=== PATIENT | female | born 1980 | race Caucasian/White ===

== ENCOUNTER 2017-11-07 04:58 | Emergency (ER) | payer SELFPAY ==
[2017-11-07] MEDS ORDERED: DOXYCYCLINE 100 MG CAP PO ONE (05:31)
[2017-11-07] MEDS ORDERED: CEPHALEXIN 250 MG CAP ONE (05:31)
[2017-11-07] MEDS ORDERED: MUPIROCIN 2% OINT 22GM TUBE TOP ONE (05:31)
--- NOTE | 2017-11-07 05:54 | EDPHYS ---
Physician Documentation [facility] Name: Mahnaz Daniel Age: 36 yrs Sex: Female : 1980 Arrival Date: 11/07/2017 Time: 05:01 Bed 4 Private MD: ED Physician Patrick Michelle HPI: 11/07 05:23 This 36 yrs old Female presents to ER via Ambulatory with complaints of Foot amanda Pain, Insect Bite, Arm Pain. 05:23 The patient presents with pain. The complaints affect the right foot. Context: The amanda problem was sustained at an unknown location. Onset: The symptoms/episode began/occurred 3 day(s) ago. Modifying factors: The symptoms are alleviated by elevation of extremity, the symptoms are aggravated by weight bearing, wearing shoes. Associated signs and symptoms: Pertinent positives: swelling. Severity of symptoms: At their worst the symptoms were mild, moderate, in the emergency department the symptoms are unchanged. The patient has experienced similar episodes in the past, a few times. 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 - Social history:: Smoking status: Patient uses tobacco products, smokes one-half pack cigarettes per day, Patient uses street drugs, cocaine, last used 3-4 days ago, Patient/guardian denies using alcohol. - Ebola Screening: : Patient negative for fever greater than or equal to 101.5 degrees Fahrenheit, and additional compatible Ebola Virus Disease symptoms Patient denies exposure to infectious person Patient denies travel to an Ebola-affected area in the 21 days before illness onset. - Family history:: not pertinent. ROS: 05:23 Constitutional: Negative for fever, chills, and weight loss, Eyes: Negative for injury, amanda pain, redness, and discharge, ENT: Negative for injury, pain, and discharge, Neck: Negative for injury, pain, and swelling, Cardiovascular: Negative for chest pain, palpitations, and edema, Respiratory: Negative for shortness of breath, cough, wheezing, and pleuritic chest pain, Abdomen/GI: Negative for abdominal pain, nausea, vomiting, diarrhea, and constipation, Back: Negative for injury and pain, : Negative for injury, bleeding, discharge, and swelling, MS/Extremity: Negative for injury and deformity, Neuro: Negative for headache, weakness, numbness, tingling, and seizure, Psych: Negative for depression, anxiety, suicide ideation, homicidal ideation, and hallucinations, Allergy/Immunology: Negative for hives, rash, and allergies, Endocrine: Negative for neck swelling, polydipsia, polyuria, polyphagia, and marked weight changes. 05:23 Skin: Positive for swelling. Exam: 05:23 Constitutional: This is a well developed, well nourished patient who is awake, alert, amanda and in no acute distress. Head/Face: Normocephalic, atraumatic. Eyes: Pupils equal round and reactive to light, extra-ocular motions intact. Lids and lashes normal. Conjunctiva and sclera are non-icteric and not injected. Cornea within normal limits. Periorbital areas with no swelling, redness, or edema. ENT: Nares patent. No nasal discharge, no septal abnormalities noted. Tympanic membranes are normal and external auditory canals are clear. Oropharynx with no redness, swelling, or masses, exudates, or evidence of obstruction, uvula midline. Mucous membranes moist. Neck: Trachea midline, no thyromegaly or masses palpated, and no cervical lymphadenopathy. Supple, full range of motion without nuchal rigidity, or vertebral point tenderness. No Meningismus. Chest/axilla: Normal chest wall appearance and motion. Nontender with no deformity. No lesions are appreciated. Cardiovascular: Regular rate and rhythm with a normal S1 and S2. No gallops, murmurs, or rubs. Normal PMI, no JVD. No pulse deficits. Respiratory: Lungs have equal breath sounds bilaterally, clear to auscultation and percussion. No rales, rhonchi or wheezes noted. No increased work of breathing, no retractions or nasal flaring. Abdomen/GI: Soft, non-tender, with normal bowel sounds. No distension or tympany. No guarding or rebound. No evidence of tenderness throughout. Back: No spinal tenderness. No costovertebral tenderness. Full range of motion. MS/ Extremity: Pulses equal, no cyanosis. Neurovascular intact. Full, normal range of motion. Neuro: Awake and alert, GCS 15, oriented to person, place, time, and situation. Cranial nerves II-XII grossly intact. Motor strength 5/5 in all extremities. Sensory grossly intact. Cerebellar exam normal. Normal gait. 05:23 Skin: Appearance: Color: erythematous, Temperature: normal temperature, Moisture: normal moisture, petechiae, not noted, ecchymosis, not noted, diaphoresis is not appreciated, cellulitis, that is mild. Vital Signs: 05:14 BP 140 / 99; Pulse 99; Resp 18; Temp 98.1(O); Pulse Ox 98% on R/A; Weight 83.91 kg (R); fc Height 5 ft. 7 in. (170.18 cm) (R); Pain 8/10; 06:00 BP 130 / 94; Pulse 91; Resp 18; Pulse Ox 99% on R/A; aa1 05:14 Body Mass Index 28.97 (83.91 kg, 170.18 cm) fc MDM: 05:08 Patient medically screened. [facility] 05:23 Data reviewed: vital signs, nurses notes. [facility] 11/07 05:49 Order name: Urine Dipstick--Ancillary (enter results) 11/07 05:49 Order name: Urine --Ancillary (enter results) 11/07 05:23 Order name: Foot Right 2 View XRAY [facility] 11/07 05:50 Order name: Urine Culture [facility] 11/07 05:50 Order name: Urine Dipstick-Ancillary EDKS 11/07 05:28 Order name: Urine Dipstick-Ancillary (obtain specimen); Complete Time: 05:47 [facility] 11/07 05:28 Order name: Urine Test (obtain specimen); Complete Time: 05:47 [facility] 11/07 05:30 Order name: Post-op shoe; Complete Time: 06:00 [facility] Administered Medications: 05:33 Drug: KeFLEX 500 mg Route: PO; aa1 06:03 Follow up: Response: No adverse reaction aa1 05:34 Drug: Bactroban Ointment 2 % 1 application Route: Topical; Site: affected area; aa1 05:35 Drug: Doxycycline 200 mg Route: PO; aa1 06:03 Follow up: Response: No adverse reaction aa1 Disposition: 11/07/17 05:53 Discharged to Home. Impression: Pain in right foot - callus, bunion, Cutaneous abscess of chest wall, Cellulitis of chest wall, Cellulitis of face, Cystitis, Cocaine abuse, Insect bite (nonvenomous) of front wall of thorax. - Condition is Stable. - Discharge Instructions: Insect Bite, [id number], Insect Bite, Cellulitis, Stimulant Use Disorder-Cocaine, Dysuria, Cellulitis, [id number], MRSA FAQs - GARCIA. - Prescriptions for Bactroban 2 % Topical Ointment - Apply to affected area 1 application by TOPICAL route every 12 hours; 30 gram. Keflex 500 mg Oral Capsule - take 1 capsule by ORAL route every 6 hours for 10 days; 28 capsule. Tylenol- Codeine #3 300-30 mg Oral Tablet - take 2 tablets by ORAL route every 6 hours As needed; 20 tablet. Doxycycline Hyclate 100 mg Oral Tablet - take 1 tablet by ORAL route every 12 hours; 20 tablet. - Medication Reconciliation Form, Thank You Letter, Antibiotic Education, Prescription Opioid Use form. - Follow up: Private Physician; When: 2 - 3 days; Reason: Recheck today's complaints, Continuance of care, Re-evaluation by your physician. - Problem is new. - Symptoms have improved. Signatures: Dispatcher [employer] EDMS Zo Crain RN RN aa1 Patrick Michelle MD MD cha Chretien, Felicia, RN RN Corrections: (The following items were deleted from the chart) 06:18 05:53 11/07/2017 05:53 Discharged to Home. Impression: Pain in right foot - callus, aa1 bunion; Cutaneous abscess of chest wall; Cellulitis of chest wall; Cellulitis of face; Cystitis; Cocaine abuse; Insect bite (nonvenomous) of front wall of thorax. Condition is Stable. Discharge Instructions: Cellulitis, Cellulitis, [id number], MRSA FAQs - GARCIA, Insect Bite, [id number]-de-[id number], Insect Bite, Stimulant Use Disorder-Cocaine. Prescriptions for Bactroban 2 % Topical Ointment - Apply to affected area 1 application by TOPICAL route every 12 hours; 30 gram, Keflex 500 mg Oral Capsule - take 1 capsule by ORAL route every 6 hours for 10 days; 40 capsule, Tylenol-Codeine #3 300-30 mg Oral Tablet - take 2 tablets by ORAL route every 6 hours As needed; 20 tablet, Doxycycline Hyclate 100 mg Oral Tablet - take 1 tablet by ORAL route every 12 hours; 20 tablet. and Forms are Medication Reconciliation Form, Thank You Letter, Antibiotic Education, Prescription Opioid Use. Follow up: Private Physician; When: 2 - 3 days; Reason: Recheck today's complaints, Continuance of care, Re-evaluation by your physician. Problem is new. Symptoms have improved. amanda
--- NOTE | 2017-11-07 05:54 | ER ---
Nurse's Notes [facility] Name: Mahnaz Daniel Age: 36 yrs Sex: Female : 1980 Arrival Date: 11/07/2017 Time: 05:01 Bed 4 Private MD: Diagnosis: Pain in right foot-callus, bunion;Cutaneous abscess of chest wall;Cellulitis of chest wall;Cellulitis of face;Cystitis;Cocaine abuse;Insect bite (nonvenomous) of front wall of thorax Presentation: 11/07 05:11 Presenting complaint: Patient states: that she has bug bites to her right "underarm" fc and chin that hurt. Also has callus to right foot that has split and hurts. Transition of care: patient was not received from another setting of care. Onset of symptoms was October 30, 2017. Risk Assessment: Do you want to hurt yourself or someone else? Patient reports no desire to harm self or others. Initial Sepsis Screen: Does the patient meet any 2 criteria? HR > 90 bpm. Yes Does the patient have a suspected source of infection? Yes: Skin breakdown/wound. Care prior to arrival: None. 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 - Social history:: Smoking status: Patient uses tobacco products, smokes one-half pack cigarettes per day, Patient uses street drugs, cocaine, last used 3-4 days ago, Patient/guardian denies using alcohol. - Ebola Screening: : Patient negative for fever greater than or equal to 101.5 degrees Fahrenheit, and additional compatible Ebola Virus Disease symptoms Patient denies exposure to infectious person Patient denies travel to an Ebola-affected area in the 21 days before illness onset. - Family history:: not pertinent. Screenin:15 Abuse screen: Denies threats or abuse. Nutritional screening: No deficits noted. Tuberculosis screening: No symptoms or risk factors identified. Fall Risk None identified. Assessment: 05:20 General: Appears in no apparent distress. comfortable, unkempt, Behavior is calm, aa1 cooperative, appropriate for age. Pain: Complains of pain in right foot and submental area. Neuro: Level of Consciousness is awake, alert, obeys commands, Oriented to person, place, time, situation, Moves all extremities. Full function Gait is steady. Respiratory: Airway is patent Respiratory effort is even, unlabored, Respiratory pattern is regular, symmetrical. GI: No signs and/or symptoms were reported involving the gastrointestinal system. : No signs and/or symptoms were reported regarding the genitourinary system. EENT: No signs and/or symptoms were reported regarding the EENT system. Derm: Skin is intact, is healthy with good turgor, has lesions on face and chin Skin is pink, warm \\T\\ dry. callus noted to bottom of R foot with cracking present. Musculoskeletal: Circulation, motion, and sensation intact. Capillary refill < 3 seconds, Range of motion: intact in all extremities. 06:04 Reassessment: Patient appears in no apparent distress at this time. Patient is alert, aa1 oriented x 3, equal unlabored respirations, skin warm/dry/pink. Discussed d/c \\T\\ f/u instructions with pt; denies questions or concerns at this time. Vital Signs: 05:14 BP 140 / 99; Pulse 99; Resp 18; Temp 98.1(O); Pulse Ox 98% on R/A; Weight 83.91 kg (R); Height 5 ft. 7 in. (170.18 cm) (R); Pain 8/10; 06:00 BP 130 / 94; Pulse 91; Resp 18; Pulse Ox 99% on R/A; aa1 05:14 Body Mass Index 28.97 (83.91 kg, 170.18 cm) ED Course: 05:01 Patient arrived in ED. al2 05:08 Patrick Michelle MD is Attending Physician. [facility] 05:14 Triage completed. 05:14 Arm band placed on Patient placed in an exam room, in a wheelchair. fc 05:15 Patient has correct armband on for positive identification. Bed in low position. Call light in reach. 05:15 No provider procedures requiring assistance completed. 05:33 Zo Crain RN is Primary Nurse. aa1 05:38 X-ray completed. Portable x-ray completed in exam room. Patient tolerated procedure kw well. 05:39 Foot Right 2 View XRAY In Process Unspecified. EDMS 06:00 Patient did not have IV access during this emergency room visit. aa1 Administered Medications: 05:33 Drug: KeFLEX 500 mg Route: PO; aa1 06:03 Follow up: Response: No adverse reaction aa1 05:34 Drug: Bactroban Ointment 2 % 1 application Route: Topical; Site: affected area; aa1 05:35 Drug: Doxycycline 200 mg Route: PO; aa1 06:03 Follow up: Response: No adverse reaction aa1 Outcome: 05:53 Discharge ordered by . amanda 06:00 Discharged to home ambulatory. aa1 06:00 Condition: good 06:00 Discharge instructions given to patient, Instructed on discharge instructions, follow up and referral plans. medication usage, Demonstrated understanding of instructions, follow-up care, medications. 06:18 Patient left the ED. aa1 Addendum: 11/11/2017 11:49 Addendum: Culture Results: Phone call Attempt #1 at [id number], unable to leave voicemail. a a5 14:14 Addendum: Culture Results: Phone call Attempt #2 at [id number]. a a5 Signatures: Dispatcher [employer] EDID Zo Crain RN RN aa1 Patrick Michelle MD MD cha Chretien, Felicia, RN RN fc Calderon, Audri, RN RN aa5 Yue Neves Angelica al2
[2017-11-07 06:12] LABS: Urine Blood NEGATIVE (NEG); Urine Glucose NEGATIVE (NEG); Urine Protein TRACE (NEG); Urine Specific Gravity >1.030 (1.005-1.030); Urine pH 5.5 (5.0-7.0)
--- NOTE | 2017-11-07 08:28 | RAD REPORT ---
EXAM DESCRIPTION: RAD - Foot Right 2 View - 11/07/2017 5:41 am CLINICAL HISTORY: Right foot pain FINDINGS: No fracture or dislocation is seen. Hallux valgus deformity is seen. Soft tissue swelling is present about the first MTP joint. No bony destructive lesion is noted.
== END 2017-11-07 06:18 | disposition home or self-care (01) ==
LOC: ER 04:58
DX: L84 Corns and callosities (principal); M21.611 Bunion of right foot; L02.213 Cutaneous abscess of chest wall; L03.313 Cellulitis of chest wall; L03.211 Cellulitis of face; N30.90 Cystitis, unspecified without hematuria; F14.10 Cocaine abuse, uncomplicated; S20.369A Insect bite (nonvenomous) of unspecified front wall of thorax, initial encounter; K74.60 Unspecified cirrhosis of liver; B19.9 Unspecified viral hepatitis without hepatic coma; F17.210 Nicotine dependence, cigarettes, uncomplicated; Z88.3 Allergy status to other anti-infective agents
CPT/HCPCS: 81003; 81025; 87077; 87086; 87088; 87186; 99283

== ENCOUNTER 2018-01-11 13:18 | Emergency (ER) | payer SELFPAY ==
[2018-01-11 14:32] LABS: Urine Blood NEGATIVE (NEG); Urine Glucose NEGATIVE (NEG); Urine Protein NEGATIVE (NEG); Urine Specific Gravity >1.030 (1.005-1.030); Urine pH 6.5 (5.0-7.0)
--- NOTE | 2018-01-11 14:35 | EDPHYS ---
Physician Documentation [facility] Name: Mahnaz Daniel Age: 37 yrs Sex: Female : 1980 Arrival Date: 01/11/2018 Time: 13:21 Bed 28 Private MD: ED Physician Angie Tavares HPI: 01/11 14:08 This 37 yrs old Female presents to ER via Ambulatory with complaints of cp "Parasites". 14:08 Patient reports sensation of "bugs" crawling and coming out of skin all over today. cp Patient reports use of methamphetamine and cocaine yesterday. Patient concerned about parasitic infection. 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 - Social history:: Smoking status: Patient uses tobacco products, smokes one-half pack cigarettes per day, Patient uses street drugs, cocaine, Methamphetamine (Meth). - Ebola Screening: : No symptoms or risks identified at this time. ROS: 14:11 Constitutional: Negative for fever. cp 14:11 Cardiovascular: Negative for chest pain. 14:11 Respiratory: Negative for cough, shortness of breath, wheezing. 14:11 Abdomen/GI: Negative for abdominal pain, nausea, vomiting, and diarrhea. 14:11 Back: Positive for pain at rest, of the mid back area. 14:11 Skin: Positive for diffusely, sensation of "bugs on skin". 14:11 Psych: Positive for drug dependence, visual hallucinations. 14:11 All other systems are negative. Exam: 14:15 Constitutional: The patient appears in no acute distress, alert, awake, non-toxic, well cp developed, well nourished, anxious. 14:15 Head/face: Noted is multiple old scabbed over wounds. cp 14:15 Eyes: Periorbital structures: appear normal, Pupils: equal, round, and reactive to light and accomodation, Extraocular movements: intact throughout, Conjunctiva: normal, no exudate, no injection, Lids and lashes: appear normal, bilaterally. 14:15 ENT: External ear(s): cellulitis, of the left ear lobe, mild, Ear canal(s): are normal, clear, TM's: dullness, bilaterally, Nose: is normal, Mouth: is normal, Posterior pharynx: is normal, airway is patent, no erythema, no exudate, Voice: is normal. 14:15 Neck: ROM/movement: is normal, is supple, without pain, no range of motions limitations, no nuchal rigidity. 14:15 Chest/axilla: Inspection: normal, Palpation: is normal, no crepitus, no tenderness. 14:15 Cardiovascular: Rate: normal, Rhythm: regular. 14:15 Respiratory: the patient does not display signs of respiratory distress, Respirations: normal, no use of accessory muscles, no retractions, no splinting, no tachypnea, labored breathing, is not present, Breath sounds: are clear throughout, no decreased breath sounds, no stridor, no wheezing. 14:15 Abdomen/GI: Exam negative for discomfort, distension, guarding, Inspection: abdomen appears normal. 14:15 Skin: no rash present. 14:15 Neuro: Orientation: to person, place \\T\\ time. Mentation: lucid, able to follow commands, Motor: moves all fours, strength is normal, Sensation: no obvious gross deficits. 14:15 Psych: Behavior/mood is cooperative, Affect is animated, Patient has no thoughts/intents to harm self or others. Vital Signs: 13:24 BP 146 / 108; Pulse 99; Resp 18; Temp 97; Pulse Ox 98% ; Weight 86.18 kg; Height 5 ft. sv 7 in. (170.18 cm); 14:46 BP 127 / 98; Pulse 84; Resp 18; Pulse Ox 99% on R/A; tl3 13:24 Body Mass Index 29.76 (86.18 kg, 170.18 cm) sv MDM: 13:31 Patient medically screened. cp 14:30 Differential diagnosis: abscess, cellulitis, insect bite. cp 14:32 Data reviewed: vital signs, nurses notes, and as a result, I will discharge patient. 01/11 14:29 Order name: Urine Dipstick--Ancillary (enter results) 01/11 13:49 Order name: Urine Test (obtain specimen); Complete Time: 14:30 01/11 13:49 Order name: Urine Dipstick-Ancillary (obtain specimen); Complete Time: 14:30 01/11 14:29 Order name: Urine --Ancillary (enter results) eb Administered Medications: No medications were administered Disposition: 15:20 Chart complete. 18:48 Co-signature as Attending Physician, Elva Black RN. Co-signature as Attending ma2 Physician, Angie Tavares MD. Disposition: 01/11/18 14:34 Discharged to Home. Impression: Cellulitis of left external ear, Adverse effect of other drugs, medicaments and biological substances. - Condition is Stable. - Discharge Instructions: Cellulitis, Adult. - Prescriptions for Augmentin 875- 125 mg Oral Tablet - take 1 tablet by ORAL route every 12 hours for 10 days; 20 tablet. - Medication Reconciliation Form, Thank You Letter, Antibiotic Education, Prescription Opioid Use form. - Follow up: Private Physician; When: 1 - 2 days; Reason: Recheck today's complaints. - Problem is new. - Symptoms are unchanged. Signatures: Dispatcher [employer] Nisha Charles RN RN Patrick Conteh, BRITTANY SOTO Angie Tavares MD MD ma2 Lowrey, Tammy, RN RN tl3 Corrections: (The following items were deleted from the chart) 15:00 14:34 01/11/2018 14:34 Discharged to Home. Impression: Cellulitis of left external ear; tl3 Adverse effect of other drugs, medicaments and biological substances. Condition is Stable. Forms are Medication Reconciliation Form, Thank You Letter, Antibiotic Education, Prescription Opioid Use. Follow up: Private Physician; When: 1 - 2 days; Reason: Recheck today's complaints. Problem is new. Symptoms are unchanged. cp
--- NOTE | 2018-01-11 14:35 | ER ---
Nurse's Notes [facility] Name: Mahnaz Daniel Age: 37 yrs Sex: Female : 1980 Arrival Date: 01/11/2018 Time: 13:21 Bed 28 Private MD: Diagnosis: Cellulitis of left external ear;Adverse effect of other drugs, medicaments and biological substances Presentation: 01/11 13:22 Presenting complaint: Patient states: "I feel like I have bugs in my mouth, teeth, sv feet, arms, ear." Pt reports using crack and crystal meth. Transition of care: patient was not received from another setting of care. Onset of symptoms is unknown. Care prior to arrival: None. 13:22 Method Of Arrival: Ambulatory sv 13:22 Acuity: SIMEON 4 sv 14:59 Risk Assessment: Do you want to hurt yourself or someone else? Patient reports no tl3 desire to harm self or others. Initial Sepsis Screen: Does the patient meet any 2 criteria? No. Patient's initial sepsis screen is negative. Does the patient have a suspected source of infection? No. Patient's initial sepsis screen is negative. 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 - Social history:: Smoking status: Patient uses tobacco products, smokes one-half pack cigarettes per day, Patient uses street drugs, cocaine, Methamphetamine (Meth). - Ebola Screening: : No symptoms or risks identified at this time. Screenin:44 Abuse screen: Denies threats or abuse. Nutritional screening: No deficits noted. tl3 Tuberculosis screening: No symptoms or risk factors identified. Fall Risk None identified. Assessment: 13:44 General: Appears uncomfortable, unkempt, Behavior is cooperative, anxious, crying. tl3 Pain: Complains of pain in left low back and left mid back Pain currently is 7 out of 10 on a pain scale. Neuro: Level of Consciousness is awake, alert, obeys commands, Oriented to person, place, time, situation, Appropriate for age. Cardiovascular: Heart tones S1 S2 present Patient's skin is warm and dry. Respiratory: Airway is patent Respiratory effort is even, unlabored, Respiratory pattern is regular, symmetrical, Breath sounds are clear bilaterally. GI: No signs and/or symptoms were reported involving the gastrointestinal system. : No signs and/or symptoms were reported regarding the genitourinary system. Urine is clear. EENT: Tympanic membrane clear on right ear and left ear Ear canal clear on right ear and left ear Pinna ear lobe on left with lesion, oozing yellowish fluid. Oral mucosa is moist. Dental caries noted in upper right cuspid (#6), upper right lateral incisor (#7), upper right central Incisor (#8) and upper left central incisor (#9) no lesions or abnormalities noted. Derm: Skin is intact, Reports itching, feeling like parasites are inside her. Musculoskeletal: No signs and/or symptoms reported regarding the musculoskeletal system. 14:46 Reassessment: Patient appears in no apparent distress at this time. No changes from tl3 previously documented assessment. Patient and/or family updated on plan of care and expected duration. Pain level reassessed. Patient is alert, oriented x 3, equal unlabored respirations, skin warm/dry/pink. Vital Signs: 13:24 BP 146 / 108; Pulse 99; Resp 18; Temp 97; Pulse Ox 98% ; Weight 86.18 kg; Height 5 ft. sv 7 in. (170.18 cm); 14:46 BP 127 / 98; Pulse 84; Resp 18; Pulse Ox 99% on R/A; tl3 13:24 Body Mass Index 29.76 (86.18 kg, 170.18 cm) sv ED Course: 13:21 Patient arrived in ED. sb2 13:23 Triage completed. sv 13:24 Arm band placed on left wrist. sv 13:31 Patrick Craven PA is PHCP. cp 13:31 Angie Tavares MD is Attending Physician. cp 13:36 Elva Black, MITZI is Primary Nurse. tl3 13:44 Patient has correct armband on for positive identification. Bed in low position. Call tl3 light in reach. Side rails up X 1. Pulse ox on. NIBP on. Warm blanket given. 13:44 No provider procedures requiring assistance completed. tl3 14:46 Patient did not have IV access during this emergency room visit. tl3 Administered Medications: No medications were administered Outcome: 14:34 Discharge ordered by . maria teresa 14:46 Discharged to home ambulatory. tl3 14:46 Condition: stable 14:46 Discharge instructions given to patient, Instructed on discharge instructions, follow up and referral plans. medication usage, Demonstrated understanding of instructions, follow-up care, medications, Prescriptions given X 1. 15:00 Patient left the ED. tl3 Signatures: Nisha Tirado RN RN sv Patrick Craven PA PA cp Billeau, Sheri sb2 Elva Black RN RN tl3 Corrections: (The following items were deleted from the chart) 13:24 13:24 86.18 kg; Height 5 ft. 7 in.; BMI: 29.7; sv sv 13:25 13:24 Pulse Ox 98%; Temp 97F; 86.18 kg; Height 5 ft. 7 in.; BMI: 29.7; sv sv
== END 2018-01-11 15:00 | disposition home or self-care (01) ==
LOC: ER 13:18
DX: H60.12 Cellulitis of left external ear (principal); F17.210 Nicotine dependence, cigarettes, uncomplicated; Z88.1 Allergy status to other antibiotic agents
CPT/HCPCS: 81003; 81025; 99283

== ENCOUNTER 2018-02-15 22:03 | Emergency (ER) | payer SELFPAY ==
[2018-02-15 22:55] LABS: Urine Blood NEGATIVE (NEG); Urine Glucose NEGATIVE (NEG); Urine Protein NEGATIVE (NEG)
[2018-02-15 23:21] LABS: Urine Bacteria >50 /HPF (<20); Urine Culture Reflex Order NOT NEEDED; Urine RBC <5 /HPF (NONE SEEN)
[2018-02-15 23:41] LABS: Absolute Lymphocytes (CBC) 2.5 K/uL (0.7-4.9); Absolute Monocytes 0.6 K/uL (0.1-1.3); Absolute Neutrophil 4.4 K/uL (1.8-8.0); Basophils % 0.2 % (0-1.3); Eosinophils % 1.4 % (0-4.4); Hematocrit 41.9 % (36.0-45.0); Lymphocytes % 32.7 % (15.3-44.8); MCH 31.1 pg (27.0-35.0); MCV 90.1 fL (80-100); MPV 9.9 fL (7.6-11.3); Monocytes % 8.1 % (3.3-12.3); RBC Red Blood Cell Count 4.65 M/uL (3.86-4.86)
[2018-02-15 23:43] LABS: Protime INR 0.97
[2018-02-15] MEDS ORDERED: Levofloxacin500mg IV 500 MG/100 ML BAG IV ONE (23:43)
[2018-02-15] MEDS ORDERED: NA CHLORIDE 0.9% 1,000 ML ONE (23:43)
[2018-02-16 00:06] LABS: ALT/SGPT 54 U/L (12-78); AST/SGOT 38 U/L (15-37); Albumin 3.5 g/dL (3.4-5.0); Alkaline Phosphatase 100 U/L (45-117); BUN Blood Urea Nitrogen 15 mg/dL (7-18); Bicarbonate 27 mmol/L (21-32); Bilirubin Direct 0.2 mg/dL (0-0.2); Bilirubin Total 0.5 mg/dL (0.2-1.0); Glucose Level 81 mg/dL (74-106); NT PRO-BNP 25 pg/mL (<125); Potassium 3.5 mmol/L (3.5-5.1); Protein, Total 7.4 g/dL (6.4-8.2); Sodium Level 140 mmol/L (136-145); Troponin (Emerg Dept Use Only) < 0.02 ng/mL (0.0-0.045)
--- NOTE | 2018-02-16 00:18 | EDPHYS ---
Physician Documentation [facility] Name: Mahnaz Daniel Age: 37 yrs Sex: Female : 1980 Arrival Date: 02/15/2018 Time: 22:04 Bed 15 Private MD: ED Physician Patrick Michelle HPI: 02/16 00:08 This 37 yrs old Female presents to ER via Ambulatory with complaints of amanda Urinary Problem, Foot Pain. 00:08 The patient presents with pain. amanda Historical: - Allergies: 02/15 22:37 Bactrim DS; fc - Home Meds: 22:37 None [Active]; fc - PMHx: 22:37 Cirrhosis; Hepatitis; fc - PSHx: 22:37 ; fc - Immunization history:: Last tetanus immunization: unknown, Flu vaccine is not up to date. - Social history:: Smoking status: Patient uses tobacco products, smokes one-half pack cigarettes per day, Patient uses street drugs, cocaine. - Ebola Screening: : Patient negative for fever greater than or equal to 101.5 degrees Fahrenheit, and additional compatible Ebola Virus Disease symptoms Patient denies exposure to infectious person Patient denies travel to an Ebola-affected area in the 21 days before illness onset. ROS: 02/16 00:10 Constitutional: Negative for fever, chills, and weight loss, Eyes: Negative for injury, amanda pain, redness, and discharge, ENT: Negative for injury, pain, and discharge, Neck: Negative for injury, pain, and swelling, Cardiovascular: Negative for chest pain, palpitations, and edema, Respiratory: Negative for shortness of breath, cough, wheezing, and pleuritic chest pain, Abdomen/GI: Negative for abdominal pain, nausea, vomiting, diarrhea, and constipation, MS/Extremity: Negative for injury and deformity, Skin: Negative for injury, rash, and discoloration, Neuro: Negative for headache, weakness, numbness, tingling, and seizure, Psych: Negative for depression, anxiety, suicide ideation, homicidal ideation, and hallucinations, Allergy/Immunology: Negative for hives, rash, and allergies, Endocrine: Negative for neck swelling, polydipsia, polyuria, polyphagia, and marked weight changes, Hematologic/Lymphatic: Negative for swollen nodes, abnormal bleeding, and unusual bruising. Back: Positive for pain at rest, flank pain, bilaterally. MS/extremity: Positive for pain, of the right foot. Exam: 00:10 Constitutional: This is a well developed, well nourished patient who is awake, alert, amanda and in no acute distress. Head/Face: Normocephalic, atraumatic. Eyes: Pupils equal round and reactive to light, extra-ocular motions intact. Lids and lashes normal. Conjunctiva and sclera are non-icteric and not injected. Cornea within normal limits. Periorbital areas with no swelling, redness, or edema. ENT: Nares patent. No nasal discharge, no septal abnormalities noted. Tympanic membranes are normal and external auditory canals are clear. Oropharynx with no redness, swelling, or masses, exudates, or evidence of obstruction, uvula midline. Mucous membranes moist. Neck: Trachea midline, no thyromegaly or masses palpated, and no cervical lymphadenopathy. Supple, full range of motion without nuchal rigidity, or vertebral point tenderness. No Meningismus. Chest/axilla: Normal chest wall appearance and motion. Nontender with no deformity. No lesions are appreciated. Cardiovascular: Regular rate and rhythm with a normal S1 and S2. No gallops, murmurs, or rubs. Normal PMI, no JVD. No pulse deficits. Respiratory: Lungs have equal breath sounds bilaterally, clear to auscultation and percussion. No rales, rhonchi or wheezes noted. No increased work of breathing, no retractions or nasal flaring. Abdomen/GI: Soft, non-tender, with normal bowel sounds. No distension or tympany. No guarding or rebound. No evidence of tenderness throughout. Back: No spinal tenderness. No costovertebral tenderness. Full range of motion. Skin: Warm, dry with normal turgor. Normal color with no rashes, no lesions, and no evidence of cellulitis. MS/ Extremity: Pulses equal, no cyanosis. Neurovascular intact. Full, normal range of motion. Neuro: Awake and alert, GCS 15, oriented to person, place, time, and situation. Cranial nerves II-XII grossly intact. Motor strength 5/5 in all extremities. Sensory grossly intact. Cerebellar exam normal. Normal gait. Psych: Awake, alert, with orientation to person, place and time. Behavior, mood, and affect are within normal limits. Vital Signs: 02/15 22:20 BP 136 / 92; Pulse 104; Resp 18; Temp 97.5(O); Pulse Ox 99% on R/A; Weight 79.38 kg fc (R); Height 5 ft. 7 in. (170.18 cm) (R); Pain 8/10; 23:49 BP 122 / 90; Pulse 102; Resp 20; Pulse Ox 98% on R/A; fc 02/16 00:22 BP 113 / 79; Pulse 100; Resp 20; Pulse Ox 99% on R/A; fc 01:00 BP 113 / 79; Pulse 88; Resp 18; Pulse Ox 100% ; ea 02:00 BP 109 / 73; Pulse 98; Resp 18; Pulse Ox 100% on R/A; ea 02/15 22:20 Body Mass Index 27.41 (79.38 kg, 170.18 cm) MDM: 02/15 22:54 Patient medically screened. [facility] 02/16 00:19 Data reviewed: vital signs, nurses notes, lab test result(s), EKG, radiologic studies, [facility] CT scan, plain films. 02/15 22:51 Order name: Urine Dipstick--Ancillary (enter results); Complete Time: 22:57 ms 02/15 22:51 Order name: Urine --Ancillary (enter results); Complete Time: 22:57 ms 02/15 22:51 Order name: Urine Microscopic Only; Complete Time: 00:15 ms 02/15 22:51 Order name: Urine Culture sd 02/15 22:55 Order name: Basic Metabolic Panel; Complete Time: 00:15 [facility] 02/15 22:55 Order name: CBC with Diff; Complete Time: 00:15 [facility] 02/15 22:55 Order name: LFT's; Complete Time: 00:15 [facility] 02/15 22:55 Order name: Magnesium; Complete Time: 00:15 [facility] 02/15 22:55 Order name: NT PRO-BNP; Complete Time: 00:15 [facility] 02/15 22:55 Order name: PT-INR; Complete Time: 00:15 [facility] 02/15 22:55 Order name: Troponin (emerg Dept Use Only); Complete Time: 00:15 [facility] 02/15 22:55 Order name: XRAY Chest (1 view) [facility] 02/15 22:55 Order name: AMMONIA; Complete Time: 00:15 [facility] 02/15 23:52 Order name: UDS; Complete Time: 01:31 [facility] 02/15 22:55 Order name: EKG; Complete Time: 22:56 [facility] 02/15 22:55 Order name: Cardiac monitoring; Complete Time: 23:48 [facility] 02/15 22:55 Order name: EKG - Nurse/Tech; Complete Time: 23:48 [facility] 02/15 22:55 Order name: IV Saline Lock; Complete Time: 23:48 [facility] 02/15 22:55 Order name: Labs collected and sent; Complete Time: 23:48 [facility] 02/15 22:55 Order name: O2 Per Protocol; Complete Time: 23:48 [facility] 02/15 22:55 Order name: O2 Sat Monitoring; Complete Time: 23:48 [facility] 02/15 22:55 Order name: CT Stone Protocol [facility] 02/16 01:32 Order name: Foot Right 3 View XRAY bb Administered Medications: 02/15 23:35 Drug: NS 0.9% 1000 ml Route: IV; Rate: 75 ml/hr; Site: right antecubital; 02/16 02:17 Follow up: Response: No adverse reaction; IV Status: Completed infusion; IV Intake: ea 200ml 02/15 23:35 Drug: levofloxacin 500 mg Volume: 100 ml; Route: IVPB; Infused Over: 60 mins; Site: right antecubital; 02/16 01:12 Follow up: Response: No adverse reaction; No change in condition; IV Status: Completed infusion; IV Intake: 100ml Disposition: 02/16/18 00:18 Discharged to Home. Impression: Urinary tract infection, site not specified, Cocaine abuse, Abuse of non-psychoactive substances, Unspecified cirrhosis of liver, Adverse effect of amphetamines, Pain in right foot. - Condition is Stable. - Discharge Instructions: Dysuria, Substance Use Disorder, Urinary Tract Infection, Adult, Urinary Tract Infection, Adult, [id number], Stimulant Use Disorder-Methamphetamines, Foot Pain. - Prescriptions for Levaquin 500 mg Oral Tablet - take 1 tablet by ORAL route once daily for 7 days; 7 tablet. - Medication Reconciliation Form, Thank You Letter, Antibiotic Education, Prescription Opioid Use form. - Follow up: Private Physician; When: 2 - 3 days; Reason: Recheck today's complaints, Continuance of care, Re-evaluation by your physician. Follow up: Kimberlee Tipton MD; When: 2 - 3 days; Reason: Recheck today's complaints, Continuance of care, Re-evaluation by your physician. Follow up: Darrell Arauz DPM; When: 2 - 3 days; Reason: Recheck today's complaints, Re-evaluation by your physician. - Problem is new. - Symptoms have improved. Signatures: Dispatcher [employer] EDMS Patrick Michelle MD MD cha Chretien, Felicia, RN RN fc Antunez, Elena, RN RN ea Corrections: (The following items were deleted from the chart) 01:34 00:18 02/16/2018 00:18 Discharged to Home. Impression: Urinary tract infection, site amanda not specified; Cocaine abuse; Abuse of non-psychoactive substances; Unspecified cirrhosis of liver. Condition is Stable. Forms are Medication Reconciliation Form, Thank You Letter, Antibiotic Education, Prescription Opioid Use. Follow up: Private Physician; When: 2 - 3 days; Reason: Recheck today's complaints, Continuance of care, Re-evaluation by your physician. Follow up: Kimberlee Tipton; When: 2 - 3 days; Reason: Recheck today's complaints, Continuance of care, Re-evaluation by your physician. Problem is new. Symptoms have improved. amanda 01:35 01:34 02/16/2018 00:18 Discharged to Home. Impression: Urinary tract infection, site amanda not specified; Cocaine abuse; Abuse of non-psychoactive substances; Unspecified cirrhosis of liver; Adverse effect of amphetamines. Condition is Stable. Discharge Instructions: Dysuria, Substance Use Disorder, Urinary Tract Infection, Adult, Urinary Tract Infection, Adult, [id number], Stimulant Use Disorder-Methamphetamines. Prescriptions for Levaquin 500 mg Oral Tablet - take 1 tablet by ORAL route once daily for 7 days; 7 tablet. and Forms are Medication Reconciliation Form, Thank You Letter, Antibiotic Education, Prescription Opioid Use. Follow up: Private Physician; When: 2 - 3 days; Reason: Recheck today's complaints, Continuance of care, Re-evaluation by your physician. Follow up: Kimberlee Tipton; When: 2 - 3 days; Reason: Recheck today's complaints, Continuance of care, Re-evaluation by your physician. Follow up: Dr. Darrell Arauz; When: 2 - 3 days; Reason: Recheck today's complaints, Re-evaluation by your physician. Problem is new. Symptoms have improved. [facility] 02:17 01:35 02/16/2018 00:18 Discharged to Home. Impression: Urinary tract infection, site ea not specified; Cocaine abuse; Abuse of non-psychoactive substances; Unspecified cirrhosis of liver; Adverse effect of amphetamines; Pain in right foot. Condition is Stable. Discharge Instructions: Dysuria, Substance Use Disorder, Urinary Tract Infection, Adult, Urinary Tract Infection, Adult, [id number], Stimulant Use Disorder-Methamphetamines. Prescriptions for Levaquin 500 mg Oral Tablet - take 1 tablet by ORAL route once daily for 7 days; 7 tablet. and Forms are Medication Reconciliation Form, Thank You Letter, Antibiotic Education, Prescription Opioid Use. Follow up: Private Physician; When: 2 - 3 days; Reason: Recheck today's complaints, Continuance of care, Re-evaluation by your physician. Follow up: Kimberlee Tipton; When: 2 - 3 days; Reason: Recheck today's complaints, Continuance of care, Re-evaluation by your physician. Follow up: Dr. Darrell Arauz; When: 2 - 3 days; Reason: Recheck today's complaints, Re-evaluation by your physician. Problem is new. Symptoms have improved. [facility]
--- NOTE | 2018-02-16 00:18 | ER ---
Nurse's Notes [facility] Name: Mahnaz Daniel Age: 37 yrs Sex: Female : 1980 Arrival Date: 02/15/2018 Time: 22:04 Bed 15 Private MD: Diagnosis: Urinary tract infection, site not specified;Cocaine abuse;Abuse of non-psychoactive substances;Unspecified cirrhosis of liver;Adverse effect of amphetamines;Pain in right foot Presentation: 02/15 22:20 Presenting complaint: Patient states: that she was here one plus months ago with UTI, fc was sent a letter to change her antibiotics but never did. Now having increased back pain and it is worse with urination. Also having right great toe (outer side) pain and its red and warm. Transition of care: patient was not received from another setting of care. Onset of symptoms was December 2017. Risk Assessment: Do you want to hurt yourself or someone else? Patient reports no desire to harm self or others. Initial Sepsis Screen: Does the patient meet any 2 criteria? HR > 90 bpm. Yes Does the patient have a suspected source of infection? Yes: Dysuria/Frequency/Urgency/UTI If YES to both, name of provider notified: Patrick Michelle MD. Care prior to arrival: None. 22:20 Method Of Arrival: Ambulatory fc 22:20 Acuity: SIMEON 3 fc Triage Assessment: 22:20 General: Appears uncomfortable, obese, unkempt, Behavior is cooperative, appropriate fc for age, anxious. Pain: Complains of pain in back and right foot Pain currently is 8 out of 10 on a pain scale. Quality of pain is described as aching, dull, throbbing, Pain began 1 month ago Is continuous. EENT: No deficits noted. Neuro: Level of Consciousness is awake, alert, obeys commands, Oriented to person, place, time, situation. Cardiovascular: No deficits noted. Respiratory: No deficits noted. GI: No deficits noted. : Reports burning with urination, pain in bilateral in lower back with urination, urinary frequency. Derm: Skin is pink, warm \T\ dry. Musculoskeletal: Circulation, motion, and sensation intact. Capillary refill < 3 seconds, Range of motion: intact in all extremities, Reports pain in right foot. Historical: - Allergies: 22:37 Bactrim DS; fc - Home Meds: 22:37 None [Active]; fc - PMHx: 22:37 Cirrhosis; Hepatitis; fc - PSHx: 22:37 ; fc - Immunization history:: Last tetanus immunization: unknown, Flu vaccine is not up to date. - Social history:: Smoking status: Patient uses tobacco products, smokes one-half pack cigarettes per day, Patient uses street drugs, cocaine. - Ebola Screening: : Patient negative for fever greater than or equal to 101.5 degrees Fahrenheit, and additional compatible Ebola Virus Disease symptoms Patient denies exposure to infectious person Patient denies travel to an Ebola-affected area in the 21 days before illness onset. Screenin:37 Abuse screen: Denies threats or abuse. Nutritional screening: No deficits noted. fc Tuberculosis screening: No symptoms or risk factors identified. Fall Risk None identified. Assessment: 22:37 Reassessment: No changes from previously documented assessment. Patient and/or family fc updated on plan of care and expected duration. Pain level reassessed. Patient is alert, oriented x 3, equal unlabored respirations, skin warm/dry/pink. see triage assessment. 23:00 Reassessment: Pt stating that she has white worms crawling out of her skin and she fc see's them in the air. States that her daughter and dog see them too. 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 Denies that it is from the drugs that she uses because her daughter see them too and they do not do the same type of drugs. States that no one believes her and she just wants someone to listen to her. Dr Michelle notified of what pt thinks she has. 23:30 Reassessment: No changes from previously documented assessment. Patient and/or family fc updated on plan of care and expected duration. Pain level reassessed. Patient is alert, oriented x 3, equal unlabored respirations, skin warm/dry/pink. 23:51 Reassessment: No changes from previously documented assessment. Patient and/or family fc updated on plan of care and expected duration. Pain level reassessed. Patient is alert, oriented x 3, equal unlabored respirations, skin warm/dry/pink. all testing done and medications started. 02/16 00:10 Reassessment: Pt upset, states that she is going to go smoke. Explained that she cannot fc go outside with her iv in. Pt states that we cannot stop her that she is going and will be back in a minute. 00:24 Reassessment: Pt has returned and is in room. IV fluids reconnected and pt reconnected fc to monitor. 00:45 Reassessment: Pt gone to CT Scan via wheelchair. 01:30 Reassessment: Patient and/or family updated on plan of care and expected duration. Pain ea level reassessed. Patient is alert, oriented x 3, equal unlabored respirations, skin warm/dry/pink. 02:12 Reassessment: Patient and/or family updated on plan of care and expected duration. Pain ea level reassessed. Patient is alert, oriented x 3, equal unlabored respirations, skin warm/dry/pink. Discharge instructions given to patient, verbalized the understanding of instruction. Vital Signs: 02/15 22:20 BP 136 / 92; Pulse 104; Resp 18; Temp 97.5(O); Pulse Ox 99% on R/A; Weight 79.38 kg (R); Height 5 ft. 7 in. (170.18 cm) (R); Pain 8/10; 23:49 BP 122 / 90; Pulse 102; Resp 20; Pulse Ox 98% on R/A; fc 02/16 00:22 BP 113 / 79; Pulse 100; Resp 20; Pulse Ox 99% on R/A; fc 01:00 BP 113 / 79; Pulse 88; Resp 18; Pulse Ox 100% ; ea 02:00 BP 109 / 73; Pulse 98; Resp 18; Pulse Ox 100% on R/A; ea 02/15 22:20 Body Mass Index 27.41 (79.38 kg, 170.18 cm) ED Course: 02/15 22:04 Patient arrived in ED. am2 22:20 Arm band placed on Patient placed in an exam room, on a stretcher. 22:34 Triage completed. 22:37 Patient has correct armband on for positive identification. Bed in low position. Call light in reach. 22:37 No provider procedures requiring assistance completed. 22:54 Patrick Michelle MD is Attending Physician. [facility] 23:30 Initial lab(s) drawn, by ak, sent to lab. Inserted saline lock: 20 gauge in right antecubital area, using aseptic technique. Blood collected. 23:34 XRAY Chest (1 view) In Process Unspecified. EDMS 02/16 00:17 Kimberlee Tipton MD is Referral Physician. [facility] 00:52 CT Stone Protocol In Process Unspecified. EDMS 01:34 Darrell Arauz DPM is Referral Physician. amanda 01:45 CT completed. Patient tolerated procedure well. Patient moved to CT via wheelchair. mw3 Patient moved back from CT. 02:08 X-ray completed. Portable x-ray completed in exam room. Patient tolerated procedure kw well. 02:09 Foot Right 3 View XRAY In Process Unspecified. EDMS 02:14 IV discontinued, intact, bleeding controlled, No redness/swelling at site. Pressure ea dressing applied. Administered Medications: 02/15 23:35 Drug: NS 0.9% 1000 ml Route: IV; Rate: 75 ml/hr; Site: right antecubital; 02/16 02:17 Follow up: Response: No adverse reaction; IV Status: Completed infusion; IV Intake: ea 200ml 02/15 23:35 Drug: levofloxacin 500 mg Volume: 100 ml; Route: IVPB; Infused Over: 60 mins; Site: right antecubital; 02/16 01:12 Follow up: Response: No adverse reaction; No change in condition; IV Status: Completed fc infusion; IV Intake: 100ml Intake: 01:12 IV: 100ml; Total: 100ml. 02:17 IV: 200ml; Total: 300ml. ea Outcome: 00:18 Discharge ordered by . [facility] 02:13 Discharged to home ambulatory, with significant other. ea 02:13 Condition: improved 02:13 Discharge instructions given to patient, Instructed on discharge instructions, follow up and referral plans. medication usage, Demonstrated understanding of instructions, follow-up care, medications, Prescriptions given X 1. 02:17 Patient left the ED. ea Addendum: 02/19/2018 07:23 Addendum: Culture Results: Positive urine culture. No further action required. Bacteria s s sensitive to prescribed antibiotic. Signatures: Dispatcher [employer] EDMS Patrick Michelle MD MD cha Chretien, Felicia, RN RN fc Smirch, Shelby, RN RN Yue Neves Amanda am2 Sandra Forrest RN RN ea Willis, Michelle mw3
[2018-02-16 00:25] LABS: Barbiturates NEGATIVE (NEGATIVE); Benzodiazepines NEGATIVE (NEGATIVE); Cocaine POSITIVE (NEGATIVE); METHAMPHETAM POSITIVE (NEGATIVE); Methadone NEGATIVE (NEGATIVE); Opiates NEGATIVE (NEGATIVE); Phencyclidine NEGATIVE (NEGATIVE); THC Cannibis NEGATIVE (NEGATIVE)
--- NOTE | 2018-02-16 08:09 | RAD REPORT ---
EXAM DESCRIPTION: RAD - Chest Single View - 02/15/2018 11:34 pm CLINICAL HISTORY: Cough and congestion COMPARISON: June 2016 TECHNIQUE: AP portable chest image was obtained 2320 hours . FINDINGS: Lungs are clear. Heart and vasculature are normal. No measurable pleural effusion and no p neumothorax. No acute bony abnormality seen. No acute aortic findings suspected. IMPRESSION: No acute cardiopulmonary process. No significant interval change.
--- NOTE | 2018-02-16 08:27 | RAD REPORT ---
EXAM DESCRIPTION: RAD - Foot Right 3 View - 02/16/2018 2:09 am CLINICAL HISTORY: Right first toe nontraumatic pain COMPARISON: November 07 FINDINGS: Patient localizes pain to the proximal phalanx first toe region. Similar pain pattern note d in October. Patient has a prominent bunion deformity with valgus angulation. No fracture or acute bone process at this site. Mild joint space narrowing at the first MTP joint. No air or foreign body in t he soft tissues of the first toe. No abnormal calcifications. Second- fifth toes and metatarsals also without acute finding. IMPRESSION: Negative right foot examination for acute findings. The hallux valgus configuration at the first MTP joint is stable.
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
--- NOTE | 2018-02-17 06:54 | EKG ---
Test Date: 2018-02-15 Test Time: 23:13:36 Patch Worker: MARTÍN MEASUREMENT RESULTS: Intervals: Rate: 94 WA: 124 QRSD: 90 QT: 354 QTc: 442 [place]: P: 66 WA: 124 QRS: 74 T: 51 INTERPRETIVE STATEMENTS: Normal sinus rhythm Low voltage QRS Borderline ECG No previous ECG available for comparison Electronically Signed On 02-17-18 06:49:34 CDT by Nigel Albright
== END 2018-02-16 02:17 | disposition home or self-care (01) ==
LOC: ER 22:03
DX: N39.0 Urinary tract infection, site not specified (principal); K74.60 Unspecified cirrhosis of liver; F14.10 Cocaine abuse, uncomplicated; F55.8 Abuse of other non-psychoactive substances; M79.671 Pain in right foot; T43.625A Adverse effect of amphetamines, initial encounter; F17.210 Nicotine dependence, cigarettes, uncomplicated; Z88.1 Allergy status to other antibiotic agents
CPT/HCPCS: 36415; 71045; 74176; 76377; 80048; 80076; 80307; 81003; 81015; 81025; 82140; 83735; 83880; 84484; 85025; 85610; 87077; 87086; 87088; 87186; 93005; 96361; 96365; 96366; 99284; J7030

== ENCOUNTER 2018-05-25 20:33 | Emergency (ER) | payer SELFPAY ==
--- NOTE | 2018-05-25 21:41 | RAD REPORT ---
EXAM DESCRIPTION: RAD - Chest Pa And Lat (2 Views) - 05/25/2018 9:31 pm CLINICAL HISTORY: COUGH Chest pain. COMPARISON: Chest Single View dated 02/15/2018; Chest Pa And Lat (2 Views) dated 06/12/2016; CHEST PA AND LAT 2 VIEW dated 02/09/2010 FINDINGS: The lungs are clear. The heart is normal in size. No displaced fractures. IMPRESSION: No acute or concerning finding suspected.
[2018-05-25 21:50] LABS: Urine Blood NEGATIVE (NEG); Urine Glucose NEGATIVE (NEG); Urine Protein NEGATIVE (NEG); Urine Specific Gravity 1.015 (1.005-1.030)
--- NOTE | 2018-05-25 22:00 | ER ---
Nurse's Notes [facility] Name: Mahnaz Daniel Age: 37 yrs Sex: Female : 1980 Arrival Date: 05/25/2018 Time: 20:34 Bed 13 Private MD: Diagnosis: Acute bronchitis, unspecified Presentation: 05/25 20:41 Presenting complaint: Patient states: Cough for 3 weeks. Transition of care: patient aj was not received from another setting of care. Onset of symptoms was May 02, 2018. Risk Assessment: Do you want to hurt yourself or someone else? Patient reports no desire to harm self or others. Initial Sepsis Screen: Does the patient meet any 2 criteria? No. Patient's initial sepsis screen is negative. Does the patient have a suspected source of infection? No. Patient's initial sepsis screen is negative. Care prior to arrival: None. 20:41 Method Of Arrival: Ambulatory aj 20:41 Acuity: SIMEON 3 aj Triage Assessment: 20:42 General: Appears in no apparent distress. comfortable, Behavior is calm, cooperative, aj appropriate for age. Pain: Denies pain. Neuro: Level of Consciousness is awake, alert, obeys commands, Oriented to person, place, time, situation, Appropriate for age. Respiratory: Reports cough that is productive, persistent Airway is patent Respiratory effort is even, unlabored, Respiratory pattern is regular, symmetrical. Derm: Skin is intact, is healthy with good turgor, Skin is pink, warm \T\ dry. normal. 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 - Social history:: Smoking status: Patient uses tobacco products, smokes one-half pack cigarettes per day, Patient uses street drugs, Methamphetamine (Meth). - Ebola Screening: : Patient negative for fever greater than or equal to 101.5 degrees Fahrenheit, and additional compatible Ebola Virus Disease symptoms Patient denies exposure to infectious person Patient denies travel to an Ebola-affected area in the 21 days before illness onset No symptoms or risks identified at this time. Screenin:43 Abuse screen: Denies threats or abuse. Denies injuries from another. Nutritional cc3 screening: No deficits noted. Tuberculosis screening: No symptoms or risk factors identified. Fall Risk Ambulatory Aid- None/Bed Rest/Nurse Assist (0 pts). Gait- Normal/Bed Rest/Wheelchair (0 pts) Mental Status- Oriented to own ability (0 pts). Assessment: 20:43 General: see triage assessment . cc3 21:40 Reassessment: Patient appears in no apparent distress at this time. Patient and/or cc3 family updated on plan of care and expected duration. Pain level reassessed. Patient is alert, oriented x 3, equal unlabored respirations, skin warm/dry/pink. 22:20 Reassessment: Patient appears in no apparent distress at this time. Patient and/or cc3 family updated on plan of care and expected duration. Pain level reassessed. Patient is alert, oriented x 3, equal unlabored respirations, skin warm/dry/pink. PA Page discharged the patient home with prescriptions given. No IV cannula in situ. Patient left ER vitally stable and ambulatory with her . Vital Signs: 20:42 BP 128 / 73; Pulse 112; Resp 20; Temp 98.3; Pulse Ox 100% on R/A; Weight 80.74 kg; aj Height 5 ft. 7 in. (170.18 cm); 21:37 BP 117 / 83; Pulse 99; Resp 20 S; Pulse Ox 98% on R/A; cc3 22:15 BP 117 / 74; Pulse 88; Resp 20 S; Pulse Ox 97% on R/A; cc3 20:42 Body Mass Index 27.88 (80.74 kg, 170.18 cm) ED Course: 20:34 Patient arrived in ED. am2 20:42 Triage completed. aj 20:42 Arm band placed on left wrist. Patient placed in an exam room. aj 20:43 Cami Joya is Primary Nurse. cc3 20:43 Patient has correct armband on for positive identification. Placed in gown. Bed in low cc3 position. Call light in reach. Side rails up X 1. Pulse ox on. NIBP on. 20:46 Patrick Craven PA is PHCP. cp 20:46 Patrick Michelle MD is Attending Physician. cp 21:34 XRAY Chest Pa And Lat (2 Views) In Process Unspecified. EDMS 22:20 No provider procedures requiring assistance completed. Patient did not have IV access cc3 during this emergency room visit. Administered Medications: No medications were administered Outcome: 21:59 Discharge ordered by MD. cp 22:20 Discharged to home ambulatory, with family. cc3 22:20 Condition: stable 22:20 Discharge instructions given to patient, family, Instructed on discharge instructions, follow up and referral plans. medication usage, Demonstrated understanding of instructions, follow-up care, medications, Prescriptions given X 4. 22:24 Patient left the ED. cc3 Signatures: Dispatcher [employer] EDMS Radha Lancaster, RN RN Patrick Rosa PA PA Radha Guillermo amCami Vicente cc3 Corrections: (The following items were deleted from the chart) 21:40 21:37 Pulse 99bpm; Resp 20bpm; Spontaneous; Pulse Ox 98% RA; cc3 cc3
--- NOTE | 2018-05-25 22:01 | EDPHYS ---
Physician Documentation [facility] Name: Mahnaz Daniel Age: 37 yrs Sex: Female : 1980 Arrival Date: 05/25/2018 Time: 20:34 Bed 13 Private MD: ED Physician Patrick Michelle HPI: 05/25 21:05 This 37 yrs old Female presents to ER via Ambulatory with complaints of cp Cough, Chest Congestion, Leg Swelling. 21:05 The patient or guardian reports cough, with productive sputum, that is green. Onset: cp The symptoms/episode began/occurred 3 week(s) ago. 21:05 Associated signs and symptoms: Pertinent positives: swelling left lower leg and right cp lower leg, Pertinent negatives: chest pain, diarrhea, fever, sore throat, vomiting. 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 - Social history:: Smoking status: Patient uses tobacco products, smokes one-half pack cigarettes per day, Patient uses street drugs, Methamphetamine (Meth). - Ebola Screening: : Patient negative for fever greater than or equal to 101.5 degrees Fahrenheit, and additional compatible Ebola Virus Disease symptoms Patient denies exposure to infectious person Patient denies travel to an Ebola-affected area in the 21 days before illness onset No symptoms or risks identified at this time. ROS: 21:10 Constitutional: Negative for body aches, chills, fever, poor PO intake. cp 21:10 Eyes: Negative for injury, pain, redness, and discharge. cp 21:10 ENT: Negative for drainage from ear(s), ear pain, sore throat, difficulty swallowing, cp difficulty handling secretions. 21:10 Neck: Negative for pain with movement, pain at rest, stiffness. 21:10 Cardiovascular: Negative for chest pain, palpitations. 21:10 Respiratory: Positive for cough, with green sputum, Negative for shortness of breath, wheezing. 21:10 Abdomen/GI: Negative for abdominal pain, nausea, vomiting, and diarrhea. 21:10 MS/extremity: Positive for swelling, of the left lower leg and right lower leg. 21:10 Skin: Negative for cellulitis, rash. 21:10 Neuro: Negative for altered mental status, headache, weakness. 21:10 All other systems are negative. cp Exam: 21:15 Constitutional: The patient appears in no acute distress, alert, awake, cp non-diaphoretic, non-toxic, well developed, well nourished. 21:15 Head/Face: Normocephalic, atraumatic. Eyes: Pupils equal round and reactive to light, cp extra-ocular motions intact. Lids and lashes normal. Conjunctiva and sclera are non-icteric and not injected. Cornea within normal limits. Periorbital areas with no swelling, redness, or edema. ENT: Nares patent. No nasal discharge, no septal abnormalities noted. Tympanic membranes are normal and external auditory canals are clear. Oropharynx with no redness, swelling, or masses, exudates, or evidence of obstruction, uvula midline. Mucous membranes moist. Chest/axilla: Normal chest wall appearance and motion. Nontender with no deformity. No lesions are appreciated. 21:15 Cardiovascular: Rate: tachycardic, Rhythm: regular, Heart sounds: murmur, not appreciated, rub, not appreciated, gallop, not appreciated, Edema: is not appreciated, JVD: is not appreciated. 21:15 Respiratory: the patient does not display signs of respiratory distress, Respirations: normal, no use of accessory muscles, no retractions, no splinting, no tachypnea, labored breathing, is not present, Breath sounds: bronchial sounds, that are mild, are heard diffusely, decreased breath sounds, are not appreciated, stridor, is not appreciated, wheezing: is not appreciated. 21:15 Abdomen/GI: Inspection: abdomen appears normal, Palpation: abdomen is soft and non-tender, in all quadrants. 21:15 Back: pain, is absent, ROM is normal. 21:15 Skin: cellulitis, is not appreciated, no rash present. 21:15 Musculoskeletal/extremity: DVT Exam: No signs of deep vein thrombosis. cp Vital Signs: 20:42 BP 128 / 73; Pulse 112; Resp 20; Temp 98.3; Pulse Ox 100% on R/A; Weight 80.74 kg; aj Height 5 ft. 7 in. (170.18 cm); 21:37 BP 117 / 83; Pulse 99; Resp 20 S; Pulse Ox 98% on R/A; cc3 22:15 BP 117 / 74; Pulse 88; Resp 20 S; Pulse Ox 97% on R/A; cc3 20:42 Body Mass Index 27.88 (80.74 kg, 170.18 cm) aj MDM: 20:47 Patient medically screened. cp 21:15 Differential Diagnosis: Bronchitis Asthma Exacerbation Viral Syndrome Pneumonia. cp 21:59 Data reviewed: vital signs, nurses notes, lab test result(s), radiologic studies, plain cp films. 21:59 Test interpretation: by ED physician or midlevel provider: plain radiologic studies. cp Counseling: I had a detailed discussion with the patient and/or guardian regarding: the historical points, exam findings, and any diagnostic results supporting the discharge/admit diagnosis, radiology results, to return to the emergency department if symptoms worsen or persist or if there are any questions or concerns that arise at home. 05/25 21:35 Order name: Urine Dipstick--Ancillary (enter results); Complete Time: 21:58 bb 05/25 21:58 Interpretation: Normal except: UESTR TRACE. cp 05/25 21:35 Order name: Urine --Ancillary (enter results); Complete Time: 21:58 bb 05/25 21:04 Order name: XRAY Chest Pa And Lat (2 Views); Complete Time: 21:58 cp 05/25 21:58 Interpretation: Report reviewed. 05/25 21:04 Order name: Urine Dipstick-Ancillary (obtain specimen); Complete Time: 21:41 cp 05/25 21:04 Order name: Urine Test (obtain specimen); Complete Time: 21:41 cp Administered Medications: No medications were administered Disposition: 05/25/18 21:59 Discharged to Home. Impression: Acute bronchitis, unspecified. - Condition is Stable. - Discharge Instructions: Acute Bronchitis, Adult. - Prescriptions for Tessalon Perles 100 mg Oral Capsule - take 1 capsule by ORAL route every 8 hours As needed; 15 capsule. Zithromax Z- Marv 250 mg Oral Tablet - take 1 tablet by ORAL route as directed for 5 days Day 1 - take two (2) tablets one time. Day 2, 3, 4 , 5 take one (1) tablet once daily.; 6 tablet. Albuterol Sulfate 90 mcg/actuation - inhale 1-2 puff by INHALATION route every 4-6 hours; 1 Inhaler. Medrol (Marv) 4 mg Oral Tablets, Dose Pack - take 1 tablet by ORAL route as directed - follow package instructions; 1 packet. - Medication Reconciliation Form, Thank You Letter, Antibiotic Education, Prescription Opioid Use form. - Follow up: Private Physician; When: 2 - 3 days; Reason: Recheck today's complaints. - Problem is new. - Symptoms have improved. Addendum: 05/29/2018 07:03 Co-signature as Attending Physician, Patrick Michelle MD I agree with the assessment and c rocha plan of care. Signatures: Dispatcher [employer] EDRadha Guzman RN RN aj Anderson, Corey, MD MD cha Page, Corey, PA PA Cami Walters cc3 Corrections: (The following items were deleted from the chart) 05/25 22:24 21:59 05/25/2018 21:59 Discharged to Home. Impression: Acute bronchitis, unspecified. cc3 Condition is Stable. Forms are Medication Reconciliation Form, Thank You Letter, Antibiotic Education, Prescription Opioid Use. Follow up: Private Physician; When: 2 - 3 days; Reason: Recheck today's complaints. Problem is new. Symptoms have improved. cp
== END 2018-05-25 22:24 | disposition home or self-care (01) ==
LOC: ER 20:33
DX: J20.9 Acute bronchitis, unspecified (principal); Z88.1 Allergy status to other antibiotic agents; K74.60 Unspecified cirrhosis of liver; B19.9 Unspecified viral hepatitis without hepatic coma; F17.210 Nicotine dependence, cigarettes, uncomplicated
CPT/HCPCS: 71046; 81003; 81025; 99283

== ENCOUNTER 2018-12-12 03:05 | Emergency (ER) | payer SELFPAY ==
[2018-12-12] MEDS ORDERED: DIPHENHYDRAMINE 25 MG TAB/CAP ONE (03:37)
[2018-12-12] MEDS ORDERED: FAMOTIDINE 20 MG TAB ONE (03:37)
[2018-12-12] MEDS ORDERED: METHYLPREDNISOLONE 125 MG INJ ONE (03:37)
--- NOTE | 2018-12-12 03:54 | ER ---
Nurse's Notes [facility] Name: Mahnaz Daniel Age: 38 yrs Sex: Female : 1980 Arrival Date: 12/12/2018 Time: 03:07 Bed 5 Private MD: Diagnosis: Allergic reaction Presentation: 12/12 03:15 Presenting complaint: Patient states: Patient reports she started forming a rash around ea noon yesterday, pt reports the rash started spreading and became really itchy, she also states she started having burning with urination. Transition of care: patient was not received from another setting of care. Onset: The symptoms/episode began/occurred yesterday. Anaphylaxis evaluation, no signs or symptoms of anaphylaxis were noted. Onset of symptoms was December 12, 2018. Risk Assessment: Do you want to hurt yourself or someone else? Patient reports no desire to harm self or others. Initial Sepsis Screen: Does the patient meet any 2 criteria? No. Patient's initial sepsis screen is negative. Does the patient have a suspected source of infection? No. Patient's initial sepsis screen is negative. Care prior to arrival: None. 03:15 Method Of Arrival: Ambulatory ea 03:15 Acuity: SIMEON 3 ea Triage Assessment: 03:21 General: Appears in no apparent distress. Behavior is calm, cooperative, appropriate ea for age. Pain: Denies pain. 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 - Social history:: Smoking status: Patient uses tobacco products, smokes one pack cigarettes per day. - Ebola Screening: : No symptoms or risks identified at this time. Screenin:19 Abuse screen: Denies threats or abuse. Nutritional screening: No deficits noted. ea Tuberculosis screening: No symptoms or risk factors identified. Fall Risk None identified. Assessment: 03:21 General: Appears in no apparent distress. Behavior is calm, cooperative, appropriate ea for age. Pain: Denies pain. Neuro: Level of Consciousness is awake, alert, obeys commands, Oriented to person, place, time, situation. Cardiovascular: Patient's skin is warm and dry. Respiratory: Airway is patent Respiratory effort is even, unlabored, Respiratory pattern is regular, symmetrical, Breath sounds are clear bilaterally. Derm: Rash noted that is itchy, red, on abdomen, right leg, left leg and neck. 04:16 Reassessment: Patient and/or family updated on plan of care and expected duration. Pain ea level reassessed. Patient is alert, oriented x 3, equal unlabored respirations, skin warm/dry/pink. Discharge instruction given to patient, verbalized the understanding of instruction. Pt left ED ambulatory accompanied by family, pt tolerating well Patient states feeling better. Vital Signs: 03:18 BP 126 / 103; Pulse 118; Resp 18; Temp 98.4; Pulse Ox 100% ; Weight 72.57 kg; Height 5 ea ft. 7 in. (170.18 cm); 04:13 BP 120 / 60; Pulse 90; Resp 18; Pulse Ox 100% on R/A; ea 03:18 Body Mass Index 25.06 (72.57 kg, 170.18 cm) ea ED Course: 03:07 Patient arrived in ED. am2 03:09 Gopi Butler MD is Attending Physician. tw4 03:15 Sandra Forrest RN is Primary Nurse. ea 03:18 Triage completed. ea 03:20 Patient has correct armband on for positive identification. Bed in low position. Call ea light in reach. 03:20 Arm band placed on right wrist. Patient placed in an exam room, on a stretcher, on ea pulse oximetry. 04:27 No provider procedures requiring assistance completed. Patient did not have IV access ea during this emergency room visit. Administered Medications: 03:38 Drug: Pepcid 20 mg Route: PO; rr5 04:12 Follow up: Response: No adverse reaction ea 03:39 Drug: SOLU-Medrol 125 mg Route: IM; Site: right gluteus; rr5 04:12 Follow up: Response: No adverse reaction ea 03:39 Drug: Benadryl 25 mg Route: PO; rr5 04:12 Follow up: Response: No adverse reaction ea Outcome: 03:53 Discharge ordered by . tw4 04:27 Discharged to home ambulatory, with family. ea 04:27 Condition: stable 04:27 Discharge instructions given to patient, Instructed on discharge instructions, follow up and referral plans. Demonstrated understanding of instructions, follow-up care. 04:32 Patient left the ED. ea Signatures: Radha Leon am2 Sandra Forrest, RN RN ea Gopi Butler MD MD tw4 Fco Haq RN RN rr5
--- NOTE | 2018-12-12 03:54 | EDPHYS ---
Physician Documentation [facility] Name: Mahnaz Daniel Age: 38 yrs Sex: Female : 1980 Arrival Date: 12/12/2018 Time: 03:07 Bed 5 Private MD: ED Physician Gopi Butler HPI: 12/12 03:49 This 38 yrs old Female presents to ER via Ambulatory with complaints of tw4 Allergic Reaction. 03:49 The patient presents with itching. Onset: The symptoms/episode began/occurred this tw4 morning. Associated signs and symptoms: The patient has no apparent associated signs or symptoms. Possible causes: The patient has no known obvious cause for the symptoms. Severity of symptoms: At their worst the symptoms were moderate in the emergency department the symptoms are unchanged. The patient has not experienced similar symptoms in the past. 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 - Social history:: Smoking status: Patient uses tobacco products, smokes one pack cigarettes per day. - Ebola Screening: : No symptoms or risks identified at this time. ROS: 03:49 Constitutional: Negative for fever, chills, and weight loss, Eyes: Negative for injury, tw4 pain, redness, and discharge, ENT: Negative for injury, pain, and discharge, Cardiovascular: Negative for chest pain, palpitations, and edema, MS/Extremity: Negative for injury and deformity. 03:49 Neuro: Negative for headache, weakness, numbness, tingling, and seizure. 03:49 Skin: Positive for Exam: 03:49 Constitutional: This is a well developed, well nourished patient who is awake, alert, tw4 and in no acute distress. Head/Face: Normocephalic, atraumatic. Chest/axilla: Normal chest wall appearance and motion. Nontender with no deformity. No lesions are appreciated. Cardiovascular: Regular rate and rhythm with a normal S1 and S2. No gallops, murmurs, or rubs. Normal PMI, no JVD. No pulse deficits. Respiratory: Lungs have equal breath sounds bilaterally, clear to auscultation and percussion. No rales, rhonchi or wheezes noted. No increased work of breathing, no retractions or nasal flaring. Abdomen/GI: Soft, non-tender, with normal bowel sounds. No distension or tympany. No guarding or rebound. No evidence of tenderness throughout. 03:49 Skin: urticaria. Vital Signs: 03:18 BP 126 / 103; Pulse 118; Resp 18; Temp 98.4; Pulse Ox 100% ; Weight 72.57 kg; Height 5 ea ft. 7 in. (170.18 cm); 04:13 BP 120 / 60; Pulse 90; Resp 18; Pulse Ox 100% on R/A; ea 03:18 Body Mass Index 25.06 (72.57 kg, 170.18 cm) ea MDM: 03:09 Patient medically screened. tw4 03:49 Differential diagnosis: urticaria. Data reviewed: vital signs, nurses notes. tw4 Counseling: I had a detailed discussion with the patient and/or guardian regarding: the historical points, exam findings, and any diagnostic results supporting the discharge/admit diagnosis. Special discussion: I discussed with the patient/guardian in detail that at this point there is no indication for admission to the hospital. It is understood, however, that if the symptoms persist or worsen the patient needs to return immediately for re-evaluation. Administered Medications: 03:38 Drug: Pepcid 20 mg Route: PO; rr5 04:12 Follow up: Response: No adverse reaction ea 03:39 Drug: SOLU-Medrol 125 mg Route: IM; Site: right gluteus; rr5 04:12 Follow up: Response: No adverse reaction ea 03:39 Drug: Benadryl 25 mg Route: PO; rr5 04:12 Follow up: Response: No adverse reaction ea Disposition: 12/12/18 03:53 Discharged to Home. Impression: Allergic reaction. - Condition is Stable. - Discharge Instructions: Allergies, Adult. - Prescriptions for Medrol (Marv) 4 mg Oral Tablets, Dose Pack - take 1 tablet by ORAL route as directed - follow package instructions; 1 packet. - Medication Reconciliation Form, Thank You Letter, Antibiotic Education, Prescription Opioid Use form. - Follow up: Private Physician; When: Upon discharge from the Emergency Department; Reason: If symptoms return, Recheck today's complaints, Continuance of care. - Problem is new. - Symptoms have improved. Signatures: Sandra Forrest RN RN Gopi Metz MD MD tw4 Fco Haq RN RN rr5 Corrections: (The following items were deleted from the chart) 04:32 03:53 12/12/2018 03:53 Discharged to Home. Impression: Allergic reaction. Condition is ea Stable. Forms are Medication Reconciliation Form, Thank You Letter, Antibiotic Education, Prescription Opioid Use. Follow up: Private Physician; When: Upon discharge from the Emergency Department; Reason: If symptoms return, Recheck today's complaints, Continuance of care. Problem is new. Symptoms have improved. tw4
== END 2018-12-12 04:32 | disposition home or self-care (01) ==
LOC: ER 03:05
DX: L29.9 Pruritus, unspecified (principal); T78.40XA Allergy, unspecified, initial encounter; F17.210 Nicotine dependence, cigarettes, uncomplicated
CPT/HCPCS: 96372; 99283; J2930

== ENCOUNTER 2019-05-16 13:11 | Emergency (ER) | payer SELFPAY ==
--- NOTE | 2019-05-16 14:40 | ER ---
Nurse's Notes [facility] Name: Mahnaz Daniel Age: 38 yrs Sex: Female : 1980 Arrival Date: 05/16/2019 Time: 13:14 Bed Waiting Private MD: Diagnosis: Presentation: 05/16 13:14 Presenting complaint: Patient states: BLE swelling and low back pain started 1 day ago. sv Transition of care: patient was not received from another setting of care. Onset of symptoms was May 15, 2019. Care prior to arrival: None. 13:14 Method Of Arrival: Ambulatory sv 13:14 Acuity: SIMEON 3 sv Triage Assessment: 13:16 General: Appears in no apparent distress. uncomfortable, Behavior is calm, cooperative, sv appropriate for age. Pain: Complains of pain in right leg and left leg. Neuro: Level of Consciousness is awake, alert, obeys commands, Gait is steady. Respiratory: Respiratory effort is even, unlabored. Historical: - Allergies: 13:14 Bactrim DS; sv - PMHx: 13:14 Cirrhosis; Hepatitis; sv - PSHx: 13:14 ; sv - Immunization history:: Adult Immunizations up to date. - Social history:: Smoking status: Patient uses tobacco products, smokes one-half pack cigarettes per day. - Ebola Screening: : No symptoms or risks identified at this time. Vital Signs: 13:15 BP 116 / 86; Pulse 111; Resp 20; Temp 97.8; Pulse Ox 98% ; Weight 98.43 kg; Height 5 sv ft. 7 in. (170.18 cm); 13:15 Body Mass Index 33.99 (98.43 kg, 170.18 cm) sv ED Course: 13:14 Patient arrived in ED. as 13:14 Arm band placed on. sv 13:15 Triage completed. sv 13:51 Ed[facility]C [facility] snw 13:51 Patrick Michelle MD is Attending Physician. snw 13:51 Patient's name was called from ER lobby. No response. sv 13:58 Radiology exam delayed due to test not completed at this time. sj Administered Medications: No medications were administered Outcome: 14:40 Patient left the ED. ss Signatures: Nisha Tirado RN RN sv Edyta Roth FNP-C RIFFLER TENDER-Csnw Etelvina Nayak Amelia as Smirch, Shelby, MTIZI CARTAGENA ss Corrections: (The following items were deleted from the chart) 13:17 13:15 Pulse 111bpm; Resp 20bpm; Pulse Ox 98%; Temp 97.8F; 98.43 kg; Height 5 ft. 7 in.; sv BMI: 33.9; sv
[2019-05-16 15:13] VITALS: BP 116/86; TEMP 97.8; O2SAT 98
== END 2019-05-16 14:40 | disposition left against medical advice (07) ==
LOC: ER 13:11
DX: Z02.9 Encounter for administrative examinations, unspecified (principal)
CPT/HCPCS: 99281

== ENCOUNTER 2020-06-06 21:23 | Emergency (ER) | payer SELFPAY ==
[2020-06-06 23:28] LABS: Absolute Lymphocytes (CBC) 2.6 K/uL (0.7-4.9); Basophils % 0.5 % (0-1.3); Hematocrit 41.5 % (36.0-45.0); Lymphocytes % 32.5 % (15.3-44.8); MPV 10.1 fL (7.6-11.3); RBC Red Blood Cell Count 4.52 M/uL (3.86-4.86)
[2020-06-06] MEDS ORDERED: ONDANSETRON 4 MG/2 ML VIAL ONE (23:35)
[2020-06-06] MEDS ORDERED: FAMOTIDINE 20 MG/2 ML VIAL IV ONE (23:36)
[2020-06-06] MEDS ORDERED: NA CHLORIDE 0.9% 1,000 ML ONE (23:37)
[2020-06-06 23:44] LABS: ALT/SGPT 59 U/L (12-78); AST/SGOT 47 U/L (15-37); Albumin 3.3 g/dL (3.4-5.0); Alkaline Phosphatase 111 U/L (45-117); BUN Blood Urea Nitrogen 10 mg/dL (7-18); Bicarbonate 27 mmol/L (21-32); Bilirubin Direct < 0.1 mg/dL (0-0.2); Bilirubin Total 0.3 mg/dL (0.2-1.0); Glucose Level 74 mg/dL (74-106); Lipase 95 U/L (73-393); Potassium 3.9 mmol/L (3.5-5.1); Protein, Total 7.1 g/dL (6.4-8.2); Sodium Level 142 mmol/L (136-145)
[2020-06-07] MEDS ORDERED: MORPHINE 4 MG/ML SYR ONE (00:01)
[2020-06-07 00:39] LABS: Urine Blood TRACE (NEG); Urine Glucose NEGATIVE (NEG); Urine Protein NEGATIVE (NEG); Urine Specific Gravity 1.025 (1.005-1.030)
[2020-06-07 01:08] LABS: Calcium Oxalate Crystals- Ur MODERATE (NONE SEEN); Urine Bacteria >50 /HPF (<20); Urine Mucus 2+ /HPF (NONE SEEN); Urine Trichomonas PRESENT (NONE SEEN); Urine Yeast FEW (NONE SEEN)
--- NOTE | 2020-06-07 02:07 | EDPHYS ---
Physician Documentation [facility] Name: Mahnaz Daniel Age: 39 yrs Sex: Female : 1980 Arrival Date: 06/06/2020 Time: 21:24 Bed 16 Private MD: ED Physician Geronimo Carballo HPI: 06/06 22:10 This 39 yrs old Female presents to ER via Wheelchair with complaints of cp Abdominal Pain, Wrist Pain. 22:10 The patient presents with abdominal pain mid abdomen. Onset: The symptoms/episode cp began/occurred suddenly, 2 hour(s) ago. The symptoms do not radiate. 22:10 Associated signs and symptoms: Pertinent negatives: nausea, vomiting, and diarrhea, cp chest pain, constipation, dysuria, fever. The symptoms are described as constant. 22:10 Severity of pain: in the emergency department the pain is unchanged despite home cp interventions. Patient reports abdominal pain started suddenly while moving boxes at home. 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 - Social history:: Smoking status: Patient reports the use of cigarette tobacco products, smokes one-half pack cigarettes per day. ROS: 22:20 Constitutional: Negative for body aches, chills, fever, poor PO intake. cp 22:20 Eyes: Negative for injury, pain, redness, and discharge. cp Exam: 22:25 Constitutional: The patient appears in no acute distress, alert, awake, cp non-diaphoretic, non-toxic, well developed, well nourished, obese, uncomfortable. 22:25 Head/Face: Normocephalic, atraumatic. cp 22:25 Eyes: Periorbital structures: appear normal, Conjunctiva: normal, no exudate, no injection, Sclera: no appreciated abnormality, Lids and lashes: appear normal, bilaterally. 22:25 ENT: External ear(s): are unremarkable, Nose: is normal, Mouth: Lips: moist, Oral mucosa: pink and intact, moist, Posterior pharynx: Airway: no evidence of obstruction, patent. 22:25 Chest/axilla: Inspection: normal, Palpation: is normal, no crepitus, no tenderness. 22:25 Cardiovascular: Rate: normal, Rhythm: regular. 22:25 Respiratory: the patient does not display signs of respiratory distress, Respirations: normal, no use of accessory muscles, no retractions, labored breathing, is not present, Breath sounds: are clear throughout, no decreased breath sounds, no stridor, no wheezing. 22:25 Abdomen/GI: Inspection: abdomen appears normal, Bowel sounds: active, all quadrants, Palpation: soft, in all quadrants, severe abdominal tenderness, in the mid abdomen above umbilicus, rebound tenderness, is not appreciated, voluntary guarding, is elicited in the mid abdomen above umbilicus. 22:25 Back: pain, is absent, ROM is normal. 22:25 Musculoskeletal/extremity: Extremities: grossly normal except: noted in the proximal right thumb and ulna side of right wrist: pain, tenderness, There is no evidence of decreased ROM, deformity, swelling, ROM: limited active range of motion due to pain, in the right wrist, Perfusion: the extremity is normally perfused throughout, Sensation intact. 22:25 Skin: no rash present. Vital Signs: 21:41 BP 123 / 93; Pulse 106; Resp 16 S; Temp 97.2(TE); Pulse Ox 100% on R/A; Weight 90.72 kg ca1 (R); Height 5 ft. 7 in. (170.18 cm) (R); Pain 8/10; 22:45 BP 122 / 83; Pulse 84; Resp 16; Pulse Ox 98% on R/A; jb4 23:30 BP 121 / 84; Pulse 83; Resp 18; Pulse Ox 99% on R/A; jb4 06/07 02:00 BP 118 / 70; Pulse 100; Resp 18; Pulse Ox 96% on R/A; jb4 06/06 21:41 Body Mass Index 31.32 (90.72 kg, 170.18 cm) ca1 MDM: 06/06 22:05 Patient medically screened. cp 06/07 02:05 Data reviewed: vital signs, nurses notes, lab test result(s), radiologic studies, CT cp scan, plain films. 02:05 Test interpretation: by ED physician or midlevel provider: xrays of left wrist negative cp for fracture. Counseling: I had a detailed discussion with the patient and/or guardian regarding: the historical points, exam findings, and any diagnostic results supporting the discharge/admit diagnosis, lab results, radiology results, the need for outpatient follow up, for definitive care, a general surgeon, to return to the emergency department if symptoms worsen or persist or if there are any questions or concerns that arise at home. Response to treatment: the patient's symptoms have markedly improved after treatment. ED course: VSS. Ventral hernia reduced manually by me with marked improvement of abdominal pain. Will discharge to home for continued monitoring. 06/06 22:07 Order name: Basic Metabolic Panel; Complete Time: 23:45 cp 02/ 23:45 Interpretation: Normal except: GFR 67. cp 06/06 22:07 Order name: CBC with Diff; Complete Time: 23:45 cp / 23:46 Interpretation: Reviewed. cp 06/06 22:07 Order name: Hepatic Function; Complete Time: 23:45 cp 02 23:45 Interpretation: Normal except: AST 47; ALB 3.3; GLOB 3.8; A/G 0.9. cp 06/06 22:07 Order name: Lipase; Complete Time: 23:45 cp 02/05 23:45 Interpretation: Within normal limits: LIP 95. cp 06/07 00:29 Order name: Urine Microscopic Only; Complete Time: 01:36 dh4 06/07 01:36 Interpretation: Normal except: UWBC 10-20; URBC 5-10; UBACT >50; SQEPI 5-10; CAOX cp MODERATE; TRICH PRESENT. 06/07 00:31 Order name: Urine Dipstick--Ancillary (enter results); Complete Time: 01:36 dh4 06/06 22:07 Order name: XRAY Wrist LEFT 3 view cp 06/06 22:07 Order name: CT Abd/Pelvis - IV Contrast Only cp 06/07 00:31 Order name: Urine --Ancillary (enter results); Complete Time: 01:36 dh4 06/07 01:10 Order name: Urine Culture EDPA 06/06 22:07 Order name: IV Saline Lock; Complete Time: 23:11 cp 06/06 22:07 Order name: Labs collected and sent; Complete Time: 23:11 cp 06/06 22:07 Order name: Urine Dipstick-Ancillary (obtain specimen); Complete Time: 00:25 cp 06/06 22:07 Order name: Urine Test (obtain specimen); Complete Time: 00:25 cp 06/07 01:49 Order name: Splint - Wrist: left thumb spica; Complete Time: 02:13 cp Administered Medications: 06/06 23:30 Drug: NS 0.9% 1000 ml Route: IV; Rate: 1 bolus; Site: right wrist; 4 06/07 01:30 Follow up: Response: No adverse reaction; IV Status: Completed infusion; IV Intake: jb4 1000ml 06/06 23:30 Drug: Pepcid 20 mg Route: IVP; Site: right wrist; jb4 06/07 00:00 Follow up: Response: No adverse reaction 4 06/06 23:31 Drug: Zofran (Ondansetron) 4 mg Route: IVP; Site: right wrist; jb4 06/07 00:00 Follow up: Response: No adverse reaction; Nausea is decreased jb4 06/06 23:47 Drug: morphine 4 mg Route: IVP; Site: right wrist; jb4 06/07 00:15 Follow up: Response: No adverse reaction; Pain is decreased; RASS: Alert and Calm (0) [facility] 02:13 Drug: Zithromax 1 grams Route: PO; 4 02:30 Follow up: Response: No adverse reaction 4 02:14 Drug: Rocephin - (cefTRIAXone) 1 grams {Note: Given IVP per pharmacy protocol.} Route: jb4 IVPB; Infused Over: 30 mins; Site: right wrist; 02:17 Follow up: Response: No adverse reaction; IV Status: Completed infusion; IV Intake: [id number] 02:14 Drug: metroNIDAZOLE 2 grams Route: PO; 4 02:30 Follow up: Response: No adverse reaction [facility] Disposition: 07:09 Co-signature as Attending Physician, Geronimo Carballo MD. [email or web address] Disposition: 06/07/20 02:06 Discharged to Home. Impression: Ventral hernia without obstruction or gangrene - reduced, Trichomoniasis, unspecified, Pain in left wrist. - Condition is Stable. - Discharge Instructions: Sexually Transmitted Disease, Trichomoniasis, Wrist Pain, Ventral Hernia. - Prescriptions for Naprosyn 500 mg Oral Tablet - take 1 tablet by ORAL route 2 times per day take with food; 30 tablet. - Medication Reconciliation Form, Thank You Letter, Antibiotic Education, Prescription Opioid Use form. - Follow up: Douglas Cedillo MD; When: 2 - 3 days; Reason: ventral hernia. - Problem is new. - Symptoms have improved. - Notes: No excessive bending and/or stooping, no lifting more than 10 lbs occassionally. Follow-up with general surgery Signatures: Dispatcher [employer] EDMS Patrick Craven PA PA cp Edouard Rico RN RN jb4 Mai Hernandez RN RN ca1 Geronimo Carballo MD MD [email or web address] Corrections: (The following items were deleted from the chart) 02:09 02:06 06/07/2020 02:06 Discharged to Home. Impression: Ventral hernia without cp obstruction or gangrene - reduced; Trichomoniasis, unspecified. Condition is Stable. Forms are Medication Reconciliation Form, Thank You Letter, Antibiotic Education, Prescription Opioid Use. Follow up: Douglas Cedillo; When: 2 - 3 days; Reason: ventral hernia. Problem is new. Symptoms have improved. cp 02:35 02:09 06/07/2020 02:06 Discharged to Home. Impression: Ventral hernia without jb4 obstruction or gangrene - reduced; Trichomoniasis, unspecified; Pain in left wrist. Condition is Stable. Discharge Instructions: Sexually Transmitted Disease, Trichomoniasis, Ventral Hernia, Wrist Pain. Prescriptions for Naprosyn 500 mg Oral Tablet - take 1 tablet by ORAL route 2 times per day take with food; 30 tablet. and Forms are Medication Reconciliation Form, Thank You Letter, Antibiotic Education, Prescription Opioid Use. Follow up: Douglas Cedillo; When: 2 - 3 days; Reason: ventral hernia. Problem is new. Symptoms have improved. cp
--- NOTE | 2020-06-07 02:07 | ER ---
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 Denies N/V/D. ca1 L wrist/thumb pain sustained from a fall last week. Coronavirus screen: Client denies travel out of the [place] in the last 14 days. At this time, the client does not indicate any symptoms associated with coronavirus-19. Ebola Screen: Patient negative for fever greater than or equal to 101.5 degrees Fahrenheit, and additional compatible Ebola Virus Disease symptoms Patient denies exposure to infectious person. Patient denies travel to an Ebola-affected area in the 21 days before illness onset. No symptoms or risks identified at this time. Initial Sepsis Screen: Does the patient meet any 2 criteria? No. Patient's initial sepsis screen is negative. Does the patient have a suspected source of infection? No. Patient's initial sepsis screen is negative. Risk Assessment: Do you want to hurt yourself or someone else? Patient reports no desire to harm self or others. Onset of symptoms was June 06, 2020. 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 - Social history:: Smoking status: Patient reports the use of cigarette tobacco products, smokes one-half pack cigarettes per day. Screenin:00 Abuse screen: Denies threats or abuse. Nutritional screening: No deficits noted. jb4 Tuberculosis screening: No symptoms or risk factors identified. Fall Risk None identified. Assessment: 22:00 General: Appears in no apparent distress. uncomfortable, Behavior is calm, cooperative, jb4 appropriate for age. Pain: Complains of pain in abdomen and left hand Pain does not radiate. Pain currently is 8 out of 10 on a pain scale. Neuro: Level of Consciousness is awake, alert, obeys commands, Oriented to person, place, time, situation. Cardiovascular: Patient's skin is warm and dry. Respiratory: Airway is patent Respiratory effort is even, unlabored, Respiratory pattern is regular, symmetrical. GI: Abdomen is round non-distended, obese, Reports lower abdominal pain, upper abdominal pain. : No signs and/or symptoms were reported regarding the genitourinary system. EENT: No signs and/or symptoms were reported regarding the EENT system. Derm: Skin is intact, Skin is pink, warm \\T\\ dry. Musculoskeletal: Circulation, motion, and sensation intact. Range of motion: intact in all extremities. 23:00 Reassessment: Patient appears in no apparent distress at this time. Patient and/or jb4 family updated on plan of care and expected duration. Pain level reassessed. Patient is alert, oriented x 3, equal unlabored respirations, skin warm/dry/pink. 06/07 00:00 Reassessment: Patient appears in no apparent distress at this time. Patient and/or jb4 family updated on plan of care and expected duration. Pain level reassessed. Patient is alert, oriented x 3, equal unlabored respirations, skin warm/dry/pink. 01:00 Reassessment: Patient appears in no apparent distress at this time. Patient and/or jb4 family updated on plan of care and expected duration. Pain level reassessed. Patient is alert, oriented x 3, equal unlabored respirations, skin warm/dry/pink. 02:00 Reassessment: Patient appears in no apparent distress at this time. Patient and/or jb4 family updated on plan of care and expected duration. Pain level reassessed. Patient is alert, oriented x 3, equal unlabored respirations, skin warm/dry/pink. 06/08 00:51 Reassessment: pt on phone, requesting to speak with nursing staff. pt reports " I sg should have gotten a prescription of abx to treat my trich infection that I have." pt educated on dosages of medication administered in the ED during her visit and educated on frequency of medications for treating this STI. pt stated understanding. Vital Signs: 06/06 21:41 BP 123 / 93; Pulse 106; Resp 16 S; Temp 97.2(TE); Pulse Ox 100% on R/A; Weight 90.72 kg ca1 (R); Height 5 ft. 7 in. (170.18 cm) (R); Pain 8/10; 22:45 BP 122 / 83; Pulse 84; Resp 16; Pulse Ox 98% on R/A; jb4 23:30 BP 121 / 84; Pulse 83; Resp 18; Pulse Ox 99% on R/A; jb4 06/07 02:00 BP 118 / 70; Pulse 100; Resp 18; Pulse Ox 96% on R/A; jb4 02 21:41 Body Mass Index 31.32 (90.72 kg, 170.18 cm) ca1 ED Course: 06/06 21:24 Patient arrived in ED. am2 21:39 Triage completed. ca1 21:40 Arm band placed on right wrist. ca1 21:48 Patrick Craven PA is PHCP. cp 21:48 Geronimo Carballo MD is Attending Physician. cp 22:00 Patient has correct armband on for positive identification. Bed in low position. Call jb4 light in reach. Side rails up X 1. Pulse ox on. NIBP on. 22:18 XRAY Wrist LEFT 3 view In Process Unspecified. EDMS 22:54 Eoduard Rico, RN is Primary Nurse. jb4 23:10 Inserted saline lock: 22 gauge in right wrist, using aseptic technique. Blood collected.ds4 06/07 01:29 CT Abd/Pelvis - IV Contrast Only In Process Unspecified. EDMS 02:05 Douglas Cedillo MD is Referral Physician. cp 02:35 No provider procedures requiring assistance completed. IV discontinued, intact, jb4 bleeding controlled, No redness/swelling at site. Pressure dressing applied. Administered Medications: 06/06 23:30 Drug: NS 0.9% 1000 ml Route: IV; Rate: 1 bolus; Site: right wrist; jb4 06/07 01:30 Follow up: Response: No adverse reaction; IV Status: Completed infusion; IV Intake: jb4 1000ml 06/06 23:30 Drug: Pepcid 20 mg Route: IVP; Site: right wrist; jb4 06/07 00:00 Follow up: Response: No adverse reaction jb4 06/06 23:31 Drug: Zofran (Ondansetron) 4 mg Route: IVP; Site: right wrist; jb4 06/07 00:00 Follow up: Response: No adverse reaction; Nausea is decreased jb4 06/06 23:47 Drug: morphine 4 mg Route: IVP; Site: right wrist; jb4 06/07 00:15 Follow up: Response: No adverse reaction; Pain is decreased; RASS: Alert and Calm (0) jb4 02:13 Drug: Zithromax 1 grams Route: PO; jb4 02:30 Follow up: Response: No adverse reaction jb4 02:14 Drug: Rocephin - (cefTRIAXone) 1 grams {Note: Given IVP per pharmacy protocol.} Route: jb4 IVPB; Infused Over: 30 mins; Site: right wrist; 02:17 Follow up: Response: No adverse reaction; IV Status: Completed infusion; IV Intake: [id number] 02:14 Drug: metroNIDAZOLE 2 grams Route: PO; jb4 02:30 Follow up: Response: No adverse reaction jb4 Intake: 01:30 IV: 1000ml; Total: 1000ml. jb4 02:17 IV: 10ml; Total: 1010ml. jb4 Outcome: 02:06 Discharge ordered by . cp 02:35 Discharged to home ambulatory. jb4 02:35 Condition: stable 02:35 Discharge instructions given to patient, Instructed on discharge instructions, follow up and referral plans. medication usage, Demonstrated understanding of instructions, follow-up care, medications, Prescriptions given X 1. 02:35 Patient left the ED. jb4 Signatures: Dispatcher [employer] EDMS Brian Yoder RN RN sg Swanson, Donovan ds4 Patrick Craven PA PA cp Bryson, James, RN RN jb4 Radha Leon am2 Mai Hernandez RN RN ca1 Corrections: (The following items were deleted from the chart) 06/06 21:40 21:40 LMP 05/30/2020 ca1 ca1
[2020-06-07] MEDS ORDERED: metroNIDAZOLE 500 MG TABLET ONE (02:15)
[2020-06-07] MEDS ORDERED: AZITHROMYCIN 250 MG TAB ONE (02:15)
[2020-06-07] MEDS ORDERED: CEFTRIAXONE/SWI 1gm 1 GM/10 ML SYR ONE (02:15)
[2020-06-07 03:01] VITALS: TEMP 97.2
[2020-06-07 03:08] VITALS: BP 118/70; O2SAT 96
--- NOTE | 2020-06-07 08:33 | RAD REPORT ---
EXAM DESCRIPTION: RAD - Wrist Left 3 View - 06/06/2020 10:21 pm CLINICAL HISTORY: fall;Pain COMPARISON: Wrist Left 3 View dated 10/01/2014 FINDINGS: No fracture is identified. There is no dislocation or periosteal reaction noted. No foreig n body or other soft tissue abnormality. IMPRESSION: Negative left wrist examination.
--- NOTE | 2020-06-07 17:09 | RAD REPORT ---
EXAM DESCRIPTION: CT - Abdomen Pelvis W Contrast - 06/07/2020 6:41 am CLINICAL HISTORY: Lower abdominal pain. COMPARISON: None Available. TECHNIQUE: CT of the abdomen and pelvis performed following IV administration of iodinated contras t. FINDINGS: Lung Bases: Minimal bibasilar dependent atelectasis. Bones: No destructive bone lesions identified. Abdomen: Liver: Nodular contour of the liver. Gallbladder: No calcified gallstones. Spleen, Pancreas, and Adrenal Glands: The spleen, pancreas, and adrenal glands are unremarkable. Kidneys: No hydronephrosis or obstructing calculus. Vasculature: Aortoiliac atherosclerosis. IVC is unremarkable. The portal vein is patent. The proxim al visceral and renal arteries are patent. Stomach: The stomach and duodenum have normal course. Other: No free intraperitoneal air. No free fluid or lymphadenopathy. Small ventral hernia contai jen fat and free fluid superior to the umbilicus. Small fat-containing umbilical hernia. Pelvis: Bladder: Mild wall thickening of the urinary bladder. Bowel: No dilated loops of large or small bowel. Appendix: Normal appendix. Pelvis: Uterus is not enlarged. IMPRESSION: 1. Nodular contour of the liver suggesting cirrhosis. 2. Mild wall thickening of the urinary bladder. This could be seen with cystitis. This exam was performed according to our departmental dose-optimization program, which includes autom ated exposure control, adjustment of the mA and/or kV according to patient size and/or use of iterati ve reconstruction technique. Electronically signed by: Burt Sharp 06/07/2020 1:55 AM INCUBATOR MACHINE OPERATOR Due to temporary technical issues with the PACS/Fluency reporting system, reports are being signed by the in house radiologists without review as a courtesy to insure prompt reporting. The interpreting radiologist is fully responsible for the content of the report.
== END 2020-06-07 02:35 | disposition home or self-care (01) ==
LOC: ER 21:23
DX: K43.9 Ventral hernia without obstruction or gangrene (principal); A59.9 Trichomoniasis, unspecified; M25.532 Pain in left wrist; F17.210 Nicotine dependence, cigarettes, uncomplicated; Z88.1 Allergy status to other antibiotic agents
CPT/HCPCS: 36415; 74177; 80048; 80076; 81003; 81015; 81025; 83690; 85025; 87077; 87086; 87088; 87186; 96361; 96374; 96375; 99284; J0696; J2405; J7030; Q9967

== ENCOUNTER 2020-09-19 23:23 | Emergency (ER) | payer SELFPAY ==
--- NOTE | 2020-09-20 00:21 | ER ---
Nurse's Notes [facility] Name: Mahnaz Daniel Age: 39 yrs Sex: Female : 1980 Arrival Date: 09/19/2020 Time: 23:29 Bed Waiting Private MD: Diagnosis: Presentation: 09/19 23:46 Chief complaint: Patient states: she is having low back pain radiating to her abdomen bb for 3 to 4 days now she also states "I feel like I have a parasite or something, I feel something moving in my mouth and my eyes" she has felt this way for several months. Coronavirus screen: At this time, the client does not indicate any symptoms associated with coronavirus-19. Ebola Screen: No symptoms or risks identified at this time. Initial Sepsis Screen: Does the patient meet any 2 criteria? No. Patient's initial sepsis screen is negative. Does the patient have a suspected source of infection? No. Patient's initial sepsis screen is negative. Risk Assessment: Do you want to hurt yourself or someone else? Patient reports no desire to harm self or others. Onset of symptoms was September 16, 2020. 23:46 Method Of Arrival: Ambulatory 23:46 Acuity: SIMEON 3 bb 09/20 00:19 Note registration reports that pt left the ED. bb Triage Assessment: 09/19 23:49 General: Appears in no apparent distress. uncomfortable, Behavior is cooperative, bb anxious. Pain: Complains of pain in back Pain currently is 8 out of 10 on a pain scale. Neuro: Level of Consciousness is awake, alert, obeys commands, Oriented to person, place, time, situation. Cardiovascular: Capillary refill < 3 seconds Patient's skin is warm and dry. Respiratory: Respiratory effort is even, unlabored, Respiratory pattern is regular. GI: Abdomen is round Reports upper abdominal pain. Derm: Skin is pink, warm \\T\\ dry. Musculoskeletal: Circulation, motion, and sensation intact. Capillary refill < 3 seconds, Reports pain in back. 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 - Social history:: Smoking status: Patient reports the use of cigarette tobacco products, smokes one-half pack cigarettes per day, Patient uses street drugs, Methamphetamine (Meth) Patient/guardian denies using alcohol. Vital Signs: 23:46 BP 126 / 93; Pulse 93; Resp 18 S; Temp 97.4(TE); Pulse Ox 99% on R/A; Weight 98.43 kg bb (R); Height 5 ft. 7 in. (170.18 cm) (R); Pain 8/10; 23:46 Body Mass Index 33.99 (98.43 kg, 170.18 cm) bb ED Course: 23:29 Patient arrived in ED. mr 23:48 Triage completed. bb 23:49 Arm band placed on Patient placed in waiting room, Patient notified of wait time. bb Administered Medications: No medications were administered Outcome: 09/20 00:20 Patient left the ED. bb Signatures: Aadlgisa Falcon Brenda, RN RN bb
[2020-09-20 00:26] VITALS: BP 126/93; TEMP 97.4; O2SAT 99
== END 2020-09-20 00:20 | disposition left against medical advice (07) ==
LOC: ER 23:23
DX: M54.5 Low back pain (principal); F17.210 Nicotine dependence, cigarettes, uncomplicated; Z53.21 Procedure and treatment not carried out due to patient leaving prior to being seen by health care provider
CPT/HCPCS: 99281

== ENCOUNTER 2020-09-27 20:55 | Emergency (ER) | payer SELFPAY ==
--- NOTE | 2020-09-27 22:14 | ER ---
Nurse's Notes [facility] Name: Mahnaz Daniel Age: 39 yrs Sex: Female : 1980 Arrival Date: 09/27/2020 Time: 20:56 Bed 25 Private MD: Diagnosis: Person with feared health complaint in whom no diagnosis is made Presentation: 09/27 21:00 Chief complaint: Patient states: there's parasites all over me, my clothes, I see it ca1 even if you don't see it. My head is hurting, there's yellow , green, black discharge coming out of my breast. I have something in my mouth. I have been suffering in this 4 - 5 years now. I have sever anxiety right now. My thoughts and my mind, there's something wrong. Coronavirus screen: Client denies travel out of the [place] in the last 14 days. At this time, the client does not indicate any symptoms associated with coronavirus-19. Ebola Screen: Patient negative for fever greater than or equal to 101.5 degrees Fahrenheit, and additional compatible Ebola Virus Disease symptoms Patient denies exposure to infectious person. Patient denies travel to an Ebola-affected area in the 21 days before illness onset. No symptoms or risks identified at this time. Initial Sepsis Screen: Does the patient meet any 2 criteria? No. Patient's initial sepsis screen is negative. Does the patient have a suspected source of infection? No. Patient's initial sepsis screen is negative. Risk Assessment: Do you want to hurt yourself or someone else? Patient reports no desire to harm self or others. Onset of symptoms was September 27, 2020. 21:00 Method Of Arrival: Ambulatory ca1 21:00 Acuity: SIMEON 3 ca1 Triage Assessment: 22:13 Pain: Denies pain. 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 Flu vaccine is not up to date. - Social history:: Smoking status: Patient reports the use of cigarette tobacco products, smokes one-half pack cigarettes per day. Screenin:13 Abuse screen: Denies threats or abuse. Denies injuries from another. Nutritional iw screening: No deficits noted. Tuberculosis screening: No symptoms or risk factors identified. Fall Risk None identified. Assessment: 22:13 General: Appears in no apparent distress. unkempt, Behavior is anxious, restless. iw Neuro: Level of Consciousness is awake, alert, obeys commands, Oriented to person, place, time, Moves all extremities. 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 After assessment Jraad advised pt that she would need to follow up with Video Arcade Manager for further evaluation of hormone levels, pt stated that we did not believe her and we always think she is imagining things, pt got up and left out of room before she was given her discharge paper. left with her boyfriend. Vital Signs: 21:00 Pulse 95; Resp 16 S; Temp 98.5(TE); Pulse Ox 100% on R/A; Weight 98.43 kg (R); Height 5 ca1 ft. 7 in. (170.18 cm) (R); Pain 8/10; 21:06 BP 124 / 70; Pulse 114; ca1 21:00 Body Mass Index 33.99 (98.43 kg, 170.18 cm) ca1 ED Course: 20:56 Patient arrived in ED. am4 21:04 Triage completed. ca1 21:05 Arm band placed on right wrist. ca1 21:14 No provider procedures requiring assistance completed. Patient did not have IV access iw during this emergency room visit. 21:46 Jarad Licona NP is PHCP. pm1 21:46 Geronimo Carballo MD is Attending Physician. pm1 22:03 Gaby Kaur, RN is Primary Nurse. iw 22:13 Patient has correct armband on for positive identification. iw Administered Medications: No medications were administered Outcome: 22:14 Discharge ordered by . pm1 22:14 Discharged to home ambulatory, with family. iw 22:14 Condition: good 22:14 Discharge instructions given to patient, family, Instructed on follow up and referral plans. 22:24 Patient left the ED. iw Signatures: Gaby Kaur RN RN iw Jarad Licona NP EMPLOYEE ADVISER pm1 Mai Hernandez RN RN ca1 Elizabeth Cedillo am4 Corrections: (The following items were deleted from the chart) 21:04 21:00 BP 141 / ???; Pulse 95bpm; Resp 16bpm; Spontaneous; Pulse Ox 100% RA; Temp 98.5F ca1 Temporal; 98.43 kg Reported; Height 5 ft. 7 in. Reported; BMI: 33.9; Pain 8/10; ca1
--- NOTE | 2020-09-27 22:14 | EDPHYS ---
Physician Documentation [facility] Name: Mahnaz Daniel Age: 39 yrs Sex: Female : 1980 Arrival Date: 09/27/2020 Time: 20:56 Bed 25 Private MD: ED Physician Geronimo Carballo HPI: 09/27 22:12 This 39 yrs old Female presents to ER via Ambulatory with complaints of pm1 Doesn't Feel Right. 22:12 Onset: The symptoms/episode began/occurred 5 year(s) ago. Associated signs and pm1 symptoms: Pertinent positives: Feels and see bug crawling all over her body even though nobody else sees them. Reports that she has been seen here multiple times for the same complaints but we tell her that the bug do not exist and it is in her mind. hx of drug abuse. Modifying factors: The patient symptoms are alleviated by nothing, the patient symptoms are aggravated by nothing. The patient has experienced similar episodes in the past, chronically. The patient has not recently seen a physician. 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 Flu vaccine is not up to date. - Social history:: Smoking status: Patient reports the use of cigarette tobacco products, smokes one-half pack cigarettes per day. ROS: 22:12 Constitutional: Negative for fever, chills, and weight loss, Eyes: Negative for injury, pm1 pain, redness, and discharge, ENT: Negative for injury, pain, and discharge, Neck: Negative for injury, pain, and swelling. 22:12 Respiratory: Negative for shortness of breath, cough, wheezing, and pleuritic chest pain, Abdomen/GI: Negative for abdominal pain, nausea, vomiting, diarrhea, and constipation, Back: Negative for injury and pain, : Negative for injury, bleeding, discharge, and swelling, MS/Extremity: Negative for injury and deformity, Skin: Negative for injury, rash, and discoloration, Neuro: Negative for headache, weakness, numbness, tingling, and seizure. 22:12 Cardiovascular: Positive for Breast discharge, Negative for chest pain. Exam: 22:12 Constitutional: This is a well developed, well nourished patient who is awake, alert, pm1 and in no acute distress. Head/Face: Normocephalic, atraumatic. 22:12 Neck: Trachea midline, no thyromegaly or masses palpated, and no cervical lymphadenopathy. Supple, full range of motion without nuchal rigidity, or vertebral point tenderness. No Meningismus. 22:12 Skin: Warm, dry with normal turgor. Normal color with no rashes, no lesions, and no evidence of cellulitis. No bugs or insects present on her skin MS/ Extremity: Pulses equal, no cyanosis. Neurovascular intact. Full, normal range of motion. 22:12 Eyes: Exam is negative for acute changes, Extraocular movements: no acute changes, Conjunctiva: normal. 22:12 ENT: Mouth: is normal, Lips: normal, Oral mucosa: normal, pink and intact, moist, Voice: is normal. 22:12 Chest/axilla: Inspection: normal, Breasts: nipple discharge, that is mild in both breasts, cloth finishing range operator: Gaby CARTAGENA. 22:12 Cardiovascular: Rate: normal, Rhythm: regular, Pulses: no pulse deficits are appreciated. 22:12 Respiratory: Exam negative for acute changes, respiratory distress, shortness of breath. 22:12 Neuro: Exam negative for acute changes, Orientation: is normal, Mentation: is normal, Motor: is normal, moves all fours, Gait: is steady, at a normal pace, without difficulty. 22:12 Psych: Behavior/mood is anxious, Affect is animated, Oriented to person, place, time. Vital Signs: 21:00 Pulse 95; Resp 16 S; Temp 98.5(TE); Pulse Ox 100% on R/A; Weight 98.43 kg (R); Height 5 ca1 ft. 7 in. (170.18 cm) (R); Pain 8/10; 21:06 BP 124 / 70; Pulse 114; ca1 21:00 Body Mass Index 33.99 (98.43 kg, 170.18 cm) ca1 MDM: 21:50 Patient medically screened. pm1 22:12 Counseling: I had a detailed discussion with the patient and/or guardian regarding: the pm1 need for outpatient follow up, a family practitioner, an OB/Gyne specialist. 22:12 Data interpreted: Pulse oximetry: on room air is 100 %. Interpretation: normal. pm1 23:41 Data reviewed: vital signs. pm1 Administered Medications: No medications were administered Disposition: 09/28 06:18 Co-signature as Attending Physician, Geronimo Carballo MD. [email or web address] Disposition: 09/27/20 22:14 Discharged to Home. Impression: Person with feared health complaint in whom no diagnosis is made. - Condition is Stable. - Medication Reconciliation Form, Thank You Letter, Antibiotic Education, Prescription Opioid Use form. - Follow up: Emergency Department; When: As needed; Reason: Worsening of condition. Follow up: Private Physician; When: 2 - 3 days; Reason: Recheck today's complaints, Continuance of care, Re-evaluation by your physician. - Problem is new. - Symptoms have improved. Signatures: Gaby Kaur RN RN iw Jarad Licona NP LOW PRESSURE FIRER pm1 Mai Hernandez RN RN ca1 Geronimo Carballo MD MD [facility] Corrections: (The following items were deleted from the chart) 09/27 22:24 22:14 09/27/2020 22:14 Discharged to Home. Impression: Person with feared health iw complaint in whom no diagnosis is made. Condition is Stable. Forms are Medication Reconciliation Form, Thank You Letter, Antibiotic Education, Prescription Opioid Use. Follow up: Emergency Department; When: As needed; Reason: Worsening of condition. Follow up: Private Physician; When: 2 - 3 days; Reason: Recheck today's complaints, Continuance of care, Re-evaluation by your physician. Problem is new. Symptoms have improved. pm1 23:41 22:12 Counseling: I had a detailed discussion with the patient and/or guardian pm1 regarding: the need for outpatient follow up, a family practitioner, an OB/Gyne specialist, pm1
[2020-09-27 22:31] VITALS: TEMP 98.5; O2SAT 100
[2020-09-27 22:32] VITALS: BP 124/70
== END 2020-09-27 22:24 | disposition home or self-care (01) ==
LOC: ER 20:55
DX: Z71.1 Person with feared health complaint in whom no diagnosis is made (principal); F17.210 Nicotine dependence, cigarettes, uncomplicated; K74.60 Unspecified cirrhosis of liver; B19.20 Unspecified viral hepatitis C without hepatic coma
CPT/HCPCS: 99281

== ENCOUNTER 2020-12-24 21:51 | Emergency (ER) | payer SELFPAY | END 2020-12-24 23:06 | disposition left against medical advice (07) | LOC: ER 21:51 | DX: Z02.9 Encounter for administrative examinations, unspecified (principal) ==

== ENCOUNTER 2021-01-11 09:51 | Emergency (ER) | payer SELFPAY ==
[2021-01-11 11:11] LABS: Absolute Lymphocytes (CBC) 1.6 K/uL (0.7-4.9); Basophils % 0.6 % (0-1.3); Hematocrit 40.5 % (36.0-45.0); Lymphocytes % 25.5 % (15.3-44.8); MPV 9.5 fL (7.6-11.3); RBC Red Blood Cell Count 4.43 M/uL (3.86-4.86)
[2021-01-11] MEDS ORDERED: LEVALBUTEROL 1.25 MG/3 ML NEB ONE (11:24)
[2021-01-11] MEDS ORDERED: NA CHLORIDE 0.9% 500 ML ONE (11:24)
[2021-01-11] MEDS ORDERED: METHYLPREDNISOLONE 125 MG INJ ONE (11:24)
[2021-01-11 11:30] LABS: ALT/SGPT 109 U/L (12-78); AST/SGOT 82 U/L (15-37); Albumin 3.6 g/dL (3.4-5.0); Alkaline Phosphatase 146 U/L (45-117); BUN Blood Urea Nitrogen 13 mg/dL (7-18); Bicarbonate 27 mmol/L (21-32); Bilirubin Direct 0.2 mg/dL (0-0.2); Bilirubin Total 0.5 mg/dL (0.2-1.0); Glucose Level 85 mg/dL (74-106); Lipase 111 U/L (73-393); Potassium 3.6 mmol/L (3.5-5.1); Protein, Total 7.7 g/dL (6.4-8.2); Sodium Level 140 mmol/L (136-145); Troponin (Emerg Dept Use Only) < 0.02 ng/mL (0.0-0.045)
[2021-01-11 11:44] LABS: Protime INR 0.93
--- NOTE | 2021-01-11 11:54 | RAD REPORT ---
EXAM DESCRIPTION: RAD - Chest Single View - 01/11/2021 11:34 am CLINICAL HISTORY: Cough;Dyspnea Chest pain. COMPARISON: Chest Pa And Lat (2 Views) dated 05/25/2018; Chest Single View dated 02/15/2018; Chest Pa And Lat (2 Views) dated 06/12/2016; CHEST PA AND LAT 2 VIEW dated 02/09/2010 FINDINGS: Portable technique limits examination quality. Mild interstitial prominence is seen which could indicate a mild viral infection. The heart is normal in size. No displaced fractures.
--- NOTE | 2021-01-11 14:10 | ER ---
Nurse's Notes [facility] Name: Mahnaz Daniel Age: 40 yrs Sex: Female : 1980 Arrival Date: 01/11/2021 Time: 09:52 Bed 6 Private MD: Diagnosis: Pneumonia, unspecified organism Presentation: 01/11 10:20 Chief complaint: SOB, pain with breathing, and productive cough x 2-3 days. Also c/o hb severe chronic low back pain 01/09. Coronavirus screen: Client presents with at least one sign or symptom that may indicate coronavirus-19. Standard/surgical mask placed on the client. Provider contacted for isolation considerations. Ebola Screen: No symptoms or risks identified at this time. Initial Sepsis Screen: Does the patient meet any 2 criteria? No. Patient's initial sepsis screen is negative. Does the patient have a suspected source of infection? No. Patient's initial sepsis screen is negative. Risk Assessment: Do you want to hurt yourself or someone else? Patient reports no desire to harm self or others. Onset of symptoms was January 09, 2021. 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 Flu vaccine is not up to date. - Social history:: Smoking status: Patient reports the use of cigarette tobacco products, smokes one-half pack cigarettes per day. - Family history:: not pertinent. - Hospitalizations: : No recent hospitalization is reported. Screenin:08 Abuse screen: Denies threats or abuse. Denies injuries from another. Nutritional jl7 screening: No deficits noted. Tuberculosis screening: No symptoms or risk factors identified. Fall Risk IV access (20 points). Total De [place] Cruz Fall Scale indicates No Risk (0-24 pts). Assessment: 11:08 General: Appears in no apparent distress. uncomfortable, Behavior is cooperative, jl7 anxious. Pain: Complains of pain in back Pain currently is 9 out of 10 on a pain scale. Neuro: Level of Consciousness is awake, alert, obeys commands, Oriented to person, place, time, situation. Cardiovascular: Patient's skin is warm and dry. Rhythm is sinus tachycardia. Respiratory: Airway is patent Respiratory effort is even, unlabored, Respiratory pattern is regular, symmetrical. Derm: Skin is pink, warm \T\ dry. 13:23 Reassessment: Patient appears in no apparent distress at this time. No changes from tw2 previously documented assessment. Patient and/or family updated on plan of care and expected duration. Pain level reassessed. Patient is alert, oriented x 3, equal unlabored respirations, skin warm/dry/pink. pt resting at this time. 14:35 Reassessment: Patient appears in no apparent distress at this time. No changes from tw2 previously documented assessment. Patient and/or family updated on plan of care and expected duration. Pain level reassessed. Patient is alert, oriented x 3, equal unlabored respirations, skin warm/dry/pink. Vital Signs: 10:20 BP 149 / 91; Pulse 105; Resp 20; Temp 97.7; Pulse Ox 100% on R/A; Weight 90.72 kg; hb Height 5 ft. 7 in. (170.18 cm); Pain 9/10; 11:30 BP 123 / 83; Pulse 105; Resp 15; Pulse Ox 100% ; jl7 12:20 BP 100 / 72; Pulse 100; Resp 18; Pulse Ox 98% on R/A; tw2 13:16 BP 122 / 50; Pulse 77; Resp 17; Pulse Ox 97% on R/A; tw2 10:20 Body Mass Index 31.32 (90.72 kg, 170.18 cm) hb ED Course: 09:52 Patient arrived in ED. ds1 10:22 Triage completed. hb 10:22 Arm band placed on. hb 10:26 Parish Miranda, RN is Primary Nurse. jl7 10:28 Live Paris MD is Attending Physician. rn 10:50 Initial lab(s) drawn, by ED staff, sent to lab. First set of blood cultures drawn by ED jl7 staff, Second set of blood cultures drawn by ED staff, EKG done, by ED staff, reviewed by Live Paris MD COVID swab sent to lab. Strep swab sent to lab. 11:05 EKG done, by ED staff, reviewed by iLve Paris MD. dh3 11:08 Patient has correct armband on for positive identification. Bed in low position. Call jl7 light in reach. Side rails up X2. classroom monitor on. Pulse ox on. NIBP on. Warm blanket given. 11:08 Inserted saline lock: 20 gauge in right antecubital area, using aseptic technique. jl7 Blood collected. 11:34 CXR XRAY In Process Unspecified. EDMS 12:05 Primary Nurse role handed off by Parish Miranda RN tw2 12:05 Myrna Patterson RN is Primary Nurse. tw2 12:20 BMP Sent. ch5 12:20 Blood Culture Adult (2) Sent. ch5 12:20 C-Reactive Protein Sent. ch5 12:20 CBC with Diff Sent. ch5 12:20 D-Dimer Sent. ch5 12:20 Ferritin Sent. ch5 12:20 Flu Sent. ch5 12:20 LFT's Sent. ch5 12:20 Lactate Sent. ch5 12:21 Lipase Sent. ch5 12:21 PT-INR Sent. ch5 14:35 Assist provider with bone marrow aspiration. IV discontinued, intact, bleeding tw2 controlled, No redness/swelling at site. Pressure dressing applied. Administered Medications: 11:08 Drug: NS 0.9% 500 ml Route: IV; Rate: bolus; Site: right antecubital; jl7 12:23 Follow up: Response: No adverse reaction; IV Status: Completed infusion; IV Intake: tw2 500ml 11:08 Drug: SOLU-Medrol (methylPrednisoLONE) 125 mg Route: IVP; Site: right antecubital; jl7 12:21 Follow up: Response: No adverse reaction tw2 11:08 Drug: Xopenex (levalbuterol) (3) 1.25 mg Route: Inhalation; jl7 Intake: 12:23 IV: 500ml; Total: 500ml. tw2 Outcome: 14:09 Discharge ordered by . rn 14:35 Discharged to home ambulatory. tw2 14:35 Condition: stable 14:35 Discharge instructions given to patient, Instructed on discharge instructions, follow up and referral plans. medication usage, Demonstrated understanding of instructions, follow-up care, medications, Prescriptions given X 1. 14:35 Patient left the ED. tw2 Signatures: Dispatcher [employer] [facility] Radha Bean ds1 Live Paris MD MD rn Baxter, Heather, RN RN hb Wise, Myrna, RN RN tw2 Parish Miranda, RN RN jl7 Latrice Galvan 3 Burt Keller, RN RN ch5
--- NOTE | 2021-01-11 14:10 | EDPHYS ---
Physician Documentation [facility] Name: Mahnaz Daniel Age: 40 yrs Sex: Female : 1980 Arrival Date: 01/11/2021 Time: 09:52 Bed 6 Private MD: ED Physician Live Paris HPI: 01/11 10:38 This 40 yrs old Female presents to ER via Ambulatory with complaints of rn Cough, Shortness Of Breath, Back Pain. 10:38 The patient or guardian reports cough, described as moderate, with no sputum, rn difficulty breathing. Onset: The symptoms/episode began/occurred 2 day(s) ago. Severity of symptoms: At their worst the symptoms were moderate, in the emergency department the symptoms are unchanged. Modifying factors: The symptoms are alleviated by nothing, the symptoms are aggravated by nothing. Associated signs and symptoms: Pertinent positives: diarrhea, fever, rhinorrhea, sore throat, Pertinent negatives: vomiting. The patient has not experienced similar symptoms in the past. The patient has not recently seen a physician. Patient reports chills/fatigue/runny nose/cough/diarrhea for 2 days. Not Covid vaccinated. Reports shortness of breath. 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 Flu vaccine is not up to date. - Social history:: Smoking status: Patient reports the use of cigarette tobacco products, smokes one-half pack cigarettes per day. - Family history:: not pertinent. - Hospitalizations: : No recent hospitalization is reported. 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 Exam: 10:38 Constitutional: This is a well developed, well nourished patient who is awake, alert, rn mild to moderate tachypnea Head/Face: Normocephalic, atraumatic. Eyes: Periorbital areas with no swelling, redness, or edema. ENT: No stridor Cardiovascular: Tachycardic, regular Respiratory: Mild to moderate tachypnea. No retractions Abdomen/GI: Soft, nontender Skin: Warm, dry MS/ Extremity: Pulses equal, no cyanosis. Neuro: Awake and alert, GCS 15 Vital Signs: 10:20 BP 149 / 91; Pulse 105; Resp 20; Temp 97.7; Pulse Ox 100% on R/A; Weight 90.72 kg; hb Height 5 ft. 7 in. (170.18 cm); Pain 9/10; 11:30 BP 123 / 83; Pulse 105; Resp 15; Pulse Ox 100% ; jl7 12:20 BP 100 / 72; Pulse 100; Resp 18; Pulse Ox 98% on R/A; tw2 13:16 BP 122 / 50; Pulse 77; Resp 17; Pulse Ox 97% on R/A; tw2 10:20 Body Mass Index 31.32 (90.72 kg, 170.18 cm) hb MDM: 10:28 Patient medically screened. rn 14:07 Differential Diagnosis: Bronchitis Influenza Upper Respiratory Infection Sinusitis rn Pharyngitis Viral Syndrome Pneumonia Other Reactive airway disease, pulmonary edema, Covid. Data reviewed: vital signs, nurses notes, lab test result(s), EKG, radiologic studies, and as a result, I will discharge patient. 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 Interpretation: normal. Test interpretation: by ED physician or midlevel provider: ECG, plain radiologic studies, Chest x-ray with mild bilateral interstitial infiltrate. Counseling: I had a detailed discussion with the patient and/or guardian regarding: the historical points, exam findings, and any diagnostic results supporting the discharge/admit diagnosis, lab results, radiology results, the need for outpatient follow up, to return to the emergency department if symptoms worsen or persist or if there are any questions or concerns that arise at home. Response to treatment: the patient's symptoms have markedly improved after treatment, and as a result, I will discharge patient. Special discussion: I discussed with the patient/guardian in detail that at this point there is no indication for admission to the hospital. It is understood, however, that if the symptoms persist or worsen the patient needs to return immediately for re-evaluation. ED course: Covid negative. X-ray shows either bronchitis versus early pneumonia. No oxygen requirement. Will DC home with antibiotics and instructions to quit smoking. Return precautions given and understood.. 01/12 07:26 ED course: Blood Cultures showed Gram positive cocci and daniel. Added Augmentin this jr8 morning. Patient called and coming to get prescription . 01/11 10:34 Order name: BMP rn 01/11 10:34 Order name: Blood Culture Adult (2) 01/11 10:34 Order name: C-Reactive Protein 01/11 10:34 Order name: CBC with Diff 01/11 10:34 Order name: D-Dimer 01/11 10:34 Order name: Ferritin 01/11 10:34 Order name: Flu rn 01/11 10:34 Order name: LFT's rn 01/11 10:34 Order name: Lactate 01/11 10:34 Order name: Lipase rn 01/11 10:34 Order name: PT-INR rn 01/11 10:34 Order name: Procalcitonin; Complete Time: 12:31 01/11 10:34 Order name: Ptt, Activated; Complete Time: 11:51 01/11 10:34 Order name: Strep; Complete Time: 11:51 01/11 10:34 Order name: Troponin (emerg Dept Use Only); Complete Time: 11:51 01/11 10:35 Order name: Basic Metabolic Panel; Complete Time: 11:51 [facility] 01/11 10:35 Order name: Blood Culture [facility] 01/11 10:35 Order name: C-Reactive Protein; Complete Time: 11:51 [facility] 01/11 10:35 Order name: CBC with Automated Diff; Complete Time: 11:51 [facility] 01/11 10:35 Order name: D-Dimer; Complete Time: 11:51 [facility] 01/11 10:35 Order name: Ferritin; Complete Time: 11:51 [facility] 01/11 10:35 Order name: Influenza Screen (A ; Complete Time: 11: [facility] 01/11 10:35 Order name: Liver (Hepatic) Function; Complete Time: : [facility] 01/11 10:35 Order name: Lactate; Complete Time: : [facility] 01/11 10:35 Order name: Lipase; Complete Time: 11:51 [facility] 01/11 10:35 Order name: Protime (+INR); Complete Time: : [facility] 01/11 11:49 Order name: Throat Culture [facility] 01/11 12:47 Order name: SARS-COV-2 RT PCR; Complete Time: 14:05 [facility] 01/11 10:34 Order name: CXR XRAY; Complete Time: 11:55 rn 01/11 10:34 Order name: EKG; Complete Time: 10:35 rn 01/11 10:34 Order name: Cardiac monitoring; Complete Time: 11: rn 01/11 10:34 Order name: Droplet/Contact Precautions; Complete Time: : rn 01/11 10:34 Order name: EKG - Nurse/Tech; Complete Time: : rn 01/11 10:34 Order name: IV Start; Complete Time: 11: rn 01/11 10:34 Order name: Labs collected and sent; Complete Time: : rn 01/11 10:34 Order name: O2 Per Protocol; Complete Time: : rn 01/11 10:34 Order name: O2 Sat Monitoring; Complete Time: 11: rn 01/11 10:34 Order name: Urine Dipstick-Ancillary (obtain specimen); Complete Time: 14:35 01/11 14:22 Order name: Urine Dipstick-Ancillary [facility] Administered Medications: 01/11 11:08 Drug: NS 0.9% 500 ml Route: IV; Rate: bolus; Site: right antecubital; jl7 12:23 Follow up: Response: No adverse reaction; IV Status: Completed infusion; IV Intake: tw2 500ml 11:08 Drug: SOLU-Medrol (methylPrednisoLONE) 125 mg Route: IVP; Site: right antecubital; jl7 12:21 Follow up: Response: No adverse reaction tw2 11:08 Drug: Xopenex (levalbuterol) (3) 1.25 mg Route: Inhalation; jl7 Disposition: 01/12 08:26 Co-signature as Attending Physician, Live Paris MD. 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 Day 2, 3, 4 , 5 take one (1) tablet once daily.; 6 tablet; Refills: 0, Product Selection Permitted Signatures: Dispatcher [employer] EDMS Live Paris MD MD rn Roszak, Josh, PA PA jr8 Germaine Cohen, RN RN Parish Schwarz RN RN jl7 Myrna Patterson RN tw2 Corrections: (The following items were deleted from the chart) 01/11 11:53 10:35 CORONAVIRUS+MR.LAB.BRZ ordered. [facility] EDMS
[2021-01-11 14:23] LABS: Urine Blood Negative (Negative); Urine Glucose Negative (Negative); Urine Protein Negative (Negative); Urine Specific Gravity 1.015 (1.005-1.030)
[2021-01-11 15:16] VITALS: TEMP 97.7
[2021-01-11 15:29] VITALS: BP 122/50; O2SAT 97
== END 2021-01-11 14:35 | disposition home or self-care (01) ==
LOC: ER 09:51
DX: J18.9 Pneumonia, unspecified organism (principal); F17.210 Nicotine dependence, cigarettes, uncomplicated; Z20.822 Contact with and (suspected) exposure to COVID-19; Z88.1 Allergy status to other antibiotic agents
CPT/HCPCS: 36415; 71045; 80048; 80076; 81003; 82728; 83605; 83690; 84145; 84484; 85025; 85379; 85610; 85730; 86140; 87040; 87070; 87077; 87081; 87186; 87205; 87804; 93005; 96361; 96374; 99285; J2930; J7040; U0003

== ENCOUNTER 2021-01-21 05:17 | Observation (INO) | payer SELFPAY ==
[2021-01-21] MEDS ORDERED: ONDANSETRON 4 MG/2 ML VIAL ONE (07:14)
[2021-01-21] MEDS ORDERED: PIPERACIL/TAZO 3.375 GM VIAL IV ONE (07:14)
[2021-01-21] MEDS ORDERED: NA CHLORIDE 0.9% 100 ML ONE (07:15)
[2021-01-21] MEDS ORDERED: FENTANYL CITR 100 MCG/2 ML ONE ×2 (07:17→08:11)
--- NOTE | 2021-01-21 07:21 | EDPHYS ---
Physician Documentation [facility] Name: Mahnaz Daniel Age: 40 yrs Sex: Female : 1980 Arrival Date: 01/21/2021 Time: 05:20 Bed 27 Private MD: KATHRYN Physician Patrick Michelle HPI: 01/21 06:01 This 40 yrs old Female presents to ER via Ambulatory with complaints of Back amanda Pain, Breathing Difficulty. 06:01 The patient presents with pain that is acute, with no known mechanism of injury. The amanda symptoms are located in the thoracic area. Onset: The symptoms/episode began/occurred 2 day(s) ago. The pain does not radiate. Associated signs and symptoms: The patient has no apparent associated signs or symptoms. Modifying factors: The patient symptoms are alleviated by nothing, the patient symptoms are aggravated by coughing. Severity of symptoms: At their worst the symptoms were moderate. The patient has not experienced similar symptoms in the past. 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 - Social history:: Smoking status: Patient reports the use of cigarette tobacco products, smokes one pack cigarettes per day. - Family history:: not pertinent. ROS: 06:01 Constitutional: Negative for fever, chills, and weight loss, Eyes: Negative for injury, amanda pain, redness, and discharge, ENT: Negative for injury, pain, and discharge, Neck: Negative for injury, pain, and swelling, Abdomen/GI: Negative for abdominal pain, nausea, vomiting, diarrhea, and constipation, Back: Negative for injury and pain, : Negative for injury, bleeding, discharge, and swelling, MS/Extremity: Negative for injury and deformity, Skin: Negative for injury, rash, and discoloration, Neuro: Negative for headache, weakness, numbness, tingling, and seizure, Psych: Negative for depression, anxiety, suicide ideation, homicidal ideation, and hallucinations, Allergy/Immunology: Negative for hives, rash, and allergies, Endocrine: Negative for neck swelling, polydipsia, polyuria, polyphagia, and marked weight changes, Hematologic/Lymphatic: Negative for swollen nodes, abnormal bleeding, and unusual bruising. 06:01 Cardiovascular: Positive for chest pain. 06:01 Respiratory: Positive for cough, shortness of breath, at rest. Exam: 06:01 Constitutional: This is a well developed, well nourished patient who is awake, alert, amanda and in no acute distress. Head/Face: Normocephalic, atraumatic. Eyes: Pupils equal round and reactive to light, extra-ocular motions intact. Lids and lashes normal. Conjunctiva and sclera are non-icteric and not injected. Cornea within normal limits. Periorbital areas with no swelling, redness, or edema. ENT: Nares patent. No nasal discharge, no septal abnormalities noted. Tympanic membranes are normal and external auditory canals are clear. Oropharynx with no redness, swelling, or masses, exudates, or evidence of obstruction, uvula midline. Mucous membranes moist. Neck: Trachea midline, no thyromegaly or masses palpated, and no cervical lymphadenopathy. Supple, full range of motion without nuchal rigidity, or vertebral point tenderness. No Meningismus. Chest/axilla: Normal chest wall appearance and motion. Nontender with no deformity. No lesions are appreciated. Respiratory: Lungs have equal breath sounds bilaterally, clear to auscultation and percussion. No rales, rhonchi or wheezes noted. No increased work of breathing, no retractions or nasal flaring. Abdomen/GI: Soft, non-tender, with normal bowel sounds. No distension or tympany. No guarding or rebound. No evidence of tenderness throughout. Back: No spinal tenderness. No costovertebral tenderness. Full range of motion. Skin: Warm, dry with normal turgor. Normal color with no rashes, no lesions, and no evidence of cellulitis. MS/ Extremity: Pulses equal, no cyanosis. Neurovascular intact. Full, normal range of motion. Neuro: Awake and alert, GCS 15, oriented to person, place, time, and situation. Cranial nerves II-XII grossly intact. Motor strength 5/5 in all extremities. Sensory grossly intact. Cerebellar exam normal. Normal gait. 06:01 Cardiovascular: Rate: tachycardic, Rhythm: regular, Pulses: Pulses are 4+ in bilateral radial, brachial, femoral, popliteal, posterior tibial and and dorsalis pedis arteries.. Heart sounds: normal, Edema: is not appreciated, JVD: is not appreciated. 06:01 ECG was reviewed by the Attending Physician. Vital Signs: 05:35 BP 107 / 73; Pulse 120; Resp 20; Temp 98.3; Pulse Ox 100% on R/A; Weight 81.65 kg; wg Height 5 ft. 7 in. (170.18 cm); Pain 8/10; 05:45 BP 96 / 69; Pulse 114; Resp 20; Temp 98.3(O); Pulse Ox 98% on R/A; cc4 07:03 BP 128 / 93; Pulse 109; Resp 22; Pulse Ox 96% ; cc4 08:12 BP 100 / 70; Pulse 101; Resp 20; Temp 98.0(TE); Pulse Ox 96% on R/A; kh1 05:35 Body Mass Index 28.19 (81.65 kg, 170.18 cm) wg MDM: 05:40 Patient medically screened. [facility] 06:07 Differential diagnosis: Basilar Pneumonia Obesity Pyelonephritis ruptured disc, sprain. amanda Data reviewed: vital signs, nurses notes, lab test result(s), CBC, electrolytes, hepatic panel. 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 Test interpretation: by ED physician or midlevel provider: ECG, plain radiologic studies. Counseling: I had a detailed discussion with the patient and/or guardian regarding: the historical points, exam findings, and any diagnostic results supporting the discharge/admit diagnosis, lab results, radiology results. 01/21 05:35 Order name: Basic Metabolic Panel; Complete Time: 09: 01/21 05:35 Order name: CBC with Diff; Complete Time: 09: 01/21 05:35 Order name: LFT's; Complete Time: 09: 01/21 05:35 Order name: Magnesium; Complete Time: 09: 01/21 05:35 Order name: NT PRO-BNP; Complete Time: : 01/21 05:35 Order name: PT-INR; Complete Time: 09: 01/21 05:35 Order name: Troponin (emerg Dept Use Only); Complete Time: 09:07 01/21 06:00 Order name: Lactate; Complete Time: 07:07 [facility] 01/21 06:00 Order name: Blood Culture Adult (2) [facility] 01/21 06:10 Order name: AMMONIA amanda 01/21 06:10 Order name: Lipase amanda 01/21 06:11 Order name: Ammonia [facility] 01/21 06:11 Order name: Lipase [facility] 01/21 05:35 Order name: XRAY Chest (1 view); Complete Time: 09:07 01/21 05:35 Order name: EKG; Complete Time: 05:36 01/21 05:35 Order name: Cardiac monitoring; Complete Time: 05:52 01/21 05:35 Order name: EKG - Nurse/Tech; Complete Time: 05:52 01/21 06:00 Order name: CT Aorta for Dissection; Complete Time: 09:32 [facility] 01/21 07:46 Order name: CBC Smear Scan; Complete Time: 09:07 [facility] 01/21 08:50 Order name: Urine Dipstick-Ancillary; Complete Time: 09:07 [facility] 01/21 08:51 Order name: Urine --Ancillary (enter results) 01/21 09:33 Order name: SARS-COV-2 RT PCR [facility] 01/21 05:35 Order name: IV Saline Lock; Complete Time: 08:05 01/21 05:35 Order name: Labs collected and sent; Complete Time: 08:05 01/21 05:35 Order name: O2 Per Protocol; Complete Time: 08:05 01/21 05:35 Order name: O2 Sat Monitoring; Complete Time: 05:53 01/21 05:35 Order name: Urine Dipstick-Ancillary (obtain specimen) EC:01 Rate is 109 beats/min. Rhythm is regular. QRS [place] is Normal. [place] interval is normal. [facility] QRS interval is normal. QT interval is normal. No Q waves. T waves are Normal. No ST changes noted. Clinical impression: NSR w/ Non-specific ST/T Changes and No evidence of ischemia. Interpreted by me. Reviewed by me. Administered Medications: 06:55 Drug: fentaNYL (PF) 50 mcg Route: IVP; Site: right wrist; cc4 06:55 Drug: Zofran (Ondansetron) 4 mg Route: IVP; Site: right wrist; cc4 07:00 Drug: Zosyn (piperacillin-tazobactam) 3.375 grams Route: IVPB; Infused Over: 60 mins; cc4 Site: right wrist; 07:53 Drug: fentaNYL (PF) 50 mcg Route: IVP; Site: right wrist; [facility] 08:01 Drug: Aspirin Chewable Tablet 162 mg Route: PO; 1 08:01 Drug: Pepcid (famotidine) 20 mg Route: IVP; Site: right wrist; [facility] 08:11 Drug: NS 0.9% 1000 ml Route: IV; Rate: 1 bolus; Site: right wrist; [facility] Disposition Summary: 01/21/21 07:20 Hospitalization Ordered Hospitalization Status: Observation amanda Provider: Angie Multani cha Location: Telemetry/MedSurg (observation) amanda Condition: Fair amanda Problem: new amanda Symptoms: have improved amanda Bed/Room Type: Standard amanda Room Assignment: amanda Diagnosis - Chest pain, unspecified amanda - Dyspnea amanda - Unspecified cirrhosis of liver amanda Forms: - Medication Reconciliation Form amanda - SBAR form amanda Signatures: Dispatcher [employer] EDPatrick Darnell MD MD cha Williams, Irene, RN RN iw Roszak, Josh, PA PA 8 Glneys Mariano [facility] Frank Ronquillo RN wg Cooper, Christie [facility] Corrections: (The following items were deleted from the chart) : 06:01 CORONAVIRUS+MR.LAB.BRZ ordered. [facility] EDMS
--- NOTE | 2021-01-21 07:21 | ER ---
Nurse's Notes [facility] Name: Mahnaz Daniel Age: 40 yrs Sex: Female : 1980 Arrival Date: 01/21/2021 Time: 05:20 Bed 27 Private MD: Diagnosis: Chest pain, unspecified;Dyspnea;Unspecified cirrhosis of liver Presentation: 01/21 05:35 Chief complaint: Patient states: Pt states she was seen here last week and diagnoses wg with pneumonia. Pt states she has had increased pain in her back between her shoulder blades, SOB, and diarrhea. Pt denies abd pain and vomiting. Coronavirus screen: Vaccine status: Patient reports being unvaccinated. Ebola Screen: Patient negative for fever greater than or equal to 101.5 degrees Fahrenheit, and additional compatible Ebola Virus Disease symptoms Patient denies exposure to infectious person. Patient denies travel to an Ebola-affected area in the 21 days before illness onset. No symptoms or risks identified at this time. Initial Sepsis Screen: Does the patient meet any 2 criteria? No. Patient's initial sepsis screen is negative. Does the patient have a suspected source of infection? No. Patient's initial sepsis screen is negative. Risk Assessment: Do you want to hurt yourself or someone else? Patient reports no desire to harm self or others. Onset of symptoms was January 18, 2021. 05:35 Method Of Arrival: Ambulatory 05:35 Acuity: SIMEON 3 wg Triage Assessment: 05:45 General: Appears uncomfortable, Behavior is anxious, restless. Pain: Complains of pain cc4 in back Pain does not radiate. Pain currently is 10 out of 10 on a pain scale. at worst was 10 out of 10 on a pain scale. Quality of pain is described as sharp, Sharp pain between shoulder blades upon inspiration. 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 - Social history:: Smoking status: Patient reports the use of cigarette tobacco products, smokes one pack cigarettes per day. - Family history:: not pertinent. Screenin:45 Abuse screen: Denies threats or abuse. cc4 05:45 Nutritional screening: No deficits noted. Fall Risk None identified. cc4 08:07 Tuberculosis screening: No symptoms or risk factors identified. critical access hospital Assessment: 06:00 Neuro: Level of Consciousness is awake, alert, obeys commands, Oriented to person, cc4 place, time, situation. 08:06 Reassessment: Patient appears in no apparent distress at this time. No changes from critical access hospital previously documented assessment. Patient and/or family updated on plan of care and expected duration. Pain level reassessed. Patient is alert, oriented x 3, equal unlabored respirations, skin warm/dry/pink. Patient states feeling better. 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 Vital Signs: 05:35 BP 107 / 73; Pulse 120; Resp 20; Temp 98.3; Pulse Ox 100% on R/A; Weight 81.65 kg; wg Height 5 ft. 7 in. (170.18 cm); Pain 8/10; 05:45 BP 96 / 69; Pulse 114; Resp 20; Temp 98.3(O); Pulse Ox 98% on R/A; cc4 07:03 BP 128 / 93; Pulse 109; Resp 22; Pulse Ox 96% ; cc4 08:12 BP 100 / 70; Pulse 101; Resp 20; Temp 98.0(TE); Pulse Ox 96% on R/A; kh1 05:35 Body Mass Index 28.19 (81.65 kg, 170.18 cm) ED Course: 05:20 Patient arrived in ED. bp1 05:38 Triage completed. wg 05:39 Arm band placed on left wrist. wg 05:40 Patrick Michelle MD is Attending Physician. amanda 05:44 XRAY Chest (1 view) In Process Unspecified. EDMS 05:45 No provider procedures requiring assistance completed. cc4 05:52 Lizz Gongora is Primary Nurse. cc4 06:15 Basic Metabolic Panel Sent. cc4 06:16 CBC with Diff Sent. cc4 06:16 LFT's Sent. cc4 06:16 Magnesium Sent. cc4 06:16 NT PRO-BNP Sent. cc4 06:17 PT-INR Sent. cc4 06:17 Troponin (emerg Dept Use Only) Sent. cc4 06:43 Lipase Sent. cc4 06:43 AMMONIA Sent. cc4 06:44 Blood Culture Adult (2) Sent. cc4 06:44 Lactate Sent. cc4 07:17 Angie Multani MD is Hospitalizing Provider. [facility] 08:05 Lipase Sent. kh1 08:05 Ammonia Sent. kh1 08:05 Blood Culture Adult (2) Sent. kh1 08:07 Patient has correct armband on for positive identification. Call light in reach. Side kh1 rails up X2. 08:07 CBC Smear Scan Sent. kh1 08:59 CT Aorta for Dissection In Process Unspecified. EDMS 09:05 Urine --Ancillary (enter results) Sent. kh1 09:17 Urine --Ancillary (enter results) Sent. kh1 Administered Medications: 06:55 Drug: fentaNYL (PF) 50 mcg Route: IVP; Site: right wrist; cc4 06:55 Drug: Zofran (Ondansetron) 4 mg Route: IVP; Site: right wrist; cc4 07:00 Drug: Zosyn (piperacillin-tazobactam) 3.375 grams Route: IVPB; Infused Over: 60 mins; cc4 Site: right wrist; 07:53 Drug: fentaNYL (PF) 50 mcg Route: IVP; Site: right wrist; kh1 08:01 Drug: Aspirin Chewable Tablet 162 mg Route: PO; kh1 08:01 Drug: Pepcid (famotidine) 20 mg Route: IVP; Site: right wrist; kh1 08:11 Drug: NS 0.9% 1000 ml Route: IV; Rate: 1 bolus; Site: right wrist; kh1 Outcome: 05:45 Condition: stable cc4 07:20 Decision to Hospitalize by Provider. amanda 10:49 AMA AMA form signed kh1 11:01 Patient left the ED. iw Signatures: Dispatcher [employer] EDPatrick Darnell MD MD cha Williams, Irene, Martha Avery RN, [facility] Frank Ronquillo RN wg Cooper, Christie 4 Corrections: (The following items were deleted from the chart) 08:21 08:05 CORONAVIRUS+ drawn and sent. critical access hospital MAYNOR
[2021-01-21 07:29] LABS: Protime INR 0.95
[2021-01-21 07:32] LABS: Absolute Lymphocytes (CBC) 2.4 K/uL (0.7-4.9); Basophils % 0.5 % (0-1.3); Hematocrit 46.9 % (36.0-45.0); MPV 9.9 fL (7.6-11.3); RBC Red Blood Cell Count 5.15 M/uL (3.86-4.86)
[2021-01-21 07:35] LABS: Lymphocytes % 36.7 % (15.3-44.8)
[2021-01-21 08:03] LABS: ALT/SGPT 65 U/L (12-78); AST/SGOT 44 U/L (15-37); Albumin 3.5 g/dL (3.4-5.0); Alkaline Phosphatase 94 U/L (45-117); BUN Blood Urea Nitrogen 15 mg/dL (7-18); Bicarbonate 22 mmol/L (21-32); Bilirubin Direct 0.2 mg/dL (0-0.2); Bilirubin Total 0.5 mg/dL (0.2-1.0); Glucose Level 92 mg/dL (74-106); Magnesium 1.9 mg/dL (1.8-2.4); NT PRO-BNP 24 pg/mL (<125); Potassium 3.6 mmol/L (3.5-5.1); Protein, Total 7.3 g/dL (6.4-8.2); Sodium Level 138 mmol/L (136-145); Troponin (Emerg Dept Use Only) < 0.02 ng/mL (0.0-0.045)
[2021-01-21] MEDS ORDERED: ASPIRIN 81 MG CHEWABLE TABLET ONE (08:19)
[2021-01-21] MEDS ORDERED: FAMOTIDINE 20 MG/2 ML VIAL IV ONE (08:19)
[2021-01-21] MEDS ORDERED: NA CHLORIDE 0.9% 1,000 ML ONE (08:33)
--- NOTE | 2021-01-21 08:36 | RAD REPORT ---
EXAM DESCRIPTION: RAD - Chest Single View - 01/21/2021 5:45 am CLINICAL HISTORY: PAIN Chest pain. COMPARISON: Chest Single View dated 01/11/2021; Chest Pa And Lat (2 Views) dated 05/25/2018; Chest Sin gle View dated 02/15/2018; Chest Pa And Lat (2 Views) dated 06/12/2016 FINDINGS: Portable technique limits examination quality. Mild prominence of the interstitial lung markings are seen which probably represents underlying viral infection. Chronic bronchitis is another possibility. The heart is normal in size. No displaced frac tures.
[2021-01-21 08:37] LABS: White Blood Cell Scan OK (OK)
[2021-01-21 08:38] LABS: Blood Morphology Comment NOT SEEN (NOT SEEN); Platelet Estimate ADEQ
[2021-01-21 08:50] LABS: Urine Blood Negative (Negative); Urine Glucose Negative (Negative); Urine Protein Negative (Negative); Urine Specific Gravity 1.025 (1.005-1.030)
--- NOTE | 2021-01-21 09:21 | RAD REPORT ---
EXAM DESCRIPTION: CT - Angio Aorta For Dissection - 01/21/2021 8:59 am CLINICAL HISTORY: Chest pain radiating to the back. CHEST PAIN COMPARISON: No comparisons TECHNIQUE: CT angiography of the aorta was performed with MIPs. All CT scans are performed using dose optimization technique as appropriate and may include automated exposure control or mA/KV adjustment according to patient size. FINDINGS: A left aortic arch is present with normal branching pattern of the great vessels.No acute aortic finding is seen such as aneurysm, penetrating ulcer or dissection. The celiac axis, SMA, AKOSUA and renal arteries are patent. No evidence of pulmonary embolism. Small ground-glass opacity is present in the medial lingula, nonspecific. Otherwise, the lungs are cl ear. Moderate liver cirrhosis pattern is seen.The spleen, pancreas, adrenal glands and kidneys are within normal limits for arterial phase imaging. No bowel obstruction, free fluid or abscess.Moderate fat containing supraumbilical ventral hernia is seen.No pathologic enlarged lymphadenopathy identified.Normal appendix. No fracture or worrisome bone lesion seen. IMPRESSION: No acute aortic finding is demonstrated. Moderate liver cirrhosis. Moderate fat containing supraumbilical ventral hernia.
[2021-01-21 09:45] LABS: Urine Specific Gravity/Preg 1.025 (1.005-1.030)
[2021-01-21 10:29] VITALS: BMI 28.1
[2021-01-21 11:10] VITALS: O2SAT 96
[2021-01-21 11:12] VITALS: BP 100/70; TEMP 98
--- NOTE | 2021-01-21 14:08 | P.SSS ---
Patient History Date of Service: 01/21/21 Reason for admission: Chest pain History of Present Illness: Patient is a 40-year-old female with a past medical history significant for hep C, cirrhosis, pneumonia who presents with complaint of chest pain located in entire chest wall area. Patient rated pain as 10/10 and described pain as aching quality. Patient reports associated signs and symptoms of cough and shortness of breath. Patient denies any other signs or symptoms. Symptoms are aggravated or relieved by nothing. Patient decided to present to the hospital due to worsening symptoms. Allergies sulfamethoxazole [From Bactrim] Allergy (Unverified 05/24/15 20:28) Unknown trimethoprim [From Bactrim] Allergy (Unverified 05/24/15 20:28) Unknown Bactrim DS Allergy (Uncoded 10/01/14 05:53) Unknown Home medications list reviewed: No - Past Medical/Surgical History Has patient received pneumonia vaccine in the past: Yes -: Hep C -: Liver cirrhosis. Past Surgical History: Reviewed- Non-Contributory - Social History Smoking Status: Current every day smoker Smoking therapy provided: Yes Patient receptive to therapy: Yes Alcohol use: Yes CD- Drugs: No Caffeine use: No Place of Residence: Home Review of Systems General: Unremarkable Eyes: Unremarkable Respiratory: Cough, Shortness of Breath, SOB with Excertion Cardiovascular: Chest Pain Gastrointestinal: Unremarkable Genitourinary: Unremarkable Integumentary: Unremarkable Neurological: Unremarkable Lymphatics: Unremarkable Physical Examination - Vital Signs Temperature: 98.0 F Blood Pressure: 100/70 Pulse: 101 Respirations: 20 - Physical Exam General: Alert, In no apparent distress, Oriented x3 HEENT: Atraumatic, PERRLA, Mucous membr. moist/pink, EOMI, Sclerae nonicteric Neck: Supple, 2+ carotid pulse no bruit, No LAD, Without JVD or thyroid abnormality Respiratory: Clear to auscultation bilaterally, Normal air movement Cardiovascular: Regular rate/rhythm, Normal S1 S2 Capillary refill: <2 Seconds Gastrointestinal: Normal bowel sounds, No tenderness Musculoskeletal: No tenderness Integumentary: No rashes Neurological: Normal gait, Normal speech, Normal strength at 5/5 x4 extr, Normal tone, Normal affect Lymphatics: No axilla or inguinal lymphadenopathy External genitalia: Deferred Rectal: Deferred - Studies Laboratory Data (last 24 hrs) 01/21/21 07:03: PT 10.9, INR 0.95 01/21/21 07:03: WBC 6.50, Hgb 16.0 H, Hct 46.9 H D, Plt Count 101 L D 01/21/21 07:03: Sodium 138, Potassium 3.6, BUN 15, Creatinine 0.93, Glucose 92, Magnesium 1.9, Total Bilirubin 0.5, AST 44 H, ALT 65, Alkaline Phosphatase 94 01/21/21 06:10: Lipase Cancelled Treatment Summary: Patient initially was admitted for chest pain And patient was later found to have COVID-19 infection. Patient denies validity of test. Patient was outside her room and patient refused to go back into the room when directed by her nurses. Patient choose to leave AMA. Patient educated on the risks of leaving AMA. Patient still decided to leave AMA. - Disposition Discharge Date: 01/21/21 Disposition: AMA-LEFT AGAINST MEDICAL ADVIC Condition: FAIR Diet: Regular Activity: Ad jacky Physician Review: Patient Assessed, Agree with Above Assessment and Plan Critical Care: No
== END 2021-01-21 11:00 | disposition left against medical advice (07) ==
LOC: ER 05:17 → ERHOLD 08:59
PROVIDERS: ADMIT Hospitalist; ATTEND Hospitalist
DX: U07.1 COVID-19 (principal); R07.9 Chest pain, unspecified; Z53.29 Procedure and treatment not carried out because of patient's decision for other reasons; B19.20 Unspecified viral hepatitis C without hepatic coma; K74.60 Unspecified cirrhosis of liver; F17.210 Nicotine dependence, cigarettes, uncomplicated; Z71.6 Tobacco abuse counseling; Z87.01 Personal history of pneumonia (recurrent); Z88.2 Allergy status to sulfonamides; Z88.3 Allergy status to other anti-infective agents
CPT/HCPCS: 36415; 71045; 71275; 74175; 80048; 80076; 81003; 81025; 83605; 83735; 83880; 84484; 85025; 85610; 87040; 93005; 96374; 96375; 99283; G0378; J2405; J2543; J3010; J7030; Q9967; U0003

== ENCOUNTER 2021-01-21 20:30 | Emergency (ER) | payer SELFPAY ==
--- NOTE | 2021-01-21 22:03 | ER ---
Nurse's Notes [facility] Name: Mahnaz Daniel Age: 40 yrs Sex: Female : 1980 Arrival Date: 01/21/2021 Time: 20:30 Bed 10 Private MD: Diagnosis: Presentation: 01/21 20:35 Chief complaint: Patient states: SOB, back pain. Coronavirus screen: Client reports df1 previous positive COVID test result. Date of collection: January 21, 2021. Ebola Screen: Patient negative for fever greater than or equal to 101.5 degrees Fahrenheit, and additional compatible Ebola Virus Disease symptoms. Initial Sepsis Screen: Does the patient meet any 2 criteria? RR > 20 per min. HR > 90 bpm. Yes. Risk Assessment: Do you want to hurt yourself or someone else? Patient reports no desire to harm self or others. Onset of symptoms was January 14, 2021. 20:35 Method Of Arrival: Ambulatory df1 20:35 Acuity: SIMEON 3 df1 20:40 Note Pt left AMA today. Tested positive for Covid today. Dx Pneumonia 1 week prior df1 taking antibiotics. Pt c/o back pain and SOB. Historical: - Allergies: 20:39 Bactrim DS; df1 - Home Meds: 20:39 None [Active]; df1 - PMHx: 20:39 Cirrhosis; Pneumonia; Hepatitis C; df1 - PSHx: 20:39 section; df1 - Immunization history:: Client reports having NOT received the Covid vaccine. - Social history:: Smoking status: Patient reports the use of cigarette tobacco products, smokes one-half pack cigarettes per day, Patient uses Patient/guardian denies using. Vital Signs: 20:35 BP 135 / 88; Pulse 120; Resp 22; Temp 98.9; Pulse Ox 100% on R/A; Weight 79.38 kg; df1 Height 5 ft. 7 in. (170.18 cm); Pain 7/10; 20:35 Body Mass Index 27.41 (79.38 kg, 170.18 cm) df1 ED Course: 20:30 Patient arrived in ED. bp1 20:38 Triage completed. df1 Administered Medications: No medications were administered Outcome: 22:02 Patient left the ED. em Signatures: Lisandro Michelle RN RN Martha Echevarria, Alicia df1
[2021-01-21 22:42] VITALS: BP 135/88; TEMP 98.9; O2SAT 100
== END 2021-01-21 22:02 | disposition left against medical advice (07) ==
LOC: ER 20:30
DX: U07.1 COVID-19 (principal); R06.02 Shortness of breath; Z53.21 Procedure and treatment not carried out due to patient leaving prior to being seen by health care provider
CPT/HCPCS: 93005; 99281

== ENCOUNTER 2021-11-09 18:18 | Emergency (ER) | payer SELFPAY ==
[2021-11-09 20:13] LABS: Urine Blood Negative (Negative); Urine Glucose Negative (Negative); Urine Protein Negative (Negative); Urine Specific Gravity >=1.030 (1.005-1.030); Urine pH 5.5 (5.0-7.0)
[2021-11-09] MEDS ORDERED: CEFTRIAXONE 1000 MG/VIAL ONE (22:02)
[2021-11-09] MEDS ORDERED: LIDOCAINE 1% MPF 2 ML AMPULE ONE (22:04)
--- NOTE | 2021-11-09 23:37 | ER ---
Nurse's Notes [facility] Name: Mahnaz Daniel Age: 40 yrs Sex: Female : 1980 Arrival Date: 11/09/2021 Time: 18:22 Bed 1 Private MD: Diagnosis: Low back pain;UTI/ Urinary tract infection, site not specified Presentation: 11/09 19:48 Chief complaint: Patient states: I think this is a UTI, My back hurts a lot where my kd3 kidneys are. It does not burn when i urinate but it hurts right when im done. Coronavirus screen: Vaccine status: Patient reports being unvaccinated. Ebola Screen: No symptoms or risks identified at this time. Initial Sepsis Screen: Does the patient meet any 2 criteria? No. Patient's initial sepsis screen is negative. Does the patient have a suspected source of infection? No. Patient's initial sepsis screen is negative. Risk Assessment: Do you want to hurt yourself or someone else? Patient reports no desire to harm self or others. Onset of symptoms was November 09, 2021. 19:48 Method Of Arrival: Ambulatory kd3 19:48 Acuity: SIMEON 3 kd3 Triage Assessment: 19:50 General: Appears in no apparent distress. Behavior is calm, cooperative. Pain: kd3 Complains of pain in left low back and right low back. Musculoskeletal: Circulation, motion, and sensation intact. 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 - Social history:: Smoking status: Patient reports the use of cigarette tobacco products, smokes one-half pack cigarettes per day. Screenin:51 Abuse screen: Denies threats or abuse. Denies injuries from another. Nutritional kd3 screening: No deficits noted. Tuberculosis screening: No symptoms or risk factors identified. Fall Risk None identified. Vital Signs: 19:48 Pulse 108; Resp 18; Temp 98.0(TE); Pulse Ox 100% ; Weight 86.18 kg; Height 5 ft. 7 in. kd3 (170.18 cm); Pain 8/10; 19:50 BP 111 / 76; kd3 19:48 Body Mass Index 29.76 (86.18 kg, 170.18 cm) kd3 ED Course: 18:22 Patient arrived in ED. mr 19:50 Triage completed. kd3 19:51 Patient has correct armband on for positive identification. kd3 19:52 Patrick Craven PA is PHCP. cp 19:52 Patrick Michelle MD is Attending Physician. cp 19:52 Arm band placed on right wrist. kd3 20:26 Candido Reese, RN is Primary Nurse. as6 22:49 CT Stone Protocol In Process Unspecified. EDMS 11/10 00:10 No provider procedures requiring assistance completed. Patient did not have IV access aa9 during this emergency room visit. Administered Medications: 11/09 22:05 Drug: Rocephin (cefTRIAXone) 1 grams Route: IM; Site: Ventrogluteal RIGHT; aa9 Medication: 19:52 VIS not applicable for this client. kd3 Outcome: 23:36 Discharge ordered by . cp 11/10 00:10 Discharged to home ambulatory. aa9 Condition: stable Discharge instructions given to patient, Instructed on discharge instructions, follow up and referral plans. medication usage, Demonstrated understanding of instructions, follow-up care, medications, Prescriptions given X 3. 00:12 Patient left the ED. aa9 Signatures: Dispatcher [employer] [facility] Adalgisa Falcon mr Patrick Craven PA PA cp Slawson, Ashby, RN RN as6 Betty Abraham RN RN kd3 Mariah Mancilla RN RN aa9
--- NOTE | 2021-11-09 23:37 | EDPHYS ---
Physician Documentation [facility] Name: Mahnaz Daniel Age: 40 yrs Sex: Female : 1980 Arrival Date: 11/09/2021 Time: 18:22 Bed 1 Private MD: ED Physician Patrick Michelle HPI: 11/09 20:00 This 40 yrs old Female presents to ER via Ambulatory with complaints of Back Pain. 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 - Social history:: Smoking status: Patient reports the use of cigarette tobacco products, smokes one-half pack cigarettes per day. Vital Signs: 19:48 Pulse 108; Resp 18; Temp 98.0(TE); Pulse Ox 100% ; Weight 86.18 kg; Height 5 ft. 7 in. kd3 (170.18 cm); Pain 8/10; 19:50 BP 111 / 76; kd3 19:48 Body Mass Index 29.76 (86.18 kg, 170.18 cm) kd3 MDM: 20:26 Patient medically screened. [facility] 11/09 20:13 Order name: Urine Dipstick-Ancillary; Complete Time: 21:09 EDDE 11/09 21:10 Interpretation: U NIT Positive; UESTR Trace; Reviewed. 11/09 19:52 Order name: Urine Dipstick-Ancillary (obtain specimen); Complete Time: 20:26 11/09 21:12 Order name: CT Stone Protocol 11/09 19:52 Order name: Urine Test (obtain specimen); Complete Time: 20:26 cp Administered Medications: 22:05 Drug: Rocephin (cefTRIAXone) 1 grams Route: IM; Site: Ventrogluteal RIGHT; aa9 Disposition Summary: 11/09/21 23:36 Discharge Ordered Location: Home cp Problem: new cp Symptoms: have improved cp Condition: Stable cp Diagnosis - Low back pain cp - UTI/ Urinary tract infection, site not specified cp Followup: cp - With: Private Physician - When: 2 - 3 days - Reason: Recheck today's complaints Discharge Instructions: - Discharge Summary Sheet cp - Acute Back Pain, Adult cp - Urinary Tract Infection, Adult cp - Back Exercises cp Forms: - Medication Reconciliation Form cp - Thank You Letter cp - Antibiotic Education cp - Prescription Opioid Use cp Prescriptions: - Augmentin 875-125 mg Oral Tablet - take 1 tablet by ORAL route every 12 hours for 10 days; 20 tablet; Refills: 0, cp Product Selection Permitted - Ibuprofen 800 mg Oral Tablet - take 1 tablet by ORAL route every 8 hours As needed take with food; 30 tablet; cp Refills: 0, Product Selection Permitted - Zofran 4 mg Oral Tablet - take 1 tablet by ORAL route every 12 hours As needed; 20 tablet; Refills: 0, cp Product Selection Permitted Addendum: 11/15/2021 15:11 Co-signature as Attending Physician, Patrick Michelle MD I agree with the assessment and c rocha plan of care. Signatures: Dispatcher [employer] Patrick Caro MD MD cha Page, Corey, PA PA Betty Cowan RN RN kd3 Mariah Mancilla RN RN aa9
[2021-11-10 00:58] VITALS: TEMP 98; O2SAT 100
[2021-11-10 01:01] VITALS: BP 111/76
--- NOTE | 2021-11-10 14:33 | RAD REPORT ---
EXAM DESCRIPTION: CT - Stone Protocol - 11/10/2021 6:42 am CLINICAL HISTORY: Low back pain. COMPARISON: Report only for a CT of the abdomen and pelvis from June 06, 2020. TECHNIQUE: Serial axial CT images were obtained from above the diaphragm through the pubic symphysis without administration of intravenous or oral contrast. All CT scans are performed using dose optimization techniques as appropriate, including automated exp osure control and/or standardized protocols, where dose is adjusted for indication for exam and body habitus. FINDINGS: Thoracic: No significant abnormality. Hepatobiliary: Grossly nodular hepatic contour. Mild diffuse hepatic steatosis. Hepatomegaly, measuri ng 19.3 cm in length. No obvious concerning hepatic lesion identified in the absence of intravenous c ontrast. The gallbladder is contracted. No biliary ductal dilatation. Pancreas: Unremarkable. Spleen: Unremarkable. Gastrointestinal: Supraumbilical hernia containing a short segment of transverse colon. No associated inflammatory changes. The hernia sac measures 5.3 x 8 x 7.3 cm (AP x TV x CC), with a 2.5 cm neck. N o evidence of bowel obstruction or perienteric inflammation. The appendix is normal. Adrenals: No abnormality identified in either adrenal gland. Renal: No obvious parenchymal abnormality in either kidney in the absence of intravenous contrast. No hydronephrosis or urolithiasis. Bladder/Reproductive: Unremarkable appearance of the urinary bladder by CT technique. Unremarkable CT appearance of the uterus and ovaries. Vascular/Lymphatics: No lymphadenopathy identified by CT size criteria. Abdominal aorta is normal in caliber. Musculoskeletal: No concerning osseous lesion identified. Mild facet arthrosis in the lower lumbar sp ine. Fluid / peritoneum: No significant free fluid. No free intraperitoneal air identified. IMPRESSION: 1. No acute abnormality identified in the abdomen or pelvis by CT. 2. No hydronephrosis or urolithiasis. 3. Small supraumbilical hernia containing transverse colon with no inflammatory changes or bowel ob struction. 4. Grossly nodular hepatic contour. Correlate for potential cirrhosis. Electronically signed by: Althea Patel MD 11/09/2021 11:11 PM CDT Due to temporary technical issues with the PACS/Fluency reporting system, reports are being signed by the in house radiologists without review as a courtesy to insure prompt reporting. The interpreting radiologist is fully responsible for the content of the report.
== END 2021-11-10 00:12 | disposition home or self-care (01) ==
LOC: ER 18:18
DX: N39.0 Urinary tract infection, site not specified (principal); F17.210 Nicotine dependence, cigarettes, uncomplicated; Z88.1 Allergy status to other antibiotic agents
CPT/HCPCS: 74176; 76377; 81003; 96372; 99283

== ENCOUNTER 2021-12-19 06:19 | Emergency (ER) | payer SELFPAY ==
[2021-12-19] MEDS ORDERED: NA CHLORIDE 0.9% 500 ML ONE (07:33)
--- NOTE | 2021-12-19 07:52 | RAD REPORT ---
EXAM DESCRIPTION: CT - Head Brain Wo Cont - 12/19/2021 7:14 am CLINICAL HISTORY: Altered Speech COMPARISON: No comparisons TECHNIQUE: Axial 5 mm thick images of the head were obtained without IV contrast. All CT scans are performed using dose optimization technique as appropriate and may include automated exposure control or mA/KV adjustment according to patient size. FINDINGS: No intracranial hemorrhage, mass, edema or shift of mid-line structures. No cortical edema or sulcal effacement. No abnormal extra-axial fluid collections. Ventricles are normal. Mastoid air cells and visualized portions of the paranasal sinuses are clear. No acute bony findings. IMPRESSION: Negative non-contrast CT head examination.
[2021-12-19 07:54] LABS: Absolute Lymphocytes (CBC) 1.8 K/uL (0.7-4.9); Lymphocytes % 26.8 % (15.3-44.8); MCV 92.7 fL (80-100); MPV 9.3 fL (7.6-11.3); RBC Red Blood Cell Count 4.31 M/uL (3.86-4.86)
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
[2021-12-19 08:17] LABS: BUN Blood Urea Nitrogen 15 mg/dL (7-18); Bicarbonate 27 mmol/L (21-32); Creatine Phosphokinase 85 U/L (26-192); Glomerular Filtration Rate 67 ml/min (=/>90); Glucose Level 112 mg/dL (74-106); Potassium 3.6 mmol/L (3.5-5.1); Sodium Level 139 mmol/L (136-145)
[2021-12-19 08:18] LABS: Troponin High Sensitivity < 3.0 pg/mL (<58.9)
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
--- NOTE | 2021-12-19 09:09 | EDPHYS ---
Physician Documentation [facility] Name: Mahnaz Daniel Age: 41 yrs Sex: Female : 1980 Arrival Date: 12/19/2021 Time: 06:22 Bed 5 Private MD: ED Physician Nisha Cosme HPI: 12/19 19:36 This 41 yrs old Female presents to ER via Ambulatory with complaints of Electrocution, kdr Numbness Of Hand, Tingling of hand. 19:36 Patient states that 2 days ago she was electrocuted at a washer to area. She states kdr that she was trying to maneuver around the cotton washer and that somehow she came in contact with the machine which is in the state of being charged or attached in some fashion to an electrical current. She subsequently that evening developed a stuttering speech pattern. She has not had that previously. She also complains of general malaise and fatigue of her upper extremities. Lower extremities seem to be unaffected at this time but she has very pronounced stuttering speech and a lot of frustration in trying to speak.. Onset: The symptoms/episode began/occurred suddenly, 2 day(s) ago. Severity of symptoms: At their worst the symptoms were mild moderate in the emergency department the symptoms are unchanged. The patient has not experienced similar symptoms in the past. The patient has not recently seen a physician. 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 - Social history:: Smoking status: Patient reports the use of cigarette tobacco products, smokes one-half pack cigarettes per day. ROS: 19:36 Constitutional: Negative for fever, chills, and weight loss, Eyes: Negative for injury, kdr pain, redness, and discharge, ENT: Negative for injury, pain, and discharge, Neck: Negative for injury, pain, and swelling, Cardiovascular: Negative for chest pain, palpitations, and edema, Respiratory: Negative for shortness of breath, cough, wheezing, and pleuritic chest pain, Abdomen/GI: Negative for abdominal pain, nausea, vomiting, diarrhea, and constipation, Back: Negative for injury and pain, : Negative for injury, bleeding, discharge, and swelling, MS/Extremity: Negative for injury and deformity, Skin: Negative for injury, rash, and discoloration, Psych: Negative for depression, anxiety, suicide ideation, homicidal ideation, and hallucinations, Allergy/Immunology: Negative for hives, rash, and allergies, Endocrine: Negative for neck swelling, polydipsia, polyuria, polyphagia, and marked weight changes, Hematologic/Lymphatic: Negative for swollen nodes, abnormal bleeding, and unusual bruising. 19:36 Neuro: Positive for speech changes, Negative for weakness. Exam: 19:36 Constitutional: This is a well developed, well nourished patient who is awake, alert, kdr and in no acute distress. Head/Face: Normocephalic, atraumatic. Eyes: Pupils equal round and reactive to light, extra-ocular motions intact. Lids and lashes normal. Conjunctiva and sclera are non-icteric and not injected. Cornea within normal limits. Periorbital areas with no swelling, redness, or edema. Neck: Trachea midline, no thyromegaly or masses palpated, and no cervical lymphadenopathy. Supple, full range of motion without nuchal rigidity, or vertebral point tenderness. No Meningismus. Chest/axilla: Normal chest wall appearance and motion. Nontender with no deformity. No lesions are appreciated. Cardiovascular: Regular rate and rhythm with a normal S1 and S2. No gallops, murmurs, or rubs. Normal PMI, no JVD. No pulse deficits. Respiratory: Lungs have equal breath sounds bilaterally, clear to auscultation and percussion. No rales, rhonchi or wheezes noted. No increased work of breathing, no retractions or nasal flaring. Abdomen/GI: Soft, non-tender, with normal bowel sounds. No distension or tympany. No guarding or rebound. No evidence of tenderness throughout. Back: No spinal tenderness. No costovertebral tenderness. Full range of motion. Skin: Warm, dry with normal turgor. Normal color with no rashes, no lesions, and no evidence of cellulitis. MS/ Extremity: Pulses equal, no cyanosis. Neurovascular intact. Full, normal range of motion. Neuro: Awake and alert, GCS 15, oriented to person, place, time, and situation. Cranial nerves II-XII grossly intact. Motor strength 5/5 in all extremities. Sensory grossly intact. Cerebellar exam normal. Normal gait. Psych: Awake, alert, with orientation to person, place and time. Behavior, mood, and affect are within normal limits. Vital Signs: 06:49 BP 118 / 82; Pulse 128; Resp 20; Temp 97.7(TE); Pulse Ox 100% on R/A; Weight 90.72 kg lp1 (R); Height 5 ft. 7 in. (170.18 cm); Pain 0/10; 07:48 BP 130 / 107; Pulse 109; Resp 19; Pulse Ox 100% ; Pain 9/10; jl7 08:45 BP 114 / 92; Pulse 102; Resp 15; Pulse Ox 100% ; jl7 06:49 Body Mass Index 31.32 (90.72 kg, 170.18 cm) lp1 MDM: 07:15 Patient medically screened. sd2 08:49 Data reviewed: vital signs, nurses notes, lab test result(s), EKG, radiologic studies. sd2 Counseling: I had a detailed discussion with the patient and/or guardian regarding: the historical points, exam findings, and any diagnostic results supporting the discharge/admit diagnosis, lab results, radiology results. Physician consultation: Gatito Nam MD was called at 08:50, was contacted at 08:50, regarding consult, Recommends MRI and possibly EEG but does not have to be done emergently as we are out of the window for any intervention. States electrocution can cause these symptoms but most of the time changes will not be visible on MRI. States will need transfer if patient decides to proceed with these studies as we do not have MRI capabilities on the weekend. . ED course: Discussed neurology recommendations with patient and plan for transfer. Pt stating she likely does not want to be transferred and will follow up outpatient but would like to speak with her sister prior to making a decision.. 09:07 ED course: Discussed once again risks and benefits of transfer with patient and she has sd2 made an informed refusal at this time. She will plan to follow up with her PCP on Tuesday to have further outpatient testing scheduled. She understands that she may change her mind and return at any time for further evaluation. Verbalizes understanding of discharge plan and strict return precautions.. 12/19 06:45 Order name: Basic Metabolic Panel; Complete Time: 08:19 kdr 12/19 06:45 Order name: CBC with Diff; Complete Time: 08:03 kdr 12/19 06:45 Order name: Troponin HS; Complete Time: 08:19 kdr 12/19 06:45 Order name: XRAY Chest (1 view); Complete Time: 08:03 kdr 12/19 06:45 Order name: CT Head Brain wo Cont; Complete Time: 08:03 kdr 12/19 06:45 Order name: CPK; Complete Time: 08:19 kdr 12/19 06:45 Order name: EKG; Complete Time: 06:46 kdr 12/19 06:45 Order name: Cardiac monitoring; Complete Time: 07:32 kdr 12/19 06:45 Order name: EKG - Nurse/Tech; Complete Time: 07:16 kdr 12/19 06:45 Order name: IV Saline Lock; Complete Time: 07:50 kdr 12/19 06:45 Order name: Labs collected and sent; Complete Time: 07:50 kdr 12/19 06:45 Order name: O2 Per Protocol; Complete Time: 07:50 kdr 12/19 06:45 Order name: O2 Sat Monitoring; Complete Time: 07:16 kdr Administered Medications: 07:35 Drug: NS 0.9% 500 ml Route: IV; Rate: bolus; Site: left antecubital; jl7 08:15 Follow up: Response: No adverse reaction; IV Status: Completed infusion; IV Intake: jl7 500ml Disposition Summary: 12/19/21 09:09 Discharge Ordered Location: Home sd2 Problem: new sd2 Symptoms: are unchanged sd2 Condition: Stable sd2 Diagnosis - Expressive Aphasia sd2 - Electrocution sd2 Followup: sd2 - With: Private Physician - When: 1 - 2 days - Reason: Recheck today's complaints, Continuance of care, Re-evaluation by your physician Followup: sd2 - With: Emergency Department - When: As needed - Reason: Discharge Instructions: - Discharge Summary Sheet sd2 - Electric Shock Injury sd2 - Aphasia sd2 Forms: - Medication Reconciliation Form sd2 - Thank You Letter sd2 - Antibiotic Education sd2 - Prescription Opioid Use sd2 Signatures: Dispatcher [employer] EDDeangelo Jarvis MD MD kdr Lisa Catherine RN RN lp1 Parish Miranda, RN RN jl7 Nisha Cosme MD MD sd2
[2021-12-19 09:41] VITALS: TEMP 97.7; O2SAT 100
[2021-12-19 09:46] VITALS: BP 114/92
--- NOTE | 2021-12-21 08:14 | EKG ---
Test Date: 2021-12-19 Test Time: 07:09:59 Flexo Operator: JULY MEASUREMENT RESULTS: Intervals: Rate: 104 VA: 132 QRSD: 88 QT: 342 QTc: 449 [place]: P: 86 VA: 132 QRS: 83 T: 50 INTERPRETIVE STATEMENTS: Sinus tachycardia Otherwise normal ECG Compared to ECG 01/21/2021 05:51:44 No significant changes Electronically Signed On 12-21-21 08:07:01 CDT by Nigel Albright
== END 2021-12-19 09:35 | disposition home or self-care (01) ==
LOC: ER 06:19
DX: R47.01 Aphasia (principal); T75.4XXA Electrocution, initial encounter; F17.210 Nicotine dependence, cigarettes, uncomplicated; Z88.1 Allergy status to other antibiotic agents
CPT/HCPCS: 36415; 70450; 71045; 80048; 82550; 84484; 85025; 93005; 96360; 99284; J7040

== ENCOUNTER 2022-02-16 20:13 | Emergency (ER) | payer SELFPAY ==
--- NOTE | 2022-02-16 21:52 | ER ---
Nurse's Notes [facility] Name: Mahnaz Daniel Age: 41 yrs Sex: Female : 1980 Arrival Date: 02/16/2022 Time: 20:14 Bed DIS2 Private MD: Diagnosis: Abdominal pain, unspecified Presentation: 02/16 20:44 Chief complaint: Patient states: abdominal pain reports may be hernia. Coronavirus kl screen: Vaccine status: Patient reports being unvaccinated. Ebola Screen: Patient negative for fever greater than or equal to 101.5 degrees Fahrenheit, and additional compatible Ebola Virus Disease symptoms. Initial Sepsis Screen: Does the patient meet any 2 criteria? No. Patient's initial sepsis screen is negative. Does the patient have a suspected source of infection? No. Patient's initial sepsis screen is negative. Risk Assessment: Do you want to hurt yourself or someone else? Patient reports no desire to harm self or others. Onset of symptoms was February 16, 2022. 20:44 Method Of Arrival: Ambulatory 20:44 Acuity: SIMOEN 3 kl 21:54 Note pt refusing IV attempts blood or urine pt verbally abusive and cursing pt left kl ambulatory gait steady accomp by sig other. Triage Assessment: 20:46 General: Appears distressed, uncomfortable, obese, unkempt, Behavior is anxious. Pain: Complains of pain in abdomen Pain currently is 10 out of 10 on a pain scale. GI: Reports lower abdominal pain, upper abdominal pain. : No deficits noted. No signs and/or symptoms were reported regarding the genitourinary system. Historical: - Allergies: 20:46 Bactrim DS; kl - PMHx: 20:46 Cirrhosis; Hepatitis C; Pneumonia; kl - PSHx: 20:46 section; kl - Immunization history:: Adult Immunizations not immunized. - Social history:: Smoking status: Patient reports the use of cigarette tobacco products, smokes one pack cigarettes per day. - Family history:: not pertinent. - Hospitalizations: : No recent hospitalization is reported. Vital Signs: 20:44 BP 136 / 81; Pulse 115; Resp 20; Temp 97.7; Pulse Ox 98% on R/A; Weight 110.68 kg (R); kl Height 5 ft. 7 in. (170.18 cm); Pain 10/10; 20:44 Body Mass Index 38.22 (110.68 kg, 170.18 cm) ED Course: 20:14 Patient arrived in ED. marcelle 20:18 Live Paris MD is Attending Physician. rn 20:46 Triage completed. Administered Medications: No medications were administered Outcome: 21:51 Discharge ordered by . rn 21:56 Patient left the ED. Signatures: Heidi Pacheco RN RN kl Nieto, Roman, MD MD rn Alexander, Jessica ja2
--- NOTE | 2022-02-16 21:52 | EDPHYS ---
Physician Documentation [facility] Name: Mahnaz Daniel Age: 41 yrs Sex: Female : 1980 Arrival Date: 02/16/2022 Time: 20:14 Bed DIS2 Private MD: ED Physician Live Paris HPI: 02/16 21:19 This 41 yrs old Female presents to ER via Ambulatory with complaints of Abdominal Pain, rn hernia pain. 21:19 The patient presents with abdominal pain in the upper abdomen, that is diffuse. Onset: rn The symptoms/episode began/occurred today. The symptoms do not radiate. Associated signs and symptoms: Pertinent positives: nausea, Pertinent negatives: anorexia, blood in stools, chest pain, fever, vomiting, vomiting blood. The symptoms are described as achy, intermittent. Modifying factors: The symptoms are alleviated by nothing, the symptoms are aggravated by touching the area. Severity of pain: At its worst the pain was moderate in the emergency department the pain is unchanged. The patient has experienced similar episodes in the past. The patient has not recently seen a physician. Pt reports abd pain, mid and upper, happens often but worse today, reports hx of hernia, and feels like "hernia ruptured". No fever. No vomiting. No diarrhea. No blood in stool. . Historical: - Allergies: 20:46 Bactrim DS; kl - PMHx: 20:46 Cirrhosis; Hepatitis C; Pneumonia; kl - PSHx: 20:46 section; kl - Immunization history:: Adult Immunizations not immunized. - Social history:: Smoking status: Patient reports the use of cigarette tobacco products, smokes one pack cigarettes per day. - Family history:: not pertinent. - Hospitalizations: : No recent hospitalization is reported. ROS: 21:19 Constitutional: Negative for fever, chills, and weight loss, Eyes: Negative for injury, rn pain, redness, and discharge, Neck: Negative for injury, pain, and swelling, Cardiovascular: Negative for chest pain, palpitations, and edema, Respiratory: Negative for shortness of breath, cough, wheezing, and pleuritic chest pain, Abdomen/GI: Negative for vomiting, diarrhea, and constipation, Back: Negative for injury and pain, : Negative for injury, bleeding, discharge, and swelling, MS/Extremity: Negative for injury and deformity, Skin: Negative for injury, rash, and discoloration, Neuro: Negative for headache, weakness, numbness, tingling, and seizure. Exam: 21:19 Constitutional: This is a well developed, well nourished patient who is awake, alert, rn appears in pain, family member stopped me in lobby and I rolled her back to chair. Head/Face: Normocephalic, atraumatic. Cardiovascular: Tachycardic, regular. No pulse deficits. Respiratory: No increased work of breathing, no retractions or nasal flaring. Abdomen/GI: soft, + mid abd tenderness, no rebound Skin: Warm, dry MS/ Extremity: Pulses equal, no cyanosis. Neuro: Awake and alert, GCS 15 Vital Signs: 20:44 BP 136 / 81; Pulse 115; Resp 20; Temp 97.7; Pulse Ox 98% on R/A; Weight 110.68 kg (R); kl Height 5 ft. 7 in. (170.18 cm); Pain 10/10; 20:44 Body Mass Index 38.22 (110.68 kg, 170.18 cm) kl MDM: 20:18 Patient medically screened. rn 21:50 Differential diagnosis: bowel obstruction, cholecystitis, Cholelithiasis, rn diverticulitis, gastritis, gastroesophageal reflux disease, non-specific abd pain, pancreatitis, Peptic Ulcer Disease, Perf. Duodenal Ulcer, Perf. Gastric Ulcer, Ureterolithiasis, urinary tract infection, incarcerated hernia. Data reviewed: vital signs, nurses notes. Refusal of service: The patient/guardian displays adequate decision making capability and despite a detailed discussion of alternatives, benefits, risks, and consequences refuses: CT Scan, all lab tests, Medications. ED course: Pt refused IV placement, does not want tests or anything performed, she wishes to go home, was given return precautions and understands risks of leaving without further evaluation. . 02/17 20:18 Order name: IV Saline Lock rn 02/17 20: Order name: Labs collected and sent rn 02/16 Order name: Urine Dipstick-Ancillary (obtain specimen) rn 02/17 20: Order name: Urine Test (obtain specimen) rn Administered Medications: No medications were administered Disposition Summary: 02/16/22 21:51 Discharge Ordered Location: Home rn Problem: new rn Symptoms: have improved rn Condition: Stable rn Diagnosis - Abdominal pain, unspecified rn Followup: rn - With: Private Physician - When: As needed - Reason: Recheck today's complaints, Re-evaluation by your physician Discharge Instructions: - Discharge Summary Sheet rn - Abdominal Pain, Adult rn - Pain Without a Known Cause rn Forms: - Medication Reconciliation Form rn - Thank You Letter rn - Antibiotic internal sales - Prescription Opioid Use rn Signatures: Dispatcher [employer] Heidi Ocampo RN RN Live Shay MD MD rn
[2022-02-16 23:01] VITALS: BP 136/81; TEMP 97.7; O2SAT 98
== END 2022-02-16 21:56 | disposition home or self-care (01) ==
LOC: ER 20:13
DX: R10.10 Upper abdominal pain, unspecified (principal)
CPT/HCPCS: 99281

== ENCOUNTER 2022-06-25 18:41 | Emergency (ER) | payer SELFPAY ==
--- OUTSIDE RECORDS SUMMARY | 2022-06-25 18:44 | XMS REPORT | Continuity of Care Document ---
:1980 Author Organization [facility] t Address [address] [place] [address] Care Team Providers Name Role Phone Ortiz Candelario Jr. Primary Care Physician Sergei Pacheco Attending Clinician Unavailable Doctor Unassigned, [place] Attending Clinician Unavailable VAHID FARFAN Attending Clinician Unavailable Sergei Pacheco Admitting Clinician Unavailable VAHID FARFAN Admitting Clinician Unavailable Payers Payer Name Policy Type Policy Number Effective Date Expiration Date S ource Problems Condition Condition Condition Status Onset Resolution Last Treating Co mments Source Name Details Category Date Date Treatment Clinician Date Obesity Obesity Disease Active 2021-05 Univers (BMI (BMI 2-13 ity of 30-39.9) 30-39.9) 00:00: [address] Hernia of Hernia of Disease Active 2021-05 Uni vers abdominal abdominal 2-12 ity of wall wall 00:00: [address] Screen for Screen for Disease Active U nivers STD STD 2-22 ity of (sexually ([place] transmit[place] 00 [place] dical d disease) d disease) Br anch Tobacco Tobacco Disease Active Univers use use 2-22 ity of disorder disorder 00:00: [place] [id number] [facility] [place] History of History of Disease Active U nivers anxiety anxiety 2-22 ity of 00:00: [address] History of History of Disease Active U nivers depression depression 2-22 it y of 00:00: [place] 00 Medical Branch Liver Liver Disease Active Univers cirrhosis cirrhosis 2-22 ity of 00:00: [place] 00 Medical Branch Allergies, Adverse Reactions, Alerts Allergy Allergy Status Severity Reaction(s) Onset Inactive Treating Comm ents Source Name Type Date Date Clinician SULFA Drug Active Rash 2014-05 Univers (SULFONA Class 2-17 ity of MIDE 00:00: [place] ANTIBIOT 00 Medical ICS) Branch Sulfa Propensi Active Rash 2014-05 Univers (Sulfona ty to 2-17 ity of mide adverse 00:00: [place] Antibiot reaction 00 Medica l ics) s Branch Social History Social Habit Start Date Stop Date Quantity Comments Source History of tobacco Cigarette Smoker University of use [place] [facility] History SDOH Social Unive rsity of Connections Phone [facility] edical Branch History SDOH Social Unive rsity of Connections [facility] Med ical Together Branch History SDOH Social Unive rsity of Connections [facility] Medical Branch History SDOH Social Unive rsity of Connections [place] [facility] Membership Branch History SDOH Social Unive rsity of Connections [place] [facility] Meetings Branch Cigarettes smoked 2022-04-13 2022-04-13 Univers ity of current (pack per 00:00:00 00:00:00 [facility] ) - Reported Branch Tobacco use and 2022-04-13 2022-04-13 Smokeless Universit y of exposure 00:00:00 00:00:00 tobacco non-user [facility] dical Branch Alcohol intake 2022-04-13 2022-04-13 0 /d University of 00:00:00 00:00:00 [place] [facility] History SDOH 2022-04-13 2022-04-13 1 University o f Alcohol Frequency 00:00:00 00:00:00 [facility] edical Branch History SDOH 2022-04-13 2022-04-13 0 University o f Alcohol Std Drinks 00:00:00 00:00:00 [place] [facility] History SDOH 2022-04-13 2022-04-13 1 University o f Alcohol Binge 00:00:00 00:00:00 [place] [facility] al Branch History SDOH Social 2022-04-13 2022-04-13 3 Unive rsity of Connections Living 00:00:00 00:00:00 [facility] Branch Education 2022-04-13 2022-04-13 9 [facility] 00:00:00 00:00:00 [facility] Exposure to 2022-04-02 2022-04-12 Not sure [facility] SARS-CoV-2 (event) 00:00:00 20:35:00 [facility] Sex Ass[birth year] At [birth year] Universit y of 00:00:00 00:00:00 [facility] Smoking Status Start Date Stop Date Source Heavy tobacco smoker 2022-04-13 00:00:00 Univers ity of [facility] Medications Ordered Filled Start Stop Current Ordering Indication Dosage Frequency Signature Comments Components Source Medication Medication Date Date Medication? Clinician (SIG) Name Name D5W 0.45% 2021-05 Yes IV Univers NaCl 06-14 Infusion, ity of (1/2NS) 1 L 15:00: at 50 [place] + KCL 20 00 mL/hr, Medical mEq CONTINUOUS Branch , Starting on Tue04/13/22 at 0900, Until Discontinu ed, Routine enoxaparin 2021-05 Yes 40mg 40 mg, Unive rs (LOVENOX) 06-14 Subcutaneo ity of injection 15:00[place] 40 [place] 00 First dose Medical on Tue Branch 04/13/22 at 0900, Until Discontinu ed, Routine pantoprazol 2021-05- Yes 40mg 40 mg, Uni vers e 06-14 Slow IV ity of (PROTONIX) 04:00: 03:44 Push, [place] injection 00 :00 Q24H, 3 Medical 40 mg doses, Branch First dose on Tue04/12/22 at 2200, Last dose on Tue04/14/22 at 2200 D5W 0.45% 2021-05- No IV Univers NaCl -04-13 Infusion, ity of (1/2NS) 1 L 04:00: 14:56 at 100 True as + KCL 20 00 :36 mL/hr, Medical mEq CONTINUOUS Branch , Starting on Tue04/12/22 at 2200, Until Tue04/13/22 at 0856, Routine morpHINE (4 2021-05- No 2mg 2 mg, Slow Univers mg/mL) 06-14- IV Push, ity of injection 2 03:44: 14:31 Q4HPRN, [place] mg 13 :47 Starting Medical on Mon Branch 04/12/22 at 2144, Until 04/13/22 at 0831, Routine, Pain (scale 7-10) ondansetron 2021-05 Yes 4mg 4 mg, Slow Univers (ZOFRAN 2-13 IV Push, ity of (PF)) 03:44: Q6HPRN, [place] injection 4 10 Starting Medi [place] mg on Mon Branch 04/12/22 at 2144, Until Discontinu ed, Routine, Nausea and Vomiting (N/V) No known 2021-05 No No known Unive rs medications 2-12 medication it y of 21:23: s [place] 59 Medical Branch nystatin 2021- No [id number] Take 10 mL Univers 100,000 07-20- U by mouth ity of unit/mL 00:00: 00:00 every 8 [place] suspension 00 :00 (eight) Medica l hours. Branch predniSONE 2021- No 10mg Take 1 Univ ers 10 mg 07-20- tablet by ity of tablet 00:00: 00:00 mouth [place] 00 :00 daily. Medical Branch traMADOL 2015-05- No 50mg Take 1 Univer s (ULTRAM) 50 0 12-13 tablet by it y of mg tablet 00:00: 00:00 mouth [place] 00 :00 every 6 Medical (six) Branch hours as needed for Pain (scale 4-6). Kenroy Peñaloza PA-C / Lito Mccoy MD JASPREET# [id number] DPS# [id number] Lic.# [id number] NPI# [id number] Vital Signs Vital Name Observation Time Observation Value Comments Source Systolic blood 2022-04-13 17:16:00 132 mm[Hg] Univer sity of pressure [facility] Diastolic blood 2022-04-13 17:16:00 82 mm[Hg] Unive rsity of pressure [facility] Heart rate 2022-04-13 17:16:00 107 /min Universi [facility] Body temperature 2022-04-13 17:16:00 36.56 [place] Univ ersity [facility] Oxygen saturation in 2022-04-13 17:16:00 95 /min [facility] Arterial blood by [place] Medi [place] Pulse oximetry Branch Respiratory rate 2022-04-13 10:55:00 16 /min [facility] Body height 2022-04-13 06:58:00 170.2 cm [facility] Body weight 2022-04-13 02:38:00 114.306 kg [facility] BMI 2022-04-13 02:38:00 39.47 kg/m2 [facility] Procedures Procedure Date / Time Performing Clinician Source Performed EXTERNAL PROVIDER 2022-04-28 06:01:00 Doctor Buddy, No [facility] RECORDS Name [facility] HEPATIC FUNCTION PANEL 2022-04-13 06:46:00 [id number] (ALB,T.PRO,BILI [facility] T,BU/BC,ALT,AST,ALK PHOS) BASIC METABOLIC PANEL 2022-04-13 06:46:00 Leoncio Rodriguez [facility] (NA, K, CL, CO2, Medical [place] GLUCOSE, BUN, CREATININE, CA) PROTHROMBIN TIME / INR 2022-04-13 06:46:00 Leoncio Rodriguez [facility] CBC WITH DIFF 2022-04-13 06:45:00 Jennifer brenden Hankinson o f [facility] CT ABDOMEN PELVIS W 2022-04-13 03:15:01 Magdaleno Denise [facility] Encounters Start End Encounter Admission Attending Care Care Encounter Source Date/Time Date/Time Type Type Clinicians Facility Department ID 2022-06-25 2022-06-25 Inpatient ER Junior [facility] [id number] [place] 09:09:00 15:05:00 Sergei -[id number] [facility] 2022-04-28 2022-04-28 Orders Doctor VEGA [id number] Univers 00:00:00 00:00:00 Only NANCI Goodwin [id number] ity of [place] [facility] [id number] True as [id number] [facility] 009 Branch 2022-04-12 2022-04-13 Outpatient X CLARITA VTHARLEY ROSY [id number] Univers 20:40:00 14:59:00 VAHID do [facility] 2022-04-12 2022-04-[address] Farfan [id number] Univers 20:40:00 14:59:00 Vahid CHRISTINE [id number] [facility] [id number] True as [id number] [facility] 097 Branch Results This patient has no known results.
[2022-06-25] MEDS ORDERED: MORPHINE 4 MG/ML SYR ONE (19:33)
[2022-06-25 19:53] LABS: Absolute Lymphocytes (CBC) 1.7 K/uL (0.7-4.9); Lymphocytes % 29.1 % (15.3-44.8); MCV 87.8 fL (80-100); MPV 9.2 fL (7.6-11.3); RBC Red Blood Cell Count 3.98 M/uL (3.86-4.86)
[2022-06-25 19:58] LABS: Protime INR 0.98
[2022-06-25 20:13] LABS: Albumin 3.1 g/dL (3.4-5.0); Bilirubin Direct 0.1 mg/dL (0-0.2); Bilirubin Total 0.3 mg/dL (0.2-1.0); Potassium 3.6 mmol/L (3.5-5.1); Troponin High Sensitivity 3.9 pg/mL (<58.9)
--- NOTE | 2022-06-25 20:20 | RAD REPORT ---
EXAM DESCRIPTION: Juice Single View06/25/2022 7:48 pm CLINICAL HISTORY: Chest pain COMPARISON: 2021 FINDINGS: The lungs appear clear of acute infiltrate. The heart is normal size IMPRESSION: No acute abnormalities displayed
--- NOTE | 2022-06-25 20:57 | RAD REPORT ---
EXAM DESCRIPTION: USExtrem Venous W Compress Bil06/25/2022 8:36 pm CLINICAL HISTORY: Leg pain COMPARISON: None. FINDINGS: Right common femoral, superficial femoral, greater saphenous, popliteal and right posterio r tibial veins are compressible and demonstrate augmentation. Doppler demonstrates good flow. Left common vein is patent. Echogenic material consistent with thrombus is present throughout the left superficial femoral vein. The vein is mostly non compressible. Left greater saphenous, popliteal and posterior tibial veins are patent Grayscale, color and spectral analysis performed on all vessels IMPRESSION: Acute thrombus left superficial femoral vein
--- NOTE | 2022-06-25 21:05 | RAD REPORT ---
EXAM DESCRIPTION: US - Lower Extremity Arterial Bilat - 06/25/2022 8:36 pm CLINICAL HISTORY: Leg pain COMPARISON: None FINDINGS: Right common femoral, right superficial femoral, right popliteal, right posterior tibial and right do rsalis pedis arterial waveforms are generally monophasic Left common femoral, left superficial femoral, left popliteal, left posterior tibial and left dorsali s pedis arterial waveforms are generally monophasic as well. Grayscale, color and spectral analysis performed on all vessels IMPRESSION: Bilateral abnormal waveforms involving the arteries of the lower extremity. This could i ndicate aorto bi-iliac arterial disease. No high-grade stenosis/occlusion seen
[2022-06-25 21:12] LABS: Urine Blood Negative (Negative); Urine Glucose Negative (Negative); Urine Protein Negative (Negative); Urine Specific Gravity 1.025 (1.005-1.030)
[2022-06-25 21:27] LABS: Urine Specific Gravity/Preg 1.025 (1.005-1.030)
[2022-06-25 21:27] LABS: Urine Specific Gravity/Preg 1.025 (1.005-1.030)
[2022-06-25 21:32] LABS: Urine Bacteria <20 /HPF (<20); Urine Mucus Slight /HPF (None Seen); Urine WBC Clump Rare /HPF (None Seen)
[2022-06-25] MEDS ORDERED: NA CHLORIDE 0.9% 250 ML ONE (21:33)
[2022-06-25] MEDS ORDERED: ENOXAPARIN 100 MG/ML SYR SQ ONE (21:33)
[2022-06-25] MEDS ORDERED: VANCOMYCIN 1 GM/VIAL ONE (21:33)
--- NOTE | 2022-06-25 23:20 | ER ---
Nurse's Notes [facility] Name: Mahnaz Daniel Age: 41 yrs Sex: Female : 1980 Arrival Date: 06/25/2022 Time: 18:44 Bed 15 Private MD: Ortiz Candelario Diagnosis: Acute embolism and thrombosis of unspecified deep veins of left lower extremity Presentation: 06/25 18:51 Chief complaint: Patient states: "I was admitted to [place] for a blood clot in my hb leg but I had a family emergency and had to leave." Reports left leg pain 12/09. Coronavirus screen: At this time, the client does not indicate any symptoms associated with coronavirus-19. Ebola Screen: No symptoms or risks identified at this time. Initial Sepsis Screen: Does the patient meet any 2 criteria? No. Patient's initial sepsis screen is negative. Does the patient have a suspected source of infection? No. Patient's initial sepsis screen is negative. Risk Assessment: Do you want to hurt yourself or someone else? Patient reports no desire to harm self or others. Onset of symptoms was June 25, 2022. 18:51 Method Of Arrival: Ambulatory hb 18:51 Acuity: SIMEON 3 hb Triage Assessment: 19:49 General: Appears in no apparent distress. Behavior is appropriate for age. ke1 Historical: - Allergies: 18:54 Bactrim DS; hb - PMHx: 18:54 Cirrhosis; Hepatitis C; Pneumonia; hb - PSHx: 18:54 section; hb - Immunization history:: Adult Immunizations up to date. - Social history:: Smoking status: Patient reports the use of cigarette tobacco products, smokes one-half pack cigarettes per day. Screenin:49 [facility] ED Fall Risk Assessment (Adult) History of falling in the last 3 months, ke1 including since admission No falls in past 3 months (0 pts) Confusion or Disorientation No (0 pts) Intoxicated or Sedated No (0 pts) Impaired Gait No (0 pts) Mobility Assist Device Used No (0 pt) Altered Elimination No (0 pt) Score/Fall Risk Level 0 - 2 = Low Risk. Abuse screen: Denies threats or abuse. Nutritional screening: No deficits noted. Tuberculosis screening: No symptoms or risk factors identified. Assessment: 19:15 Pain: Complains of pain in right leg Pain currently is 5 out of 10 on a pain scale. at ke1 worst was 5 out of 10 on a pain scale. level that patient reports is acceptable is 1 out of 10 on a pain scale. 19:30 General: Appears in no apparent distress. Behavior is fussy, uncooperative. ke1 19:50 Reassessment: IV inserted , unable to advance IV sheath fully because patient c/o pain, ke1 good blood return labs keyon, nurse wants to d/c line to start another iv, but patient refuses and states " it's not hurting me anymore". 20:15 Reassessment: Patient denies pain at this time. Patient states feeling better. Patient ke1 states symptoms have improved. 21:00 Reassessment: Patient does not want to keep pressure cuff + ecg+ oxygen sensor ke1 connected Patient denies pain at this time. 21:50 Reassessment: 20 g on LAC d/c. ke1 21:51 Reassessment: Patient c/o pain when product safety technician flushes line and ask nurse to remove IV and ke1 yelling " i told you to remove the iv before", explains to patient that she was the one refusing previous request to DC Iv. 23:01 Reassessment: lying in bed sleeping. ke1 23:31 Reassessment: Pt unable to tolerate CT with contrast. Instructed patient we could give vc1 something for anxiety or pain so she would be able to tolerate the procedure. Pt states well maybe the problem is just the CT person. She is rude and I do not want to be around her. 23:41 Reassessment: Pt asked again if she would be willing to go to CT if I walked with her. vc1 Pt states not if the CT woman is there. PT instructed she is the only one that can perform the CT at this time. Pt states then I can wait until morning when someone else is here. I instructed patient that we are not waiting until morning we need to do the CT now. Pt refuses to have CT at this time. Pt stated "the only reason you are doing this to me is because I don't have insurance." I asked pt is there a way we can accommodate you to get you to CT. I can give you something for anxiety, something for pain, restart your IV, and walk you and stay with you at CT. Pt stated, "I'm not refusing it, I am just not getting it done.". 23:45 Reassessment: Patient is refusing CT scan at this time despite PA and charge nurse ke1 intervention to propose comfortable measure for the CT. PA proposes relaxation meds and assistance by the nurse to CT scan to reassure patient but patient refuses. Patient states " all that matter for you is insurance, and you want to get rid of me because i do not have insurance", charge nurse explains that nobody is talking about insurance but the decision to admit patient will be based on CT result. Patient starts cursing at charge nurse " Norm andersen, you are a lyer". 23:53 Reassessment: Patient pulled out her IV and does not want nurse to help her " do not ke1 touch me", code blue in Er so no one available to help other at this time. Nurse able to stop bleeding. 23:56 Reassessment: Patient left refusing to sign d/c papers and wait for prescriptions. ke1 Vital Signs: 18:51 BP 140 / 107; Pulse 110; Resp 18; Temp 97.8; Pulse Ox 100% on R/A; Weight 104.33 kg; hb Height 5 ft. 5 in. (165.10 cm); Pain 8/10; 19:54 Pain 1/10; ke1 20:16 BP 112 / 74; Pulse 101; Resp 17; Pulse Ox 100% ; Pain 0/10; ke1 18:51 Body Mass Index 38.27 (104.33 kg, 165.10 cm) hb ED Course: 18:44 Patient arrived in ED. mr 18:44 Ortiz Candelario MD is Private Physician. mr 18:45 Patrick Craven PA is PHCP. cp 18:45 Patrick Michelle MD is Attending Physician. cp 18:51 Arm band placed on. hb 18:53 Triage completed. hb 19:02 Janneth Sanabria, RN is Primary Nurse. ke1 19:46 Inserted saline lock: 20 gauge in left antecubital area, using aseptic technique. ke1 19:47 CBC with Diff Sent. ke1 19:47 LFT's Sent. ke1 19:47 Magnesium Sent. ke1 19:47 NT PRO-BNP Sent. ke1 19:47 PT-INR Sent. ke1 19:47 Troponin HS Sent. ke1 19:49 Bed in low position. Call light in reach. ke1 19:50 XRAY Chest (1 view) In Process Unspecified. EDMS 20:45 US Extremity Venous W Compression Jayme In Process Unspecified. EDMS 20:45 Lower Extremity Arterial Bilat US In Process Unspecified. EDMS 21:08 Urine Microscopic Only Sent. mb9 22:10 Inserted saline lock: 22 gauge in left antecubital area, using aseptic technique. by ke1 charge nurse christopher. 23:19 Luisana Dominguez PA-C is Hospitalizing Provider. cp 23:44 Ortiz Candelario MD is Referral Physician. cp 23:57 No provider procedures requiring assistance completed. IV discontinued, by patient. ke1 Administered Medications: 19:47 Drug: morphine 4 mg Route: IVP; Infused Over: 4 mins; Site: left antecubital; ke1 19:54 Follow up: Pain / Adult; Response: Pain is decreased ke1 21:41 Drug: Lovenox (enoxaparin) 1 mg/kg Route: Sub-Q; Site: right lower abdomen; ke1 22:07 Drug: vancoMYCIN 1 grams Route: IVPB; Infused Over: 2 hrs; Site: left antecubital; ke1 Medication: 23:59 VIS not applicable for this client. ke1 Outcome: 23:19 Decision to Hospitalize by Provider. cp 23:45 Discharge ordered by MD. cp 23:58 Discharged to home ambulatory. ke1 23:58 Condition: stable 23:58 Discharge instructions given to patient, patient did no wait for instructions 23:59 Patient left the ED. ke1 Signatures: Dispatcher [employer] [facility] Ezekiel Adalgisa Patrick Limon PA PA cp Baxter, Heather, RN RN Christopher Hong RN RN 1 Janneth Sanabria RN RN ke1 Adalgisa Ramos, RN RN mb9 Corrections: (The following items were deleted from the chart) 21:51 21:49 Reassessment: IV inserted , unable to advance IV sheath fully because patient c/o ke1 pain, good blood return labs keyon, nurse wants to d/c line to start another iv, but patient refuses and states " it's not hurting me anymore" ke1 23:15 22:55 Inserted saline lock: 22 gauge in left antecubital area, using aseptic technique. ke1 by charge nurse christopher ke1 23:45 23:30 Reassessment: Patient is refusing CT scan at this time despite PA and charge ke1 nurse intervention to propose comfortable measure for the CT. PA proposes relaxation meds and assistance by the nurse to CT scan to reassure patient but patient refuses. Patient states " all that matter for you is insurance, and you want to get rid of me because i do not have insurance", charge nurse explains that nobody is talking about insurance but the decision to admit patient will be based on CT result. Patient starts cursing at charge nurse " Norm borisdelio, you are a lyer" ke1 23:58 23:53 Reassessment: Patient pulled out her IV and does not want nurse to help her " do ke1 not touch me", code blue in Er so no one available to help other at this time ke1
--- NOTE | 2022-06-25 23:20 | EDPHYS ---
Physician Documentation Former[facility] Name: Mahnaz Daniel Age: 41 yrs Sex: Female : 1980 Arrival Date: 06/25/2022 Time: 18:44 Bed 15 Private MD: Ortiz Candelario ED Physician Patrick Michelle HPI: 06/25 19:15 This 41 yrs old Female presents to ER via Ambulatory with complaints of Possible blood cp clots. Historical: - Allergies: 18:54 Bactrim DS; hb - PMHx: 18:54 Cirrhosis; Hepatitis C; Pneumonia; hb - PSHx: 18:54 section; hb - Immunization history:: Adult Immunizations up to date. - Social history:: Smoking status: Patient reports the use of cigarette tobacco products, smokes one-half pack cigarettes per day. ROS: 19:20 Constitutional: Negative for body aches, chills, fever, poor PO intake. cp 19:20 Eyes: Negative for injury, pain, redness, and discharge. cp 19:20 Cardiovascular: Positive for edema, Negative for chest pain, palpitations. 19:20 Respiratory: Positive for shortness of breath, at rest. Negative for cough, wheezing. Exam: 19:25 Constitutional: The patient appears in no acute distress, alert, awake, cp non-diaphoretic, non-toxic, well developed, well nourished, obese. 19:25 Head/Face: Normocephalic, atraumatic. cp 19:27 ECG was reviewed by the Attending Physician. cp Vital Signs: 18:51 BP 140 / 107; Pulse 110; Resp 18; Temp 97.8; Pulse Ox 100% on R/A; Weight 104.33 kg; hb Height 5 ft. 5 in. (165.10 cm); Pain 8/10; 19:54 Pain 1/10; ke1 20:16 BP 112 / 74; Pulse 101; Resp 17; Pulse Ox 100% ; Pain 0/10; ke1 18:51 Body Mass Index 38.27 (104.33 kg, 165.10 cm) hb MDM: 18:58 Patient medically screened. cp 23:48 Data reviewed: vital signs, nurses notes, lab test result(s), EKG, radiologic studies, cp plain films. 23:48 Consideration of Admission/Observation Escalation of care including cp admission/observation considered. Patient refusing to have CT chest for pulmonary embolism at this time due to conflict with software technician. Discussed concern for pulmonary embolism due to left leg embolism and c/o shortness of breath. Discussed admission for pain control and treatment for embolism and cellulitis of left lower leg. Patient continues to refuse to have CT chest at this time and hospitalist Rohini Dominguez will not admit w/o CT chest. 06/25 19:11 Order name: Basic Metabolic Panel; Complete Time: 20:18 cp 06/25 20:18 Interpretation: Normal except: CRE 1.05; GFR 68; CA 8.4. cp 06/25 19:11 Order name: CBC with Diff; Complete Time: 20:18 cp 06/25 20:18 Interpretation: Normal except: HGB 11.7; HCT 35.0; RDW 15.4. cp 06/25 19:11 Order name: LFT's; Complete Time: 20:18 cp 06/25 20:18 Interpretation: Normal except: AST 64; ALT 65; ALB 3.1; GLOB 3.9; A/G 0.8. cp 06/25 19:11 Order name: Magnesium; Complete Time: 20:18 cp 06/25 19:11 Order name: NT PRO-BNP; Complete Time: 20:18 cp 06/25 23:14 Interpretation: Reviewed. cp 06/25 19:11 Order name: PT-INR; Complete Time: 20:18 cp 06/25 19:11 Order name: Troponin HS; Complete Time: 20:18 cp 06/25 20:45 Order name: Lactate w/ 2H reflex if indic.; Complete Time: 23:13 cp 06/25 20:45 Order name: Blood Culture Adult (2) cp 06/25 20:46 Order name: Urine Microscopic Only; Complete Time: 23:13 cp 06/25 23:45 Interpretation: Normal except: UWBC 20-50; URBC 5-10. cp 06/25 21:12 Order name: Urine Dipstick-Ancillary; Complete Time: 21:45 EDMS 06/25 21:15 Order name: Urine --Ancillary (enter results); Complete Time: 21:45 oe 06/25 21:21 Order name: Urine --Ancillary (enter results); Complete Time: 21:45 wm 06/25 21:51 Order name: Urine Culture EDMS 06/25 19:11 Order name: XRAY Chest (1 view); Complete Time: 20:44 cp 06/25 19:11 Order name: EKG; Complete Time: 19:12 cp 06/25 19:11 Order name: Cardiac monitoring; Complete Time: 19:47 cp 06/25 19:11 Order name: EKG - Nurse/Tech; Complete Time: 19:28 cp 06/25 19:11 Order name: IV Saline Lock; Complete Time: 19:47 cp 06/25 19:11 Order name: Labs collected and sent; Complete Time: 19:47 cp 06/25 19:11 Order name: O2 Per Protocol; Complete Time: 19:47 cp 06/25 19:11 Order name: O2 Sat Monitoring; Complete Time: 19:47 cp 06/25 19:11 Order name: US Extremity Venous W Compression Jayme; Complete Time: 21:45 cp 06/25 19:11 Order name: Lower Extremity Arterial Bilat US; Complete Time: 21:45 cp 06/25 20:46 Order name: Urine Dipstick-Ancillary (obtain specimen); Complete Time: 21:08 cp 06/25 20:46 Order name: Urine Test (obtain specimen); Complete Time: 21:08 cp EC:27 Rate is 102 beats/min. Rhythm is regular. HI interval is normal. QRS interval is cp normal. QT interval is normal. T waves are Inverted in lead aVR. Interpreted by me. Reviewed by me. Administered Medications: 19:47 Drug: morphine 4 mg Route: IVP; Infused Over: 4 mins; Site: left antecubital; ke1 19:54 Follow up: Pain / Adult; Response: Pain is decreased ke1 21:41 Drug: Lovenox (enoxaparin) 1 mg/kg Route: Sub-Q; Site: right lower abdomen; ke1 22:07 Drug: vancoMYCIN 1 grams Route: IVPB; Infused Over: 2 hrs; Site: left antecubital; ke1 Disposition Summary: 06/25/22 23:45 Discharge Ordered Location: Home(06/25/22 23:45) cp Problem: new(06/25/22 23:45) cp Symptoms: have improved(06/25/22 23:45) cp Condition: Stable(06/25/22 23:45) cp Diagnosis - Acute embolism and thrombosis of unspecified deep veins of left lower cp extremity(06/25/22 23:45) Followup: cp - With: Ortiz Candelario MD - When: 2 - 3 days - Reason: Recheck today's complaints Discharge Instructions: - Discharge Summary Sheet cp - Cellulitis, Adult cp - Deep Vein Thrombosis cp Forms: - Medication Reconciliation Form cp - Thank You Letter cp - Antibiotic Education cp - Prescription Opioid Use cp Prescriptions: - Tramadol 50 mg Oral Tablet - take 1 tablet by ORAL route every 8 hours as needed; 12 tablet; Refills: 0, cp Product Selection Permitted - Doxycycline Monohydrate 100 mg Oral Tablet - take 1 tablet by ORAL route every 12 hours for 10 days; 20 tablet; Refills: 0, cp Product Selection Permitted - Xarelto 15 mg Oral Tablet - take 1 tablet by ORAL route 2 times per day start morning of 06-26-2022; 42 cp tablet; Refills: 0, Product Selection Permitted Signatures: Dispatcher [employer] EDMS Patrick Craven PA PA cp Germaine Cohen, RN RN Janneth Sanabria RN RN ke1 Corrections: (The following items were deleted from the chart) 23:44 23:19 Inpatient Admission cp cp 23:44 23:19 Luisana Dominguez cp cp 23:44 23:19 Telemetry/MedSurg (Inpatient) cp cp 23:44 23:19 Stable cp cp 23:44 23:19 new cp cp 23:44 23:19 have improved cp cp 23:44 23:19 Standard cp cp 23:44 23:19 cp cp 23:44 23:19 Cellulitis of left lower limb cp cp 23:44 23:19 Acute embolism and thrombosis of unspecified deep veins of left lower extremity cpcp
[2022-06-26 00:52] VITALS: TEMP 97.8; O2SAT 100
[2022-06-26 00:53] VITALS: BP 112/74
--- NOTE | 2022-06-28 18:47 | EKG ---
Test Date: 2022-06-25 Test Time: 19:21:58 Sign Poster: MICHAEL MEASUREMENT RESULTS: Intervals: Rate: 102 [place]: 130 QRSD: 98 QT: 350 QTc: 456 [place]: P: 80 [place]: 130 QRS: 87 T: 53 INTERPRETIVE STATEMENTS: Sinus tachycardia Low voltage QRS Borderline ECG Compared to ECG 12/19/2021 07:09:59 Low QRS voltage now present Electronically Signed On 06-28-22 18:42:38 EXTRACTION OPERATOR by Jesús Moses
== END 2022-06-25 23:59 | disposition home or self-care (01) ==
LOC: ER 18:41
DX: I82.402 Acute embolism and thrombosis of unspecified deep veins of left lower extremity (principal); F17.210 Nicotine dependence, cigarettes, uncomplicated; Z88.1 Allergy status to other antibiotic agents
CPT/HCPCS: 36415; 71045; 80048; 80076; 81003; 81015; 81025; 83605; 83735; 83880; 84484; 85025; 85610; 87040; 87086; 87088; 93005; 93925; 93970; 96372; 96374; 96375; 99284; J1650; J3370; J7050

== ENCOUNTER 2024-12-07 07:55 | Emergency (ER) | payer OTHER ==
--- OUTSIDE RECORDS SUMMARY | 2024-12-07 08:00 | XMS REPORT | Continuity of Care Document ---
Author Name Unknown Address [address] [facility] [place] [address] [facility] Address [address] [facility] [place] [address] Care Team Providers Care Chef Kitchen Manager Name Role Phone Unknown Primary Care Physician Unavailab TOY Grace Attending Clinician Unavaila DILEEP Del Toro Attending Clinician Unavailable MD MELISSA Attending Clinician Unavailab AUGUST Stoner Attending Clinician Unavailable YARELY ABRAHAM Attending Clinician Unavailable ANN-MARIE AMBROSE Attending Clinician Unavailable BERTO QURESHI Attending Clinician UnavailKevin Fischer Attending Clinician Unavailable Maribel Case CNM Attending Clinician [phone] CA QURESHI Attending Clinician Unavailab CA Santana Attending Clinician Unavailab Ca Santana DO Attending Clinician [phone] JOSE MARTIN BOLTON Attending Clinician UnavailJOSHUA Hogue Attending Clinician Unavailable ENIO GOLDMAN Attending Clinician Unavailable LAB39 Attending Clinician Unavailable MIKE RODRIGUEZ Attending Clinician Unavailable ALEXUS ARZATE Attending Clinician Unavailable BEATRIZ GRAFF Attending Clinician Unavailable EDDIE CHRISTIANSEN Attending Clinician Unavailab SEVERIANO Lobato Attending Clinician Unavailable LUIS JETER Attending Clinician Unav ailable BOAZ CASTRO Attending Clinician Unavailab MCKENZIE Pulido Attending Clinician Unavailable PABLITO WHEELER Attending Clinician Unavailable LORENZACELINE Laura Attending Clinician Unavailable LAB47 Attending Clinician Unavailable IVORY ALMAZAN Attending Clinician Unavailab krystina PLAB Attending Clinician Unavailable INFUSION, MC Attending Clinician Unavailable LESTERIHSAN KRISHNA Attending Clinician Unavailable SANTIAGO OCONNELL Attending Clinician Unavailable LAB90 Attending Clinician Unavailable PL, TECH 1 Attending Clinician Unavailable TRED47 Attending Clinician Unavailable STEVEN JUÁREZ Attending Clinician Unavailable ANSELMO BYRD Attending Clinician Sergei Melgar Attending Clinician Unavailable Doctor Unassigned, Canalou Attending Clinician U navailAGGIE Guy Attending Clinician Unavailable Physician, No Primary or Family Admitting Clinic eliu Unavailable CA QURESHI Admitting Clinician Unavailab Sergei Trevino Admitting Clinician Unavailable AGGIE OTTO Admitting Clinician Unavailable Payers Payer Name Policy Type Policy Number Effective Date Expirati on Date Source [facility] ADVANCED 9 [id number] 2024 00:00:00 COMMERCIAL NON-CONTRACT GENERIC [id number] 2021 00:00:00 [facility] VEENA BURROWS COPAY FOCUS 9 [id number] 2023 00:00:00 Problems Condition Name Condition Details Condition Category Status Onset Date Resolution Date Last Treatment Date Treating Clinician Comments Source Chronic bilateral low back pain without sciatica Chronic bilateral low back pain without sciatica Disease Active 2022-05 00:00: 00 Michelle waddell DDD (degenerat darlene disc disease), lumbar DDD (degenerat darlene disc disease), lumbar Disease Active 2022-05 00:00: 00 Michelle waddell Chronic anticoagul ation Chronic anticoagul ation Disease Active 2022-05 00:00: 00 Michelle Seybold - Externa l Hypercoagu lable state (HHS-HCC) Hypercoagu lable state (HHS-HCC) Disease Active 2022-05 00:00: 00 Michelle Mereditha bairon Chronic hepatitis C without hepatic coma (multi HCC) Chronic hepatitis C without hepatic coma (multi HCC) Disease Active 2022-05 00:00: 00 Overview: Formattin g of this note might be different from the original. history of but no treatment Michelle Mereditha bairon Well adult exam Well adult exam Disease Active 8-04 00:00: 00 Michelle Mereditha bairon Iron deficiency anemia due to chronic blood loss Iron deficiency anemia due to chronic blood loss Disease Active 11-24 00:00: 00 Michelle Mereditha bairon Malabsorpt ion of iron (HHS-HCC) Malabsorpt ion of iron (HHS-HCC) Disease Active 11-24 00:00: 00 Michelle Mereditha bairon Hepatitis C Hepatitis C Disease Active 11-01 00:00: 00 Overview: Formattin g of this note might be different from the original. history of but no treatment Michelle Mereditha bairon Pulmonary embolism (multi HCC) Pulmonary embolism (multi HCC) Disease Active 11-01 00:00: 00 Michelle Richardson Externa l History of pulmonary embolus (PE) History of pulmonary embolus (PE) Disease Active 11-01 00:00: 00 Michelle Mereditha bairon History of deep venous thrombosis (DVT) of distal vein of left lower extremity History of deep venous thrombosis (DVT) of distal vein of left lower extremity Disease Active 11-01 00:00: 00 Michelle Richardson Externa bairon Obesity Obesity Disease Active 11-01 00:00: 00 Michelle Richardson Externa bairon Obesity (BMI 30-39.9) Obesity (BMI 30-39.9) Disease Active 2021-05 2-13 00:00: 00 [facility] Hernia of abdominal wall Hernia of abdominal wall Disease Active 2021-05 2-12 00:00: 00 [facility] Screen for STD (sexually transmitte d disease) Screen for STD (sexually transmitte d disease) Disease Active 06-23 00:00: 00 [facility] Tobacco use disorder Tobacco use disorder Disease Active 06-23 00:00: 00 [facility] History of anxiety History of anxiety Disease Active 06-23 00:00: 00 [facility] History of depression History of depression Disease Active 06-23 00:00: 00 [facility] Liver cirrhosis Liver cirrhosis Disease Active 06-23 00:00: 00 [facility] Allergies, Adverse Reactions, Alerts Allergy Name Allergy Type Status Severity Reaction(s) Onset Date Inactive Date Treating Clinician Comments Source sulfamet hoxazole DA Active MO "BLEACH WHITEHEAD" 07-07 00:00: 00 [facility] trimetho prim DA Active MO "BLEACH WHITEHEAD" 07-07 00:00: 00 [facility] Sulfamet hoxazole W-Trimet hoprim Propensi ty to adverse reaction s Active Other 10-25 00:00: 00 [facility] Michelle Richardson Externa l SULFA (SULFONA MIDE ANTIBIOT ICS) Drug Class Active Rash 2014-05 00:00: 00 [facility] Sulfa Drugs Propensi ty to adverse reaction s Active Rash 2014-05 00:00: 00 Michelle Mereditha l Social History Social Habit Start Date Stop Date Quantity Comments Source History SDOH Social Connections Phone [facility] History SDOH Social Connections Get Together [facility] History SDOH Social Connections [facility] History SDOH Social Connections Membership [facility] History SDOH Social Connections Meetings [facility] Sexual orientation U [facility] Gender identity Carleen Goldberg - External ASSERTION Not Michelle Goldberg - External History of Occupation Michelle Goldberg - External History of tobacco use Cigarette Smoker Michelle falcon - External Cigarettes smoked current (pack per day) - Reported 2024-07-26 00:00:00 2024-07-26 00:00:00 Michelle Goldberg - External Cigarette pack-years 2024-07-26 00:00:00 2024-07-26 00:00:00 Michelle Goldberg - External Tobacco use and exposure 2024-07-26 00:00:00 2024-07-26 00:00:00 Smokeless tobacco non-user Michelle Goldberg - External Alcoholic beverage intake 2024-05-13 00:00:00 2024-05-13 00:00:00 0 /d [facility] History of Social function 2024-05-13 00:00:00 2024-05-13 00:00:00 [facility] Alcohol intake 2023-03-04 00:00:00 2023-03-04 00:00:00 Ex-drinker (finding) Michelle Goldberg - External Education 2022-11-01 00:00:00 2022-11-01 00:00:00 8 Michelle Goldberg - External Sex 2022-07-28 21:32:02 2022-07-28 21:32:02 Female (finding) Michelle Goldberg - External History SDOH Alcohol Frequency 2022-04-13 00:00:00 2022-04-13 00:00:00 1 [facility] History SDOH Alcohol Std Drinks 2022-04-13 00:00:00 2022-04-13 00:00:00 0 [facility] History SDOH Alcohol Binge 2022-04-13 00:00:00 2022-04-13 00:00:00 1 [facility] History SDOH Social Connections Living 2022-04-13 00:00:00 2022-04-13 00:00:00 3 [facility] Exposure to SARS-CoV-2 (event) 2022-04-02 00:00:00 2022-04-12 20:35:00 Not sure [facility] Sex assigned at 1980 00:00:00 1980 00:00:00 F Michelle Goldberg - External Smoking Status Start Date Stop Date Source Tobacco smoking consumption unknown [facility] Smokes tobacco daily 2024-07-26 00:00:00 Michelle Richardson External Heavy tobacco smoker 2022-04-13 00:00:00 [facility] Medications Ordered Medication Name Filled Medication Name Start Date Stop Date Current Medication? Ordering Clinician Indication Dosage Frequency Signature (SIG) Comments Components Source Fluticasone -Salmeterol (Advair Diskus) 250-50 MCG/ACT inhalation AEROSOL POWDER, BREATH ACTIVATED 08-29 00:00: 00 Yes [id number] 1{puff} Q.5D Inhale 1 puff into the lungs 2 times daily. Michelle waddell Benzonatate 100 MG oral Capsule 08-29 00:00: 00 Yes [id number] 100mg Q.[id number] [id number] 3D Take 1 capsule (100 mg total) by mouth 3 times daily as needed for cough. Michelle waddell Metronidazo le (Flagyl) 500 MG oral Tablet 08-12 00:00: 00 08-29 00:00 :00 No [id number] 500mg Q.5D Take 1 tablet (500 mg total) by mouth 2 times daily. Michelle waddell Gabapentin 300 MG oral Capsule 07-30 00:00: 00 Yes [id number] 300mg Q.33225890 [id number] 3D Take 1 capsule (300 mg total) by mouth 3 times daily. Michelle waddell Cyclobenzap rine HCl 10 MG oral Tablet 07-30 00:00: 00 Yes [id number] 10mg Q.73404315 [id number] 3D Take 1 tablet (10 mg total) by mouth every 8 hours as needed for muscle spasms. Michelle waddell Naproxen 500 MG oral Tablet 07-30 00:00: 00 Yes [id number] 500mg Q.5D Take 1 tablet (500 mg total) by mouth 2 times daily as needed. Michelle waddell ondansetron (ZOFRAN (PF)) injection 4 mg 05-14 06:00: 00 05-14 06:04 :00 No 4mg 4 mg, Slow IV Push, ONCE, 1 dose, On Tue05/14/24 at 0000, Administer over 2-5 Minutes, [address] [facility] morpHINE (4 mg/mL) injection 4 mg 05-14 06:00: 00 05-14 06:01 :00 No 4mg 4 mg, Slow IV Push, ONCE, 1 dose, On Tue05/14/24 at 0000, STAT [facility] dicyclomine (BENTYL) tablet 20 mg 05-14 04:45: 00 05-14 04:47 :00 No 20mg 20 mg, Oral, ONCE, 1 dose, On Tue05/13/24 at 2245, [facility] iopamidol (ISOVUE 370-500 mL) injection 100 mL 05-14 04:00: 00 05-14 04:00 :00 No [id number] 100mL 100 mL, Intravenou s, ONCE, 1 dose, On Tue05/13/24 at 2200, Routine [facility] magnesium sulfate in water 2 gram/50 mL (4 %) infusion 2 g 05-14 03:30: 00 05-14 03:44 :00 No 2g 2 g, IV Piggyback, Administer over 60 Minutes, ONCE, 1 dose, On Tue05/13/24 at 2130, Routine [facility] alum-mag hydroxide-s imeth (MAG-AL PLUS) 200-200-20 mg/5 mL suspension 30 mL 05-14 01:15: 00 05-14 02:14 :00 No 30mL 30 mL, Oral, ONCE, 1 dose, On Tue05/13/24 at 1915, [facility] famotidine (PEPCID (PF)) injection 20 mg 05-14 01:15: 00 05-14 02:14 :00 No 20mg 20 mg, Slow IV Push, ONCE, 1 dose, On Tue05/13/24 at 1915, [facility] Clindamycin HCl 300 MG oral Capsule 11-10 00:00: 00 11-16 04:59 :00 No [id number] 300mg Q.49348108 [id number] 3D Take 1 capsule (300 mg total) by mouth 3 times daily for 5 days. Michelle waddell Rivaroxaban 20 MG oral Tablet 06-16 00:00: 00 08-29 00:00 :00 No [id number] 20mg QD Take 1 tablet (20 mg total) by mouth daily " See pcp for further followup". Michelle waddell Doxycycline Hyclate 100 MG oral Tablet 06-16 00:00: 00 07-26 00:00 :00 No [id number] 100mg Q.5D Take 1 tablet (100 mg total) by mouth 2 times daily. Michelle waddell Benzonatate 200 MG oral Capsule 06-16 00:00: 00 07-26 00:00 :00 No [id number] 200mg Q.23451165 [id number] 3D Take 1 capsule (200 mg total) by mouth 3 times daily as needed for cough. Michelle waddell Amoxicillin 875 MG oral Tablet 06-03 00:00: 00 06-11 05:59 :00 No [id number] 875mg Take 1 tablet (875 mg total) by mouth 2 times daily for 7 days. Michelle waddell Gabapentin 300 MG oral Capsule 2022-05 00:00: 00 06-16 00:00 :00 No [id number] 07 300mg Q.5D Take 1 capsule (300 mg total) by mouth 2 times daily as needed. Michelle waddell Econazole Nitrate 1 % apply externally Cream 2022-05 00:00: 00 04-13 05:59 :00 No [id number] Apply 1 applicatio n. topically daily. Michelle waddell Duloxetine HCl [address] Particles 2022-05 00:00: 00 08-29 00:00 :00 No [id number] 20mg QD Take 1 capsule (20 mg total) by mouth daily. Michelle waddell Oxybutynin Chloride 5 MG oral TABLET SR 24 HR 2022-05 00:00: 00 06-16 00:00 :00 No [id number] 5mg Take 1 tablet (5 mg total) by mouth nightly. Michelle waddell Harvoni 90-400 MG oral Tablet 2022-05 1- 00:00: 00 08-29 00:00 :00 No [id number] 1{tbl} QD Take 1 tablet by mouth daily. Michelle waddell Rivaroxaban 20 MG oral Tablet 2022-05 0-06 00:00: 00 06-16 00:00 :00 No [id number] 20mg Take 1 tablet (20 mg total) by mouth daily. Michelle waddell Rivaroxaban 20 MG oral Tablet 2022-05 0- 15:03: 24 Yes 20mg Take 1 tablet (20 mg total) by mouth daily. Michelle waddell Fluticasone -Salmeterol (Advair Diskus) 250-50 MCG/ACT inhalation AEROSOL POWDER, BREATH ACTIVATED 9 00:00: 00 08-29 00:00 :00 No 1{puff} Q.5D Inhale 1 puff into the lungs 2 times daily. Michelle waddell Iron Dextran (INFED) 975 mg in sodium chloride 0.9 % 500 mL infusion 12-24 20:30: 00 12-24 22:02 :00 No [id number] 975mg 975 mg, at 500 mL/hr, Administer over 60 Minutes, intravenou s, ONCE, On Tue12/24/22 at 1530, For 1 dose, Solumedrol is recommende d only if patient has: Asthma, or Allergy to more than one drug, or History of inflammato ry arthritis. Solu-Medro l is recommende d only if the patient has: Allergy to more than one drug. Please indicate the Primary and Secondary diagnoses for Iron Treatment: Primary diagnosis: D50.0 Iron deficiency anemia secondary to blood loss Secondary diagnosis: K90.4 Malabsorpt ion due to intoleranc e, not elsewhere classified Monitor and record vital signs at the completion of the Infed infusion. Michelle waddell Iron Dextran (INFED) 25 mg in sodium chloride 0.9 % 50 mL infusion 12-24 19:45: 12-24 19:48 :00 No [id number] 25mg 25 mg, at 300 mL/hr, Administer over 10 Minutes, intravenou s, ONCE, On Tue12/24/22 at 1445, For 1 dose, Observe the patient for at least 1 hour after test dose administra tion. Monitor and record vital signs at 15 minutes, 30 minutes, and 60 minutes for 1 hour observatio n. Michelle waddell MethylPREDN ISolone Sodium Succinate (SOLU-MEDRO L) 125 MG injection 125 mg 12-24 19:15: 00 12-24 19:02 :00 No [id number] 125mg 125 mg, intravenou s push, ONCE, On Tue12/24/22 at 1415, For 1 dose, Solumedrol is recommende d only if patient has: Asthma, or Allergy to more than one drug, or History of inflammato ry arthritis. Administer via IV Push over 5 minutes. Michelle waddell Rivaroxaban 20 MG oral Tablet 12-03 15:13: 02 Yes 20mg Take 1 tablet (20 mg total) by mouth daily Michelle waddell Gabapentin 300 MG oral Capsule 12-03 00:00: 00 Yes [id number] 07 300mg Q.5D Take 1 capsule (300 mg total) by mouth 2 times daily as needed Michelle waddell Sennosides- Docusate Sodium (Senokot S) 8.6-50 MG oral Tablet 12-03 00:00: 00 07-26 00:00 :00 No [id number] 1{tbl} QD Take 1 tablet by mouth daily Michelle waddell Ferrous Sulfate (Iron) 325 (65 Fe) MG oral Tablet 12-03 00:00: 00 06-16 00:00 :00 No [id number] 325mg Take 1 tablet (325 mg total) by mouth daily (with breakfast) Michelle waddell Rivaroxaban 20 MG oral Tablet 11-25 15:28: 07 Yes 20mg Take 1 tablet (20 mg total) by mouth daily Michelle waddell Albuterol HFA 108 (90 Base) MCG/ACT IN AERS 11-25 00:00: 00 Yes [id number] 2{puff} Q.25D Inhale 2 puffs into the lungs every 6 hours as needed for wheezing or shortness of breath Michelle waddell Rivaroxaban 20 MG oral Tablet 11-01 11:22: 16 Yes 20mg Take 1 tablet (20 mg total) by mouth daily Michelle waddell Gabapentin 100 MG oral Capsule 11-01 00:00: 00 12-03 00:00 :00 No [id number] 07 100mg Q.5D Take 1 capsule (100 mg total) by mouth 2 times daily as needed Michelle waddell D5W 0.45% NaCl (1/2NS) 1 L + KCL 20 mEq 2021-05 15:00: 00 Yes IV Infusion, at 50 mL/hr, CONTINUOUS , Starting on Tue04/13/22 at 0900, Until Discontinu ed, Routine [facility] enoxaparin (LOVENOX) injection 40 mg 2021-05 15:00: 00 Yes 40mg 40 mg, Subcutaneo us, DAILY, First dose on Tue04/13/22 at 0900, Until Discontinu ed, Routine [facility] pantoprazol e (PROTONIX) injection 40 mg 2021-05 04:00: 00 04-16 03:44 :00 No 40mg 40 mg, Slow IV Push, Q24H, 3 doses, First dose on Tue04/12/22 at 2200, Last dose on Tue04/14/22 at 2200 [facility] D5W 0.45% NaCl (1/2NS) 1 L + KCL 20 mEq 2021-05 04:00: 00 04-13 14:56 :36 No IV Infusion, at 100 mL/hr, CONTINUOUS , Starting on Tue04/12/22 at 2200, Until Tue04/13/22 at 0856, Routine [facility] morpHINE (4 mg/mL) injection 2 mg 2021-05 03:44: 13 04-13 14:31 :47 No 2mg 2 mg, Slow IV Push, Q4HPRN, Starting on Tue04/12/22 at 2144, Until Tu04/13/22 at 0831, Routine, Pain (scale 7-10) [facility] ondansetron (ZOFRAN (PF)) injection 4 mg 2021-05 03:44: 10 Yes 4mg 4 mg, Slow IV Push, Q6HPRN, Starting on Tue04/12/22 at 2144, Until Discontinu ed, Routine, Nausea and Vomiting (N/V) [facility] No known medications 2021-05 21:23: 59 No No known medication s [facility] nystatin 100,000 unit/mL suspension 07-20 00:00: 00 04-13 00:00 :00 No [id number] U Take 10 mL by mouth every 8 (eight) hours. [facility] predniSONE 10 mg tablet 07-20 00:00: 00 04-13 00:00 :00 No 10mg Take 1 tablet by mouth daily. [facility] traMADOL (ULTRAM) 50 mg tablet 2015-05 00:00: 00 04-13 00:00 :00 No 50mg Take 1 tablet by mouth every 6 (six) hours as needed for Pain (scale 4-6). Kenroy Peñaloza PA-C / Lito Mccoy MD JASPREET# [id number] DPS# [id number] x Lic.# [id number] NPI# [id number] [facility] Immunizations Ordered Immunization Name Filled Immunization Name Date Status Comments Source Pneumococcal Conjugate 15 (Vaxneuvance) 2022-12-03 00:00:00 Completed Michelle Goldberg - External Tdap- (Boostrix, Adacel) 2022-12-03 00:00:00 Completed Michelle Goldberg - External Pneumococcal Conjugate 15 (Vaxneuvance) 2022-12-03 00:00:00 Completed Michelle Goldberg - External Tdap- (Boostrix, Adacel) 2022-12-03 00:00:00 Completed Michelle Seybold - External Pneumococcal Conjugate 15 (Vaxneuvance) Unknown Completed Michelle Seybold - External Tdap- (Boostrix, Adacel) Unknown Completed Michelle Seybold - External Pneumococcal Conjugate 15 (Vaxneuvance) Unknown Completed Michelle Seybold - External Tdap- (Boostrix, Adacel) Unknown Completed Michelle Seybold - External Pneumococcal Conjugate 15 (Vaxneuvance) Unknown Completed Michelle Seybold - External Tdap- (Boostrix, Adacel) Unknown Completed Michelle Seybold - External Pneumococcal Conjugate 15 (Vaxneuvance) Unknown Completed Michelle Seybold - External Tdap- (Boostrix, Adacel) Unknown Completed Michelle Seybold - External Pneumococcal Conjugate 15 (Vaxneuvance) Unknown Completed Michelle Seybold - External Tdap- (Boostrix, Adacel) Unknown Completed Michelle Seybold - External Pneumococcal Conjugate 15 (Vaxneuvance) Unknown Completed Michelle Seybold - External Tdap- (Boostrix, Adacel) Unknown Completed Michelle Seybold - External Pneumococcal Conjugate 15 (Vaxneuvance) Unknown Completed Michelle Seybold - External Tdap- (Boostrix, Adacel) Unknown Completed Michelle Seybold - External Pneumococcal Conjugate 15 (Vaxneuvance) Unknown Completed Michelle Seybold - External Tdap- (Boostrix, Adacel) Unknown Completed Michelle Seybold - External Pneumococcal Conjugate 15 (Vaxneuvance) Unknown Completed Michelle Seybold - External Tdap- (Boostrix, Adacel) Unknown Completed Michelle Seybold - External Pneumococcal Conjugate 15 (Vaxneuvance) Unknown Completed Michelle Seybold - External Tdap- (Boostrix, Adacel) Unknown Completed Michelle Seybold - External Vital Signs Vital Name Observation Time Observation Value Comments S ource Systolic blood pressure 2024-08-29 18:42:00 116 mm[Hg] Michelle Seybo ld - External Diastolic blood pressure 2024-08-29 18:42:00 78 mm[Hg] Michelle Haileybo ld - External Heart rate 2024-08-29 18:42:00 74 /min Aurea caruso Seybold - External Body temperature 2024-08-29 18:42:00 36.78 Cary Michelle Seybold - External Respiratory rate 2024-08-29 18:42:00 20 /min Michelle Seybold - External Body height 2024-08-29 18:42:00 170.2 cm Carleen meier Seybold - External Body weight 2024-08-29 18:42:00 112.946 kg Carleen ey Seybold - External BMI 2024-08-29 18:42:00 39.00 kg/m2 Carleen meier Seybold - External Oxygen saturation in Arterial blood by Pulse oximetry 2024-08-29 18:42:00 100 /min Michelle Haileybo ld - External Systolic blood pressure 2024-07-26 15:26:00 116 mm[Hg] Michelle Haileybo ld - External Diastolic blood pressure 2024-07-26 15:26:00 78 mm[Hg] Michelle Haileybo ld - External Heart rate 2024-07-26 15:26:00 76 /min Aurea y Seybold - External Body temperature 2024-07-26 15:26:00 36.72 [place] Michelle Seybold - External Respiratory rate 2024-07-26 15:26:00 18 /min Michelle Haileybold - External Body height 2024-07-26 15:26:00 170.2 cm Carleen meier Seybold - External Body weight 2024-07-26 15:26:00 112.492 kg Carleen meier Seybold - External BMI 2024-07-26 15:26:00 38.84 kg/m2 Carleen meier Seybold - External Body temperature 2024-05-14 06:32:00 36.44 [place] [facility] Respiratory rate 2024-05-14 06:32:00 14 /min [facility] Systolic blood pressure 2024-05-14 05:00:00 130 mm[Hg] [facility] Diastolic blood pressure 2024-05-14 05:00:00 80 mm[Hg] [facility] Heart rate 2024-05-14 05:00:00 109 /min [facility] Oxygen saturation in Arterial blood by Pulse oximetry 2024-05-14 04:00:00 91 /min [facility] Body height 2024-05-14 00:57:00 170.2 cm [facility] Body weight 2024-05-14 00:57:00 113.399 kg [facility] BMI 2024-05-14 00:57:00 39.16 kg/m2 [facility] Heart rate 2023-03-04 21:41:00 88 /min Kelse y Seybold - External Systolic blood pressure 2023-03-04 21:10:00 124 mm[Hg] Michelle Seybo ld - External Diastolic blood pressure 2023-03-04 21:10:00 80 mm[Hg] Michelle Seybo ld - External Body temperature 2023-03-04 21:10:00 36.56 [place] Michelle Seybold - External Respiratory rate 2023-03-04 21:10:00 15 /min Michelle Seybold - External Body height 2023-03-04 21:10:00 165.1 cm Carleen ey Seybold - External Body weight 2023-03-04 21:10:00 113.399 kg Carleen ey Seybold - External BMI 2023-03-04 21:10:00 41.60 kg/m2 Carleen ey Seybold - External Systolic blood pressure 2023-02-02 20:01:00 124 mm[Hg] Michelle Seybo ld - External Diastolic blood pressure 2023-02-02 20:01:00 87 mm[Hg] Michelle Seybo ld - External Heart rate 2023-02-02 20:01:00 99 /min Kelse y Seybold - External Respiratory rate 2023-02-02 20:01:00 16 /min Michelle Seybold - External Body height 2023-02-02 20:01:00 165.1 cm Carleen ey Seybold - External Body weight 2023-02-02 20:01:00 116.574 kg Carleen ey Seybold - External BMI 2023-02-02 20:01:00 42.77 kg/m2 Carleen ey Seybold - External Systolic blood pressure 2022-12-24 22:05:00 132 mm[Hg] Michelle Seybo ld - External Diastolic blood pressure 2022-12-24 22:05:00 76 mm[Hg] Michelle Seybo ld - External Heart rate 2022-12-24 22:05:00 110 /min Kelse y Seybold - External Respiratory rate 2022-12-24 22:05:00 18 /min Michelle Seybold - External Body temperature 2022-12-24 18:43:00 36.22 [place] Michelle Seybold - External Body height 2022-12-24 18:43:00 170.2 cm Carleen ey Seybold - External Body weight 2022-12-24 18:43:00 116.574 kg Carleen ey Seybold - External BMI 2022-12-24 18:43:00 40.25 kg/m2 Carleen ey Seybold - External Oxygen saturation in Arterial blood by Pulse oximetry 2022-12-24 18:43:00 99 /min Michelle Seybo ld - External Systolic blood pressure 2022-12-03 20:12:00 133 mm[Hg] Michelle Seybo ld - External Diastolic blood pressure 2022-12-03 20:12:00 86 mm[Hg] Michelle Seybo ld - External Heart rate 2022-12-03 20:12:00 108 /min Kelse y Seybold - External Body temperature 2022-12-03 20:12:00 36.61 Cary Michelle Seybold - External Respiratory rate 2022-12-03 20:12:00 15 /min Michelle Seybold - External Body height 2022-12-03 20:12:00 170.2 cm Carleen ey Seybold - External Body weight 2022-12-03 20:12:00 119.75 kg Carleen ey Seybold - External BMI 2022-12-03 20:12:00 41.35 kg/m2 Carleen ey Seybold - External Oxygen saturation in Arterial blood by Pulse oximetry 2022-12-03 20:12:00 99 /min Michelle Seybo ld - External Systolic blood pressure 2022-11-25 20:33:00 132 mm[Hg] Michelle Seybo ld - External Diastolic blood pressure 2022-11-25 20:33:00 84 mm[Hg] Michelle Seybo ld - External Heart rate 2022-11-25 20:33:00 122 /min Kelse y Seybold - External Body temperature 2022-11-25 20:33:00 36.44 Cary Michelle Seybold - External Respiratory rate 2022-11-25 20:33:00 18 /min Michelle Seybold - External Body height 2022-11-25 20:33:00 170.2 cm Carleen ey Seybold - External Body weight 2022-11-25 20:33:00 117.482 kg Carleen ey Seybold - External BMI 2022-11-25 20:33:00 40.57 kg/m2 Carleen ey Seybold - External Oxygen saturation in Arterial blood by Pulse oximetry 2022-11-25 20:33:00 99 /min Michelle Seybo ld - External Body temperature 2022-11-24 20:23:00 36.72 Cary Michelle Seybold - External Respiratory rate 2022-11-24 20:23:00 18 /min Michelle Seybold - External Body height 2022-11-24 20:23:00 170.2 cm Carleen ey Seybold - External Body weight 2022-11-24 20:23:00 116.121 kg Carleen ey Seybold - External BMI 2022-11-24 20:23:00 40.10 kg/m2 Carleen ey Seybold - External Oxygen saturation in Arterial blood by Pulse oximetry 2022-11-24 20:23:00 98 /min Michelel Seybo ld - External Systolic blood pressure 2022-11-24 20:23:00 120 mm[Hg] Michelle Seybo ld - External Diastolic blood pressure 2022-11-24 20:23:00 85 mm[Hg] Michelle Seybo ld - External Heart rate 2022-11-24 20:23:00 118 /min Kelse y Seybold - External Systolic blood pressure 2022-11-01 16:18:00 110 mm[Hg] Michelle Seybo ld - External Diastolic blood pressure 2022-11-01 16:18:00 70 mm[Hg] Michelle Seybo ld - External Heart rate 2022-11-01 16:18:00 115 /min Kelse y Seybold - External Body temperature 2022-11-01 16:18:00 36.72 Cary Michelle Seybold - External Oxygen saturation in Arterial blood by Pulse oximetry 2022-11-01 16:18:00 99 /min Michelle Seybo ld - External Respiratory rate 2022-11-01 16:17:00 20 /min Michelle Goldberg - External Body height 2022-11-01 16:17:00 170.2 cm Carleen Goldberg - External Body weight 2022-11-01 16:17:00 117.935 kg Carleen Goldberg - External BMI 2022-11-01 16:17:00 40.72 kg/m2 Carleen Goldberg - External Systolic blood pressure 2022-04-13 17:16:00 132 mm[Hg] [facility] Diastolic blood pressure 2022-04-13 17:16:00 82 mm[Hg] [facility] Heart rate 2022-04-13 17:16:00 107 /min [facility] Body temperature 2022-04-13 17:16:00 36.56 Cary [facility] Oxygen saturation in Arterial blood by Pulse oximetry 2022-04-13 17:16:00 95 /min [facility] Respiratory rate 2022-04-13 10:55:00 16 /min [facility] Body height 2022-04-13 06:58:00 170.2 cm [facility] Body weight 2022-04-13 02:38:00 114.306 kg [facility] BMI 2022-04-13 02:38:00 39.47 kg/m2 [facility] Procedures Procedure Date / Time Performed Performing Clinician Source CT ABDOMEN PELVIS W CONTRAST 2024-05-14 03:00:52 Ca Qureshi [facility] POCT TEST 2024-05-14 02:28:00 Brittny Qureshi ra [facility] LIPASE 2024-05-14 01:50:00 [facility] 2024-05-14 01:50:00 Ca Qureshi [facility] COMP. METABOLIC PANEL (52266) 2024-05-14 01:50:00 Ca Qureshi [facility] CBC WITH DIFF 2024-05-14 01:50:00 [facility] 2022-11-25 21:49:24 Steven Juárez ybezekiel - External EXTERNAL PROVIDER RECORDS 2022-04-28 06:01:00 Doctor Unassigned, Canalou [facility] PROTHROMBIN TIME / INR 2022-04-13 06:46:00 Adrian Rodriguez [facility] HEPATIC FUNCTION PANEL (88701) (ALB,T.PRO,BILI T,BU/BC,ALT,AST,ALK PHOS) 2022-04-13 06:46:00 Leoncio Rodriguez [facility] BASIC METABOLIC PANEL (NA, K, CL, CO2, GLUCOSE, BUN, CREATININE, CA) 2022-04-13 06:46:00 Leoncio Rodriguez [facility] CBC WITH DIFF 2022-04-13 06:45:00 Leoncio Rodriguez [facility] CT ABDOMEN PELVIS W CONTRAST 2022-04-13 03:15:01 Magdaleno Denise [facility] US BREAST 2011-05-12 16:11:00 [facility] BI DIAGNOSTIC MAMMOGRAM BILATERAL 2011-05-10 21:48:00 Maribel Lind [facility] Encounters Start Date/Time End Date/Time Encounter Type Admission Type Attending Clinicians Care Facility Care Department Encounter ID Source 2024-11-01 15:45:00 2024-11-01 15:45:00 Outpatient TOY ANGELES [id number] [facility] 2024-10-22 14:45:00 2024-10-22 14:45:00 Outpatient DILEEP DALEY [id number] [facility] 2024-10-03 00:00:00 2024-10-03 00:00:00 Outpatient MD MICHELLE CONWAY [id number] [facility] 2024-10-01 00:00:00 2024-10-01 00:00:00 Outpatient TOY ANGELES [id number] [facility] 2024-09-27 00:00:00 2024-09-27 00:00:00 Outpatient AUGUST CRUZ [id number] [facility] 2024-09-14 14:15:00 2024-09-14 14:15:00 Outpatient BRIDGETTE AMIRHOSSEIN MICHELLE CABRAL [id number] [facility] 2024-09-12 08:30:00 2024-09-12 08:30:00 Outpatient YARELY ABRAHAM MICHELLE CABRAL [id number] [facility] 2024-09-05 14:45:00 2024-09-05 14:45:00 Outpatient BRIDGETTE AMIRHOSSEIN MICHELLE CABRAL [id number] [facility] 2024-09-03 14:30:00 2024-09-03 14:30:00 Outpatient PRESHAINA, ANN-MARIE MICHELLE CABRAL [id number] [facility] 2024-08-29 13:30:00 2024-08-29 13:30:00 Outpatient AUGUST CRUZ MICHELLE CABRAL [id number] [facility] 2024-08-29 00:00:00 2024-08-29 00:00:00 Outpatient MICHELLE CABRAL [id number] [facility] 2024-08-27 00:00:00 2024-08-27 00:00:00 Outpatient PREWILLIAMSANN-MARIE MICHELLE CABRAL [id number] [facility] 2024-08-20 15:30:00 2024-08-20 15:30:00 Outpatient BRIDGETTE AMIRHOSSEIN MICHELLE CABRAL [id number] [facility] 2024-08-11 00:00:00 2024-08-11 00:00:00 Outpatient BRIDGETTE AMIRHOSSEIN [facility]HEL[facility] CAB[facility] [id number] [facility] 2024-08-02 14:00:00 2024-08-02 14:00:00 Outpatient MICHELLE CABRAL [id number] [facility] 2024-08-02 09:20:00 2024-08-02 09:20:00 Outpatient MICHELLE CABRAL [id number] [facility] 2024-08-01 15:15:00 2024-08-01 15:15:00 Outpatient HEIDYGary AMIRHOSSEIN MICHELLE CABRAL [id number] [facility] 2024-07-31 00:00:00 2024-07-31 00:00:00 Outpatient TOY ANGELES [id number] [facility] 2024-07-30 00:00:00 2024-07-30 00:00:00 Outpatient MD MICHELLE CONWAY [id number] [facility] 2024-07-30 00:00:00 2024-07-30 00:00:00 Outpatient BERTO QURESHI [id number] [facility] 2024-07-30 00:00:00 2024-07-30 00:00:00 Outpatient TOY ANGELES [id number] [facility] 2024-07-26 10:30:00 2024-07-26 10:30:00 Outpatient TOY ANGELES [id number] [facility] 2024-07-16 15:30:00 2024-07-16 15:30:00 Outpatient TOY ANGELES [id number] [facility] 2024-07-07 06:53:00 2024-07-07 10:40:00 Emergency EM Kevin Troncoso HCACL KRYSTINA [id number] [facility] 2024-06-27 15:30:00 2024-06-27 15:30:00 Outpatient TOY ANGELES [id number] [facility] 2024-06-20 16:30:00 2024-06-20 16:30:00 Outpatient ANN-MARIE AMBROSE [id number] [facility] 2024-06-20 11:15:00 2024-06-20 11:15:00 Outpatient ANN-MARIE AMBROSE [id number] [facility] 2011-05-10 00:00:00 2024-06-16 05:43:08 Orders Maribel Parks [facility] [id number] [id number] [id number] [facility] 2011-05-12 00:00:00 2024-06-16 05:42:38 Orders Only Maribel Lind [facility] [id number] [id number] [id number] [id number] [facility] 2024-05-13 18:51:00 2024-05-14 00:35:00 Emergency X CA QURESHI SANDRA [facility] ERT [id number] [facility] 2024-05-13 18:51:00 2024-05-14 00:35:00 Emergency Ca Qureshi [facility] [id number] [id number] [id number] [facility] 2023-11-11 15:00:00 2023-11-11 15:00:00 Outpatient JOSE MARTIN BOLTON [id number] [facility] 2023-08-17 15:45:00 2023-08-17 15:45:00 Outpatient [facility]IE [facility]BR[facility] [id number] [facility]23-[facility]09 08:30:00 2023-08-09 08:30:00 Outpatient JOSHUA LUCIA [id number] [facility] 2023-07-27 13:45:00 2023-07-27 13:45:00 Outpatient ENIO GOLDMAN [id number] [facility] 2023-07-07 15:30:00 2023-07-07 15:30:00 Outpatient ENIO GOLDMAN [id number] Michelle Goldberg 2023-07-07 00:00:00 2023-07-07 00:00:00 Outpatient MD MICHELLE CONWAY [id number] Michelle Goldberg 2023-06-29 15:30:00 2023-06-29 15:30:00 Outpatient ENIO GOLDMAN [id number] Michelle Seybold 2023-06-25 11:40:00 2023-06-25 11:40:00 Outpatient KEVIN MICHELLE CABRAL [id number] Michelle Seybold 2023-06-16 14:30:00 2023-06-16 14:30:00 Outpatient MIKE RODRIGUEZ MICHELLE CABRAL [id number] Michelle Seybold 2023-06-16 14:00:00 2023-06-16 14:00:00 Outpatient IMCHELLE CABRAL [id number] Michelle Seybold 2023-06-03 22:55:00 2023-06-03 22:55:00 Outpatient ALEXUS ARZATE MICHELLE CABRAL [id number] Michelle Seybold 2023-06-03 22:05:00 2023-06-03 22:05:00 Outpatient PRERNA BEATRIZ MICHELLE CABRAL [id number] Michelle Seybold 2023-05-25 15:00:00 2023-05-25 15:00:00 Outpatient ENIO GOLDMAN [id number] Michelle Seybold 2023-05-18 15:00:00 2023-05-18 15:00:00 Outpatient ENIO GOLDMAN [id number] Michelle Seybold 2023-05-18 14:00:00 2023-05-18 14:00:00 Outpatient CASEY GOLDMANER MICHELLE CABRAL [id number] Michelle Seybold 2023-05-18 10:45:00 2023-05-18 10:45:00 Outpatient ENIO GOLDMAN [id number] Michelle Seybold 2023-05-15 00:00:00 2023-05-15 00:00:00 Outpatient AN-NMARIE AMBROSE [id number] Michelle Seybold 2023-05-12 15:15:00 2023-05-12 15:15:00 Outpatient EDDIE CHRISTIANSEN [id number] Michelle Seybold 2023-05-03 00:00:00 2023-05-03 00:00:00 Outpatient SEVERIANO LAYNE [id number] Michelle Seybold 2023-04-18 15:00:00 2023-04-18 15:00:00 Outpatient ENIO GOLDMAN MICHELLE CABRAL [id number] [facility] 2023-04-08 14:30:00 2023-04-08 14:30:00 Outpatient LUIS JETER MICHELLE CABRAL [id number] [facility] 2023-04-01 15:00:00 2023-04-01 15:00:00 Outpatient VIJISHAINAANN-MARIE MICHELLE CABRAL [id number] [facility] 2023-03-23 14:00:00 2023-03-23 14:00:00 Outpatient ELIAEMABOAZ MICHELLE CABRAL [id number] [facility] 2023-03-22 00:00:00 2023-03-22 00:00:00 Outpatient VIJIWILLIAMANN-MARIE Shepard MICHELLE CABRAL [id number] [facility] 2023-03-18 00:00:00 2023-03-18 00:00:00 Outpatient ANN-MARIE AMBROSE [id number] [facility] 2023-03-15 13:30:00 2023-03-15 13:30:00 Outpatient MICHELLE CABRAL [id number] [facility] 2023-03-14 08:00:00 2023-03-14 08:00:00 Outpatient MICHELLE CABRAL [id number] Michelle Seybold 2023-03-14 07:30:00 2023-03-14 07:30:00 Outpatient MICHELLE CABRAL [id number] Michelle Seybold 2023-03-13 15:45:00 2023-03-13 15:45:00 Outpatient MCKENZIE LITTLE [id number] Michelle Seybold 2023-03-08 14:00:00 2023-03-08 14:00:00 Outpatient PABLITO WHEELER [id number] Michelle Seybold 2023-03-04 16:00:00 2023-03-04 16:00:00 Outpatient ANN-MARIE AMBROSE [id number] Michelle Seybold 2023-02-28 00:00:00 2023-02-28 00:00:00 Outpatient MD MICHELLE CONWAY [id number] [facility] 2023-02-25 10:30:00 2023-02-25 10:30:00 Outpatient MICHELLE CABRAL [id number] Michelle Haileezekiel 2023-02-25 00:00:00 2023-02-25 00:00:00 Outpatient ANN-MARIE AMBROSE MICHELLE CABRAL [id number] [facility] 2023-02-17 14:30:00 2023-02-17 14:30:00 Outpatient MICHELLE CABRAL [id number] [facility] 2023-02-17 00:00:00 2023-02-17 00:00:00 Outpatient SEVERIANO LAYNE [id number] [facility] 2023-02-10 14:00:00 2023-02-10 14:00:00 Outpatient MICHELLE CABRAL [id number] [facility] 2023-02-09 00:00:00 2023-02-09 00:00:00 Outpatient SEVERIANO LAYNE [id number] [facility] 2023-02-09 00:00:00 2023-02-09 00:00:00 Outpatient MD MICHELLE CONWAY [id number] [facility] 2023-02-07 14:00:00 2023-02-07 14:00:00 Outpatient PABLITO WHEELER [id number] [facility] 2023-02-04 13:00:00 2023-02-04 13:00:00 Outpatient LORENZA CELINE MICHELLE CABRAL [id number] [facility] 2023-02-04 00:00:00 2023-02-04 00:00:00 Outpatient PREANN-MARIE MERRITT MICHELLE CABRAL [id number] [facility] 2023-02-02 15:25:00 2023-02-02 15:25:00 Outpatient ARON CABRAL [id number] [facility] 2023-02-02 14:45:00 2023-02-02 14:45:00 Outpatient SEVERIANO LAYNE [id number] [facility] 2023-01-27 09:30:00 2023-01-27 09:30:00 Outpatient TOY ANGELES MICHELLE CABRAL [id number] Michelle ybezekiel 2023-01-21 00:00:00 2023-01-21 00:00:00 Outpatient MD MICHELLE CONWAY [id number] Michelle ybezekiel 2023-01-20 14:30:00 2023-01-20 14:30:00 Outpatient MICHELLE CABRAL [id number] [facility] 2023-01-13 15:15:00 2023-01-13 15:15:00 Outpatient MICHELLE CABRAL [id number] [facility] 2023-01-13 13:00:00 2023-01-13 13:00:00 Outpatient MICHEL[facility] CABRAL [id number] [facility]23-01-10 00:00:00 2023-01-10 00:00:00 Outpatient MD MICHELLE CONWAY [id number] [facility] 2023-01-07 00:00:00 2023-01-07 00:00:00 Outpatient PREZAANN-MARIE Shepard [id number] [facility] 2023-01-07 00:00:00 2023-01-07 00:00:00 Outpatient IVORY ALMAZAN [id number] [facility] 2023-01-06 13:30:00 2023-01-06 13:30:00 Outpatient PLAB MICHELLE CABRAL [id number] [facility] 2023-01-04 09:30:00 2023-01-04 09:30:00 Outpatient PLAB MICHELLE CABRAL [id number] [facility] 2022-12-29 15:15:00 2022-12-29 15:15:00 Outpatient MICHELLE CABRAL [id number] [facility] 2022-12-29 13:30:00 2022-12-29 13:30:00 Outpatient MICHELLE CABRAL [id number] Michelle Seybezekiel 2022-12-24 13:30:00 2022-12-24 13:30:00 Outpatient INFUSION, [facility] MICHELLE CABRAL [id number] Michelle Ashlyn 2022-12-22 00:00:00 2022-12-22 00:00:00 Outpatient MICHELLE MICHELLE [id number] Michelle Haileybezekiel 2022-12-20 15:30:00 2022-12-20 15:30:00 Outpatient PLAB MICHELLE CABRAL [id number] Michelle [facility]iel 2022-12-17 00:00:00 2022-12-17 00:00:00 Outpatient IHSAN LESTER MICHELLE CABRAL [id number] [facility] 2022-12-16 00:00:00 2022-12-16 00:00:00 Outpatient SANTIAGO OCONNELL MIHCELLE CABRAL [id number] [facility] 2022-12-09 00:00:00 2022-12-09 00:00:00 Outpatient MD MIHCELLE CONWAY [id number] Michelle Ashlyn 2022-12-07 14:00:00 2022-12-07 14:00:00 Outpatient PLAB MICHELLE CABRAL [id number] [facility] 2022-12-07 00:00:00 2022-12-07 00:00:00 Outpatient PLAB MICHELLE CABRAL [id number] [facility] 2022-12-03 15:55:00 2022-12-03 15:55:00 Outpatient LAB90 MICHELLE CABRAL [id number] [facility] 2022-12-03 15:45:00 2022-12-03 15:45:00 Outpatient LAB90 MICHELLE CABRAL [id number] [facility] 2022-12-03 15:00:00 2022-12-03 15:00:00 Outpatient PREANN-MARIE MERRITT [id number] Michelle ybezekiel 2022-12-01 15:30:00 2022-12-01 15:30:00 Outpatient PLNEFTALI [id number] Michelle ybezekiel 2022-12-01 00:00:00 2022-12-01 00:00:00 Outpatient MD MICHELLE CONWAY [id number] Michelle Goldberg 2022-11-25 17:00:00 2022-11-25 17:00:00 Outpatient LAB47 MICHELLE RUSHSEY [id number] [facility] 2022-11-25 16:40:00 2022-11-25 16:40:00 Outpatient MICHELLE MICHELLE [id number] [facility] 2022-11-25 16:15:00 2022-11-25 16:15:00 Outpatient TRED47 MICHELLE CABRAL [id number] [facility] 2022-11-25 15:00:00 2022-11-25 15:00:00 Outpatient STEVEN JUÁREZ [id number] [facility] 2022-11-25 00:00:00 2022-11-25 00:00:00 Outpatient MD MICHELLE CONWAY [id number] [facility] 2022-11-25 00:00:00 2022-11-25 00:00:00 Outpatient MICHELLE CABRAL [id number] [facility] 2022-11-24 15:30:00 2022-11-24 15:30:00 Outpatient BOAZ CASTRO [id number] [facility] 2022-11-24 00:00:00 2022-11-24 00:00:00 Outpatient ARNOLANN-MARIE MICHELLE CABRAL [id number] [facility] 2022-11-23 11:45:00 2022-11-23 11:45:00 Outpatient LAB90 MICHELLE CABRAL [id number] [facility] 2022-11-23 00:00:00 2022-11-23 00:00:00 Outpatient PREWILLIAMANN-MARIE Shepard MICHELLE CABRAL [id number] [facility] 2022-11-15 00:00:00 2022-11-15 00:00:00 Outpatient PREANN-MARIE MERRITT [id number] [facility] 2022-11-14 00:00:00 2022-11-14 00:00:00 Outpatient PRESHAINA ANN-MARIE CABRAL [id number] [facility] 2022-11-08 00:00:00 2022-11-08 00:00:00 Outpatient ANN-MARIE AMBROSE [id number] Michelle Goldberg 2022-11-04 12:40:00 2022-11-04 12:40:00 Outpatient MICHELLE CABRAL [id number] Michelle Goldberg 2022-11-04 12:35:00 2022-11-04 12:35:00 Outpatient MICHELLE CABRAL [id number] Michelle Goldberg 2022-11-04 12:30:00 2022-11-04 12:30:00 Outpatient MICHELLE CABRAL [id number] Michelle Haileezekiel 2022-11-03 00:00:00 2022-11-03 00:00:00 Outpatient ANN-MARIE AMBROSE MICHELLE [id number] Michelle Haile[facility]iel 2022-11-03 00:00:00 2022-11-03 00:00:00 Outpatient ANN-MARIE AMBROSE [id number] Michelle Goldberg 2022-11-01 12:00:00 2022-11-01 12:00:00 Outpatient LAB90 MICHELLE MICHELLE [id number] [facility] 2022-11-01 11:30:00 2022-11-01 11:30:00 Outpatient ANN-MARIE AMBROSE MICHELLE [id number] [facility] 2022-10-26 09:15:00 2022-10-26 09:15:00 Outpatient ANN-MARIE AMBROSESEY [id number] [facility] 2022-06-26 05:12:00 2022-06-26 05:12:00 Outpatient ANSELMO GARVIN [facility] MED [id number] [facility] 2022-06-25 09:09:00 2022-06-25 15:05:00 Inpatient ER Sergei Pacheco [facility] MED [id number] [facility] 2022-04-28 00:00:00 2022-04-28 00:00:00 Orders Only Doctor Unassigned, [place] [id number] 350.1.13.10 [id number] [facility] 2022-04-12 20:40:00 2022-04-13 14:59:00 Outpatient X AGGIE OTTO [facility] ROSY [id number] [facility] 2022-04-12 20:40:00 2022-04-13 14:59:00 Emergency Aggie Otto [facility] [id number] 350.1.13.10 [id number] [id number] [facility] Results Test Description Test Time Test Comments Results Result Comments Source CT ABDOMEN PELVIS W CONTRAST 05:21:25 ORDERING PHYSICIAN:CA THOMPSON CLINICAL INFORMATION: ? Abdominal pain, acute, nonlocalized COMPARISON: 04/12/2022 Technique: ? CT of the abdomen and pelvis was performed after theadministration of IV contrast. No p.o. contrast was used. Multiplanarreformats were also obtained. This study was performed according to ALARAprinciple for radiation dose reduction. Findings: There is no evidence of obstructive uropathy. No suspicious renalparenchymal abnormalities are seen. The liver is cirrhotic. No suspiciousfocal splenic lesions are seen. Adrenal glands and pancreas show noevidence of gross abnormalities. There is no bowel obstruction. Appendix isnormal. Previously seen supraumbilical ventral hernia has increased in size. Herniadefect measures 6.5 x 6.9 cm in diameter. This contains an increased amountof transverse colon as well as associated omentum. There is increasedstranding of the associated herniated omental fat. Trace amount of fluid isalso seen. No free air is seen. No focal loculated drainable fluidcollections are seen. Lung bases are clear. No suspicious focal osseous lesions. [id number] 21:40:00DIGITAL MAMMOGRAM, BILATERAL*.*.*.*.*.*.*.*.*.*.*.*.*.*FINAL*.*.*.*.*.*.*.*.*.*.*.*.*.*.*Palpable areas both breasts.Computer-aided detection(CAD)utilized. No comparison images were available at the time of this reading. Bilateral Breast Findings:The breasts are heterogeneously dense (51% - 75% fibroglandular). This may lower the sensitivity of mammography. No significant masses, calcifications or other abnormalities are seen. IMPRESSION:BILATERAL BREASTS: Ultrasound is recommended at this time. ?This was performed on 05/13/2011. OVERALL ASSESSMENT - CATEGORY 0 - INCOMPLETE: NEED ADDITIONAL IMAGING EVALUATIONEND OF [facility] HospitalUS [id number] 17:34:00US BREAST*.*.*.*.*.*.*.*.*.*.*.*.*.*FINAL*.*.*.*.*.*.*.*.*.*.*.*.*.*.*History: ?Bilateral breast masses. ?The patient states that the masses come and go.Comparison is made to images from 05/10/2011 (bilateral). Bilateral Breast Findings:Ultrasound demonstrates no significant masses or other abnormalities in either breast. IMPRESSION:BILATERAL BREASTS: Negative, no evidence of malignancy. Age appropriate exams. As per ACR and ACS guidelines, mammmograms recommended starting at age 40. OVERALL ASSESSMENT - CATEGORY 1 - NEGATIVEEND OF [facility] Notes Date/Time Note Provider Source 2024-08-29 13:47:46 Chief Complaint Patient presents with Follow-up Needs referral [facility]. Coughing up thick dark green mucous Congestion Cough [facility]24-07-26 10:23:37 Chief Complaint Patient presents with Vaginal Problem Yessy Enriquez MA [facility] 2024-07-07 09:00:00 [facility] ([facility]) EMERGENCY PROVIDER REPORT REPORT#:[id number] REPORT STATUS: Signed DATE:07/07/24 TIME: 899 PATIENT: MAHNAZ DANIEL UNIT #: [id number] ROOM/BED: : 78 AGE: 43 SEX:F PCP PHYS: No Primary or Family Physician SERVICE AUTHOR: Kevin Troncoso MD REP SRV REP SRV TM: 0900 * ALL edits or amendments must be made on the electronic/computer document * HPI-Back Pain 40 and Over Free Text HPI Notes Free Text HPI Notes 43-year-old female with past medical history of substance use, chronic back pain , herniated discs, large ventral hernia transferred from outside facility due to concern for strangulated hernia. She presented for back pain and a CT abdomen pelvis was obtained which showed no acute injuries to explain back pain but possible fat strangulation with large ventral hernia. Patient denies any abdominal pain, states that she has not passed a bowel movement for 2 to 3 days which is normal for her, denies any nausea or vomiting. States that she has been transferred in the past for this and was evaluated by a surgeon and then told that it was not an emergent condition. Does not currently have access to care and has been unable to get hernia repair done. Denies any recent trauma, IV drug use or infectious symptoms. Physical examination: Vitals unremarkable. Alert and oriented x 3, appears in no acute distress. Cardiopulmonary exam unremarkable. Abdomen soft, nontender. Large ventral hernia, no skin changes. DDx: Chronic back pain, lumbar strain Results: Reviewed results from outside hospital including CT report as well as lab results which were all unremarkable besides finding of large ventral hernia with no evidence of strangulation Treatment: [place] Dispo: Discharge with PCP follow-up, discussed with patient that she will need a surgeon in her area General Initial Greet Date/Time 07/07/24 0655 Presentation Chief Complaint Pain, lumbar Sudden in Onset? No Past Medical History - Adult Stated Complaint UMBILICAL HERNIA;POSS STRANGULATION Allergies Coded Allergies: sulfamethoxazole (From BACTRIM) (Intermediate, "BLEACH WHITEHEAD" 07/07/24) trimethoprim (From BACTRIM) (Intermediate, "BLEACH WHITEHEAD" 07/07/24) Calculated Suicide Risk (nurs) No risk Smoking status for patients 13 years old or older: Current every day smoker Physical Exam Vital Signs Vital Signs First Documented: Result Date Time Pulse Ox 100 07/07 658 B/P 129/85 07/07 658 O2 Delivery Room air 03/08 0659 Temp 97.7 07/07 0659 Pulse 98 / 0659 Resp 20 07/07 0659 Last Documented: Result Date Time Pulse Ox 100 07/07 0659 B/P 129/85 07/07 0659 O2 Delivery Room air 07/07 0659 Temp 97.7 /08 0659 Pulse 98 /08 0659 Resp 20 07/07 0659 Review of Vital Signs Reviewed Re-Evaluation MDM ED Course Medication(s) Ordered Medication(s) Ordered: Central Nervous System Agents Sig/Malika Start time Last Medication Dose Route Stop Time Status Admin Hydrocodone Bitart/ 1 TAB X1ED STA 07/07 717 DC 07/07 Acetaminophen PO 07/07 718 0755 Morphine Sulfate 4 MG Q4H PRN PRN 07/07 699 DCD IV 07/12 0659 Patient Discharge Departure Vital Signs/Condition Vital Signs First Documented: Result Date Time Pulse Ox 100 07/07 0559 B/P 129/85 07/07 0659 O2 Delivery Room air 07/07 0659 Temp 97.7 07/07 0659 Pulse 98 07/07 0659 Resp 20 07/07 0659 Last Documented: Result Date Time Pulse Ox 100 07/07 0659 B/P 129/85 07/07 0659 O2 Delivery Room air 07/07 0659 Temp 97.7 07/07 0659 Pulse 98 / 0659 Resp 20 07/07 0659 All vital signs available at the time of this entry have been reviewed. Condition Stable Clinical Impression Clinical Impression Primary Impression: Chronic back pain Secondary Impressions: Ventral hernia Disposition Decision Discharge )( Discharged to Home Yes )( Time 0945 )( Date 07/07/24 Discharge/Care Plan Counseled Regarding Diagnosis, Lab results, Imaging studies, Need for follow-up, When to return to ED (Auto) Prescriptions Current Visit Scripts Hydrocodone/Acetaminophen (HYDROcodone/APAP 10/325) 1 TAB PO Q6H PRN PRN Severe pain Hydrocodone/Acetaminophen (HYDROcodone/APAP 10/325) 1 TAB PO Q6H PRN PRN Severe pain #12 TABS GABAPENTIN (NEURONTIN) 300 MG PO TID GABAPENTIN (NEURONTIN) 300 MG PO TID #90 CAPS CYCLOBENZAPRINE (FLEXERIL) 10 MG PO Q8H PRN PRN MUSCLE SPASMS/PAIN CYCLOBENZAPRINE (FLEXERIL) 10 MG PO Q8H PRN PRN MUSCLE SPASMS/PAIN #30 TABS Patient Instructions ED Back Pain (Acute or Chronic), ED Hernia (Adult) Referrals Referral: Your primary care physician at 1125 RPT #:[id number] END OF REPORT [facility] 2024-05-14 00:34:16 Pt. Provided d/c instructions & f/u care instructions; pt. Verbalized understanding; IV access d/c with bleeding controlled, pressure applied, dressing C/D/I; no apparent S&S of distress noticed at d/c; [place] [employer] at bedside for d/c; ambulates with steady gait to w/c [facility] 2024-05-14 00:00:00 Dr. Leon at bedside; hernia easily reduced; pt. Tolerated well; no apparent S&S of distress noticed at this time; plan of care ongoing [facility] 2024-05-13 23:59:52 [facility] ED Transfer of Care Note. Off-going Physician:Dr Qureshi Time of Transfer of Care: 11:59 PM Summary: Mahnaz Daniel is a 43 year old female presenting with chief complaint of abdominal Pain. Pending prior to disposition: Imaging Current interventions: Medications famotidine (PEPCID (PF)) injection 20 mg (20 mg Slow IV Push Given 05/13/242013) alum-mag hydroxide-simeth (MAG-AL PLUS) 200-200-20 mg/5 mL suspension 30 mL (30 mL Oral Given 05/13/242013) magnesium sulfate in water 2 gram/50 mL (4 %) infusion 2 g (0 g IV Piggyback Stopped 05/13/244) iopamidol (ISOVUE 370-500 mL) injection 100 mL (100 mL Intravenous Given 05/13/240) dicyclomine (BENTYL) tablet 20 mg (20 mg Oral Given 05/13/24 2247) morpHINE (4 mg/mL) injection 4 mg (4 mg Slow IV Push Given 05/14/24 0001) ondansetron (ZOFRAN (PF)) injection 4 mg (4 mg Slow IV Push Given 05/14/24 0001) Results: Labs Reviewed CBC WITH DIFF - Abnormal; Notable for the following components: Result Value GRAN MAT x10 3 (ANC) 8.82 (*) LYMPH x10 3 1.26 (*) All other components within normal limits COMP. METABOLIC PANEL (73305) - Abnormal; Notable for the following components: CREATININE 1.06 (*) All other components within normal limits MAGNESIUM - Abnormal; Notable for the following components: MAGNESIUM 1.5 (*) All other components within normal limits LIPASE - Normal POCT TEST - Normal CT ABDOMEN PELVIS W CONTRAST Final Result 1. Large supraumbilical ventral hernia containing a loop of transverse colon as well as associated omental fat. This has significantly increased in size compared to previous exam. 2. Increased fat stranding as well as a small amount of fluid seen associated with herniated omental fat. Findings are suggestive of congestion/strangulation. Please correlate clinically and with focused physical exam. 3. No evidence of high-grade bowel obstruction, appendicitis, free air, or focal loculated intraperitoneal fluid collections. END OF REPORT [id number] Procedures: Procedures Additional Notes: Diagnosis/Impression as of 05/14/24 0012 Epigastric pain Hypomagnesemia Ventral hernia with obstruction, without gangrene - Has Omental Obstruction- No Bowel Obstruction Medical Decision Making Mahnaz Daniel is a 43 year old female who presents to the ED with abdominal pain Problems Addressed: Epigastric pain: acute illness or injury Hypomagnesemia: acute illness or injury Ventral hernia with obstruction, without gangrene: chronic illness or injury Details: Pt with long standing hx of ventral hernia that has been evaluated several times in past. CT Scan reveals omental obstruction. Reviewed imaging with Radiology as well as with Dr Smith General Surgeon taxation agent who also independently reviewed imaging as well. Hernia easily reduced by me without any difficulty. Per General Surgery, hernia needs to be repaired on a non- EMERGENT basis. Pt will be referred for close follow-up Discussed return precautions and need to keep close follow-up for DEFINITIVE management of the hernia Amount and/or Complexity of Data Reviewed Labs: ordered. Decision-making details documented in ED Course. Radiology: ordered. Decision-making details documented in ED Course. Risk OTC drugs. Prescription drug management. Parenteral controlled substances. Disposition: Discharged Home Social Determinants of Health: None ED Disposition ED Disposition Discharge Condition Stable Comment -- Contact information for follow-up Rui Manuel MD Specialty: SURGICAL ONCOLOGY [facility] [address] [facility] [address] [facility] [id number] Mayelin Alegria MD Specialty: SURGERY [facility] [address] [facility] [address] [facility] [address] [facility] 2024-05-13 18:55:13 Toned out to [place] [facility] with [place] [employer] for pt. With abdominal pain since 1640; pt. Reports hx of abdominal hernia that has progressively enlarged; pt. Reports a burning sensation and pain to umbilical region; pt. Reports nausea & vomiting x2 [facility] 2024-05-13 18:46:00 [facility] Emergency Department Note Patient Name: Mahnaz Daniel Date of : 1980 43 year old female Treatment Room: CT6/[facility] Primary Care Physician: Ortiz Candelario Jr Patient Escorted by: Law enforcement [8] Mode of Arrival: EMS - [facility] [place], [place] ([place]) [43] EMS Treatment Prior to ED Arrival: [employer] treatment: Analgesic;Other (comment) [employer] treatment comments: zofran 4 mg, 50 mcg fentanyl Travel and Exposure Screening: Symptoms Does patient have any of these symptoms?: (not recorded) Exposure Screening Has patient had contact with someone with a communicable disease in the last month?: (not recorded) Diseases exposed to:: (not recorded) Is Patient ?: (not recorded) Exposure Date: (not recorded) Chief Complaint: Chief Complaint Patient presents with Abdominal Pain History of Present Illness: The patient presents with EMS while in custody of [place] [employer] for abdominal pain. She reports abdominal pain has been present for a while but that it did get worse when she was arrested around 4:45 PM this evening. She has a history of a known ventral wall hernia and has seen surgery in the past but has never had a repair. She has had prior sections but no other abdominal surgeries. No nausea or vomiting. No fevers or chills. No dysuria or hematuria. No medication for her symptoms today. She did not eat or drink anything today. Here for evaluation. Past Medical History/Immunizations: Past Medical History: Diagnosis Date Anxiety Cirrhosis 05/24/2015 Done at [facility] Depression Hep C w/o coma, chronic 12/23/2012 Testing while incarcirated Liver cirrhosis 06/23/2015 Tetanus received in last 5 years: Unknown Childhood immunizations: Up-to-date Allergies: Allergies Allergen Reactions Sulfa (Sulfonamide Antibiotics) Rash Past Social History: Tobacco Use Heavy Smoker; 0.5 packs/day; Types: Cigarettes Smokeless Tobacco: Never used smokeless tobacco. Alcohol Use No. Drug Use Yes; Cocaine. Sexual Activity Sexually active; Control/Protection: None. Past Surgical History: Past Surgical History: Procedure Laterality Date SECTION repair Review of Systems: Review of Systems Constitutional: Negative for chills and fever. Respiratory: Negative for cough and shortness of breath. Cardiovascular: Negative for chest pain. Gastrointestinal: Positive for abdominal pain. Negative for nausea and vomiting. Genitourinary: Negative for dysuria. Musculoskeletal: Negative for arthralgias, neck pain and neck stiffness. Skin: Negative for wound. Neurological: Negative for dizziness. Psychiatric/Behavioral: Negative for agitation. Endocrine: Negative for goiter. Physical Exam: ED Triage Vitals [05/13/24 1857] Weight 113.4 kg (250 lb) Actual or estimated Height 1.702 m (5' 7") BP (!) 150/94 Pulse 115 Resp 20 Temp 36.6 ?C (97.8 ?F) Temp src SpO2 98 % Measured on Room air Physical Exam Vitals and nursing note reviewed. Constitutional: Appearance: Normal appearance. She is obese. HENT: Head: Normocephalic and atraumatic. Cardiovascular: Rate and Rhythm: Normal rate and regular rhythm. Pulses: Normal pulses. Pulmonary: Effort: Pulmonary effort is normal. No respiratory distress. Abdominal: General: There is no distension. Palpations: Abdomen is soft. There is no mass. Tenderness: There is no abdominal tenderness. There is no guarding. Hernia: A hernia is present. Comments: Large easily reducible ventral wall hernia. Musculoskeletal: General: Normal range of motion. Cervical back: Normal range of motion and neck supple. Skin: General: Skin is warm. Neurological: General: No focal deficit present. Mental Status: She is alert and oriented to person, place, and time. Radiology: No orders to display Lab Results: Lab Results CBC WITH DIFF - Abnormal Result Value Ref Range WBC 10.94 4.30 - 11.10 10*3/?L RBC 4.53 3.93 - 5.25 10*6/?L HGB 12.6 11.6 - 15.0 g/dL HCT 38.8 35.7 - 45.2 % MCV 85.7 80.6 - 95.5 fL MCH 27.8 25.9 - 32.8 pg MCHC 32.5 31.6 - 35.1 g/dL RDW-SD 48.2 39.0 - 49.9 fL RDW-CV 15.5 12.0 - 15.5 % PLT 208 166 - 358 10*3/?L MPV 11.5 9.5 - 12.9 fL NRBC/100 WBC 0.0 0.0 - 10.0 /100 WBCs NRBC x10 3 <0.01 10*3/?L GRAN MAT (NEUT) % 80.6 % IMM GRAN % 0.40 % LYMPH % 11.5 % MONO % 6.2 % EOS % 1.0 % BASO % 0.3 % GRAN MAT x10 3 (ANC) 8.82 (*) 1.88 - 7.09 10*3/uL IMM GRAN x10 3 0.04 0.00 - 0.06 10*3/uL LYMPH x10 3 1.26 (*) 1.32 - 3.29 10*3/uL MONO x10 3 0.68 0.33 - 0.92 10*3/uL EOS x10 3 0.11 0.03 - 0.39 10*3/uL BASO x10 3 0.03 0.01 - 0.07 10*3/uL COMP. METABOLIC PANEL (60971) - Abnormal NA 139 135 - 145 mmol/L K 3.8 3.5 - 5.0 mmol/L CL 105 98 - 108 mmol/L CO2 TOTAL 27 23 - 31 mmol/L AGAP 7 2 - 16 BUN 13 7 - 23 mg/dL GLUCOSE 100 70 - 110 mg/dL CREATININE 1.06 (*) 0.50 - 1.04 mg/dL TOTAL BILI 0.5 0.1 - 1.1 mg/dL CALCIUM 9.1 8.6 - 10.6 mg/dL T PROTEIN 7.5 6.3 - 8.2 g/dL ALBUMIN 4.3 3.5 - 5.0 g/dL ALK PHOS 97 34 - 122 U/L ALTv 21 5 - 35 U/L AST(SGOT) 24 13 - 40 U/L eGFR 66.2 mL/min/1.73m2 MAGNESIUM - Abnormal MAGNESIUM 1.5 (*) 1.7 - 2.4 mg/dL LIPASE - Normal LIPASE 68 0 - 220 U/L POCT TEST - Normal POCT PREG Negative On board controls acceptable with C Line Yes POCT PREG LOT # [id number] POCT PREG TEST DATE 04/16/2025 EKG: If EKG completed, see Procedure Note. Orders and Treatments: Orders Placed This Encounter Procedures CT ABDOMEN PELVIS W CONTRAST CBC WITH DIFF COMP. METABOLIC PANEL (35673) LIPASE Magnesium POCT TEST Orders Placed This Encounter Medications famotidine (PEPCID (PF)) injection 20 mg alum-mag hydroxide-simeth (MAG-AL PLUS) 200-200-20 mg/5 mL suspension 30 mL magnesium sulfate in water 2 gram/50 mL (4 %) infusion 2 g iopamidol (ISOVUE 370-500 mL) injection 100 mL dicyclomine (BENTYL) tablet 20 mg First Provider Eval: ED Events Date/Time Event User Comments 05/13/241853 Medical Screening Begins CA QURESHI DO -- 05/13/241853 First Provider Evaluation CA QURESHI DO -- ED COURSE Diagnosis/Impression as of 05/14/24 0003 Epigastric pain Hypomagnesemia Ventral hernia with obstruction, without gangrene - Has Omental Obstruction- No Bowel Obstruction Procedures: Procedures MDM: Medical Decision Making The patient presents with EMS while in custody of [facility] for abdominal pain. She reports abdominal pain has been present for a while but that it did get worse when she was arrested around 4:45 PM this evening. She has a history of a known ventral wall hernia and has seen surgery in the past but has never had a repair. She has had prior sections but no other abdominal surgeries. No nausea or vomiting. No fevers or chills. No dysuria or hematuria. No medication for her symptoms today. She did not eat or drink anything today. The patient is slightly tachycardic in the ER. She is obese. Her abdomen is soft with an easily reducible large ventral wall hernia to her abdominal wall. No concerns for strangulated or incarcerated hernia. Will give the patient pain medication here in the ER and check laboratory studies. Will also obtain a CT of her abdomen pelvis. Anticipate discharge home later. 2300 - the patient is doing well here in the ER. Her laboratory studies show a low magnesium level which was replaced here in the ER. Pending results of the CT of her abdomen and pelvis. Plan for discharge home later. 2323 - the patient is signed out pending results of CT a/p. Problems Addressed: Epigastric pain: acute illness or injury Hypomagnesemia: acute illness or injury Amount and/or Complexity of Data Reviewed Labs: ordered. Decision-making details documented in ED Course. Radiology: ordered and independent interpretation performed. Decision-making details documented in ED Course. Risk OTC drugs. Prescription drug management. Flowsheet Documentation: Scoring Tools: No data recorded Disposition/Condition: ED Disposition ED Disposition Discharge Condition Stable Comment -- Discharge Medications: Patient's Medications No medications on file Follow-up: Electronically signed by: Ca Qureshi DO 05/13/24 2322 [facility] 2023-06-16 14:34:08 Chief Complaint Patient presents with OTHER Left foot and ankle is swollen, hot, and red. I also have a horrible toothache. Thick mucus in chest. K Michelle [facility] 2023-05-18 10:45:00 Appointment this morning with Dr. Goldman K Rodgers [facility] 2022-11-25 15:27:55 Formatting of this n ote is different from the original. Chief Complaint Patient presents with Consultation OTHER Pulmonary embolus Luna Ratliff CMA II [facility] 2022-11-24 15:15:28 Formatting of this n ote is different from the original. Chief Complaint Patient presents with Hematology Consult Anemia, unspecified type History of pulmonary embolus (PE) History of deep venous thrombosis (DVT) of distal vein of left lower extremity Lisa Cedillo [facility]
[2024-12-07] MEDS ORDERED: NA CHLORIDE 0.9% 1,000 ML ONE (08:22)
[2024-12-07] MEDS ORDERED: ONDANSETRON 4 MG/2 ML VIAL ONE (08:22)
[2024-12-07 08:33] LABS: Absolute Lymphocytes (CBC) 1.5 K/uL (0.7-4.9); Hematocrit 40.2 % (36.0-45.0); Hemoglobin 13.5 g/dL (12.0-15.0); MCH 28.8 pg (27.0-35.0); MCHC 33.7 g/dL (32.0-36.0); MCV 85.5 fL (80-100); MPV 9.5 fL (7.6-11.3); Nucleated RBC Absolute Count 0.0 (0-0); Nucleated Red Blood Cells % 0.0 % (0-0); RBC Red Blood Cell Count 4.71 M/uL (3.86-4.86); White Blood Count 6.60 thou/uL (4.3-10.9)
[2024-12-07 08:43] LABS: ALT/SGPT 23.0 U/L (13-56); AST/SGOT 18.0 U/L (15-37); Albumin 3.8 g/dL (3.4-5.0); Albumin/Globulin Ratio 1.0 (1.1-1.8); Alkaline Phosphatase 99.0 U/L (45-117); Anion Gap 8.6 mEq/L (5.0-15.0); BUN Blood Urea Nitrogen 11.0 mg/dL (7-18); Globulin 3.9 g/dL (2.3-3.5); Glucose Level 92.0 mg/dL (74-106); Lipase 23.0 U/L (13-75); Potassium 3.6 mEq/L (3.5-5.1)
--- NOTE | 2024-12-07 08:44 | RAD REPORT ---
EXAM: Chest Pa And Lat (2 Views) HISTORY: 44 years Female COUGH COMPARISON: No prior exams FINDINGS: LUNGS/PLEURA: The lungs are clear. No pleural effusions or pneumothorax. No pulmonary edema. CARDIAC/MEDIASTINUM: The cardiac silhouette is within normal limits. UPPER ABDOMEN: No significant abnormality. BONES: No acute abnormality. LINES/TUBES/OTHER: N/A IMPRESSION: No evidence of acute cardiopulmonary disease.
[2024-12-07 08:47] LABS: Influenza A Ag Negative; Influenza B Ag Negative; SARS-CoV-2 Antigen Rapid Res Negative (Negative)
[2024-12-07 08:49] LABS: Urine Culture Reflex Order NOT NEEDED; Urine Microscopic Reflex YN ORDER UMIC
[2024-12-07] MEDS ORDERED: CEFTRIAXONE 500 MG/VIAL ONE (09:31)
[2024-12-07] MEDS ORDERED: DOXYCYCLINE 100 MG CAP PO ONE (09:31)
--- NOTE | 2024-12-07 09:35 | EDPHYS ---
Physician Documentation [facility] Name: Mahnaz Daniel Age: 44 yrs Sex: Female : 1980 Arrival Date: 12/07/2024 Time: 07:55 Bed 4 Private MD: ED Physician Phil Nelson HPI: 12/07 09:28 This 44 yrs old Female presents to ER via Ambulatory with complaints of dr5 Headache, FOUL SMELL. 09:28 Onset: The symptoms/episode began/occurred 1 week(s) ago. Patient is a 38-year-old dr5 female with history of cirrhosis, hepatitis C, pneumonia coming in with generalized headache that comes and goes as well as a generalized foul smell that she feels like is getting worse. Patient reports that she was diagnosed with trichomonas and her boyfriend and her continued having intercourse while sharing the medication. Patient also reports that her boyfriend has possibly had intercourse with his ex-girlfriend and just recently got out of [facility]. Patient denies any vaginal discharge or vaginal pain. Patient also denies any dysuria.. Historical: - Allergies: 08:06 Bactrim DS; ll1 - PMHx: 08:06 Cirrhosis; Hepatitis C; Pneumonia; ll1 - PSHx: 08:06 section; steroid back injections ( section); ll1 - Immunization history:: Adult Immunizations up to date. - Social history:: Smoking status: Patient reports the use of cigarette tobacco products, smokes one-half pack cigarettes per day, Reported history of juuling and/or vaping. ROS: 09:28 Constitutional: as per hpi dr5 Exam: 09:28 Constitutional: This is a well developed, well nourished patient who is awake, alert, dr5 and in no acute distress. Head/Face: Normocephalic, atraumatic. Eyes: Pupils equal round and reactive to light, extra-ocular motions intact. Lids and lashes normal. Conjunctiva and sclera are non-icteric and not injected. Cornea within normal limits. Periorbital areas with no swelling, redness, or edema. Chest/axilla: Normal chest wall appearance and motion. Nontender with no deformity. No lesions are appreciated. Cardiovascular: Regular rate and rhythm with a normal S1 and S2. Normal PMI, no JVD. No pulse deficits. Respiratory: Lungs have equal breath sounds bilaterally, clear to auscultation. No rales, rhonchi or wheezes noted. No increased work of breathing, no retractions or nasal flaring. Abdomen/GI: Soft, non-tender. Patient has hernia without tenderness of incarceration. Fully reducible Back: No spinal tenderness. No costovertebral tenderness. Full range of motion. Skin: Warm, dry with normal turgor. Normal color with no rashes, no lesions, and no evidence of cellulitis. MS/ Extremity: Pulses equal, no cyanosis. Neurovascular intact. Full, normal range of motion. Neuro: Awake and alert, GCS 15, oriented to person, place, time, and situation. Cranial nerves II-XII grossly intact. Motor strength 5/5 in all extremities. Sensory grossly intact. Cerebellar exam normal. Normal gait. Vital Signs: 08:07 BP 155 / 126; Pulse 110; Resp 17; Temp 98.3; Pulse Ox 100% ; Weight 105.23 kg; Height 5 ll1 ft. 7 in. ; Pain 8/10; 09:05 BP 140 / 97; Pulse 94; Resp 17; Pulse Ox 98% on R/A; ll1 10:38 BP 145 / 94; Pulse 94; Resp 18; Pulse Ox 100% on R/A; iw 08:07 Body Mass Index 36.34 (105.23 kg, 170.18 cm) ll1 08:07 Pain Scale: Adult ll1 [place] Coma Score: 09:28 Eye Response: spontaneous(4). Motor Response: obeys commands(6). Verbal Response: dr5 oriented(5). Total: 15. MDM: 07:59 Medical Screening Exam initiated dr5 09:28 Differential diagnosis: migraine, uremia, Bacterial vaginosis, trichomonas, gonorrhea, dr5 chlamydia, urinary tract infection. Data reviewed: vital signs, nurses notes, lab test result(s), amylase and lipase, CBC, white blood cell count, hemoglobin, hematocrit, platelets, electrolytes, sodium, potassium, chloride, serum bicarbonate, BUN, creatinine, serum glucose, urinalysis, radiologic studies, plain films. Consideration of Admission/Observation Escalation of care including admission/observation considered. Escalation considered patient found to have abnormality on blood work including pancreatitis. I considered the following discharge prescriptions or medication management in the emergency department Medications were administered in the Emergency Department. See MAR. Care significantly affected by the following chronic conditions: Liver Disease. Care significantly affected by the following Social Determinants of Health: Poor access to healthcare and/or lack of insurance, Poor access to transportation, Problems related to employment. Counseling: I had a detailed discussion with the patient and/or guardian regarding the historical points, exam findings, and any diagnostic results supporting the discharge/admit diagnosis, the presence of at least one elevated blood pressure reading (>120/80) during this emergency department visit, lab results, radiology results, the need for outpatient follow up, for definitive care, a family practitioner, to return to the emergency department if symptoms worsen or persist or if there are any questions or concerns that arise at home. Medication response: Normal saline. Response to treatment: the patient's symptoms have markedly improved after treatment. Special discussion: I have referred the patient to see his PCP for further evaluation of high blood pressure. I discussed with the patient/guardian in detail that at this point there is no indication for admission to the hospital. It is understood, however, that if the symptoms persist or worsen the patient needs to return immediately for re-evaluation. Further emergent ED testing is not indicated at this point in time. I discussed with the patient/guardian in detail the need to arrange with the PCP or specialist further outpatient testing, [facility]. ED course: Concern for patient possibly having sexually-transmitted infection such as bacterial vaginosis, gonorrhea, chlamydia. Recommended no intercourse with anyone until completing antibiotics and then partner has been tested as well. I gave her information for [facility] for for retesting on Tuesday. All questions answered. Strict ER precautions given. Recommended not drinking alcohol while on Flagyl.. 12/07 08:11 Order name: CBC with Diff; Complete Time: 08:51 dr5 12/07 08:11 Order name: CMP; Complete Time: 08:47 dr5 12/07 08:11 Order name: Lipase; Complete Time: 08:47 dr5 12/07 08:11 Order name: UA Rfx David Cult if indicated; Complete Time: 08:51 dr5 12/07 08:11 Order name: COVID-19 Ag + Flu A+B Ag; Complete Time: 08:48 dr5 12/07 08:11 Order name: Chest Pa And Lat (2 Views) XRAY; Complete Time: 08:47 dr5 12/07 08:11 Order name: IV Saline Lock; Complete Time: 08:12 dr5 12/07 08:11 Order name: Labs collected and sent; Complete Time: 08:12 dr5 Administered Medications: 08:28 Drug: Ondansetron IVP 4 mg IVP once; over 2 minutes Route: IVP; Site: left antecubital; ll1 09:29 Follow up: Response: No adverse reaction ll1 08:28 Drug: NS 0.9% IV 1000 ml IV at 1 bolus Per protocol; to be given as a bolus over 60 ll1 minutes Route: IV; Rate: 1 bolus; Site: left antecubital; 10:40 Follow up: IV Status: Completed infusion iw 09:35 Drug: Rocephin (cefTRIAXone) IM 500 mg IM once {Note: L AC.} Route: IM; Site: Other; ll1 10:37 Follow up: Response: No adverse reaction iw 09:36 Drug: Doxycycline PO 100 mg PO once Route: PO; ll1 10:37 Follow up: Response: No adverse reaction iw 09:36 Drug: metroNIDAZOLE PO 500 mg PO once Route: PO; ll1 10:37 Follow up: Response: No adverse reaction iw Disposition: 11:29 Co-signature as Attending Physician, Clinton MERCADO I agree with the assessment jr11 and plan of care. Disposition Summary: 12/07/24 09:35 Discharge Ordered Notes: Location: Home dr5 Condition: Stable dr5 Diagnosis - Subacute and chronic vaginitis dr5 Followup: dr5 - With: Emergency Department - When: As needed - Reason: Worsening of condition Followup: dr5 - With: Private Physician - When: 1 - 2 days - Reason: Recheck today's complaints, Continuance of care, Re-evaluation by your physician Discharge Instructions: - Discharge Summary Sheet dr5 - Bacterial Vaginosis dr5 Forms: - Medication Reconciliation Form dr5 - Antibiotic Education dr5 - Patient Portal Instructions dr5 - Leadership Thank You Letter dr5 Prescriptions: - Zofran 4 mg Oral Tablet - take 1 tablet ORAL route every 12 hours As needed; 20 tablet; Refills: 0, dr5 Product Selection Permitted - Doxycycline Hyclate 100 mg Oral tablet - take 1 tablet ORAL route every 12 hours for 7 days; 14 tablet; Refills: 0, dr5 Product Selection Permitted - Metronidazole 500 mg Oral tablet - take 1 tablet ORAL route every 12 hours for 7 days; 14 tablet; Refills: 0, dr5 Product Selection Permitted Signatures: Dispatcher [employer] EDMS Kev Pacheco RN RN ll1 Phil Nelson MD MD jr11 Clinton Oquendo, ROAD MECHANIC-C ROAD MECHANIC-Cdr5 Gaby Kaur RN iw Corrections: (The following items were deleted from the chart) 08:12 08:12 Chest Pa And Lat (2 Views)+[email or web address] ordered. EDMS EDMS
--- NOTE | 2024-12-07 09:35 | ER ---
Nurse's Notes [facility] Name: Mahnaz Daniel Age: 44 yrs Sex: Female : 1980 Arrival Date: 12/07/2024 Time: 07:55 Bed 4 Private MD: Diagnosis: Subacute and chronic vaginitis Presentation: 12/07 08:07 Chief complaint: Patient states: Foul smell for 1 week. NIX for 2 days. Some chills, but ll1 no known fever. Eating/drinking normal. Coronavirus screen: Client denies travel out of the [place] in the last 14 days. chills, fatigue, headache, Client presents with at least one sign or symptom that may indicate coronavirus-19. Standard/surgical mask placed on the client. Ebola Screen: Patient denies travel to an Ebola-affected area in the 21 days before illness onset. Initial Sepsis Screen: Does the patient meet any 2 criteria? No. Patient's initial sepsis screen is negative. Does the patient have a suspected source of infection? No. Patient's initial sepsis screen is negative. Risk Assessment: Do you want to hurt yourself or someone else? Patient reports no desire to harm self or others. Onset of symptoms was November 30, 2024. 08:07 Method Of Arrival: Ambulatory ll1 08:07 Acuity: SIMEON 3 ll1 Triage Assessment: 08:08 General: Appears uncomfortable, Behavior is calm, cooperative, appropriate for age, ll1 Reports chills for fatigue for. Pain: Complains of pain in head Pain currently is 8 out of 10 on a pain scale. Quality of pain is described as aching, Pain began 2-3 days ago. EENT: Reports foul smell for 1 week. Neuro: Reports headache. 10:39 Pain: Also complains of no other associated symptoms. iw Historical: - Allergies: 08:06 Bactrim DS; ll1 - PMHx: 08:06 Cirrhosis; Hepatitis C; Pneumonia; ll1 - PSHx: 08:06 section; steroid back injections ( section); ll1 - Immunization history:: Adult Immunizations up to date. - Social history:: Smoking status: Patient reports the use of cigarette tobacco products, smokes one-half pack cigarettes per day, Reported history of juuling and/or vaping. Screenin:36 [facility] Fall Risk Assessment (Adult) History of falling in the last 3 months, iw including since admission No falls in past 3 months (0 pts) Confusion or Disorientation No (0 pts) Intoxicated or Sedated No (0 pts) Impaired Gait No (0 pts) Mobility Assist Device Used No (0 pt) Altered Elimination No (0 pt) Score/Fall Risk Level 0 - 2 = Low Risk Oriented to surroundings. Abuse screen: Denies threats or abuse. Denies injuries from another. Nutritional screening: No deficits noted. Tuberculosis screening: No symptoms or risk factors identified. Assessment: 08:19 Reassessment: No changes from previously documented assessment. Patient and/or family ll1 updated on plan of care and expected duration. Pain level reassessed. 10:01 Reassessment: No changes from previously documented assessment. Patient and/or family ll1 updated on plan of care and expected duration. Pain level reassessed. Patient is alert, oriented x 3, equal unlabored respirations, skin warm/dry/pink. 10:36 Reassessment: Patient appears in no apparent distress at this time. Patient and/or iw family updated on plan of care and expected duration. Pain level reassessed. Patient is alert, oriented x 3, equal unlabored respirations, skin warm/dry/pink. Vital Signs: 08:07 BP 155 / 126; Pulse 110; Resp 17; Temp 98.3; Pulse Ox 100% ; Weight 105.23 kg; Height 5 ll1 ft. 7 in. ; Pain 8/10; 09:05 BP 140 / 97; Pulse 94; Resp 17; Pulse Ox 98% on R/A; ll1 10:38 BP 145 / 94; Pulse 94; Resp 18; Pulse Ox 100% on R/A; iw 08:07 Body Mass Index 36.34 (105.23 kg, 170.18 cm) ll1 08:07 Pain Scale: Adult ll1 [place] Coma Score: 09:28 Eye Response: spontaneous(4). Motor Response: obeys commands(6). Verbal Response: dr5 oriented(5). Total: 15. ED Course: 07:59 Patient arrived in ED. gl 07:59 Clinton Oquendo [facility]C [facility] 07:59 Phil Nelson MD is Attending Physician. dr5 08:00 Junior, Lynsay, RN is Primary Nurse. ll1 08:03 Arm band placed on Patient placed in an exam room, on a stretcher. ll1 08:08 Triage completed. ll1 08:15 Initial lab(s) drawn, by me, sent to lab. COVID swab sent to lab. ll1 08:19 Inserted saline lock: 22 gauge in left antecubital area, using aseptic technique. Blood ll1 collected. Flushed with 10 mL NS. 08:27 Chest Pa And Lat (2 Views) XRAY In Process Unspecified. EDMS 08:37 UA Rfx David Cult if indicated Sent. hb 10:38 Patient has correct armband on for positive identification. Placed in gown. Provided iw Education on: . 10:38 No provider procedures requiring assistance completed. IV discontinued, intact, iw bleeding controlled, No redness/swelling at site. Pressure dressing applied. Administered Medications: 08:28 Drug: Ondansetron IVP 4 mg IVP once; over 2 minutes Route: IVP; Site: left antecubital; ll1 09:29 Follow up: Response: No adverse reaction ll1 08:28 Drug: NS 0.9% IV 1000 ml IV at 1 bolus Per protocol; to be given as a bolus over 60 ll1 minutes Route: IV; Rate: 1 bolus; Site: left antecubital; 10:40 Follow up: IV Status: Completed infusion iw 09:35 Drug: Rocephin (cefTRIAXone) IM 500 mg IM once {Note: L AC.} Route: IM; Site: Other; ll1 10:37 Follow up: Response: No adverse reaction iw 09:36 Drug: Doxycycline PO 100 mg PO once Route: PO; ll1 10:37 Follow up: Response: No adverse reaction iw 09:36 Drug: metroNIDAZOLE PO 500 mg PO once Route: PO; ll1 10:37 Follow up: Response: No adverse reaction iw Medication: 10:41 VIS not applicable for this client. iw Outcome: 09:35 Discharge ordered by . dr5 10:38 Discharged to home ambulatory, iw 10:38 Condition: good 10:38 Discharge instructions given to patient, Instructed on discharge instructions, follow up and referral plans. medication usage, Demonstrated understanding of instructions, follow-up care, medications, Prescriptions given X 3, 10:39 Patient left the ED. iw Signatures: Dispatcher [facility] Gaby Kaur RN RN Germaine Jaquez, RN RN Kev Bueno, RN RN ll1 Clinton Oquendo, LACE WEAVER-C LACE WEAVER-Cdr5 Mary Valdez, Reg Reg gl
[2024-12-07 10:53] VITALS: TEMP 98.3
[2024-12-07 11:04] VITALS: BP 145/94; O2SAT 100
== END 2024-12-07 10:39 | disposition home or self-care (01) ==
LOC: ER 07:55
DX: N76.1 Subacute and chronic vaginitis (principal); F17.210 Nicotine dependence, cigarettes, uncomplicated; Z11.52 Encounter for screening for COVID-19
CPT/HCPCS: 96361; 85025; 81001; 36415; 83690; 80053; 71046; 96372; 96374; 99284; 87428; J2405; J0696; J7030

== ENCOUNTER 2024-12-17 03:52 | Inpatient (IN) | payer OTHER ==
--- OUTSIDE RECORDS SUMMARY | 2024-12-17 03:56 | XMS REPORT | Continuity of Care Document ---
Author Name Unknown Address [address] [facility] [place] [address] [facility] Address [address] [facility] [address] [place] [address] Care Team Providers Care Soils Technician Name Role Phone Unknown Primary Care Physician Unavailab TOY Grace Attending Clinician Unavaila DILEEP Del Toro Attending Clinician Unavailable MD MELISSA Attending Clinician Unavailab AUGUST Stoner Attending Clinician Unavailable YARELY ABRAHAM Attending Clinician Unavailable ANN-MARIE AMBROSE Attending Clinician Unavailable BERTO QURESHI Attending Clinician UnavailKevin Fischer Attending Clinician Unavailable Maribel Case CNM Attending Clinician [phone] CA QURESHI Attending Clinician Unavailab CA Santana Attending Clinician Unavailab Ca Santana DO Attending Clinician [phone] JOSE MARTIN BOLTON Attending Clinician UnavailJOSHUA Hogue [...] Sergei Melgar Attending Clinician Unavailable Doctor Unassigned, [place] Attending Clinician U navailAGGIE Guy Attending Clinician Unavailable Physician, No Primary or Family Admitting Clinic eliu Unavailable CA QURESHI Admitting Clinician Unavailab Sergei Trevino Admitting Clinician Unavailable AGGIE OTTO Admitting Clinician Unavailable Payers Payer Name Policy Type Policy Number Effective Date Expirati on Date Source [facility] ADVANCED 9 [id number] 2024 00:00:00 COMMERCIAL NON-CONTRACT GENERIC [id number] 2021 00:00:00 [facility] VEENA BURROWS COPAY FOCUS 9 [id number] 2023 00:00:00 Problems Condition Name Condition Details [...] 30-39.9) Disease Active 2021-05 2-13 00:00: 00 [facility] Hernia of abdominal wall Hernia of abdominal wall Disease Active 2021-05 2-12 00:00: 00 [facility] Screen for STD (sexually transmitte d disease) Screen for STD (sexually transmitte d disease) Disease Active 06-23 00:00: 00 [facility] Tobacco use disorder Tobacco use disorder Disease Active 06-23 00:00: 00 [facility] History of anxiety History of anxiety Disease Active 06-23 00:00: 00 [facility] History of depression History of depression Disease Active 06-23 00:00: 00 [facility] Liver cirrhosis Liver cirrhosis Disease Active 06-23 00:00: 00 [facility] Allergies, Adverse Reactions, Alerts Allergy Name Allergy Type Status Severity Reaction(s) Onset Date Inactive Date Treating Clinician Comments Source sulfamet hoxazole DA Active MO "[facility]" 07-07 00:00: 00 [facility] trimetho prim DA Active MO "[place]" 07-07 00:00: 00 [facility] Sulfamet hoxazole W-Trimet hoprim Propensi ty to adverse reaction s Active Other 10-25 00:00: 00 [facility] Michelle Richardson Externa l SULFA (SULFONA MIDE ANTIBIOT ICS) Drug Class Active Rash 2014-05 00:00: 00 [facility] Sulfa Drugs Propensi ty to adverse reaction s Active Rash 2014-05 00:00: 00 Michelle Mereditha l Social History Social Habit Start Date Stop Date Quantity Comments Source History SDOH Social Connections Phone [facility] History SDOH Social Connections Get Together [facility] History SDOH Social Connections [facility] History SDOH Social Connections Membership [facility] History SDOH Social Connections Meetings [facility] Sexual orientation [facility] Gender identity Carleen Goldberg - External ASSERTION [...] intake 2024-05-13 00:00:00 2024-05-13 00:00:00 0 /d [facility] History of Social function 2024-05-13 00:00:00 2024-05-13 00:00:00 [facility] Alcohol intake 2023-03-04 00:00:00 2023-03-04 00:00:00 Ex-drinker (finding) Michelle Goldberg - External Education 2022-11-01 00:00:00 2022-11-01 00:00:00 8 Michelle Goldberg - External Sex 2022-07-28 21:32:02 2022-07-28 21:32:02 Female (finding) Michelle Goldberg - External History SDOH Alcohol Frequency 2022-04-13 00:00:00 2022-04-13 00:00:00 1 [facility] History SDOH Alcohol Std Drinks 2022-04-13 00:00:00 2022-04-13 00:00:00 0 [facility] History SDOH Alcohol Binge 2022-04-13 00:00:00 2022-04-13 00:00:00 1 [facility] History SDOH Social Connections Living 2022-04-13 00:00:00 2022-04-13 00:00:00 3 [facility] Exposure to SARS-CoV-2 (event) 2022-04-02 00:00:00 2022-04-12 20:35:00 Not sure [facility] Sex assigned at 1980 00:00:00 1980 00:00:00 F Michelle Goldberg - External Smoking Status Start Date Stop Date Source Tobacco smoking consumption unknown [facility] Smokes tobacco daily 2024-07-26 00:00:00 Michelle Richardson External Heavy tobacco smoker 2022-04-13 00:00:00 [facility] Medications Ordered Medication Name Filled Medication Name Start Date Stop Date Current Medication? Ordering Clinician Indication Dosage Frequency Signature (SIG) Comments Components Source Fluticasone -Salmeterol (Advair Diskus) 250-50 MCG/ACT inhalation AEROSOL POWDER, BREATH ACTIVATED 08-29 00:00: 00 Yes [id number] 1{puff} Q.5D Inhale 1 puff into the lungs 2 times daily. Michelle waddell Benzonatate 100 MG oral Capsule 08-29 00:00: 00 Yes [id number] 100mg Q.[id number] 3D Take 1 capsule (100 mg total) by mouth 3 times daily as needed for cough. Michelle waddell Metronidazo le (Flagyl) 500 MG oral Tablet 08-12 00:00: 00 08-29 00:00 :00 No [id number] 500mg Q.5D Take 1 tablet (500 mg total) by mouth 2 times daily. Michelle waddell Gabapentin 300 MG oral Capsule 07-30 00:00: 00 Yes [id number] 300mg Q.58021009 [id number] 3D Take 1 capsule (300 mg total) by mouth 3 times daily. Michelle waddell Cyclobenzap rine HCl 10 MG oral Tablet 07-30 00:00: 00 Yes [id number] 10mg Q.[id number] [id number] 3D Take 1 tablet (10 mg total) by mouth every 8 hours as needed for muscle spasms. Michelle waddell Naproxen 500 MG oral Tablet 07-30 00:00: 00 Yes [id number] 500mg Q.5D Take 1 tablet (500 mg total) by mouth 2 times daily as needed. Michelle waddell ondansetron (ZOFRAN (PF)) injection 4 mg 05-14 06:00: 00 05-14 06:04 :00 No 4mg 4 mg, Slow IV Push, ONCE, 1 dose, On Tue05/14/24 at 0000, Administer over 2-5 Minutes, 2 mL [facility] morpHINE (4 mg/mL) injection 4 mg 05-14 06:00: 00 05-14 06:01 :00 No 4mg 4 mg, Slow IV Push, ONCE, 1 dose, On Tue05/14/24 at 0000, STAT [facility] dicyclomine (BENTYL) tablet 20 mg 05-14 04:45: 00 05-14 04:47 :00 No 20mg 20 mg, Oral, ONCE, 1 dose, On Tue05/13/24 at 2245[facility] i[facility] (ISOVUE 370-500 mL) injection 100 mL 05-14 04:00: 00 05-14 04:00 :00 No [id number] 100mL 100 mL, Intravenou s, ONCE, 1 dose, On Tue05/13/24 at 2200, Routine [facility] magnesium sulfate in water 2 gram/50 mL (4 %) infusion 2 g 05-14 03:30: 00 05-14 03:44 :00 No 2g 2 g, IV Piggyback, Administer over 60 Minutes, ONCE, 1 dose, On Tue05/13/24 at 2130, Routine [facility] alum-mag hydroxide-s imeth (MAG-AL PLUS) 200-200-20 mg/5 mL suspension 30 mL 05-14 01:15: 00 05-14 02:14 :00 No 30mL 30 mL, Oral, ONCE, 1 dose, On Tue05/13/24 at 1915, [facility] famotidine (PEPCID (PF)) injection 20 mg 05-14 01:15: 00 05-14 02:14 :00 No 20mg 20 mg, Slow IV Push, ONCE, 1 dose, On Tue05/13/24 at 1915, [facility] Clindamycin HCl 300 MG oral Capsule 11-10 00:00: 00 11-16 04:59 :00 No [id number] 300mg Q.[id number] 3D Take 1 capsule (300 mg total) by mouth 3 times daily for 5 days. Michelle waddell Rivaroxaban 20 MG oral Tablet 06-16 00:00: 00 08-29 00:00 :00 No [id number] 20mg QD Take 1 tablet (20 mg total) by mouth daily " See pcp for further followup". Michelle waddell Doxycycline Hyclate 100 MG oral Tablet 06-16 00:00: 00 07-26 00:00 :00 No [id number] 100mg Q.5D Take 1 tablet (100 mg total) by mouth 2 times daily. Michelle waddell Benzonatate 200 MG oral Capsule 06-16 00:00: 00 07-26 00:00 :00 No [id number] 200mg Q.84325913 [id number] 3D Take 1 capsule (200 mg total) by mouth 3 times daily as needed for cough. Michelle waddell Amoxicillin 875 MG oral Tablet 06-03 00:00: 00 06-11 05:59 :00 No [id number] 875mg Take 1 tablet (875 mg total) by mouth 2 times daily for 7 days. Michelle waddell Gabapentin 300 MG oral Capsule 2022-05 00:00: 00 06-16 00:00 :00 No [id number] 07 300mg Q.5D Take 1 capsule (300 mg total) by mouth 2 times daily as needed. Michelle waddell Econazole Nitrate 1 % apply externally Cream 2022-05 00:00: 00 04-13 05:59 :00 No [id number] Apply 1 applicatio n. topically daily. Michelle waddell Duloxetine HCl [address] Particles 2022-05 00:00: 00 08-29 00:00 :00 No [id number] 20mg QD Take 1 capsule (20 mg total) by mouth daily. Michelle waddell Oxybutynin Chloride 5 MG oral TABLET SR 24 HR 2022-05 00:00: 00 06-16 00:00 :00 No [id number] 5mg Take 1 tablet (5 mg total) by mouth nightly. Michelle waddell Harvoni 90-400 MG oral Tablet 2022-05 1- 00:00: 00 08-29 00:00 :00 No [id number] 1{tbl} QD Take 1 tablet by mouth daily. Michelle waddell Rivaroxaban 20 MG oral Tablet 2022-05 0-06 00:00: 00 06-16 00:00 :00 No [id number] 20mg Take 1 tablet (20 mg total) [...] 12-24 20:30: 00 12-24 22:02 :00 No [id number] 975mg 975 mg, at 500 mL/hr, Administer [...] infusion 12-24 19:45: 12-24 19:48 :00 No [id number] 25mg 25 mg, at 300 mL/hr, Administer [...] 12-24 19:15: 00 12-24 19:02 :00 No [id number] 125mg 125 mg, intravenou s push, ONCE, [...] MG oral Capsule 12-03 00:00: 00 Yes [id number] 07 300mg Q.5D Take 1 capsule (300 mg total) by mouth 2 times daily as needed Michelle waddell Sennosides- Docusate Sodium (Senokot S) 8.6-50 MG oral Tablet 12-03 00:00: 00 07-26 00:00 :00 No [id number] 1{tbl} QD Take 1 tablet by mouth daily Michelle waddell Ferrous Sulfate (Iron) 325 (65 Fe) MG oral Tablet 12-03 00:00: 00 06-16 00:00 :00 No [id number] 325mg Take 1 tablet (325 mg total) by mouth daily (with breakfast) Michelle waddell Rivaroxaban 20 MG oral Tablet 11-25 15:28: 07 Yes 20mg Take 1 tablet (20 mg total) by mouth daily Michelle waddell Albuterol HFA 108 (90 Base) MCG/ACT IN AERS 11-25 00:00: 00 Yes [id number] 2{puff} Q.25D Inhale 2 puffs into the lungs every 6 hours as needed for wheezing or shortness of breath Michelle waddell Rivaroxaban 20 MG oral Tablet 11-01 11:22: 16 Yes 20mg Take 1 tablet (20 mg total) by mouth daily Michelle waddell Gabapentin 100 MG oral Capsule 11-01 00:00: 00 12-03 00:00 :00 No [id number] 07 100mg Q.5D Take 1 capsule (100 mg total) by mouth 2 times daily as needed Michelle waddell D5W 0.45% NaCl (1/2NS) 1 L + KCL 20 mEq 2021-05 15:00: 00 Yes IV Infusion, at 50 mL/hr, CONTINUOUS , Starting on Tue04/13/22 at 0900, Until Discontinu ed, Routine [facility] enoxaparin (LOVENOX) injection 40 mg 2021-05 15:00: 00 Yes 40mg 40 mg, Subcutaneo us, DAILY, First dose on Tue04/13/22 at 0900, Until Discontinu ed, Routine [facility] pantoprazol e (PROTONIX) injection 40 mg 2021-05 04:00: 00 04-16 03:44 :00 No 40mg 40 mg, Slow IV Push, Q24H, 3 doses, First dose on Tue04/12/22 at 2200, Last dose on Tue04/14/22 at 2200 [facility] D5W 0.45% NaCl (1/2NS) 1 L + KCL 20 mEq 2021-05 04:00: 00 04-13 14:56 :36 No IV Infusion, at 100 mL/hr, CONTINUOUS , Starting on Tue04/12/22 at 2200, Until Tue04/13/22 at 0856, Routine [facility] morpHINE (4 mg/mL) injection 2 mg 2021-05 03:44: 13 04-13 14:31 :47 No 2mg 2 mg, Slow IV Push, Q4HPRN, Starting on Tue04/12/22 at 2144, Until Tu04/13/22 at 0831, Routine, Pain (scale 7-10) [facility] ondansetron (ZOFRAN (PF)) injection 4 mg 2021-05 03:44: 10 Yes 4mg 4 mg, Slow IV Push, Q6HPRN, Starting on Tue04/12/22 at 2144, Until Discontinu ed, Routine, Nausea and Vomiting (N/V) [facility] No known medications 2021-05 21:23: 59 No No known medication s [facility] nystatin 100,000 unit/mL suspension 07-20 00:00: 00 04-13 00:00 :00 No [id number] U Take 10 mL by mouth every 8 (eight) hours. [facility] predniSONE 10 mg tablet 07-20 00:00: 00 04-13 00:00 :00 No 10mg Take 1 tablet by mouth daily. [facility] traMADOL (ULTRAM) 50 mg tablet 2015-05 00:00: 00 04-13 00:00 :00 No 50mg Take 1 tablet by mouth every 6 (six) hours as needed for Pain (scale 4-6). Kenroy Peñaloza PA-C / Lito Mccoy MD JASPREET# [id number] DPS# [id number] x Lic.# [id number] NPI# [id number] [facility] Immunizations Ordered Immunization Name Filled Immunization Name [...] External Body temperature 2024-05-14 06:32:00 36.44 Cary [facility] Respiratory rate 2024-05-14 06:32:00 14 /min [facility] Systolic blood pressure 2024-05-14 05:00:00 130 mm[Hg] [facility] Diastolic blood pressure 2024-05-14 05:00:00 80 mm[Hg] [facility] Heart rate 2024-05-14 05:00:00 109 /min [facility] Oxygen saturation in Arterial blood by Pulse oximetry 2024-05-14 04:00:00 91 /min [facility] Body height 2024-05-14 00:57:00 170.2 cm [facility] Body weight 2024-05-14 00:57:00 113.399 kg [facility] BMI 2024-05-14 00:57:00 39.16 kg/m2 [facility] Heart rate 2023-03-04 21:41:00 88 /min Kelse [...] by Pulse oximetry 2022-11-24 20:23:00 98 /min Michelle Seybo ld - External Systolic blood pressure 2022-11-24 20:23:00 120 mm[Hg] Michlele Seybo ld - External Diastolic blood pressure [...] Systolic blood pressure 2022-04-13 17:16:00 132 mm[Hg] [facility] Diastolic blood pressure 2022-04-13 17:16:00 82 mm[Hg] [facility] Heart rate 2022-04-13 17:16:00 107 /min [facility] Body temperature 2022-04-13 17:16:00 36.56 Cary [facility] Oxygen saturation in Arterial blood by Pulse oximetry 2022-04-13 17:16:00 95 /min [facility] Respiratory rate 2022-04-13 10:55:00 16 /min [facility] Body height 2022-04-13 06:58:00 170.2 cm [facility] Body weight 2022-04-13 02:38:00 114.306 kg [facility] BMI 2022-04-13 02:38:00 39.47 kg/m2 [facility] Procedures Procedure Date / Time Performed Performing Clinician Source CT ABDOMEN PELVIS W CONTRAST 2024-05-14 03:00:52 Ca Qureshi [facility] POCT TEST 2024-05-14 02:28:00 Brittny Qureshi ra [facility] LIPASE 2024-05-14 01:50:00 [facility] 2024-05-14 01:50:00 Ca Qureshi [facility] COMP. METABOLIC PANEL ([id number]) 2024-05-14 01:50:00 Ca Qureshi [facility] CBC WITH DIFF 2024-05-14 01:50:00 [facility] 2022-11-25 21:49:24 Steven Juárez ybezekiel - External EXTERNAL PROVIDER RECORDS 2022-04-28 06:01:00 Doctor Unassigned, [place] [facility] PROTHROMBIN TIME / INR 2022-04-13 06:46:00 Adrian Rodriguez [facility] HEPATIC FUNCTION PANEL ([id number]) (ALB,T.PRO,BILI T,BU/BC,ALT,AST,ALK PHOS) 2022-04-13 06:46:00 Leoncio Rodriguez [facility] BASIC METABOLIC PANEL (NA, K, CL, CO2, GLUCOSE, BUN, CREATININE, CA) 2022-04-13 06:46:00 Leoncio Rodriguez [facility] CBC WITH DIFF 2022-04-13 06:45:00 Leoncio Rodriguez [facility] CT ABDOMEN PELVIS W CONTRAST 2022-04-13 03:15:01 Magdaleno Denise [facility] US BREAST 2011-05-12 16:11:00 Maribel Lind [facility] BI DIAGNOSTIC MAMMOGRAM BILATERAL 2011-05-10 21:48:00 Maribel Lind [facility] Encounters Start Date/Time End Date/Time Encounter Type Admission Type Attending Clinicians Care Facility Care Department Encounter ID Source 2024-11-01 15:45:00 2024-11-01 15:45:00 Outpatient TOY ANGELES [id number] [facility] 2024-10-22 14:45:00 2024-10-22 14:45:00 Outpatient DILEEP DALEY [id number] [facility] 2024-10-03 00:00:00 2024-10-03 00:00:00 Outpatient MD MICHELLE CONWAY [id number] [facility] 2024-10-01 00:00:00 2024-10-01 00:00:00 Outpatient TOY ANGELES [id number] [facility] 2024-09-27 00:00:00 2024-09-27 00:00:00 Outpatient AUGUST CRUZ [id number] [facility] 2024-09-14 14:15:00 2024-09-14 14:15:00 Outpatient BRIDGETTE AMIRHOSSEIN MICHELLE CABRAL [id number] [facility] 2024-09-12 08:30:00 2024-09-12 08:30:00 Outpatient YARELY ABRAHAM MICHELLE CABRAL [id number] [facility] 2024-09-05 14:45:00 2024-09-05 14:45:00 Outpatient BRIDGETTE AMIRHOSSEIN MICHELLE CABRAL [id number] [facility] 2024-09-03 14:30:00 2024-09-03 14:30:00 Outpatient PRESHAINA, ANN-MARIE MICHELLE CABRAL [id number] [facility] 2024-08-29 13:30:00 2024-08-29 13:30:00 Outpatient AUGUST CRUZ MICHELLE CABRAL [id number] [facility] 2024-08-29 00:00:00 2024-08-29 00:00:00 Outpatient MICHELLE CABRAL [id number] [facility] 2024-08-27 00:00:00 2024-08-27 00:00:00 Outpatient PREWILLIAMSANN-MARIE MICHELLE CABRAL [id number] [facility] 2024-08-20 15:30:00 2024-08-20 15:30:00 Outpatient BRIDGETTE AMIRHOSSEIN MICHELLE CABRAL [id number] [facility] 2024-08-11 00:00:00 2024-08-11 00:00:00 Outpatient BRIDGETTE AMIRHOSSEIN [facility] [id number] [facility]24-[facility] 14:00:00 2024-08-02 14:00:00 Outpatient [facility] [id number] [facility] 2024-08-02 09:20:00 2024-08-02 09:20:00 Outpatient MICHELLE CABRAL [id number] [facility] 2024-08-01 15:15:00 2024-08-01 15:15:00 Outpatient HEIDYGary AMIRHOSSEIN MICHELLE CABRAL [id number] [facility] 2024-07-31 00:00:00 2024-07-31 00:00:00 Outpatient TOY ANGELES [id number] [facility] 2024-07-30 00:00:00 2024-07-30 00:00:00 Outpatient MD MICHELLE CONWAY [id number] [facility] 2024-07-30 00:00:00 2024-07-30 00:00:00 Outpatient BERTO QURESHI [id number] [facility] 2024-07-30 00:00:00 2024-07-30 00:00:00 Outpatient TOY ANGELES [id number] [facility] 2024-07-26 10:30:00 2024-07-26 10:30:00 Outpatient TOY ANGELES [id number] [facility] 2024-07-16 15:30:00 2024-07-16 15:30:00 Outpatient TOY ANGELES [id number] [facility] 2024-07-07 06:53:00 2024-07-07 10:40:00 Emergency EM Kevin Troncoso HCACL KRYSTINA [id number] 17 [facility] 2024-06-27 15:30:00 2024-06-27 15:30:00 Outpatient TOY ANGELES [id number] [facility] 2024-06-20 16:30:00 2024-06-20 16:30:00 Outpatient ANN-MARIE AMBROSE [id number] [facility] 2024-06-20 11:15:00 2024-06-20 11:15:00 Outpatient ANN-MARIE AMBROSE [id number] [facility] 2011-05-10 00:00:00 2024-06-16 05:43:08 Orders Maribel Parks [facility] DRY WALL PLASTERER [facility] & [facility] [id number] [facility] 2011-05-12 00:00:00 2024-06-16 05:42:38 Orders Only Maribel Lind [facility] DRY WALL PLAST[employer] [id number] [facility] 2024-05-13 18:51:00 2024-05-14 00:35:00 Emergency X CA QURESHI SANDRA [facility] ERT [id number] [facility] 2024-05-13 18:51:00 2024-05-14 00:35:00 Emergency Ca Qureshi [facility] [id number] [facility] 2023-11-11 15:00:00 2023-11-11 15:00:00 Outpatient JOSE MARTIN BOLTON [id number] [facility] 2023-08-17 15:45:00 2023-08-17 15:45:00 [facility] [id number] [facility] 08:30:00 2023-08-09 08:30:00 Outpatient JOSHUA LUCIA [id number] [facility] 2023-07-27 13:45:00 2023-07-27 13:45:00 Outpatient ENIO GOLDMAN [id number] [facility] 2023-07-07 15:30:00 2023-07-07 15:30:00 Outpatient ENIO GOLDMAN [id number] Michelle Goldberg 2023-07-07 00:00:00 2023-07-07 00:00:00 Outpatient MD MICHELLE CONWAY [id number] Michelle Goldberg 2023-06-29 15:30:00 2023-06-29 15:30:00 Outpatient ENIO GOLDMAN [id number] Michelle Seybold 2023-06-25 11:40:00 2023-06-25 11:40:00 Outpatient KEVIN MICHELLE CABRAL [id number] Michelle Seybold 2023-06-16 14:30:00 2023-06-16 14:30:00 Outpatient MIKE RODRIGUEZ MICHELLE CABRAL [id number] Michelle Seybold 2023-06-16 14:00:00 2023-06-16 14:00:00 Outpatient MICHELLE CABRAL [id number] Michelle Seybold 2023-06-03 22:55:00 2023-06-03 22:55:00 Outpatient ALEXUS ARZATE MICHELLE CABRAL [id number] Michelle Seybold 2023-06-03 22:05:00 2023-06-03 22:05:00 Outpatient PRERNA BEATRIZ MICHELLE CABRAL [id number] Michelle Seybold 2023-05-25 15:00:00 2023-05-25 15:00:00 Outpatient ENIO GOLDMAN [id number] Michelle Seybold 2023-05-18 15:00:00 2023-05-18 15:00:00 Outpatient ENIO GOLDMAN [id number] Michelle Seybold 2023-05-18 14:00:00 2023-05-18 14:00:00 Outpatient CASEY GOLDMANER MICHELLE CABRAL [id number] Michelle Seybold 2023-05-18 10:45:00 2023-05-18 10:45:00 Outpatient ENIO GOLDMAN [id number] Michelle Seybold 2023-05-15 00:00:00 2023-05-15 00:00:00 Outpatient ANN-MARIE AMBROSE [id number] Michelle Seybold 2023-05-12 15:15:00 2023-05-12 15:15:00 Outpatient EDDIE CHRISTIANSEN [id number] Michelle Seybold 2023-05-03 00:00:00 2023-05-03 00:00:00 Outpatient SEVERIANO LAYNE [id number] Michelle Seybold 2023-04-18 15:00:00 2023-04-18 15:00:00 Outpatient ENIO GOLDMAN [facility] [id number] [facility] 2023-04-08 14:30:00 2023-04-08 14:30:00 Outpatient LUIS JETER [facility] [id number] [facility] 2023-04-01 15:00:00 2023-04-01 15:00:00 Outpatient VIJISHAINAANN-MARIE [facility] [id number] [facility] 2023-03-23 14:00:00 2023-03-23 14:00:00 Outpatient ELIAEMABOAZ [facility]HEL[facility] CABRAL [id number] [facility] 2023-03-22 00:00:00 2023-03-22 00:00:00 Outpatient IVJIWILLIAMANN-MARIE Shepard MICHELLE CABRAL [id number] [facility] 2023-03-18 00:00:00 2023-03-18 00:00:00 Outpatient ANN-MARIE AMBROSE [id number] [facility] 2023-03-15 13:30:00 2023-03-15 13:30:00 Outpatient MICHELLE CABRAL [id number] [facility] 2023-03-14 08:00:00 2023-03-14 08:00:00 Outpatient MICHELLE CABRAL [id number] Michelle Seybold 2023-03-14 07:30:00 2023-03-14 07:30:00 Outpatient MICHELLE CABRAL [id number] Michelle Seybold 2023-03-13 15:45:00 2023-03-13 15:45:00 Outpatient MCKENZIE LITTLE [id number] Michelle Seybold 2023-03-08 14:00:00 2023-03-08 14:00:00 Outpatient PABLITO WHEELER [id number] Michelle Seybold 2023-03-04 16:00:00 2023-03-04 16:00:00 Outpatient ANN-MARIE AMBROSE [id number] Michelle Seybold 2023-02-28 00:00:00 2023-02-28 00:00:00 Outpatient MD MICHELLE CONWAY [id number] [facility] 2023-02-25 10:30:00 2023-02-25 10:30:00 Outpatient MICHELLE CABRAL [id number] Michelle [facility] 2023-02-25 00:00:00 2023-02-25 00:00:00 Outpatient ANN-MARIE AMBROSE MICHELLE CABRAL [id number] [facility] 2023-02-17 14:30:00 2023-02-17 14:30:00 Outpatient MICHELLE CABRAL [id number] [facility] 2023-02-17 00:00:00 2023-02-17 00:00:00 Outpatient SEVERIANO LAYNE [id number] [facility] 2023-02-10 14:00:00 2023-02-10 14:00:00 Outpatient MICHELLE CABRAL [id number] Michelle [facility] 2023-02-09 00:00:00 2023-02-09 00:00:00 Outpatient SEVERIANO LAYNE [id number] [facility] 2023-02-09 00:00:00 2023-02-09 00:00:00 Outpatient MD MICHELLE CONWAY [id number] [facility] 2023-02-07 14:00:00 2023-02-07 14:00:00 Outpatient PABLITO WHEELER [id number] [facility] 2023-02-04 13:00:00 2023-02-04 13:00:00 Outpatient LORENZA CELINE MICHELLE CABRAL [id number] [facility] 2023-02-04 00:00:00 2023-02-04 00:00:00 Outpatient PREANN-MARIE MERRITT MICHELLE CABRAL [id number] Michelle [facility] 2023-02-02 15:25:00 2023-02-02 15:25:00 Outpatient ARON CABRAL [id number] [facility] 2023-02-02 14:45:00 2023-02-02 14:45:00 Outpatient SEVERIANO LAYNE [id number] [facility] 2023-01-27 09:30:00 2023-01-27 09:30:00 Outpatient TOY ANGELES MICHELLE CABRAL [id number] Michelle [facility] 2023-01-21 00:00:00 2023-01-21 00:00:00 Outpatient MD MICHELLE CONWAY [id number] Michelle [facility] 2023-01-20 14:30:00 2023-01-20 14:30:00 Outpatient MICHEL[facility] CABRAL [id number] [facility] 2023-01-13 15:15:00 2023-01-13 15:15:00 Outpatient MICHELLE CABRAL [id number] [facility] 2023-01-13 13:00:00 2023-01-13 13:00:00 [facility] [id number] [facility]:00 2023-01-10 00:00:00 Outpatient MD MICHELLE CONWAY [id number] [facility] 2023-01-07 00:00:00 2023-01-07 00:00:00 Outpatient PREZAANN-MARIE Shepard [id number] [facility] 2023-01-07 00:00:00 2023-01-07 00:00:00 Outpatient IVORY ALMAZAN [id number] [facility] 2023-01-06 13:30:00 2023-01-06 13:30:00 Outpatient PLAB MICHELLE CABRAL [id number] [facility] 2023-01-04 09:30:00 2023-01-04 09:30:00 Outpatient PLAB MICHELLE CABRAL [id number] [facility] 2022-12-29 15:15:00 2022-12-29 15:15:00 Outpatient MICHELLE CABRAL [id number] [facility] 2022-12-29 13:30:00 2022-12-29 13:30:00 Outpatient MICHELLE ACBRAL [id number] Michelle [facility] 2022-12-24 13:30:00 2022-12-24 13:30:00 Outpatient INFUSION, [facility] MICHELLE CABRAL [id number] Michelle Ashlyn 2022-12-22 00:00:00 2022-12-22 00:00:00 Outpatient MICHELLE MICHELLE [id number] [facility] 2022-12-20 15:30:00 2022-12-20 15:30:00 Outpatient PLAB MICHELLE CABRAL [id number] [facility] 2022-12-17 00:00:00 2022-12-17 00:00:00 Outpatient IHSAN LESTER MICHELLE CABRAL [id number] [facility] 2022-12-16 00:00:00 2022-12-16 00:00:00 Outpatient SANTIAGO OCONNELL MIHCELLE CABRAL [id number] [facility] 2022-12-09 00:00:00 2022-12-09 00:00:00 Outpatient MD MICHELLE CONWAY [id number] Michelle Ashlyn 2022-12-07 14:00:00 2022-12-07 14:00:00 Outpatient PLAB MICHELLE CABRAL [id number] [facility] 2022-12-07 00:00:00 2022-12-07 00:00:00 Outpatient PLAB MICHELLE CABRAL [id number] [facility] 2022-12-03 15:55:00 2022-12-03 15:55:00 Outpatient LAB90 MICHELLE CABRAL [id number] [facility] 2022-12-03 15:45:00 2022-12-03 15:45:00 Outpatient LAB90 MICHELLE CABRAL [id number] [facility] 2022-12-03 15:00:00 2022-12-03 15:00:00 Outpatient PREANN-MARIE MERRITT [id number] Michelle [facility] 2022-12-01 15:30:00 2022-12-01 15:30:00 Outpatient PLNEFTALI [id number] Michelle ybezekiel 2022-12-01 00:00:00 2022-12-01 00:00:00 Outpatient MD MICHELLE CONWAY [id number] Michelle Goldberg 2022-11-25 17:00:00 2022-11-25 17:00:00 Outpatient LAB47 MICHELLE RUSHSEY [id number] [facility] 2022-11-25 16:40:00 2022-11-25 16:40:00 Outpatient MICHELLE MICHELLE [id number] [facility] 2022-11-25 16:15:00 2022-11-25 16:15:00 Outpatient TRED47 MICHELLE CABRAL [id number] Michelle [facility] 2022-11-25 15:00:00 2022-11-25 15:00:00 Outpatient STEVEN JUÁREZ [id number] [facility] 2022-11-25 00:00:00 2022-11-25 00:00:00 Outpatient MD [facility]HELLE CONW[facility] [id number] [facility] 2022-11-25 00:00:00 2022-11-25 00:00:00 Outpatient MICHELLE CABRAL [id number] [facility] 2022-11-24 15:30:00 2022-11-24 15:30:00 Outpatient BOAZ CASTRO [id number] [facility] 2022-11-24 00:00:00 2022-11-24 00:00:00 Outpatient ARNOLANN-MARIE MICHELLE CABRAL [id number] [facility] 2022-11-23 11:45:00 2022-11-23 11:45:00 Outpatient LAB90 MICHELLE CABRAL [id number] [facility] 2022-11-23 00:00:00 2022-11-23 00:00:00 Outpatient PREWILLIAMANN-MARIE Shepard MICHELLE CABRAL [id number] [facility] 2022-11-15 00:00:00 2022-11-15 00:00:00 Outpatient PREANN-MARIE MERRITT [id number] [facility] 2022-11-14 00:00:00 2022-11-14 00:00:00 Outpatient PRESHAINA ANN-MARIE CABRAL [id number] [facility] 2022-11-08 00:00:00 2022-11-08 00:00:00 Outpatient ANN-MARIE AMBROSE [id number] Michelle Goldberg 2022-11-04 12:40:00 2022-11-04 12:40:00 Outpatient MICHELLE CABRAL [id number] Michelle Goldberg 2022-11-04 12:35:00 2022-11-04 12:35:00 Outpatient MICHELLE CABRAL [id number] Michelle Goldberg 2022-11-04 12:30:00 2022-11-04 12:30:00 Outpatient MICHELLE CABRAL [id number] Michelle [facility] 2022-11-03 00:00:00 2022-11-03 00:00:00 Outpatient ANN-MARIE AMBROSE MICHELLE [id number] Michelle [facility] 2022-11-03 00:00:00 2022-11-03 00:00:00 Outpatient ANN-MARIE AMBROSE [id number] Michelle Goldberg 2022-11-01 12:00:00 2022-11-01 12:00:00 Outpatient LAB90 MICHELLE MICHELLE [id number] Michelle [facility] 2022-11-01 11:30:00 2022-11-01 11:30:00 Outpatient ANN-MARIE AMBROSE MICHELLE [id number] [facility] 2022-10-26 09:15:00 2022-10-26 09:15:00 Outpatient ANN-MARIE AMBROSESEY [id number] [facility] 2022-06-26 05:12:00 2022-06-26 05:12:00 Outpatient ANSELMO GARVIN [facility] MED [id number] [facility] 2022-06-25 09:09:00 2022-06-25 15:05:00 Inpatient ER Sergei Pacheco [facility] MED [id number] [facility] 2022-04-28 00:00:00 2022-04-28 00:00:00 Orders Only Doctor Unassigned, [place] [facility] [id number] [facility] 2022-04-12 20:40:00 2022-04-13 14:59:00 Outpatient X AGGIE OTTO [facility] ROSY [id number] [facility] 2022-04-12 20:40:00 2022-04-13 14:59:00 Emergency Aggie Otto [facility] [id number] [facility] Results Test Description Test Time Test Comments [...] are clear. No suspicious focal osseous lesions. [facility] [id number] 21:40:00DIGITAL MAMMOGRAM, BILATERAL*.*.*.*.*.*.*.*.*.*.*.*.*.*FINAL*.*.*.*.*.*.*.*.*.*.*.*.*.*.*Palpable areas both breasts.Computer-aided detection(CAD)utilized. [...] - INCOMPLETE: NEED ADDITIONAL IMAGING EVALUATIONEND OF Memorial HospitalUS [id number] 17:34:00US BREAST*.*.*.*.*.*.*.*.*.*.*.*.*.*FINAL*.*.*.*.*.*.*.*.*.*.*.*.*.*.*History: ?Bilateral breast masses. ?The patient [...] ASSESSMENT - CATEGORY 1 - NEGATIVEEND OF [facility] Hospital Notes Date/Time Note Provider Source 2024-08-29 13:47:46 Chief Complaint Patient presents with Follow-up Needs referral for Dr. [facility]. Coughing up thick dark green mucous Congestion Cough [facility] 2024-07-26 10:23:37 Chief Complaint Patient presents with Vaginal Problem Yessy Enriquez MA [facility] 2024-07-07 09:00:00 [facility] ([facility] EMERGENCY PROVIDER REPORT REPORT#:[id number] REPORT STATUS: Signed DATE:07/07/24 TIME: 899 PATIENT: MAHNAZ DANIEL UNIT #: [id number] ROOM/BED: : 78 AGE: 43 SEX:F PCP [...] hernia with no evidence of strangulation Treatment: [place] Dispo: Discharge with PCP follow-up, discussed with [...] Your primary care physician at 1125 RPT #:[id number] END OF REPORT [facility] 2024-05-14 00:34:16 Pt. Provided d/c instructions & f/u care instructions; pt. Verbalized understanding; IV access d/c with bleeding controlled, pressure applied, dressing C/D/I; no apparent S&S of distress noticed at d/c; [place] [employer] at bedside for d/c; ambulates with steady gait to w/c [facility] 2024-05-14 00:00:00 Dr. Leon at bedside; hernia easily reduced; pt. Tolerated well; no apparent S&S of distress noticed at this time; plan of care ongoing [facility] 2024-05-13 23:59:52 [facility] ED Transfer of Care Note. Off-going Physician:Dr [...] components within normal limits COMP. METABOLIC PANEL (54982) - Abnormal; Notable for the following components: [...] well as with Dr Smith General Surgeon belt conveyor drier who also independently reviewed imaging as well. [...] follow-up Rui Manuel MD Specialty: SURGICAL ONCOLOGY [facility] [address] [facility] 5[address] [facility] [id number] Mayelin Alegria MD Specialty: SURGERY [facility] [address] [facility] [address] [facility] [id number] [facility] 2024-05-13 18:55:13 Toned out to [place] [facility] with [place] [employer] for pt. With abdominal pain since 1640; pt. Reports hx of abdominal hernia that has progressively enlarged; pt. Reports a burning sensation and pain to umbilical region; pt. 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 She reports [...] Diagnosis Date Anxiety Cirrhosis 05/24/2015 Done at [facility] Depression Hep C w/o coma, chronic [...] 0.01 - 0.07 10*3/uL COMP. METABOLIC PANEL (55334) - Abnormal NA 139 135 - 145 [...] CONTRAST CBC WITH DIFF COMP. METABOLIC PANEL (98428) LIPASE Magnesium POCT TEST Orders Placed This [...] signed by: Ca Qureshi DO 05/13/24 2322 [facility] 2023-06-16 14:34:08 Chief Complaint Patient presents with OTHER Left foot and ankle is swollen, hot, and red. I also have a horrible toothache. Thick mucus in chest. K Michelle [facility] 2023-05-18 10:45:00 Appointment this morning with Dr. Goldman K Rodgers [facility] 2022-11-25 15:27:55 Formatting of this n ote is different from the original. Chief Complaint Patient presents with Consultation OTHER Pulmonary embolus Luna Ratliff CMA II [facility] 2022-11-24 15:15:28 Formatting of this n ote is different from the original. Chief Complaint Patient presents with Hematology Consult Anemia, unspecified type History of pulmonary embolus (PE) History of deep venous thrombosis (DVT) of distal vein of left lower extremity Lisa Cedillo [facility]
[2024-12-17] MEDS ORDERED: ONDANSETRON 4 MG/2 ML VIAL ONE ×2 (04:18→14:45)
[2024-12-17] MEDS ORDERED: NA CHLORIDE 0.9% 1,000 ML ONE ×2 (04:19→05:38)
[2024-12-17] MEDS ORDERED: MORPHINE 4 MG/ML SYR ONE ×2 (04:19→06:32)
[2024-12-17 04:31] LABS: Absolute Lymphocytes (CBC) 1.6 K/uL (0.7-4.9); Hematocrit 40.9 % (36.0-45.0); Hemoglobin 13.6 g/dL (12.0-15.0); MCH 28.8 pg (27.0-35.0); MCHC 33.2 g/dL (32.0-36.0); MCV 86.6 fL (80-100); MPV 10.0 fL (7.6-11.3); Nucleated RBC Absolute Count 0.0 (0-0); Nucleated Red Blood Cells % 0.0 % (0-0); RBC Red Blood Cell Count 4.72 M/uL (3.86-4.86); White Blood Count 7.70 thou/uL (4.3-10.9)
[2024-12-17 05:01] LABS: ALT/SGPT 23.0 U/L (13-56); AST/SGOT 15.0 U/L (15-37); Albumin 3.5 g/dL (3.4-5.0); Albumin/Globulin Ratio 1.0 (1.1-1.8); Alkaline Phosphatase 94.0 U/L (45-117); Anion Gap 7.9 mEq/L (5.0-15.0); BUN Blood Urea Nitrogen 7.0 mg/dL (7-18); Globulin 3.6 g/dL (2.3-3.5); Glucose Level 158.0 mg/dL (74-106); Lipase 26.0 U/L (13-75); Potassium 3.9 mEq/L (3.5-5.1)
[2024-12-17] MEDS ORDERED: NA CHLORIDE 0.9% 100 ML ONE (06:32)
--- NOTE | 2024-12-17 06:32 | EDPHYS ---
Physician Documentation [facility] Name: Mahnaz Daniel Age: 44 yrs Sex: Female : 1980 Arrival Date: 12/17/2024 Time: 03:52 Bed 20 Private MD: ED Physician Neeta Bello HPI: 12/17 04:09 This 44 yrs old Female presents to ER via Unassigned with complaints of Pt states she sp3 is having pain due to her hernia. 04:09 44-year-old female with history of ventral hernia secondary to multiple sp3 sections in the past, prior history of DVT and PE for which she is supposed to be on anticoagulant but is not currently taking it for the last approximately 1 year after no longer having a primary care physician. She used to see [facility]. Patient states that the current episode of pain is started yesterday morning. She states that her ventral hernia is worsening. Review of system negative for headache, neck pain, chest pain, shortness of breath, vomiting, diarrhea, or any other signs or symptoms on ROS at this time.. Historical: - Allergies: 04:13 Bactrim DS; br2 - PMHx: 04:13 Cirrhosis; Hepatitis C; Pneumonia; br2 04:15 PULMONARY EMBOLISM; Deep vein thrombosis; br2 - PSHx: 04:13 section; steroid back injections (an); br2 - Immunization history:: Adult Immunizations up to date. - Infectious Disease History:: Denies. - Social history:: Smoking status: Patient reports the use of cigarette tobacco products, smokes one-half pack cigarettes per day, Patient uses alcohol, occasionally. Patient/guardian denies using street drugs, but used to use street drugs. ROS: 04:10 Constitutional: Negative for fever, chills, and weight loss, Eyes: Negative for injury, sp3 pain, redness, and discharge, ENT: Negative for injury, pain, and discharge, Neck: Negative for injury, pain, and swelling, Cardiovascular: Negative for chest pain, palpitations, and edema, Respiratory: Negative for shortness of breath, cough, wheezing, and pleuritic chest pain, Back: Negative for injury and pain, MS/Extremity: Negative for injury and deformity, Skin: Negative for injury, rash, and discoloration, Neuro: Negative for headache, weakness, numbness, tingling, and seizure, Psych: Negative for depression, anxiety, suicide ideation, homicidal ideation, and hallucinations, Allergy/Immunology: Negative for hives, rash, and allergies, Endocrine: Negative for neck swelling, polydipsia, polyuria, polyphagia, and marked weight changes, 04:10 All other systems are negative, Exam: 04:10 Constitutional: This is a well developed, well nourished patient who is awake, alert, sp3 and in no acute distress. Head/Face: Normocephalic, atraumatic. Eyes: Pupils equal round and reactive to light, extra-ocular motions intact. Lids and lashes normal. Conjunctiva and sclera are non-icteric and not injected. Cornea within normal limits. Periorbital areas with no swelling, redness, or edema. Neck: Trachea midline, no thyromegaly or masses palpated, and no cervical lymphadenopathy. Supple, full range of motion without nuchal rigidity, or vertebral point tenderness. No Meningismus. Chest/axilla: Normal chest wall appearance and motion. Nontender with no deformity. No lesions are appreciated. Respiratory: Lungs have equal breath sounds bilaterally, clear to auscultation and percussion. No rales, rhonchi or wheezes noted. No increased work of breathing, no retractions or nasal flaring. Back: No spinal tenderness. No costovertebral tenderness. Full range of motion. 04:10 Cardiovascular: Rate: tachycardic, 04:10 Abdomen/GI: Large abdominal wall defect causing ventral hernia. Hernia is not readily reducible without causing significant pain., Vital Signs: 04:11 BP 128 / 87; Pulse 114; Resp 22 S; Temp 97.9(O); Pulse Ox 100% on R/A; Weight 106.59 br2 kg; Height 5 ft. 7 in. ; Pain 9/10; 05:50 BP 111 / 89; Pulse 90; Resp 16; Pulse Ox 98% on R/A; cc6 06:43 BP 126 / 99; Pulse 84; Resp 16; Pulse Ox 100% on R/A; cc6 06:50 BP 102 / 74; Pulse 81; Resp 18 S; Pulse Ox 99% on R/A; ha1 08:07 BP 128 / 82; Pulse 68; Resp 20; Temp 98.1(O); Pulse Ox 100% on R/A; ar8 08:47 BP 135 / 87; Pulse 74; Resp 19 S; Pulse Ox 99% on R/A; ar8 04:11 Body Mass Index 36.81 (106.59 kg, 170.18 cm) br2 04:11 Pain Scale: Adult br2 MDM: 04:02 Medical Screening Exam initiated sp3 04:11 Data reviewed: vital signs, nurses notes, lab test result(s), radiologic studies. ED sp3 course: 44-year-old female with abdominal pain in the setting of ventral hernia and tachycardia. Differential diagnosis includes incarcerated hernia, other intra-abdominal pathology, kidney stone, UTI, among others. Workup will include CT scan of the abdomen pelvis with IV contrast, general labs, UA and pain and nausea control as well as IV fluids. Disposition pending workup and patient course. She sees Dr. Lundberg in the past.. 05:23 ED course: Lactic elevated at 2.4. I am concerned about mesenteric ischemia or any sp3 other hypoperfusion to the bowel. CT is pending. Second bolus of normal saline has been ordered.. 06:29 ED course: Patient with ventral hernia and colonic obstruction. Patient is an sp3 established patient of Dr. Lundberg who has been contacted. Patient will be admitted to hospitalist service. Antibiotics been started. NPO.. 12/17 04:09 Order name: CBC with Diff; Complete Time: 05:23 sp3 12/17 04:09 Order name: CMP; Complete Time: 05:23 sp3 12/17 04:09 Order name: Lipase; Complete Time: 05:23 sp3 12/17 04:09 Order name: Lactate w/ 2H reflex if indic.; Complete Time: 05:23 sp3 12/17 04:09 Order name: UA Rfx David Cult if indicated sp3 12/17 05:21 Order name: Ghost Lactate-NO COLLECT Timer [facility] 12/17 07:02 Order name: Basic Metabolic Panel [facility] 12/17 07:02 Order name: Basic Metabolic Panel [facility] 12/17 07:02 Order name: Basic Metabolic Panel [facility] 12/17 07:02 Order name: Basic Metabolic Panel [facility] 12/17 07:02 Order name: Basic Metabolic Panel [facility] 12/17 07:02 Order name: Basic Metabolic Panel [facility] 12/17 07:02 Order name: Basic Metabolic Panel EDMS 12/17 07:02 Order name: Basic Metabolic Panel EDMS 12/17 07:02 Order name: CBC with Automated Diff EDMS 12/17 07:02 Order name: CBC with Automated Diff EDMS 12/17 07:02 Order name: CBC with Automated Diff EDMS 12/17 07:02 Order name: CBC with Automated Diff EDMS 12/17 07:02 Order name: CBC with Automated Diff EDMS 12/17 07:02 Order name: CBC with Automated Diff EDMS 12/17 07:02 Order name: CBC with Automated Diff EDMS 12/17 07:02 Order name: CBC with Automated Diff EDMS 12/17 08:26 Order name: Lactate Sepsis 2 HR Follow-up EDMS 12/17 04:09 Order name: CT Abd/Pelvis - IV Contrast Only sp3 12/17 06:58 Order name: Chest Single View XRAY la1 12/17 07:02 Order name: Extrem Venous W Compress Jayme EDMS 12/17 07:52 Order name: RAD EDMS 12/17 04:09 Order name: IV Saline Lock; Complete Time: 04:27 sp3 12/17 04:09 Order name: Labs collected and sent; Complete Time: 04:27 sp3 12/17 06:30 Order name: NPO; Complete Time: 06:42 sp3 12/17 06:58 Order name: EKG - Nurse/Tech; Complete Time: 07:22 la1 Administered Medications: 04:30 Drug: Ondansetron IVP 4 mg IVP once; over 2 minutes Route: IVP; Site: left antecubital; cc6 05:00 Follow up: Response: No adverse reaction cc6 04:30 Drug: NS 0.9% IV 1000 ml IV at 1 bolus Per protocol; to be given as a bolus over 60 cc6 minutes Route: IV; Rate: 1 bolus; Site: left antecubital; 06:27 Follow up: Response: No adverse reaction; IV Status: Completed infusion cc6 04:32 Drug: morphine IVP or IV 4 mg IVP once over 4 mins Route: IVP; Infused Over: 4 mins; cc6 Site: left antecubital; 05:00 Follow up: Response: No adverse reaction cc6 05:56 Drug: NS 0.9% IV 1000 ml IV at 1 bolus Per protocol; to be given as a bolus over 60 ha1 minutes Route: IV; Rate: 1 bolus; Site: left antecubital; 07:00 Follow up: Response: No adverse reaction ar8 07:00 Follow up: IV Status: Completed infusion; IV Intake: 1000ml ar8 06:37 Drug: morphine IVP or IV 4 mg IVP once over 4 mins Route: IVP; Infused Over: 4 mins; ha1 Site: left antecubital; 07:10 Follow up: Response: No adverse reaction; Marked relief of symptoms; Pain is decreased; ha1 RASS: Alert and Calm (0) 06:43 Drug: Piperacillin-Tazobactam IVPB 3.375 grams IVPB once over 60 mins; (mix in NS 100 cc6 mL) Route: IVPB; Infused Over: 60 mins; Site: left antecubital; 07:44 Follow up: Response: No adverse reaction; IV Status: Completed infusion; IV Intake: ar8 100ml Disposition Summary: 12/17/24 06:31 Hospitalization Ordered Notes: Hospitalization Status: Inpatient Admission sp3 Provider: Fco [place] sp3 [facility] Condition: Stable sp3 Problem: an acute exacerbation sp3 Symptoms: have worsened sp3 Bed/Room Type: Standard sp3 Room Assignment: 423(12/17/24 08:09) bd Diagnosis - Ventral hernia with colonic obstruction, lactic acidosis sp3 Forms: - Medication Reconciliation Form sp3 - SBAR form sp3 - Leadership Thank You Letter sp3 Signatures: Dispatcher [employer] EDMS Charisse Pepe bd Lupillo Hugo, CASH ON DELIVERY CLERK-C CASH ON DELIVERY CLERK-Cla1 Neeta Bello MD MD sp3 Joanne Gupta RN RN ha1 Hermelinda Espinoza RN RN br2 Olena Pardo RN RN cc6 Jin Holley RN ar8 Corrections: (The following items were deleted from the chart) 08: 06:31 sp3 bd
--- NOTE | 2024-12-17 06:32 | ER ---
Nurse's Notes [facility] Name: Mahnaz Daniel Age: 44 yrs Sex: Female : 1980 Arrival Date: 12/17/2024 Time: 03:52 Bed 20 Private MD: Diagnosis: Ventral hernia with colonic obstruction, lactic acidosis Presentation: 12/17 04:11 Chief complaint: Patient states: ABDOMINAL PAIN SINCE YESTERDAY. PT WAS DX WITH A br2 HERNIA APPROX 1 YEAR AGO AND WAS TOLD BY SURGEON IF PAIN BECAME WORSE TO GO TO ER. Coronavirus screen: Client denies travel out of the [place] in the last 14 days. Ebola Screen: Patient denies exposure to infectious person. Initial Sepsis Screen: Does the patient meet any 2 criteria? RR > 20 per min. HR > 90 bpm. Does the patient have a suspected source of infection? No. Patient's initial sepsis screen is negative. Risk Assessment: Do you want to hurt yourself or someone else? Patient reports no desire to harm self or others. Onset of symptoms was December 16, 2024. 04:11 Method Of Arrival: Wheelchair br2 04:11 Acuity: SIMEON 3 br2 Triage Assessment: 04:13 General: Appears uncomfortable, Behavior is cooperative, anxious. Pain: Complains of br2 pain in right upper quadrant, left upper quadrant, right lower quadrant and left lower quadrant Pain currently is 9 out of 10 on a pain scale. Historical: - Allergies: 04:13 Bactrim DS; br2 - PMHx: 04:13 Cirrhosis; Hepatitis C; Pneumonia; br2 04:15 PULMONARY EMBOLISM; Deep vein thrombosis; br2 - PSHx: 04:13 section; steroid back injections (an); br2 - Immunization history:: Adult Immunizations up to date. - Infectious Disease History:: Denies. - Social history:: Smoking status: Patient reports the use of cigarette tobacco products, smokes one-half pack cigarettes per day, Patient uses alcohol, occasionally. Patient/guardian denies using street drugs, but used to use street drugs. Screenin:[facility] ED Fall Risk Assessment (Adult) History of falling in the last 3 months, cc6 including since admission No falls in past 3 months (0 pts) Confusion or Disorientation No (0 pts) Intoxicated or Sedated No (0 pts) Impaired Gait No (0 pts) Mobility Assist Device Used No (0 pt) Altered Elimination No (0 pt) Score/Fall Risk Level 0 - 2 = Low Risk Oriented to surroundings, Maintained a safe environment, Educated pt \T\ family on fall prevention, incl call for assistance when getting out of bed, Hourly rounding (assess needs \T\ fall precautionary measures) done. Abuse screen: Denies threats or abuse. Denies injuries from another. Nutritional screening: No deficits noted. Tuberculosis screening: No symptoms or risk factors identified. Assessment: 04:39 General: Appears comfortable, Behavior is cooperative, restless. Pain: Complains of cc6 pain in right lower quadrant and left lower quadrant Pain does not radiate. Pain currently is 10 out of 10 on a pain scale. Quality of pain is described as throbbing, Pain began since 209912/16/2024. Neuro: Level of Consciousness is awake, alert, obeys commands, Oriented to person, place, time, situation. Cardiovascular: Patient's skin is warm and dry. Respiratory: Airway is patent Respiratory effort is even, unlabored, Respiratory pattern is regular, symmetrical. GI: Abdomen is round obese, large bulging mass Bowel sounds present X 4 quads. Abd is soft X 4 quads Abdomen is tender to palpation in umbilical area Reports Pain is 10 out of 10 on a pain scale. large hernia around umbilical region. Unable to have surgery for many years. :. : No signs and/or symptoms were reported regarding the genitourinary system. Derm: Skin is pink, warm \T\ dry. normal. Musculoskeletal: Circulation, motion, and sensation intact. Range of motion: intact in all extremities. 05:40 Reassessment: Patient and/or family updated on plan of care and expected duration. Pain cc6 level reassessed. Patient is alert, oriented x 3, equal unlabored respirations, skin warm/dry/pink. 06:50 Reassessment: Patient and/or family updated on plan of care and expected duration. Pain ha1 level reassessed. Patient is alert, oriented x 3, equal unlabored respirations, skin warm/dry/pink. Patient states feeling better. Patient states symptoms have improved. 07:20 Reassessment: Patient and/or family updated on plan of care and expected duration. Pain ar8 level reassessed. Patient is alert, oriented x 3, equal unlabored respirations, skin warm/dry/pink. Vital Signs: 04:11 BP 128 / 87; Pulse 114; Resp 22 S; Temp 97.9(O); Pulse Ox 100% on R/A; Weight 106.59 br2 kg; Height 5 ft. 7 in. ; Pain 9/10; 05:50 BP 111 / 89; Pulse 90; Resp 16; Pulse Ox 98% on R/A; cc6 06:43 BP 126 / 99; Pulse 84; Resp 16; Pulse Ox 100% on R/A; cc6 06:50 BP 102 / 74; Pulse 81; Resp 18 S; Pulse Ox 99% on R/A; ha1 08:07 BP 128 / 82; Pulse 68; Resp 20; Temp 98.1(O); Pulse Ox 100% on R/A; ar8 08:47 BP 135 / 87; Pulse 74; Resp 19 S; Pulse Ox 99% on R/A; ar8 04:11 Body Mass Index 36.81 (106.59 kg, 170.18 cm) br2 04:11 Pain Scale: Adult br2 ED Course: 03:54 Patient arrived in ED. jj6 03:55 Neeta Bello MD is Attending Physician. sp3 04:03 Olena Pardo, RN is Primary Nurse. cc6 04:13 Triage completed. br2 04:13 Arm band placed on right wrist. br2 04:26 Inserted saline lock: 20 gauge in left antecubital area, using aseptic technique. Blood oe collected. Flushed with 10 mL NS. 04:27 Lactate w/ 2H reflex if indic. Sent. oe 04:27 CBC with Diff Sent. oe 04:27 CMP Sent. oe 04:27 Lipase Sent. oe 04:47 Patient has correct armband on for positive identification. Bed in low position. Call cc6 light in reach. Provided Education on: call light use and medication administration. . 04:47 No provider procedures requiring assistance completed. cc6 05:22 CT Abd/Pelvis - IV Contrast Only In Process Unspecified. EDMS 06:30 Fco Paris MD is Hospitalizing Provider. sp3 07:19 EKG done, by ED staff, reviewed by Lupillo MERCADO. ar8 07:59 UA Rfx David Cult if indicated Sent. ar8 08:00 US tech at bedside. ar8 08:53 Patient admitted, IV remains in place. ar8 Administered Medications: 04:30 Drug: Ondansetron IVP 4 mg IVP once; over 2 minutes Route: IVP; Site: left antecubital; cc6 05:00 Follow up: Response: No adverse reaction cc6 04:30 Drug: NS 0.9% IV 1000 ml IV at 1 bolus Per protocol; to be given as a bolus over 60 cc6 minutes Route: IV; Rate: 1 bolus; Site: left antecubital; 06:27 Follow up: Response: No adverse reaction; IV Status: Completed infusion cc6 04:32 Drug: morphine IVP or IV 4 mg IVP once over 4 mins Route: IVP; Infused Over: 4 mins; cc6 Site: left antecubital; 05:00 Follow up: Response: No adverse reaction cc6 05:56 Drug: NS 0.9% IV 1000 ml IV at 1 bolus Per protocol; to be given as a bolus over 60 ha1 minutes Route: IV; Rate: 1 bolus; Site: left antecubital; 07:00 Follow up: Response: No adverse reaction ar8 07:00 Follow up: IV Status: Completed infusion; IV Intake: 1000ml ar8 06:37 Drug: morphine IVP or IV 4 mg IVP once over 4 mins Route: IVP; Infused Over: 4 mins; ha1 Site: left antecubital; 07:10 Follow up: Response: No adverse reaction; Marked relief of symptoms; Pain is decreased; ha1 RASS: Alert and Calm (0) 06:43 Drug: Piperacillin-Tazobactam IVPB 3.375 grams IVPB once over 60 mins; (mix in NS 100 cc6 mL) Route: IVPB; Infused Over: 60 mins; Site: left antecubital; 07:44 Follow up: Response: No adverse reaction; IV Status: Completed infusion; IV Intake: ar8 100ml Medication: 04:48 VIS not applicable for this client. cc6 Intake: 07:00 IV: 1000ml; Total: 1000ml. ar8 07:44 IV: 100ml; Total: 1100ml. ar8 Outcome: 06:31 Decision to Hospitalize by Provider. sp3 08:52 Admitted to Med/surg accompanied by tech, via wheelchair, room 423, Report called to ar8 faxed to 4th floor charge nurse 08:52 Condition: stable 08:52 Discharge instructions given to educated on reason for admission 08:54 Patient left the ED. ar8 Signatures: Dispatcher [employer] EDMS Mauro Lew Setul, MD MD sp3 Ling [id number] Joanne Gupta RN RN ha1 Hermelinda Espinoza RN RN br2 Olena Pardo RN RN cc6 Jin Holley RN RN ar8
[2024-12-17] MEDS ORDERED: PIPERACIL/TAZO 3.375 GM VIAL IV ONE (06:33)
--- NOTE | 2024-12-17 06:46 | RAD REPORT ---
CLINICAL HISTORY: Ventral hernia, abdominal pain. COMPARISON: CT Chest Abdomen Pelvis 07/07/2024. TECHNIQUE: CT ABDOMEN PELVIS WITH IV CONTRAST on 12/17/2024 4:09 AM CDT This exam was performed according to our departmental dose-optimization program, which includes autom ated exposure control, adjustment of the mA and/or kV according to patient size and/or use of iterative reconstruction technique. FINDINGS: Lower lungs are clear. Abdomen: Liver is nodular in contour. There is no biliary dilatation. Gallbladder is normal in appear ance. The pancreas and spleen are normal in appearance. The adrenal glands and kidneys are unremarkable. Abdominal aorta is normal in course and caliber without aneurysm. There is no free air. There is no r etroperitoneal adenopathy. Pelvis: There is a large midline ventral hernia containing portion of the transverse colon as well as small amount of fluid. The colon proximal to the hernia as well as the loops within the hernia are filled with stool with the distal colon relatively decompressed. This suggests at least an element of partial colonic obstruction. Urinary bladder is unremarkable. There is no free fluid. Uterus is normal in size. Appendix is normal. Skeleton: There are no acute osseous findings. No suspicious bony lesions. IMPRESSION: Large midline ventral hernia containing portion of the transverse colon with at least an element of p artial colonic obstruction. Electronically signed by: Amando Lynn MD 12/17/2024 06:19 AM CDT Due to temporary technical issues with the PACS/[employer] reporting system, reports are being katey d by the in-house radiologist without review as a courtesy to ensure prompt reporting the interpreting radiologist is fully responsible for the content of the report. Transcribed Date/Time: 12/17/2024 6:45 AM
[2024-12-17] MEDS ORDERED: ONDANSETRON 4 MG/2 ML VIAL IV PRN (06:57)
--- NOTE | 2024-12-17 07:09 | P.HP ---
Certification for Inpatient Patient admitted to: Inpatient With expected LOS: >2 Midnights Patient will require the following post-hospital care: None Practitioner: I am a practitioner with admitting privileges, knowledge of patient current condition, hospital course, and medical plan of care. Services: Services provided to patient in accordance with Admission requirements found in Title 42 Section 412.3 of the Code of Federal Regulations Patient History Date of Service: 12/17/24 Reason for admission: Large ventral hernia, colonic obstruction History of Present Illness: 44-year-old female with history of previous PE/DVT, chronic back pain presents to the Emergency Department with chief complaint of abdominal pain/abdominal distention. She was previously diagnosed with a ventral hernia in June and her pain has gotten worse over the last few days. She denies any recent nausea or vomiting last bowel movement was 2 to 3 days ago. Patient was evaluated here in the emergency department her labs are significant for initial lactate of 2.4 CT of the abdomen and pelvis with IV contrast was performed which demonstrated a large midline ventral hernia containing portion of the transverse colon with at least an element of partial colonic obstruction. ED physician reached out to general surgery on-call who will see the patient, patient will be admitted to the hospital service for further management. In regards to her history of DVT/PE she reports that around a year ago or so she was diagnosed with left lower extremity DVT and PE, she took Xarelto for greater than 3 months but she cannot be sure exactly how long she took it for and then stopped taking it. She has not had any follow-up in this regard but denies any swelling of the lower extremities, chest pain or shortness of breath. Allergies sulfamethoxazole [From Bactrim] Allergy (Unverified 05/24/15 20:28) Unknown trimethoprim [From Bactrim] Allergy (Unverified 05/24/15 20:28) Unknown Bactrim DS Allergy (Uncoded 10/01/14 05:53) Unknown - Past Medical/Surgical History -: Hep C -: Liver cirrhosis. -: History of DVT/PE -: x 4 Psychosocial/ Personal History: Lives at home with family - Family History Family History: Reviewed- Non-Contributory - Social History Alcohol use: Yes CD- Drugs: No Caffeine use: No Review of Systems 10-point ROS is otherwise unremarkable Gastrointestinal: Nausea, Abdominal Pain Physical Examination - Physical Exam General: Alert, In no apparent distress, Oriented x3 HEENT: Atraumatic, PERRLA Neck: Supple, 2+ carotid pulse no bruit, No LAD Respiratory: Clear to auscultation bilaterally, Normal air movement Cardiovascular: Regular rate/rhythm, Normal S1 S2 Gastrointestinal: Distended (With large ventral abdominal hernia), Tenderness (Moderate generalized abdominal tenderness) Musculoskeletal: No contractures Neurological: Normal speech, Normal affect - Studies Laboratory Data (last 24 hrs) 12/17/24 12/17/24 04:21 04:21 WBC 7.70 Hgb 13.6 Hct 40.9 Plt Count 162 Sodium 138 Potassium 3.9 BUN 7 Creatinine 1.15 H Glucose 158 H Total Bilirubin 0.2 AST 15 ALT 23 Alkaline Phosphatase 94 Lipase 26 Assessment and Plan - Plan Assessment: Large ventral hernia with colonic obstruction History of DVT/PE History of hepatitis C/cirrhosis of the liver Plan: Large ventral hernia with colonic obstruction N.p.o., IVF, IV antibiotics General Surgery consultation As needed pain medications and antiemetics Given 2 L of normal saline in the ED, continue IV fluids Initial lactate 2.4, will recheck Chest x-ray, EKG ordered for preoperative evaluation History of DVT/PE Reports history of DVT/PE Took Xarelto for greater than 3 months but unclear exactly how long for History of left lower extremity DVT with PE, will order ultrasound to evaluate Denies leg swelling, shortness of breath, chest pain History of hepatitis C/cirrhosis of the liver LFTs all within normal limits Monitor LFTs daily DVT PPX: SCD Code status:full code Discharge Plan: Home Plan to discharge in: Greater than 2 days - Advance Directives Does patient have a Living Will: No Does patient have a Durable POA for Healthcare: No - Code Status/Comfort Care Code Status Assessed: Yes (Full code) Critical Care: No Time Spent Managing Pts Care (In Minutes): 67
--- NOTE | 2024-12-17 07:52 | RAD REPORT ---
EXAM: Chest Single View HISTORY: 44 years Female pro op COMPARISON: 12/07/2024 FINDINGS: LUNGS/PLEURA: The lungs are clear. No pleural effusions or pneumothorax. No pulmonary edema. CARDIAC/MEDIASTINUM: The cardiac silhouette is within normal limits. UPPER ABDOMEN: No significant abnormality. BONES: No acute abnormality. LINES/TUBES/OTHER: N/A IMPRESSION: No evidence of acute cardiopulmonary disease.
[2024-12-17 08:11] LABS: Urine Microscopic Reflex YN NO UMIC
--- NOTE | 2024-12-17 08:47 | RAD REPORT ---
EXAMINATION: US LOWER EXTREMITY VENOUS DOPPLER BILATERAL CLINICAL INDICATION: Female, 44 years old.hx dvt, LLE. R/O DVT TECHNIQUE: Complete bilateral duplex sonography of the lower extremity veins was performed. The exami nation included compression for vein patency, color Doppler imaging and flow augmentation in response to distal compression of the distal external iliac, common femoral, femoral, popliteal, akin chela, tibial and great saphenous veins. [id number]. COMPARISON: No prior exams FINDINGS: Duplex sonography imaging demonstrates all deep examined to be fully compressible with spontaneous, p hasic and augmented flow bilaterally. IMPRESSION: No evidence of deep venous thrombosis seen in either lower extremity.
[2024-12-17] MEDS: HYDROMORPHONE HCL 1 MG/ML INJ IV PRN (09:12)
[2024-12-17] MEDS: D5 0.45 NS 1,000 ML IV SCH (09:12)
[2024-12-17 09:38] VITALS: BMI 36.8
[2024-12-17] MEDS: PIPER TAZO 3.375 GM in NA CHLORIDE 0.9% 100 ML IV SCH (12:32)
[2024-12-17] MEDS ORDERED: Ringers Lactate 0 ML IV ONE (14:45)
[2024-12-17] MEDS ORDERED: ROCURONIUM 50 MG/5 ML VIAL IV ONE (14:45)
[2024-12-17] MEDS ORDERED: LIDOCAINE 2% MPF 5 ML VIAL ONE (14:45)
[2024-12-17] MEDS ORDERED: FENTANYL CITR 100 MCG/2 ML ONE (14:46)
[2024-12-17] MEDS ORDERED: MIDAZOLAM HCL 2 MG/2 ML INJ ONE (14:46)
[2024-12-17] MEDS ORDERED: Ringers Lactate 1,000 ML IV ONE (15:27)
[2024-12-17] MEDS ORDERED: HYDROMORPHONE HCL 1 MG/ML INJ ONE (15:29)
[2024-12-17] MEDS ORDERED: EPHEDRINE SULF 50 MG/ML VIAL ONE (15:51)
[2024-12-17] MEDS: LIDOCAINE HCL/EPINEPHRINE 20 ML MDV ONE (16:03)
[2024-12-17] MEDS ORDERED: GLYCOPYRROLATE 0.2 MG/ML SYR ONE ×2 (16:30→16:50)
[2024-12-17] MEDS ORDERED: NEOSTIGMINE 1 MG/ML -10 ML VIAL ONE (16:50)
--- NOTE | 2024-12-17 16:55 | P.OP ---
Preoperative diagnosis: Incarcerated Ventral Hernia with Bowel Obstruction Postoperative diagnosis: Incarcerated Ventral Hernia with Bowel Obstruction Primary procedure: Laparoscopic Ventral Hernia Repair with mesh Anesthesia: GETA + Local Estimated blood loss: 10cc Specimen: None Findings: 10cm ventral hernia with small bowel and colon Complications: None Implants: 15cm x 20cm Ventite ST with Echo, 75 Sorbafix Tacks Transferred to: Recovery Room Condition: Good
[2024-12-17] MEDS: FENTANYL CITR 100 MCG/2 ML ONE (17:31)
--- NOTE | 2024-12-17 19:00 | CON ---
Date of Consultation: 12/17/2024 Brief History Of Present Illness: The patient is a 44-year-old woman known to me from previous, who has a previous history of DVT, PE, chronic back pain, who presents to emergency department with a kno wn abdominal ventral hernia in June. It got worse and progressively worse and her last bowel mov ement was 2-3 days ago. She has a history of hepatitis C and cirrhosis. She noted her abdominal jeniffer n got significantly worse over the course of the past few days and she has had decreased bowel functi on, nausea, and severe pain. As such, she came to the emergency room with the above-stated complaint s. Past Medical History: Hepatitis C, cirrhosis, DVT, PE. Allergies: TO BACTRIM/SULFA. Social History: She lives at home with her family. She drinks alcohol recreationally. Denies recre ational drug use. Review of Systems: Ten-point review of systems other than HPI, denies. Physical Examination: General: At the time of my examination, she is awake, alert, and oriented. Psychiatric: Appropriate. Conversive. HEENT: Normocephalic. Sclerae anicteric. Mucous membranes moist. Oropharynx clear. Neck: Supple without JVD. Chest: Normal expansion and excursion. Cardiovascular: Regular rate and rhythm. Pulmonary: Clear to auscultation bilaterally. Abdomen: Soft with a significant tenderness in the midline where an obvious incarcerated ventral her dell is evident. It is large, nonreducible at this time, tender to palpation. Extremities: No clubbing, cyanosis, or edema. Skin: Warm and dry. Laboratory Data: Revealed a white blood cell count of 7.7, hemoglobin is 13.6, hematocrit 40.6, plat elet count is 162. Sodium 138, potassium 3.9, chloride 108, carbon dioxide 26, BUN 7, creatinine 1.1 , and lactic acid was 2.4 on admission, now 1.1, 3 hours later, with appropriate hydration. Sodium 1 38, potassium 3.9, chloride 108, carbon dioxide is 26, BUN 7, creatinine is 1.15, total bilirubin 0.2 , AST 15, ALT 23, alkaline phosphatase is 94, lipase is 26. Urinalysis was essentially negative. Ne gative test. CT scan of the abdomen and pelvis officially read as large midline ventral he rnia containing portion of the transverse colon with least minimal element of partial colonic obstruc tion. She had an ultrasound, which showed no evidence of DVT in either lower extremity. Assessment And Plan: This is a 44-year-old woman who comes in with ventral incarcerated midline luci ia causing a bowel obstruction. 1. IV fluid hydration. 2. Antibiotic coverage. 3. I explained risks, benefits, and alternatives for exploratory laparoscopy, possible laparotomy inc luding but not limited to, bleeding, infection, damage to surrounding tissues, need for further opera tive procedures, blood clots, heart attack, strokes, other unforeseen complications, trouble with mes h and implant devices, anesthesia and yuliet-anesthesia related complications, other unforeseen complic ations in the perioperative period. Patient displayed understanding of the above-stated plan. All q uestions were answered. The patient. 4. agrees to proceed as indicated. CARLOS/CRISTOBAL Voice ID: [id number] Report ID: [id number]
[2024-12-17 22:40] VITALS: O2SAT 92
--- NOTE | 2024-12-17 22:54 | OP ---
Date of Procedure: 12/17/2024 Surgeon: Hunter Lundberg MD, Preoperative Diagnosis: Incarcerated ventral hernia repair with bowel obstruction. Postoperative Diagnosis: Incarcerated ventral hernia repair with bowel obstruction. Procedure Performed: Laparoscopic ventral hernia repair with mesh. Anesthesia: General endotracheal plus local with 1% lidocaine with epinephrine. Estimated Blood Loss: Less than 10 cc. Specimen: None. Findings: 1. Obviously cirrhotic liver grossly noted with significant nodular appearance. 2. Ventral hernia with incarcerated small bowel and colon approximately 10 cm hernia defect. Complications: None. Implants: Bard Ventralight ST mesh with Echo Positioning System, 15 cm x 20 cm Ventralight mesh, uti lized SorbaFix absorbable fixation tacks x75. Disposition: The patient was transferred to recovery room in good condition. Procedure In Detail: After informed consent was obtained, patient was brought to the operating room, prepped and draped in the usual sterile fashion after adequate anesthesia was achieved. I anestheti zed an area at the left upper quadrant down to subcutaneous tissues. A 5-mm 0-degree optical trocar was introduced without incident or complication. Insufflation was obtained to 15 mmHg, at this time. There was no injury to vital structures upon entry into the abdomen. Additional trocar was placed in the left mid abdomen. This was similarly anesthetized, sharply incised, and 12 mm trocar was plac ed under direct vision without incident or complication. I proceeded to reduce the colon and small b owel from an incarcerated ventral supraumbilical midline hernia, ultimately reducing it with predomin antly gentle traction and LigaSure device to take down adhesions. After the abdominal contents retur patricia to the normal anatomic position, I incised the hernia mesh at this point. I closed the hernia de fect using 0 V-Loc suture with an Endo stitch to close the hernia defect with imbricating the hernia sac at the same time with several running sutures utilized. At this point, I deployed a 20 x [address] mesh with Echo Positioning System through the central portion of the defect after appropriately anesthetizing the skin. The balloon deployment system was utilized to deploy the mesh. At this point, I secured the mesh to the anterior abdominal wall using a single crown SorbaFix abso rbable fixation tacks. The balloon deployment system was then removed, found to be intact on the [facility] k table. I then secured the mesh with a total of 75 SorbaFix absorbable fixation tacks to the abdomi nal wall with good approximation of the tissues. At this point, no hemostatic maneuvers were require d. The abdomen was checked under desufflation pressure and no additional maneuvers were required. A t this point, I closed the 12 mm trocar site using a Drew suture passer with an 0 Vicryl i n an interrupted fashion with good approximation of tissues. The abdomen was then desufflated under direct vision without incident or complication. I then irrigated all skin incisions and closed all s kin incisions with 4-0 Monocryl in a running fashion. Dermabond was placed over top. The patient to lerated the procedure without incident or complication, transferred to PACU in good condition. All c ounts were correct at the end of the case. CARLOS/CRISTOBAL Voice ID: [id number] Report ID: [id number]
[2024-12-18 05:22] LABS: Absolute Lymphocytes (CBC) 0.5 K/uL (0.7-4.9); Hematocrit 36.9 % (36.0-45.0); Hemoglobin 12.6 g/dL (12.0-15.0); MCH 29.3 pg (27.0-35.0); MCHC 34.0 g/dL (32.0-36.0); MCV 86.1 fL (80-100); MPV 10.3 fL (7.6-11.3); Nucleated RBC Absolute Count 0.0 (0-0); Nucleated Red Blood Cells % 0.0 % (0-0); RBC Red Blood Cell Count 4.29 M/uL (3.86-4.86); White Blood Count 8.40 thou/uL (4.3-10.9)
[2024-12-18 05:38] LABS: ALT/SGPT 19.0 U/L (13-56); AST/SGOT 18.0 U/L (15-37); Albumin 3.0 g/dL (3.4-5.0); Albumin/Globulin Ratio 0.9 (1.1-1.8); Alkaline Phosphatase 65.0 U/L (45-117); Anion Gap 9.3 mEq/L (5.0-15.0); BUN Blood Urea Nitrogen 6.0 mg/dL (7-18); Globulin 3.3 g/dL (2.3-3.5); Glucose Level 168.0 mg/dL (74-106); Potassium 4.3 mEq/L (3.5-5.1)
[2024-12-18 05:44] LABS: Differential Total Cells Count 100; Segmented Neutrophils 80 % (40-80)
[2024-12-18 05:45] LABS: Blood Morphology Comment NOT SEEN (NOT SEEN)
--- NOTE | 2024-12-18 20:56 | P.PN ---
Date of Service: 12/18/24 Subjective appears uncomfortable No new complaints ROS 10 point ROS as noted above, otherwise negative Physical Exam General: Alert and oriented x3, NAD, afebrile HEENT: Atraumatic, PERRLA Neck: Supple Respiratory: Nonlabored breathing, on normal air movement Cardiovascular: RRR, Normal S1 S2 Gastrointestinal: Distended (With large ventral abdominal hernia), Tenderness (Moderate generalized abdominal tenderness) Musculoskeletal: No contractures Neurological: Normal speech, Normal affect Vitals Reviewed Assessment: Large ventral hernia with colonic obstruction History of DVT/PE History of hepatitis C/cirrhosis of the liver Plan: Large ventral hernia with colonic obstruction Cleared for diet, D5 0.45 NS, continue Zosyn General Surgery consultation, status post surgery As needed pain medications and antiemetics Given 2 L of normal saline in the ED, continue IV fluids Initial lactate 2.4, cleared Chest x-ray, EKG ordered for preoperative evaluation History of DVT/PE Reports history of DVT/PE Took Xarelto for greater than 3 months but unclear exactly how long for History of left lower extremity DVT with PE, will order ultrasound to evaluate Denies leg swelling, shortness of breath, chest pain History of hepatitis C/cirrhosis of the liver LFTs all within normal limits Monitor LFTs daily DVT PPX: SCD Code status:full code Discharge Plan: Home Plan to discharge in: Greater than 2 days Time Spent Managing Pts Care (In Minutes): 35
--- NOTE | 2024-12-19 12:46 | RAD REPORT ---
EXAM: AP view(s) of the abdomen Abdomen 1 View (KUB) HISTORY: Abd pain COMPARISON: None FINDINGS: Large stool burden in the ascending and transverse colon. Mildly dilated loops of small bowel centra lly and in the left hemiabdomen.. No suspicious calcifications are seen. No acute osseous abnormality. Other: n/a IMPRESSION: Mildly dilated loops of small bowel in the central and left hemiabdomen could reflect an ileus or early bowel obstruction.
--- NOTE | 2024-12-19 20:36 | P.PN ---
Date of Service: 12/19/24 Subjective Continues to feel uncomfortable Afebrile ROS 10 point ROS as noted above, otherwise negative Physical Exam General: AAO x3, NAD, afebrile HEENT: Atraumatic, PERRLA Respiratory: Nonlabored breathing, on normal air movement Cardiovascular: NSR, Normal S1 S2 Gastrointestinal: Distended (With large ventral abdominal hernia), Tenderness (Moderate generalized abdominal tenderness) Musculoskeletal: No contractures Neurological: Normal speech, Normal affect Vitals Reviewed Assessment: Large ventral hernia with colonic obstruction History of DVT/PE History of hepatitis C/cirrhosis of the liver Plan: Large ventral hernia with colonic obstruction Cleared for diet, D5 0.45 NS, continue Zosyn General Surgery consultation, status post surgery As needed pain medications and antiemetics Given 2 L of normal saline in the ED, continue IV fluids Initial lactate 2.4, cleared Chest x-ray, EKG ordered for preoperative evaluation History of DVT/PE Reports history of DVT/PE Took Xarelto for greater than 3 months but unclear exactly how long for History of left lower extremity DVT with PE, will order ultrasound to evaluate Denies leg swelling, shortness of breath, chest pain History of hepatitis C/cirrhosis of the liver LFTs all within normal limits Monitor LFTs daily DVT PPX: SCD Code status:full code Discharge Plan: Home Plan to discharge in: Greater than 2 days Time Spent Managing Pts Care (In Minutes): 36
[2024-12-20 07:28] LABS: Absolute Lymphocytes (CBC) 1.1 K/uL (0.7-4.9); Hematocrit 36.5 % (36.0-45.0); Hemoglobin 12.4 g/dL (12.0-15.0); MCH 29.0 pg (27.0-35.0); MCHC 33.9 g/dL (32.0-36.0); MCV 85.6 fL (80-100); MPV 9.3 fL (7.6-11.3); Nucleated RBC Absolute Count 0.0 (0-0); Nucleated Red Blood Cells % 0.1 % (0-0); RBC Red Blood Cell Count 4.27 M/uL (3.86-4.86); White Blood Count 5.60 thou/uL (4.3-10.9)
[2024-12-20 07:48] LABS: ALT/SGPT 17.0 U/L (13-56); AST/SGOT 14.0 U/L (15-37); Albumin 2.7 g/dL (3.4-5.0); Albumin/Globulin Ratio 0.8 (1.1-1.8); Alkaline Phosphatase 64.0 U/L (45-117); Anion Gap 7.8 mEq/L (5.0-15.0); BUN Blood Urea Nitrogen 4.0 mg/dL (7-18); Globulin 3.4 g/dL (2.3-3.5); Glucose Level 92.0 mg/dL (74-106); Potassium 3.8 mEq/L (3.5-5.1)
[2024-12-20 14:02] VITALS: BP 132/89; TEMP 98.1
== END 2024-12-20 16:08 | disposition home or self-care (01) | DRG 354 ==
LOC: ER 03:52 → ERHOLD 06:57 → 4TH 08:19
PROVIDERS: ADMIT Hospitalist; ATTEND Hospitalist
PROC: 0WUF4JZ Supplement Abdominal Wall with Synthetic Substitute, Percutaneous Endoscopic Approach (ICD-10-PCS; principal; 2024-12-17 15:30)
DX: K43.6 Other and unspecified ventral hernia with obstruction, without gangrene (principal); E87.20 Acidosis, unspecified; K74.60 Unspecified cirrhosis of liver; F17.210 Nicotine dependence, cigarettes, uncomplicated; Z88.1 Allergy status to other antibiotic agents; Z79.01 Long term (current) use of anticoagulants; Z86.711 Personal history of pulmonary embolism; Z86.718 Personal history of other venous thrombosis and embolism
CPT/HCPCS: 36415; 71045; 74018; 74177; 80053; 81003; 81025; 83605; 83690; 85025; 93005; 93970; 96361; 96365; 96375; 99285; J1100; J1171; J2003; J2250; J2405; J2543; J2704; J2710; J3010; J7030; J7120; J7799; Q9967

== ENCOUNTER 2024-12-23 22:19 | Inpatient (IN) | payer OTHER ==
--- OUTSIDE RECORDS SUMMARY | 2024-12-23 22:23 | XMS REPORT | Continuity of Care Document ---
Author Name Unknown Address [address] [facility] [place] [address] [facility] Address [address] [facility] [address] [place] [address] Care Team Providers Care Financial Health Counselor Name Role Phone Unknown Primary Care Physician Unavailab TOY Grace Attending Clinician Unavaila DILEEP Del Toro Attending Clinician Unavailable MD MELISSA Attending Clinician Unavailab AUGUST Stoner Attending Clinician Unavailable YARELY ABRAHAM Attending Clinician Unavailable ANN-MARIE AMBROSE Attending Clinician Unavailable BERTO QURESHI Attending Clinician UnavailKevin Fischer Attending Clinician Unavailable Maribel Case CNM Attending Clinician [phone] CA QURESHI Attending Clinician Unavailab CA Santana Attending Clinician Unavailab Ca Santana DO Attending Clinician [phone] JOSE MARTIN BOLTON Attending Clinician UnavailJOSHUA Hogue [...] Sergei Melgar Attending Clinician Unavailable Doctor Unassigned, [place] Attending Clinician U navailAGGIE Guy Attending Clinician Unavailable Physician, No Primary or Family Admitting Clinic eliu Unavailable CA QURESHI Admitting Clinician Unavailab Sergei Trevino Admitting Clinician Unavailable AGGIE OTTO Admitting Clinician Unavailable Payers Payer Name Policy Type Policy Number Effective Date Expirati on Date Source [facility] ADVANCED 9 [id number] 2024 00:00:00 COMMERCIAL NON-CONTRACT GENERIC [id number] 2021 00:00:00 [facility] VEENA BURROWS COPAY FOCUS 9 [id number] 2023 00:00:00 Problems Condition Name Condition Details [...] 30-39.9) Disease Active 2021-05 2-13 00:00: [facility] Hernia of abdominal wall Hernia of abdominal wall Disease Active 2021-05 2-12 00:00: 00 [facility] Screen for STD (sexually transmitte d disease) Screen for STD (sexually transmitte d disease) Disease Active 06-23 00:00: 00 [facility] Tobacco use disorder Tobacco use disorder Disease Active 06-23 00:00: 00 [facility] History of anxiety History of anxiety Disease Active 06-23 00:00: 00 [facility] History of depression History of depression Disease Active 06-23 00:00: 00 [facility] Liver cirrhosis Liver cirrhosis Disease Active 06-23 00:00: 00 [facility] Allergies, Adverse Reactions, Alerts Allergy Name Allergy Type Status Severity Reaction(s) Onset Date Inactive Date Treating Clinician Comments Source sulfamet hoxazole DA Active MO "BLEACH WHITEHEAD" 07-07 00:00: 00 [facility] trimetho prim DA Active MO "BLEACH WHITEHEAD" 07-07 00:00: 00 [facility] Sulfamet hoxazole W-Trimet hoprim Propensi ty to adverse reaction s Active Other 10-25 00:00: 00 [facility] Michelle Richardson Externa l SULFA (SULFONA MIDE ANTIBIOT ICS) Drug Class Active Rash 2014-05 00:00: 00 [facility] Sulfa Drugs Propensi ty to adverse reaction s Active Rash 2014-05 00:00: 00 Michelle Mereditha l Social History Social Habit Start Date Stop Date Quantity Comments Source History SDOH Social Connections Phone [facility] History SDOH Social Connections Get Together [facility] History SDOH Social Connections [facility] History SDOH Social Connections Membership [facility] History SDOH Social Connections Meetings [facility] Sexual orientation [facility] Gender identity Carleen Goldberg - [...] intake 2024-05-13 00:00:00 2024-05-13 00:00:00 0 /d [facility] History of Social function 2024-05-13 00:00:00 2024-05-13 00:00:00 [facility] Alcohol intake 2023-03-04 00:00:00 2023-03-04 00:00:00 Ex-drinker (finding) Michelle Goldberg - External Education 2022-11-01 00:00:00 2022-11-01 00:00:00 8 Michelle Goldberg - External Sex 2022-07-28 21:32:02 2022-07-28 21:32:02 Female (finding) Michelle Goldberg - External History SDOH Alcohol Frequency 2022-04-13 00:00:00 2022-04-13 00:00:00 1 [facility] History SDOH Alcohol Std Drinks 2022-04-13 00:00:00 2022-04-13 00:00:00 0 [facility] History SDOH Alcohol Binge 2022-04-13 00:00:00 2022-04-13 00:00:00 1 [facility] History SDOH Social Connections Living 2022-04-13 00:00:00 2022-04-13 00:00:00 3 [facility] Exposure to SARS-CoV-2 (event) 2022-04-02 00:00:00 2022-04-12 20:35:00 Not sure [facility] Sex assigned at 1980 00:00:00 1980 00:00:00 F Michelle Goldberg - External Smoking Status Start Date Stop Date Source Tobacco smoking consumption unknown [facility] Smokes tobacco daily 2024-07-26 00:00:00 Michelle Richardson External Heavy tobacco smoker 2022-04-13 00:00:00 [facility] Medications Ordered Medication Name Filled Medication Name Start Date Stop Date Current Medication? Ordering Clinician Indication Dosage Frequency Signature (SIG) Comments Components Source Fluticasone -Salmeterol (Advair Diskus) 250-50 MCG/ACT inhalation AEROSOL POWDER, BREATH ACTIVATED 08-29 00:00: 00 Yes [id number] 1{puff} Q.5D Inhale 1 puff into the lungs 2 times daily. Michelle waddell Benzonatate 100 MG oral Capsule 08-29 00:00: 00 Yes [id number] 100mg Q.[id number] 3D Take 1 capsule (100 mg total) by mouth 3 times daily as needed for cough. Michelle waddell Metronidazo le (Flagyl) 500 MG oral Tablet 08-12 00:00: 00 08-29 00:00 :00 No [id number] 500mg Q.5D Take 1 tablet (500 mg total) by mouth 2 times daily. Michelle waddell Gabapentin 300 MG oral Capsule 07-30 00:00: 00 Yes [id number] 300mg Q.80239042 [id number] 3D Take 1 capsule (300 mg total) by mouth 3 times daily. Michelle waddell Cyclobenzap rine HCl 10 MG oral Tablet 07-30 00:00: 00 Yes [id number] 10mg Q.82187684 [id number] 3D Take 1 tablet (10 mg total) by mouth every 8 hours as needed for muscle spasms. Michelle waddell Naproxen 500 MG oral Tablet 07-30 00:00: 00 Yes [id number] 500mg Q.5D Take 1 tablet (500 mg total) by mouth 2 times daily as needed. Michelle waddell ondansetron (ZOFRAN (PF)) injection 4 mg 05-14 06:00: 00 05-14 06:04 :00 No 4mg 4 mg, Slow IV Push, ONCE, 1 dose, On Tue05/14/24 at 0000, Administer over 2-5 Minutes, 2 mL [facility] morpHINE (4 mg/mL) injection 4 mg 05-14 06:00: 00 05-14 06:01 :00 No 4mg 4 mg, Slow IV Push, ONCE, 1 dose, On Tue05/14/24 at 0000, [facility] dicyclomine (BENTYL) tablet 20 mg 05-14 04:45: 00 05-14 04:47 :00 No 20mg 20 mg, Oral, ONCE, 1 dose, On Tue05/13/24 at 2245, [facility] iopamidol (ISOVUE 370-500 mL) injection 100 mL 05-14 04:00: 00 05-14 04:00 :00 No [id number] 100mL 100 mL, Intravenou s, ONCE, 1 dose, On Tue05/13/24 at 2200, [facility] magnesium sulfate in water 2 gram/50 mL (4 %) infusion 2 g 05-14 03:30: 00 05-14 03:44 :00 No 2g 2 g, IV Piggyback, Administer over 60 Minutes, ONCE, 1 dose, On Tue05/13/24 at 2130, [facility] alum-mag hydroxide-s imeth (MAG-AL PLUS) 200-200-20 mg/5 mL suspension 30 mL 05-14 01:15: 00 05-14 02:14 :00 No 30mL 30 mL, Oral, ONCE, 1 dose, On Tue05/13/24 at 1915, [facility] famotidine (PEPCID (PF)) injection 20 mg 05-14 01:15: 00 05-14 02:14 :00 No 20mg 20 mg, Slow IV Push, ONCE, 1 dose, On Tue05/13/24 at 1915, [facility] Clindamycin HCl 300 MG oral Capsule 11-10 00:00: 00 11-16 04:59 :00 No [id number] 300mg Q.64371193 [id number] 3D Take 1 capsule (300 mg total) by mouth 3 times daily for 5 days. Michelle waddell Rivaroxaban 20 MG oral Tablet 06-16 00:00: 00 08-29 00:00 :00 No [id number] 20mg QD Take 1 tablet (20 mg total) by mouth daily " See pcp for further followup". Michelle waddell Doxycycline Hyclate 100 MG oral Tablet 06-16 00:00: 00 07-26 00:00 :00 No [id number] 100mg Q.5D Take 1 tablet (100 mg total) by mouth 2 times daily. Michelle waddell Benzonatate 200 MG oral Capsule 06-16 00:00: 00 07-26 00:00 :00 No [id number] 200mg Q.[id number] 3D Take 1 capsule (200 mg total) by mouth 3 times daily as needed for cough. Michelle waddell Amoxicillin 875 MG oral Tablet 06-03 00:00: 00 06-11 05:59 :00 No [id number] 875mg Take 1 tablet (875 mg total) by mouth 2 times daily for 7 days. Michelle waddell Gabapentin 300 MG oral Capsule 2022-05 00:00: 00 06-16 00:00 :00 No [id number] 07 300mg Q.5D Take 1 capsule (300 mg total) by mouth 2 times daily as needed. Michelle waddell Econazole Nitrate 1 % apply externally Cream 2022-05 00:00: 00 04-13 05:59 :00 No [id number] Apply 1 applicatio n. topically daily. Michelle waddell Duloxetine HCl [address] Particles 2022-05 00:00: 00 08-29 00:00 :00 No [id number] 20mg QD Take 1 capsule (20 mg total) by mouth daily. Michelle waddell Oxybutynin Chloride 5 MG oral TABLET SR 24 HR 2022-05 00:00: 00 06-16 00:00 :00 No [id number] 5mg Take 1 tablet (5 mg total) by mouth nightly. Michelle waddell Harvoni 90-400 MG oral Tablet 2022-05 1- 00:00: 00 08-29 00:00 :00 No [id number] 1{tbl} QD Take 1 tablet by mouth daily. Michelle waddell Rivaroxaban 20 MG oral Tablet 2022-05 0-06 00:00: 00 06-16 00:00 :00 No [id number] 20mg Take 1 tablet (20 mg total) [...] 12-24 20:30: 00 12-24 22:02 :00 No [id number] 975mg 975 mg, at 500 mL/hr, Administer [...] infusion 12-24 19:45: 12-24 19:48 :00 No [id number] 25mg 25 mg, at 300 mL/hr, Administer [...] 12-24 19:15: 00 12-24 19:02 :00 No [id number] 125mg 125 mg, intravenou s push, ONCE, [...] MG oral Capsule 12-03 00:00: 00 Yes [id number] 07 300mg Q.5D Take 1 capsule (300 mg total) by mouth 2 times daily as needed Michelle waddell Sennosides- Docusate Sodium (Senokot S) 8.6-50 MG oral Tablet 12-03 00:00: 00 07-26 00:00 :00 No [id number] 1{tbl} QD Take 1 tablet by mouth daily Michelle waddell Ferrous Sulfate (Iron) 325 (65 Fe) MG oral Tablet 12-03 00:00: 00 06-16 00:00 :00 No [id number] 325mg Take 1 tablet (325 mg total) by mouth daily (with breakfast) Michelle waddell Rivaroxaban 20 MG oral Tablet 11-25 15:28: 07 Yes 20mg Take 1 tablet (20 mg total) by mouth daily Michelle waddell Albuterol HFA 108 (90 Base) MCG/ACT IN AERS 11-25 00:00: 00 Yes [id number] 2{puff} Q.25D Inhale 2 puffs into the lungs every 6 hours as needed for wheezing or shortness of breath Michelle waddell Rivaroxaban 20 MG oral Tablet 11-01 11:22: 16 Yes 20mg Take 1 tablet (20 mg total) by mouth daily Michelle waddell Gabapentin 100 MG oral Capsule 11-01 00:00: 00 12-03 00:00 :00 No [id number] 07 100mg Q.5D Take 1 capsule (100 mg total) by mouth 2 times daily as needed Michelle waddell D5W 0.45% NaCl (1/2NS) 1 L + KCL 20 mEq 2021-05 15:00: 00 Yes IV Infusion, at 50 mL/hr, CONTINUOUS , Starting on Tue04/13/22 at 0900, Until Discontinu ed, [facility] enoxaparin (LOVENOX) injection 40 mg 2021-05 15:00: 00 Yes 40mg 40 mg, Subcutaneo us, DAILY, First dose on Tue04/13/22 at 0900, Until Discontinu ed, [facility] pantoprazol e (PROTONIX) injection 40 mg 2021-05 04:00: 00 04-16 03:44 :00 No 40mg 40 mg, Slow IV Push, Q24H, 3 doses, First dose on Tue04/12/22 at 2200, Last dose on Tue04/14/22 at 2200 [facility] D5W 0.45% NaCl (1/2NS) 1 L + KCL 20 mEq 2021-05 04:00: 00 04-13 14:56 :36 No IV Infusion, at 100 mL/hr, CONTINUOUS , Starting on Tue04/12/22 at 2200, Until Tue04/13/22 at 0856, Rout[facility] morpHINE (4 mg/mL) injection 2 mg 2021-05 03:44: 13 04-13 14:31 :47 No 2mg 2 mg, Slow IV Push, Q4HPRN, Starting on Tue04/12/22 at 2144, Until Tu04/13/22 at 0831, Routine, Pain (scale 7-10) [facility] ondansetron (ZOFRAN (PF)) injection 4 mg 2021-05 03:44: 10 Yes 4mg 4 mg, Slow IV Push, Q6HPRN, Starting on Tue04/12/22 at 2144, Until Discontinu ed, Routine, Nausea and Vomiting (N/V) [facility] No known medications 2021-05 21:23: 59 No No known medication s [facility] nystatin 100,000 unit/mL suspension 07-20 00:00: 00 04-13 00:00 :00 No [id number] U Take 10 mL by mouth every 8 (eight) hours. [facility] predniSONE 10 mg tablet 07-20 00:00: 00 04-13 00:00 :00 No 10mg Take 1 tablet by mouth daily. [facility] traMADOL (ULTRAM) 50 mg tablet 2015-05 00:00: 00 04-13 00:00 :00 No 50mg Take 1 tablet by mouth every 6 (six) hours as needed for Pain (scale 4-6). Kenroy Peñaloza PA-C / Lito Mccoy MD JASPREET# [id number] DPS# [id number] x Lic.# [id number] NPI# [id number] [facility] Immunizations Ordered Immunization Name Filled [...] External Body temperature 2024-05-14 06:32:00 36.44 [facility] Respiratory rate 2024-05-14 06:32:00 14 /min [facility] Systolic blood pressure 2024-05-14 05:00:00 130 mm[Hg] [facility] Diastolic blood pressure 2024-05-14 05:00:00 80 mm[Hg] [facility] Heart rate 2024-05-14 05:00:00 109 /min [facility] Oxygen saturation in Arterial blood by Pulse oximetry 2024-05-14 04:00:00 91 /min [facility] Body height 2024-05-14 00:57:00 170.2 cm [facility] Body weight 2024-05-14 00:57:00 113.399 kg [facility] BMI 2024-05-14 00:57:00 39.16 kg/m2 [facility] Heart rate 2023-03-04 21:41:00 88 /min [...] Systolic blood pressure 2022-04-13 17:16:00 132 mm[Hg] [facility] Diastolic blood pressure 2022-04-13 17:16:00 82 mm[Hg] [facility] Heart rate 2022-04-13 17:16:00 107 /min [facility] Body temperature 2022-04-13 17:16:00 36.56 [facility] Oxygen saturation in Arterial blood by Pulse oximetry 2022-04-13 17:16:00 95 /min [facility] Respiratory rate 2022-04-13 10:55:00 16 /min [facility] Body height 2022-04-13 06:58:00 170.2 cm [facility] Body weight 2022-04-13 02:38:00 114.306 kg [facility] BMI 2022-04-13 02:38:00 39.47 kg/m2 [facility] Procedures Procedure Date / Time Performed Performing Clinician Source CT ABDOMEN PELVIS W CONTRAST 2024-05-14 03:00:52 Ca Qureshi [facility] POCT TEST 2024-05-14 02:28:00 Brittny Qureshi ra [facility] LIPASE 2024-05-14 01:50:00 [facility] 2024-05-14 01:50:00 Ca Qureshi [facility] COMP. METABOLIC PANEL ([id number]) 2024-05-14 01:50:00 Ca Qureshi [facility] CBC WITH DIFF 2024-05-14 01:50:00 [facility] 2022-11-25 21:49:24 Steven Juárez ybezekiel - External EXTERNAL PROVIDER RECORDS 2022-04-28 06:01:00 Doctor Unassigned, [place] [facility] PROTHROMBIN TIME / INR 2022-04-13 06:46:00 Adrian Rodriguez [facility] HEPATIC FUNCTION PANEL ([id number]) (ALB,T.PRO,BILI T,BU/BC,ALT,AST,ALK PHOS) 2022-04-13 06:46:00 Leoncio Rodriguez [facility] BASIC METABOLIC PANEL (NA, K, CL, CO2, GLUCOSE, BUN, CREATININE, CA) 2022-04-13 06:46:00 Leoncio Rodriguez [facility] CBC WITH DIFF 2022-04-13 06:45:00 [facility] ABDOMEN PELVIS W CONTRAST 2022-04-13 03:15:01 Magdaleno Denise [facility] US BREAST 2011-05-12 16:11:00 Maribel Lind [facility] BI DIAGNOSTIC MAMMOGRAM BILATERAL 2011-05-10 21:48:00 Maribel Lind [facility] Encounters Start Date/Time End Date/Time Encounter Type Admission Type Attending Clinicians Care Facility Care Department Encounter ID Source 2024-11-01 15:45:00 2024-11-01 15:45:00 Outpatient TOY ANGELES [id number] [facility] 2024-10-22 14:45:00 2024-10-22 14:45:00 Outpatient DILEEP DALEY [id number] [facility] 2024-10-03 00:00:00 2024-10-03 00:00:00 Outpatient MD MICHELLE CONWAY [id number] [facility] 2024-10-01 00:00:00 2024-10-01 00:00:00 Outpatient TOY ANGELES [id number] [facility] 2024-09-27 00:00:00 2024-09-27 00:00:00 Outpatient AUGUST CRUZ [id number] [facility] 2024-09-14 14:15:00 2024-09-14 14:15:00 Outpatient BRIDGETTE AMIRHOSSEIN MICHELLE CABRAL [id number] [facility] 2024-09-12 08:30:00 2024-09-12 08:30:00 Outpatient YARELY ABRAHAM MICHELLE CABRAL [id number] [facility] 2024-09-05 14:45:00 2024-09-05 14:45:00 Outpatient BRIDGETTE AMIRHOSSEIN MICHELLE CABRAL [id number] [facility] 2024-09-03 14:30:00 2024-09-03 14:30:00 Outpatient PRESHAINA, ANN-MARIE MICHELLE CABRAL [id number] [facility] 2024-08-29 13:30:00 2024-08-29 13:30:00 Outpatient AUGUST CRUZ MICHELLE CABRAL [id number] [facility] 2024-08-29 00:00:00 2024-08-29 00:00:00 Outpatient MICHELLE CABRAL [id number] [facility] 2024-08-27 00:00:00 2024-08-27 00:00:00 Outpatient PREWILLIAMSANN-MARIE MICHELLE CABRAL [id number] [facility] 2024-08-20 15:30:00 2024-08-20 15:30:00 Outpatient BRIDGETTE AMIRHOSSEIN MICHELLE CABRAL [id number] [facility] 2024-08-11 00:00:00 2024-08-11 00:00:00 Outpatient BRIDGETTE AMIRHOSSEIN [facility] [id number] [facility] 2024-08-02 14:00:00 2024-08-02 14:00:00 Outpatient MICHELLE CABRAL [id number] [facility] 2024-08-02 09:20:00 2024-08-02 09:20:00 Outpatient MICHELLE CABRAL [id number] [facility] 2024-08-01 15:15:00 2024-08-01 15:15:00 Outpatient HEIDYGary AMIRHOSSEIN MICHELLE CABRAL [id number] [facility] 2024-07-31 00:00:00 2024-07-31 00:00:00 Outpatient TOY ANGELES [id number] [facility] 2024-07-30 00:00:00 2024-07-30 00:00:00 Outpatient MD MICHELLE CONWAY [id number] [facility] 2024-07-30 00:00:00 2024-07-30 00:00:00 Outpatient BERTO QURESHI [id number] [facility] 2024-07-30 00:00:00 2024-07-30 00:00:00 Outpatient TOY ANGELES [id number] [facility] 2024-07-26 10:30:00 2024-07-26 10:30:00 Outpatient TOY ANGELES [id number] [facility] 2024-07-16 15:30:00 2024-07-16 15:30:00 Outpatient TOY ANGELES [id number] [facility] 2024-07-07 06:53:00 2024-07-07 10:40:00 Emergency EM Kevin Troncoso HCACL KRYSTINA [id number] 17 [facility] 2024-06-27 15:30:00 2024-06-27 15:30:00 Outpatient TOY ANGELES [id number] [facility] 2024-06-20 16:30:00 2024-06-20 16:30:00 Outpatient ANN-MARIE AMBROSE [id number] [facility] 2024-06-20 11:15:00 2024-06-20 11:15:00 Outpatient ANN-MARIE AMBROSE [id number] [facility] 2011-05-10 00:00:00 2024-06-16 05:43:08 Orders Maribel Parks [facility]ER[facility]ILD [facility] [id number] [facility] 2011-05-12 00:00:00 2024-06-16 05:42:38 Orders Only Maribel Lind [facility] [id number] [facility] 2024-05-13 18:51:00 2024-05-14 00:35:00 Emergency X CA QURESHI SANDRA [facility] ERT [id number] [facility] 2024-05-13 18:51:00 2024-05-14 00:35:00 Emergency Ca Qureshi [facility] [id number] [facility] 2023-11-11 15:00:00 2023-11-11 15:00:00 Outpatient JOSE MARTIN BOLTON [id number] [facility] 2023-08-17 15:45:00 2023-08-17 15:45:00 Outpatient ANN-MARIE AMBROSE [id number] [facility] 2023-08-09 08:30:00 2023-08-09 08:30:00 Outpatient JOSHUA LUCIA [id number] [facility] 2023-07-27 13:45:00 2023-07-27 13:45:00 Outpatient ENIO GOLDMAN [id number] [facility] 2023-07-07 15:30:00 2023-07-07 15:30:00 Outpatient ENIO GOLDMAN [id number] Michelle Goldberg 2023-07-07 00:00:00 2023-07-07 00:00:00 Outpatient MD MICHELLE CONWAY [id number] [facility] 2023-06-29 15:30:00 2023-06-29 15:30:00 Outpatient ENIO GOLDMAN [id number] Michelle Seybold 2023-06-25 11:40:00 2023-06-25 11:40:00 Outpatient KEVIN MICHELLE CABRAL [id number] Michelle Seybold 2023-06-16 14:30:00 2023-06-16 14:30:00 Outpatient MIKE RODRIGUEZ MICHELLE CABRAL [id number] Michelle [facility] 2023-06-16 14:00:00 2023-06-16 14:00:00 Outpatient MICHELLE CABRAL [id number] Michelle Seybold 2023-06-03 22:55:00 2023-06-03 22:55:00 Outpatient ALEXUS ARZATE MICHELLE CABRAL [id number] Michelle Seybold 2023-06-03 22:05:00 2023-06-03 22:05:00 Outpatient PRERNA BEATRIZ MICHELLE CABRAL [id number] Michelle Seybold 2023-05-25 15:00:00 2023-05-25 15:00:00 Outpatient ENIO GOLDMAN [id number] Michelle Seybold 2023-05-18 15:00:00 2023-05-18 15:00:00 Outpatient ENIO GOLDMAN [id number] Michelle Seybold 2023-05-18 14:00:00 2023-05-18 14:00:00 Outpatient CASEY GOLDMANER MICHELLE CABRAL [id number] Michelle Seybold 2023-05-18 10:45:00 2023-05-18 10:45:00 Outpatient ENIO GOLDMAN [id number] Michelle Seybold 2023-05-15 00:00:00 2023-05-15 00:00:00 Outpatient ANN-MARIE AMBROSE [id number] Michelle Seybold 2023-05-12 15:15:00 2023-05-12 15:15:00 Outpatient EDDIE CHRISTIANSEN [id number] Michelle Seybold 2023-05-03 00:00:00 2023-05-03 00:00:00 Outpatient SEVERIANO LAYNE [id number] Michelle Seybold 2023-04-18 15:00:00 2023-04-18 15:00:00 Outpatient ENIO GOLDMAN MICHELLE CABRAL [id number] [facility] 2023-04-08 14:30:00 2023-04-08 14:30:00 Outpatient LUIS JETER MICHELLE CABRAL [id number] [facility] 2023-04-01 15:00:00 2023-04-01 15:00:00 Outpatient VIJISHAINAANN-MARIE MICHELLE CABRAL [id number] [facility] 2023-03-23 14:00:00 2023-03-23 14:00:00 Outpatient ELIAEMABOAZ MICHELLE CABRAL [id number] [facility] 2023-03-22 00:00:00 2023-03-22 00:00:00 Outpatient VIJIWILLIAMANN-MARIE Shepard MICHELLE CABRAL [id number] [facility] 2023-03-18 00:00:00 2023-03-18 00:00:00 Outpatient ANN-MARIE AMBROSE [id number] [facility] 2023-03-15 13:30:00 2023-03-15 13:30:00 Outpatient MICHELLE CABRAL [id number] [facility] 2023-03-14 08:00:00 2023-03-14 08:00:00 Outpatient MICHELLE CABRAL [id number] Michelle Seybold 2023-03-14 07:30:00 2023-03-14 07:30:00 Outpatient MICHELLE CABRAL [id number] Michelle Seybold 2023-03-13 15:45:00 2023-03-13 15:45:00 Outpatient MCKENZIE LITTLE [id number] Michelle Seybold 2023-03-08 14:00:00 2023-03-08 14:00:00 Outpatient PABLITO WHEELER [id number] Michelle Seybold 2023-03-04 16:00:00 2023-03-04 16:00:00 Outpatient ANN-MARIE AMBROSE [id number] Michelle Seybold 2023-02-28 00:00:00 2023-02-28 00:00:00 Outpatient MD MICHELLE CONWAY [id number] [facility] 2023-02-25 10:30:00 2023-02-25 10:30:00 Outpatient MICHELLE CABRAL [id number] Michelle Haile[facility]iel 2023-02-25 00:00:00 2023-02-25 00:00:00 Outpatient ANN-MARIE AMBROSE MICHELLE CABRAL [id number] [facility] 2023-02-17 14:30:00 2023-02-17 14:30:00 Outpatient MICHELLE CABRAL [id number] [facility] 2023-02-17 00:00:00 2023-02-17 00:00:00 Outpatient SEVERIANO LAYNE [id number] [facility] 2023-02-10 14:00:00 2023-02-10 14:00:00 Outpatient MICHELLE CABRAL [id number] [facility] 2023-02-09 00:00:00 2023-02-09 00:00:00 Outpatient SEVERIANO LAYNE [id number] [facility] 2023-02-09 00:00:00 2023-02-09 00:00:00 Outpatient MD MICHELLE CONWAY [id number] [facility] 2023-02-07 14:00:00 2023-02-07 14:00:00 Outpatient PABLITO WHEELER [id number] [facility] 2023-02-04 13:00:00 2023-02-04 13:00:00 Outpatient LORENZA CELINE MICHELLE CABRAL [id number] [facility] 2023-02-04 00:00:00 2023-02-04 00:00:00 Outpatient PREANN-MARIE MERRITT MICHELLE CABRAL [id number] [facility] 2023-02-02 15:25:00 2023-02-02 15:25:00 Outpatient ARON CABRAL [id number] [facility] 2023-02-02 14:45:00 2023-02-02 14:45:00 Outpatient SEVERIANO LAYNE [id number] [facility] 2023-01-27 09:30:00 2023-01-27 09:30:00 Outpatient TOY ANGELES MICHELLE CABRAL [id number] Michelle [facility] 2023-01-21 00:00:00 2023-01-21 00:00:00 Outpatient MD MICHELLE CONWAY [id number] Michelle y[facility]zekiel 2023-01-20 14:30:00 2023-01-20 14:30:00 Outpatient MICHELLE CABRAL [id number] [facility] 2023-01-13 15:15:00 2023-01-13 15:15:00 Outpatient MICHELLE CABRAL [id number] [facility] 2023-01-13 13:00:00 2023-01-13 13:00:00 Outpatient [facility] [id number] [facility]23-[facility]-10 00:00:00 2023-01-10 00:00:00 Outpatient MD MICHELLE CONWAY [id number] [facility] 2023-01-07 00:00:00 2023-01-07 00:00:00 Outpatient PREZAANN-MARIE Shepard [id number] [facility] 2023-01-07 00:00:00 2023-01-07 00:00:00 Outpatient IVORY ALMAZAN [id number] [facility] 2023-01-06 13:30:00 2023-01-06 13:30:00 Outpatient PLAB MICHELLE CABRAL [id number] [facility] 2023-01-04 09:30:00 2023-01-04 09:30:00 Outpatient PLAB MICHELLE CABRAL [id number] [facility] 2022-12-29 15:15:00 2022-12-29 15:15:00 Outpatient MICHELLE CABRAL [id number] [facility] 2022-12-29 13:30:00 2022-12-29 13:30:00 Outpatient MICHELLE CABRAL [id number] Michelle [facility] 2022-12-24 13:30:00 2022-12-24 13:30:00 Outpatient INFUSION, [facility] MICHELLE CABRAL [id number] Michelle Ashlyn 2022-12-22 00:00:00 2022-12-22 00:00:00 Outpatient MICHELLE MICHELLE [id number] Michelle [facility] 2022-12-20 15:30:00 2022-12-20 15:30:00 Outpatient PLAB MICHELLE CABRAL [id number] [facility] 2022-12-17 00:00:00 2022-12-17 00:00:00 Outpatient IHSAN LESTER MICHELLE CABRAL [id number] [facility] 2022-12-16 00:00:00 2022-12-16 00:00:00 Outpatient SANTIAGO OCONNELL MICHELLE CABRAL [id number] [facility] 2022-12-09 00:00:00 2022-12-09 00:00:00 Outpatient MD MICHELLE CONWAY [id number] Michelle Ashlyn 2022-12-07 14:00:00 2022-12-07 14:00:00 Outpatient PLAB MICHELLE CABRAL [id number] [facility] 2022-12-07 00:00:00 2022-12-07 00:00:00 Outpatient PLAB MICHELLE CABRAL [id number] [facility] 2022-12-03 15:55:00 2022-12-03 15:55:00 Outpatient LAB90 MICHELLE CABRAL [id number] [facility] 2022-12-03 15:45:00 2022-12-03 15:45:00 Outpatient LAB90 MICHELLE CABRAL [id number] [facility] 2022-12-03 15:00:00 2022-12-03 15:00:00 Outpatient PREANN-MARIE MERRITT [id number] Michelle ybezekiel 2022-12-01 15:30:00 2022-12-01 15:30:00 Outpatient PLNEFTALI [id number] Michelle ybezekiel 2022-12-01 00:00:00 2022-12-01 00:00:00 Outpatient MD MICHELLE CONWAY [id number] Michelle Goldberg 2022-11-25 17:00:00 2022-11-25 17:00:00 Outpatient LAB47 MICHELLE RUSHSEY [id number] [facility] 2022-11-25 16:40:00 2022-11-25 16:40:00 Outpatient MICHELLE MICHELLE [id number] [facility] 2022-11-25 16:15:00 2022-11-25 16:15:00 Outpatient TRED47 MICHELLE CABRAL [id number] [facility] 2022-11-25 15:00:00 2022-11-25 15:00:00 Outpatient STEVEN JUÁREZ [id number] [facility] 2022-11-25 00:00:00 2022-11-25 00:00:00 Outpatient MD [facility] CON[facility] [id number] [facility] 2022-11-25 00:00:00 2022-11-25 00:00:00 Outpatient MICHELLE CABRAL [id number] [facility] 2022-11-24 15:30:00 2022-11-24 15:30:00 Outpatient BOAZ CASTRO [id number] [facility] 2022-11-24 00:00:00 2022-11-24 00:00:00 Outpatient ARNOLANN-MARIE MICHELLE CABRAL [id number] [facility] 2022-11-23 11:45:00 2022-11-23 11:45:00 Outpatient LAB90 [facility] CAB[facility]AL [id number] [facility] 2022-11-23 00:00:00 2022-11-23 00:00:00 Outpatient PREWILLIAMANN-MARIE Shepard MICHELLE CABRAL [id number] [facility] 2022-11-15 00:00:00 2022-11-15 00:00:00 Outpatient PREANN-MARIE MERRITT [id number] [facility] 2022-11-14 00:00:00 2022-11-14 00:00:00 Outpatient PRESHAINA ANN-MARIE CABRAL [id number] [facility] 2022-11-08 00:00:00 2022-11-08 00:00:00 Outpatient ANN-MARIE AMBROSE [id number] Michelle Goldberg 2022-11-04 12:40:00 2022-11-04 12:40:00 Outpatient MICHELLE CABRAL [id number] Michelle Goldberg 2022-11-04 12:35:00 2022-11-04 12:35:00 Outpatient MICHELLE CABRAL [id number] Michelle Goldberg 2022-11-04 12:30:00 2022-11-04 12:30:00 Outpatient MICHELLE CABRAL [id number] Michelle Haileezekiel 2022-11-03 00:00:00 2022-11-03 00:00:00 Outpatient ANN-MARIE AMBROSE MICHELLE [id number] Michelle Haile[facility]iel 2022-11-03 00:00:00 2022-11-03 00:00:00 Outpatient ANN-MARIE AMBROSE [id number] Michelle Goldberg 2022-11-01 12:00:00 2022-11-01 12:00:00 Outpatient LAB90 MICHELLE MICHELLE [id number] [facility] 2022-11-01 11:30:00 2022-11-01 11:30:00 Outpatient ANN-MARIE AMBROSE MICHELLE [id number] [facility] 2022-10-26 09:15:00 2022-10-26 09:15:00 Outpatient ANN-MARIE AMBROSESEY [id number] [facility] 2022-06-26 05:12:00 2022-06-26 05:12:00 Outpatient ANSELMO GARVIN [facility] [id number] [facility] 2022-06-25 09:09:00 2022-06-25 15:05:00 Inpatient ER Sergei Pacheco [facility] [id number] [facility] 2022-04-28 00:00:00 2022-04-28 00:00:00 Orders Only Doctor Unassigned, [place] [facility] [id number] [facility] 2022-04-12 20:40:00 2022-04-13 14:59:00 Outpatient X AGGIE OTTO [facility] [id number] [facility] 2022-04-12 20:40:00 2022-04-13 14:59:00 Emergency Aggie Otto [facility] [id number] [facility] Results Test Description Test Time [...] are clear. No suspicious focal osseous lesions. [facility] [id number] 21:40:00DIGITAL MAMMOGRAM, BILATERAL*.*.*.*.*.*.*.*.*.*.*.*.*.*FINAL*.*.*.*.*.*.*.*.*.*.*.*.*.*.*Palpable areas both breasts.Computer-aided detection(CAD)utilized. [...] - INCOMPLETE: NEED ADDITIONAL IMAGING EVALUATIONEND [facility] [id number] 17:34:00US BREAST*.*.*.*.*.*.*.*.*.*.*.*.*.*FINAL*.*.*.*.*.*.*.*.*.*.*.*.*.*.*History: ?Bilateral breast masses. ?The patient [...] ASSESSMENT - CATEGORY 1 - [facility] Notes Date/Time Note Provider Source 2024-08-29 13:47:46 Chief Complaint Patient presents with Follow-up Needs referral [facility]. Coughing up thick dark green mucous Congestion Cough Carla Mendez LV[facility] 2024-07-26 10:23:37 Chief Complaint Patient presents with Vaginal Problem Yessy Enriquez MA [facility] 2024-07-07 09:00:00 [facility] EMERGENCY PROVIDER REPORT REPORT#:[id number] REPORT STATUS: Signed DATE:07/07/24 TIME: 899 PATIENT: MAHNAZ DANIEL UNIT #: [id number] ROOM/BED: : 78 AGE: 43 SEX:F PCP [...] hernia with no evidence of strangulation Treatment: [place] Dispo: Discharge with PCP follow-up, discussed with [...] Your primary care physician at 1125 RPT #:[id number] END OF REPORT [facility] 2024-05-14 00:34:16 Pt. Provided d/c instructions & f/u care instructions; pt. Verbalized understanding; IV access d/c with bleeding controlled, pressure applied, dressing C/D/I; no apparent S&S of distress noticed at d/c; [place] [employer] at bedside for d/c; ambulates with steady gait to w/c [facility] 2024-05-14 00:00:00 Dr. Leon at bedside; hernia easily reduced; pt. Tolerated well; no apparent S&S of distress noticed at this time; plan of care ongoing [facility] 2024-05-13 23:59:52 [facility] ED Transfer of Care Note. Off-going Physician:Dr [...] components within normal limits COMP. METABOLIC PANEL (84261) - Abnormal; Notable for the following components: [...] well as with Dr Smith General Surgeon information technology coordinator who also independently reviewed imaging as well. [...] follow-up Rui Manuel MD Specialty: SURGICAL ONCOLOGY [facility] [address] [facility] [id number] Mayelin Alegria MD Specialty: SURGERY [facility] [address] [facility] [address] [facility] [address] [facility] 2024-05-13 18:55:13 Toned out to [place] [facility] with [place] [employer] for pt. With abdominal pain since 1640; pt. Reports hx of abdominal hernia that has progressively enlarged; pt. Reports a burning sensation and pain to umbilical region; pt. Reports nausea & vomiting x2 [facility] 2024-05-13 18:46:00 [facility] Emergency Department Note Patient Name: Mahnaz aDniel Date of : 1980 43 year old female Treatment Room: AK[facility] Primary Care Physician: Ortiz Candelario Jr Patient Escorted by: Law enforcement [8] [facility] Ar[facility] [43] EMS Treatment Prior to ED Arrival: [facility] treatment: Analgesic;Other (comment) [facility] treatment comments: zofran 4 mg, 50 mcg [...] presents with EMS while in custody of [place] [employer] for abdominal pain. She reports [...] Diagnosis Date Anxiety Cirrhosis 05/24/2015 Done at [facility] Depression Hep C w/o coma, chronic 12/23/2012 [...] 0.01 - 0.07 10*3/uL COMP. METABOLIC PANEL (09423) - Abnormal NA 139 135 - 145 [...] CONTRAST CBC WITH DIFF COMP. METABOLIC PANEL (95495) LIPASE Magnesium POCT TEST Orders Placed This [...] presents with EMS while in custody of [facility] for abdominal pain. She reports [...] signed by: Ca Qureshi DO 05/13/24 2322 [facility] 2023-06-16 14:34:08 Chief Complaint Patient presents with OTHER Left foot and ankle is swollen, hot, and red. I also have a horrible toothache. Thick mucus in chest. K Michelle [facility] 2023-05-18 10:45:00 Appointment this morning with Dr. Goldman K Rodgers [facility] 2022-11-25 15:27:55 Formatting of this n ote is different from the original. Chief Complaint Patient presents with Consultation OTHER Pulmonary embolus Luna Ratliff CMA II [facility] 2022-11-24 15:15:28 Formatting of this n ote is different from the original. Chief Complaint Patient presents with Hematology Consult Anemia, unspecified type History of pulmonary embolus (PE) History of deep venous thrombosis (DVT) of distal vein of left lower extremity Lisa Cedillo [facility]
[2024-12-23] MEDS ORDERED: PANTOPRAZOLE 40 MG INJ ONE (22:51)
[2024-12-23] MEDS ORDERED: ONDANSETRON 4 MG/2 ML VIAL ONE (22:51)
[2024-12-23] MEDS ORDERED: MORPHINE 4 MG/ML SYR ONE (22:52)
[2024-12-23] MEDS ORDERED: NA CHLORIDE 0.9% 2,000 ML ONE (22:52)
[2024-12-23 23:07] LABS: PT Prothrombin Time 14.8 SECONDS (10-13.0); Protime INR 1.32
[2024-12-23 23:13] LABS: Absolute Lymphocytes (CBC) 1.8 K/uL (0.7-4.9); Hematocrit 37.1 % (36.0-45.0); Hemoglobin 12.7 g/dL (12.0-15.0); MCH 28.9 pg (27.0-35.0); MCHC 34.3 g/dL (32.0-36.0); MCV 84.2 fL (80-100); MPV 9.0 fL (7.6-11.3); Nucleated RBC Absolute Count 0.0 (0-0); Nucleated Red Blood Cells % 0.2 % (0-0); RBC Red Blood Cell Count 4.40 M/uL (3.86-4.86); White Blood Count 9.20 thou/uL (4.3-10.9)
[2024-12-23 23:18] LABS: ALT/SGPT 21.0 U/L (13-56); AST/SGOT 22.0 U/L (15-37); Albumin 3.4 g/dL (3.4-5.0); Albumin/Globulin Ratio 0.8 (1.1-1.8); Alkaline Phosphatase 75.0 U/L (45-117); Anion Gap 9.8 mEq/L (5.0-15.0); BUN Blood Urea Nitrogen 18.0 mg/dL (7-18); Bilirubin Indirect, Calculated 0.4 mg/dL (0.2-0.8); Globulin 4.4 g/dL (2.3-3.5); Glucose Level 109.0 mg/dL (74-106); Lipase 23.0 U/L (13-75); Magnesium 1.8 mg/dL (1.6-2.4); NT PRO-BNP 46.0 pg/mL (<125); Potassium 3.8 mEq/L (3.5-5.1); Troponin High Sensitivity 3.9 pg/mL (<58.9)
--- NOTE | 2024-12-24 01:01 | RAD REPORT ---
EXAM: CT Chest, Abdomen and Pelvis With Intravenous Contrast CLINICAL HISTORY: The patient is 44 years old and is Female; Abdominal distention;Pain TECHNIQUE: Axial computed tomography images of the chest, abdomen and pelvis with intravenous contrast. Sagi ttal and coronal reformatted images were created and reviewed. This CT exam was performed using one or more of the following dose reduction techniques: automated exposure control, adjustment of t he mA and/or kV according to patient size, and/or use of iterative reconstruction technique. COMPARISON: CT December 17, 2024 FINDINGS: CHEST: LUNGS AND PLEURAL SPACES: Unremarkable. No mass. No consolidation. No significant effusion. No pneumothorax. HEART: No cardiomegaly. No pericardial effusion. ABDOMEN: LIVER: The liver is enlarged and fatty. GALLBLADDER AND BILE DUCTS: The gallbladder is distended. No calcified gallstones or ductal dilat ation is seen. PANCREAS: No ductal dilation. No mass. SPLEEN: The spleen is enlarged and homogeneous. ADRENALS: Unremarkable. No mass. KIDNEYS AND URETERS: Unremarkable. The kidneys enhance symmetrically. No obstructing renal or ure teral calculus is seen. No hydronephrosis or hydroureter. No perinephric fluid or stranding. STOMACH AND BOWEL: The stomach is distended with food contents and fluid. The small bowel is norm al in caliber. Stool is present throughout the colon. There is no mucosal thickening or evidence of obstruction. PELVIS: APPENDIX: The appendix is normal in caliber without surrounding inflammation. BLADDER: Unremarkable. No mass. REPRODUCTIVE: Unremarkable as visualized. CHEST, ABDOMEN and PELVIS: INTRAPERITONEAL SPACE: Unremarkable. No significant fluid collection. No free air. BONES/JOINTS: No acute fracture. SOFT TISSUES: Evidence of a ventral wall hernia repair with a abdominal wall mesh in place is not ed. Mild inflammatory stranding of the fat abutting the mesh is noted. The previously demonstrated ventral wall hernia sac has decreased in size and contains loculated fluid collection me asuring 15.5 x 10.1 cm. VASCULATURE: Unremarkable. No aortic aneurysm. LYMPH NODES: Unremarkable. No enlarged lymph nodes. IMPRESSION: 1. Evidence of ventral wall hernia repair with loculated fluid collection contained in the residual hernia sac in the subcutaneous tissues. 2. Mild inflammatory stranding of the fat abutting the abdominal wall mesh is noted. 3. No bowel obstruction. Electronically signed by: Shirley Elizondo MD 12/24/2024 12:37 AM CDT RP Due to temporary technical issues with the [employer] reporting system, reports are being katey d by the in-house radiologist without review as a courtesy to ensure prompt reporting the interpreting radiologist is fully responsible for the content of the report. Transcribed Date/Time: 12/24/2024 1:00 AM
--- NOTE | 2024-12-24 01:10 | ER ---
Nurse's Notes [facility] Name: Mahnaz Daniel Age: 44 yrs Sex: Female : 1980 Arrival Date: 12/23/2024 Time: 22:18 Bed 3 Private MD: Diagnosis: Abdominal pain, unspecified-sp hernia repair, pain;Cough;Tobacco abuse counseling;Tobacco use Presentation: 12/23 22:25 Chief complaint: Patient states: patient was in her car, started cough, now c/o al5 abdominal pain around her incision site, feels like her stomach is being ripped apart. Coronavirus screen: At this time, the client does not indicate any symptoms associated with coronavirus-19. Ebola Screen: No symptoms or risks identified at this time. Initial Sepsis Screen: Does the patient meet any 2 criteria? HR > 90 bpm. No. Patient's initial sepsis screen is negative. Does the patient have a suspected source of infection? No. Patient's initial sepsis screen is negative. Risk Assessment: Do you want to hurt yourself or someone else? Patient reports no desire to harm self or others. Onset of symptoms was December 23, 2024. Care prior to arrival: IV initiated. 18 GA, in the left antecubital area. 22:25 Method Of Arrival: [facility]5 22:25 Acuity: SIMEON 3 al5 22:25 Note HAD HERNIA REPAIR SURGERY 12/17/24. took hydrocodone about 2 hours ago. al5 Triage Assessment: 22:29 General: Appears in no apparent distress. uncomfortable, Behavior is calm, cooperative. al5 Pain: Complains of pain in abdomen Pain currently is 10 out of 10 on a pain scale. Quality of pain is described as stabbing, ripping. EENT: No signs and/or symptoms were reported regarding the EENT system. Neuro: Level of Consciousness is awake, alert, obeys commands, Oriented to person, place, time, situation. Cardiovascular: Capillary refill < 3 seconds Patient's skin is warm and dry. Respiratory: Airway is patent Respiratory effort is even, unlabored, Respiratory pattern is regular, symmetrical. GI: Abdomen is has abdominal binder on. : No signs and/or symptoms were reported regarding the genitourinary system. Derm: Skin is intact, Skin is pink, warm \T\ dry. normal. Musculoskeletal: Circulation, motion, and sensation intact. Range of motion: intact in all extremities. Historical: - Allergies: 22:29 Bactrim DS; al5 - PMHx: 22:29 Cirrhosis; Deep vein thrombosis; Hepatitis C; Pneumonia; Pulmonary Embolism; al5 - PSHx: 22:29 section; steroid back injections; al5 - Immunization history:: Adult Immunizations up to date. - Infectious Disease History:: Denies. - Social history:: Smoking status: Patient reports the use of cigarette tobacco products, smokes one-half pack cigarettes per day, Reported history of juuling and/or vaping. - Family history:: not pertinent. Screenin:30 [facility] ED Fall Risk Assessment (Adult) History of falling in the last 3 months, al5 including since admission No falls in past 3 months (0 pts) Confusion or Disorientation No (0 pts) Intoxicated or Sedated No (0 pts) Impaired Gait No (0 pts) Mobility Assist Device Used No (0 pt) Altered Elimination No (0 pt) Score/Fall Risk Level 0 - 2 = Low Risk Oriented to surroundings, Maintained a safe environment, Hourly rounding (assess needs \T\ fall precautionary measures) done. Abuse screen: Denies threats or abuse. Denies injuries from another. Nutritional screening: No deficits noted. Tuberculosis screening: No symptoms or risk factors identified. Assessment: 22:30 Reassessment: see triage assessment. al5 23:57 Reassessment: Patient appears in no apparent distress at this time. No changes from al5 previously documented assessment. Patient and/or family updated on plan of care and expected duration. Pain level reassessed. Patient is alert, oriented x 3, equal unlabored respirations, skin warm/dry/pink. 12/24 01:24 Reassessment: Patient appears in no apparent distress at this time. No changes from al5 previously documented assessment. Patient and/or family updated on plan of care and expected duration. Pain level reassessed. Patient is alert, oriented x 3, equal unlabored respirations, skin warm/dry/pink. 02:43 Reassessment: Patient appears in no apparent distress at this time. No changes from al5 previously documented assessment. Patient and/or family updated on plan of care and expected duration. Pain level reassessed. Patient is alert, oriented x 3, equal unlabored respirations, skin warm/dry/pink. 03:58 Reassessment: Patient appears in no apparent distress at this time. No changes from al5 previously documented assessment. Patient and/or family updated on plan of care and expected duration. Pain level reassessed. Patient is alert, oriented x 3, equal unlabored respirations, skin warm/dry/pink. Vital Signs: 12/23 22:25 BP 126 / 80; Pulse 117; Resp 18; Temp 98.5(O); Pulse Ox 97% on R/A; Weight 105.23 kg; al5 Height 5 ft. 7 in. ; Pain 10/10; 22:30 BP 127 / 87; Pulse 121; Resp 18; Pulse Ox 97% on R/A; kb4 23:00 BP 149 / 86; Pulse 111; Resp 18; Pulse Ox 98% on R/A; kb4 12/24 00:00 BP 136 / 111; Pulse 113; Resp 18; Pulse Ox 97% on R/A; kb4 00:30 BP 109 / 73; Pulse 101; Resp 18; Pulse Ox 97% on R/A; al5 01:00 BP 102 / 70; Pulse 97; Resp 19; Pulse Ox 97% on R/A; al5 01:30 BP 106 / 70; Pulse 93; Resp 16; Pulse Ox 100% on R/A; al5 02:00 BP 108 / 83; Pulse 91; Resp 18; Pulse Ox 97% on R/A; al5 02:30 BP 120 / 84; Pulse 86; Resp 16; Pulse Ox 100% on R/A; al5 03:00 BP 110 / 71; Pulse 78; Resp 18; Pulse Ox 99% on R/A; al5 03:30 BP 115 / 89; Pulse 85; Resp 15; Pulse Ox 98% on R/A; al5 12/23 22:25 Body Mass Index 36.34 (105.23 kg, 170.18 cm) al5 12/23 22:25 Pain Scale: Adult al5 ED Course: 12/23 22:18 Patient arrived in ED. rv1 22:19 Patrick Michelle MD is Attending Physician. amanda 22:24 Radha Jean RN is Primary Nurse. al5 22:28 Triage completed. al5 22:29 Arm band placed on right wrist. Patient placed in the treatment room, in view of staff al5 members, on pulse oximetry. 22:30 Patient has correct armband on for positive identification. Bed in low position. Call al5 light in reach. Side rails up X2. Provided Education on: plan of care. 22:30 No provider procedures requiring assistance completed. Maintain EMS IV. Dressing al5 intact. Good blood return noted. Site clean \T\ dry. Gauge \T\ site: 18G LAC. Flushed with 10 mL NS. 22:45 Inserted saline lock: 22 gauge in right hand, using aseptic technique. Blood collected. al5 Flushed with 10 mL NS. 23:40 XRAY Chest (1 view) In Process Unspecified. EDMS 12/24 00:14 CT Chest, Abdomen, Pelvis - W/Contrast In Process Unspecified. EDMS 01:08 Joseph Shah MD is Hospitalizing Provider. [facility] 03:59 Patient admitted, IV remains in place. al5 Administered Medications: 12/23 23:00 Drug: morphine IVP or IV 4 mg IVP once over 4 mins Route: IVP; Infused Over: 4 mins; [facility] Site: right hand; 12/24 00:12 Follow up: Response: No adverse reaction [facility] 12/23 23:00 Drug: Ondansetron IVP 8 mg IVP once; over 2 minutes Route: IVP; Site: right hand; [facility] 12/24 00:12 Follow up: Response: No adverse reaction [facility] 12/23 23:00 Drug: NS 0.9% IV 1000 ml IV at 1000 ml once; to be given as a bolus over 60 minutes al Route: IV; Rate: 1000 ml; Site: right hand; 12/24 04:00 Follow up: Response: No adverse reaction; IV Status: Completed infusion; IV Intake: al5 1000ml 12/23 23:00 Drug: NS 0.9% IV 1000 ml IV at 125 ml/hr Per protocol Route: IV; Rate: 125 ml/hr; Site: [facility] right hand; 12/24 03:59 Follow up: Response: No adverse reaction; IV Status: Infusion continued upon admission [facility] 12/23 23:01 Drug: Pantoprazole IVP 40 mg IVP once Route: IVP; Site: right hand; [facility] 12/24 00:12 Follow up: Response: No adverse reaction [facility] 03:54 Drug: morphine IVP or IV 4 mg IVP once over 4 mins Route: IVP; Infused Over: 4 mins; al5 Site: right hand; 03:54 Follow up: Response: No adverse reaction al5 Medication: 12/23 22:30 VIS not applicable for this client. al5 Intake: 12/24 04:00 IV: 1000ml; Total: 1000ml. al5 Outcome: 01:10 Decision to Hospitalize by Provider. amanda 03:59 Admitted to Med/surg accompanied by tech, via wheelchair, room 217, with chart, al5 03:59 Condition: stable 03:59 Instructed on the need for admit, 04:00 Patient left the ED. al5 Signatures: Dispatcher [employer] EDMS Patrick Michelle MD MD cha Villegas, Rebecca rv1 Radha Jean, RN RN al5 Amanda Rolon RN RN kb4
--- NOTE | 2024-12-24 01:11 | EDPHYS ---
Physician Documentation [facility] Name: Mahnaz Daniel Age: 44 yrs Sex: Female : 1980 Arrival Date: 12/23/2024 Time: 22:18 Bed 3 Private MD: ED Physician Patrick Michelle HPI: 12/23 23:00 This 44 yrs old Female presents to ER via EMS with complaints of Abdominal amanda Pain. 23:00 The patient presents with abdominal pain in the upper abdomen, in the lower abdomen, amanda abdominal distention in the upper abdomen, in the lower abdomen. Onset: The symptoms/episode began/occurred just prior to arrival, today. The symptoms do not radiate. Associated signs and symptoms: none. Severity of pain: At its worst the pain was moderate. The patient has experienced similar episodes in the past, several times. Historical: - Allergies: 22:29 Bactrim DS; al5 - PMHx: 22:29 Cirrhosis; Deep vein thrombosis; Hepatitis C; Pneumonia; Pulmonary Embolism; al5 - PSHx: 22:29 section; steroid back injections; al5 - Immunization history:: Adult Immunizations up to date. - Infectious Disease History:: Denies. - Social history:: Smoking status: Patient reports the use of cigarette tobacco products, smokes one-half pack cigarettes per day, Reported history of juuling and/or vaping. - Family history:: not pertinent. ROS: 23:00 Constitutional: Negative for fever, chills, and weight loss, Eyes: Negative for injury, amanda pain, redness, and discharge, ENT: Negative for injury, pain, and discharge, Neck: Negative for injury, pain, and swelling, Cardiovascular: Negative for chest pain, palpitations, and edema, Respiratory: Negative for shortness of breath, cough, wheezing, and pleuritic chest pain, Back: Negative for injury and pain, : Negative for injury, bleeding, discharge, and swelling, MS/Extremity: Negative for injury and deformity, Skin: Negative for injury, rash, and discoloration, Neuro: Negative for headache, weakness, numbness, tingling, and seizure, Psych: Negative for depression, anxiety, suicide ideation, homicidal ideation, and hallucinations, Allergy/Immunology: Negative for hives, rash, and allergies, Endocrine: Negative for neck swelling, polydipsia, polyuria, polyphagia, and marked weight changes, Hematologic/Lymphatic: Negative for swollen nodes, abnormal bleeding, and unusual bruising, 23:00 Abdomen/GI: Positive for abdominal pain, nausea, vomiting, hematemesis, 23:00 MS/extremity: Negative for acute changes, Exam: 23:00 Constitutional: This is a well developed, well nourished patient who is awake, alert, amanda and in no acute distress. Head/Face: Normocephalic, atraumatic. Eyes: Pupils equal round and reactive to light, extra-ocular motions intact. Lids and lashes normal. Conjunctiva and sclera are non-icteric and not injected. Cornea within normal limits. Periorbital areas with no swelling, redness, or edema. ENT: Nares patent. No nasal discharge, no septal abnormalities noted. Tympanic membranes are normal and external auditory canals are clear. Oropharynx with no redness, swelling, or masses, exudates, or evidence of obstruction, uvula midline. Mucous membranes moist. Neck: Trachea midline, no thyromegaly or masses palpated, and no cervical lymphadenopathy. Supple, full range of motion without nuchal rigidity, or vertebral point tenderness. No Meningismus. Chest/axilla: Normal chest wall appearance and motion. Nontender with no deformity. No lesions are appreciated. Cardiovascular: Regular rate and rhythm with a normal S1 and S2. No gallops, murmurs, or rubs. Normal PMI, no JVD. No pulse deficits. Respiratory: Lungs have equal breath sounds bilaterally, clear to auscultation and percussion. No rales, rhonchi or wheezes noted. No increased work of breathing, no retractions or nasal flaring. Abdomen/GI: Soft, non-tender, with normal bowel sounds. No distension or tympany. No guarding or rebound. No evidence of tenderness throughout. Back: No spinal tenderness. No costovertebral tenderness. Full range of motion. Skin: Warm, dry with normal turgor. Normal color with no rashes, no lesions, and no evidence of cellulitis. MS/ Extremity: Pulses equal, no cyanosis. Neurovascular intact. Full, normal range of motion., bilateral aka Neuro: Awake and alert, GCS 15, oriented to person, place, time, and situation. Cranial nerves II-XII grossly intact. Motor strength 5/5 in all extremities. Sensory grossly intact. Cerebellar exam normal. Normal gait. Psych: Awake, alert, with orientation to person, place and time. Behavior, mood, and affect are within normal limits. 23:00 ECG was reviewed by the Attending Physician. 23:22 ECG was reviewed by the Attending Physician. [facility] Vital Signs: 22:25 BP 126 / 80; Pulse 117; Resp 18; Temp 98.5(O); Pulse Ox 97% on R/A; Weight 105.23 kg; al5 Height 5 ft. 7 in. ; Pain 10/10; 22:30 BP 127 / 87; Pulse 121; Resp 18; Pulse Ox 97% on R/A; kb4 23:00 BP 149 / 86; Pulse 111; Resp 18; Pulse Ox 98% on R/A; kb4 12/24 00:00 BP 136 / 111; Pulse 113; Resp 18; Pulse Ox 97% on R/A; kb4 00:30 BP 109 / 73; Pulse 101; Resp 18; Pulse Ox 97% on R/A; al5 01:00 BP 102 / 70; Pulse 97; Resp 19; Pulse Ox 97% on R/A; al5 01:30 BP 106 / 70; Pulse 93; Resp 16; Pulse Ox 100% on R/A; al5 02:00 BP 108 / 83; Pulse 91; Resp 18; Pulse Ox 97% on R/A; al5 02:30 BP 120 / 84; Pulse 86; Resp 16; Pulse Ox 100% on R/A; al5 03:00 BP 110 / 71; Pulse 78; Resp 18; Pulse Ox 99% on R/A; al5 03:30 BP 115 / 89; Pulse 85; Resp 15; Pulse Ox 98% on R/A; al5 12/23 22:25 Body Mass Index 36.34 (105.23 kg, 170.18 cm) al5 12/23 22:25 Pain Scale: Adult al5 MDM: 12/23 22:19 Medical Screening Exam initiated [facility] 23:03 Differential diagnosis: bowel obstruction, cholecystitis, Cholelithiasis, [facility] diverticulitis, Dysmenorrhea, Endometriosis, GI Bleed, Hepatitis, Menorrhagia, non-specific abd pain, pancreatitis, Peptic Ulcer Disease, Peritonitis, Pyelonephritis, Ureterolithiasis, urinary tract infection. Data reviewed: vital signs, nurses notes, lab test result(s), EKG, radiologic studies, CT scan, plain films. Consideration of Admission/Observation Patient was admitted/placed on observation. Escalation of care including admission/observation considered. Independent interpretation of the following test(s) in the Emergency Department EKG: See my EKG interpretation above CT Scan: My interpretation is CY AB/ PEL. Test considered but Not performed: Ultrasound NO ABD USG. Care significantly affected by the following chronic conditions: Hypertension, Chronic Obstructive Pulmonary Disease, Obesity. Counseling: I had a detailed discussion with the patient and/or guardian regarding the historical points, exam findings, and any diagnostic results supporting the discharge/admit diagnosis, lab results, radiology results, the need for further work-up and treatment in the hospital. 12/23 22:39 Order name: Basic Metabolic Panel; Complete Time: 23:41 [facility] 12/23 22:39 Order name: CBC with Diff; Complete Time: 23:41 [facility] 12/23 22:39 Order name: LFT's; Complete Time: 23:41 [facility] 12/23 22:39 Order name: Magnesium; Complete Time: 23:41 [facility] 12/23 22:39 Order name: NT PRO-BNP; Complete Time: 23:41 [facility] 12/23 22:39 Order name: PT-INR; Complete Time: 23:41 [facility] 12/23 22:39 Order name: Troponin HS; Complete Time: 23:41 [facility] 12/23 22:39 Order name: Lipase; Complete Time: 23:41 [facility] 12/23 22:39 Order name: UA Rfx David Cult if indicated [facility] 12/24 02:13 Order name: CBC with Automated Diff [facility] 12/24 02:13 Order name: CBC with Automated Diff [facility] 12/24 02:13 Order name: Comprehensive Metabolic Panel [facility] 12/24 02:13 Order name: Comprehensive Metabolic Panel [facility] 12/23 22:39 Order name: XRAY Chest (1 view) [facility] 12/23 22:39 Order name: CT Chest, Abdomen, Pelvis - W/Contrast; Complete Time: 01:07 [facility] 12/24 02:13 Order name: CONS Physician Consult [facility] 12/23 22:39 Order name: Cardiac monitoring; Complete Time: 22:49 [facility] 12/23 22:39 Order name: EKG - Nurse/Tech; Complete Time: 22:49 [facility] 12/23 22:39 Order name: IV Saline Lock; Complete Time: 22:40 [facility] 12/23 22:39 Order name: Labs collected and sent; Complete Time: :40 [facility] 12/23 22:39 Order name: O2 Per Protocol; Complete Time: :40 [facility] 12/23 22:39 Order name: O2 Sat Monitoring; Complete Time: :40 [facility] EC:22 Rate is 112 beats/min. Rhythm is regular. QRS [place] is Normal. HI interval is normal. [facility] QRS interval is normal. QT interval is normal. No Q waves. T waves are Normal. No ST changes noted. Clinical impression: Sinus tachycardia. Interpreted by me. Reviewed by me. Administered Medications: 23:00 Drug: morphine IVP or IV 4 mg IVP once over 4 mins Route: IVP; Infused Over: 4 mins; al Site: right hand; 12/24 00:12 Follow up: Response: No adverse reaction [facility] 12/23 23:00 Drug: Ondansetron IVP 8 mg IVP once; over 2 minutes Route: IVP; Site: right hand; [facility] 12/24 00:12 Follow up: Response: No adverse reaction [facility] 12/23 23:00 Drug: NS 0.9% IV 1000 ml IV at 1000 ml once; to be given as a bolus over 60 minutes [facility] Route: IV; Rate: 1000 ml; Site: right hand; 12/24 04:00 Follow up: Response: No adverse reaction; IV Status: Completed infusion; IV Intake: al5 1000ml 12/23 23:00 Drug: NS 0.9% IV 1000 ml IV at 125 ml/hr Per protocol Route: IV; Rate: 125 ml/hr; Site: [facility] right hand; 12/24 03:59 Follow up: Response: No adverse reaction; IV Status: Infusion continued upon admission [facility] 12/23 23:01 Drug: Pantoprazole IVP 40 mg IVP once Route: IVP; Site: right hand; [facility] 12/24 00:12 Follow up: Response: No adverse reaction [facility] 03:54 Drug: morphine IVP or IV 4 mg IVP once over 4 mins Route: IVP; Infused Over: 4 mins; al5 Site: right hand; 03:54 Follow up: Response: No adverse reaction [facility] Disposition Summary: 12/24/24 01:10 Hospitalization Ordered Notes: Hospitalization Status: Observation [facility] Provider: Joseph Shah cha Location: Telemetry/MedSurg (observation) amanda Condition: Fair amanda Problem: new amanda Symptoms: have improved amanda Bed/Room Type: Standard [facility] Room Assignment: 217(12/24/24 03:26) rv1 Diagnosis - Abdominal pain, unspecified - sp hernia repair, pain amanda - Cough amanda - Tobacco abuse counseling amanda - Tobacco use amanda Forms: - Medication Reconciliation Form amanda - SBAR form amanda - Leadership Thank You Letter [facility] Signatures: Dispatcher [employer] EDMS Patrick Michelle MD MD cha Garcia, Cindy, RN RN cg June Allen rv1 Radha Jean RN RN al5 Amanda Rolon RN kb4 Corrections: (The following items were deleted from the chart) 12/23 22:40 22:40 BASIC METABOLIC PANEL+C.LAB.BRZ ordered. EDMS EDMS 22:40 22:40 CBC+H.LAB.BRZ ordered. EDMS EDMS 22:40 22:40 HEPATIC FUNCTION+C.LAB.BRZ ordered. EDMS EDMS 22:40 22:40 MAGNESIUM+C.LAB.BRZ ordered. EDMS EDMS 22:40 22:40 PROBNP+C.LAB.BRZ ordered. EDMS EDMS 22:40 22:40 PROTIME (+INR)+COAG.LAB.BRZ ordered. EDMS EDMS 22:40 22:40 Troponin High Sensitivity+C.LAB.BRZ ordered. EDMS EDMS 22:40 22:40 LIPASE+C.LAB.BRZ ordered. EDMS EDMS 22:40 22:40 UA Rfx David Cult if indicated+U.LAB.BRZ ordered. EDMS EDMS 22:40 22:40 Chest Single View+RAD.RAD.BRZ ordered. EDMS EDMS 22:40 22:40 Chest Abdomen Pelvis W Con+CT.RAD.BRZ ordered. EDMS EDMS 12/24 03:11 01:10 [facility] [place] 2] 03: 03:11 230 cg rv1
[2024-12-24] MEDS ORDERED: ACETAMINOPHEN 325 MG TABLET PO PRN (02:07)
--- NOTE | 2024-12-24 02:07 | P.HP ---
Certification for Inpatient Patient admitted to: Inpatient With expected LOS: >2 Midnights Practitioner: I am a practitioner with admitting privileges, knowledge of patient current condition, hospital course, and medical plan of care. Services: Services provided to patient in accordance with Admission requirements found in Title 42 Section 412.3 of the Code of Federal Regulations Patient History Date of Service: 12/24/24 Reason for admission: Abdominal pain History of Present Illness: 44 yrs old Female with past medical history of cirrhosis liver, DVT, hep C, pneumonia, pulmonary embolism who was brought to ER with complaints of Abdominal Pain. The patient presents with abdominal pain in the upper abdomen, in the lower abdomen,abdominal distention in the upper abdomen, in the lower abdomen. Started today, intermittent, 7 out of 10 in severity with no radiation. She was recently been admitted to the hospital with incarcerated ventral hernia & underwent repair with mesh by Dr. Lundberg. Denies any fever or chills. Associated with nausea but no vomiting. Denies any diarrhea. Patient was assessed in the ER and was admitted for further management Allergies sulfamethoxazole [From Bactrim] Allergy (Verified 12/17/24 14:57) Hives/Rash trimethoprim [From Bactrim] Allergy (Verified 12/17/24 14:57) Hives/Rash Bactrim DS Allergy (Uncoded 12/17/24 14:57) Hives/Rash Home medications list reviewed: Yes Home Medications: Cyclobenzaprine [Flexeril*] 1 tab PO BID 12/17/24 Gabapentin 1 tab PO BID 12/17/24 Hydrocodone Bit/Acetaminophen [[place] 10-325 Tablet] 1 tab PO Q6H PRN 12/17/24 Amox/Clavulanate [Augmentin 875-125 Tab] 875 mg PO BID #14 tab 12/20/24 Hydrocodone 10/APAP 325 [[place] 10/325] 1 tab PO Q6H PRN #30 tab 12/20/24 - Past Medical/Surgical History Diabetic: No Past Medical History: Reviewed- Non-Contributory -: Hep C -: Liver cirrhosis. -: History of DVT/PE Past Surgical History: Reviewed- Non-Contributory -: /repair x 4 Psychosocial/ Personal History: Lives at home with family - Family History Father -: Heart disease Notes: triple bypass HLD. alcoholisim Mother -: Lung disease, Other (see notes) Notes: alcoholism - Social History Smoking Status: Never smoker Alcohol use: Yes CD- Drugs: No Caffeine use: Yes Review of Systems 10-point ROS is otherwise unremarkable Physical Examination - Vital Signs Temperature: 97.8 F Blood Pressure: 128/76 Pulse: 82 Respirations: 18 Pulse Ox (%): 94 - Physical Exam General: Alert, In no apparent distress HEENT: Atraumatic, Normocephalic Neck: Supple Respiratory: Clear to auscultation bilaterally, Normal air movement Cardiovascular: Regular rate/rhythm, Normal S1 S2 Capillary refill: <2 Seconds Gastrointestinal: W/out hepatosplenomegaly, Tenderness Musculoskeletal: No clubbing Integumentary: No rashes Neurological: Other (Alert awake nonfocal) Lymphatics: No axilla or inguinal lymphadenopathy - Studies Laboratory Data (last 24 hrs) 12/23/24 12/23/24 12/23/24 22:42 22:42 22:42 WBC 9.20 Hgb 12.7 Hct 37.1 Plt Count 208 PT 14.8 H INR 1.32 Sodium 136 Potassium 3.8 BUN 18 Creatinine 1.15 H Glucose 109 H Magnesium 1.8 Total Bilirubin 0.6 AST 22 ALT 21 Alkaline Phosphatase 75 Lipase 23 Assessment and Plan - Plan Intractable abdominal pain Recently had large ventral hernia repairs with incarcerated hernia repaired with mesh CT findings noted Pain control Will keep n.p.o. for now Surgical consult in a.m. Started on empiric antibiotics History of DVT/PE Reports history of DVT/PE Took Xarelto for greater than 3 months but unclear exactly how long for History of left lower extremity DVT with PE, will order ultrasound to evaluate Denies leg swelling, shortness of breath, chest pain History of hepatitis C/cirrhosis of the liver LFTs all within normal limits Monitor LFTs daily DVT PPX: SCD Code status:full code Discharge Plan: Home Plan to discharge in: 48 Hours - Advance Directives Does patient have a Living Will: No Does patient have a Durable POA for Healthcare: No - Code Status/Comfort Care Code Status: Full Code Time Spent Managing Pts Care (In Minutes): 48
[2024-12-24] MEDS ORDERED: HYDROCODONE/APAP 5/325 MG TAB PO PRN (03:38)
[2024-12-24] MEDS ORDERED: MORPHINE 4 MG/ML SYR ONE (03:49)
[2024-12-24 04:33] VITALS: O2SAT 98
[2024-12-24] MEDS ORDERED: ONDANSETRON 4 MG/2 ML VIAL IV PRN (05:00)
[2024-12-24] MEDS: NA CHLORIDE 0.9% 1,000 ML IV SCH (05:20)
[2024-12-24 05:28] VITALS: BMI 36.3
--- NOTE | 2024-12-24 05:47 | RAD REPORT ---
EXAM: Chest Single View CLINICAL INDICATION: 44-year-old female with abdominal distention. TECHNIQUE: Single view, AP portable chest was obtained. COMPARISON: None. FINDINGS: Unremarkable cardiac and mediastinal silhouette. Heart size is normal. Low lung volumes without focal opacity, pneumothorax or pleural effusions. The visualized bones are within normal limits. IMPRESSION: No acute pulmonary abnormalities. Electronically signed by: Kimberly Arora MD 12/23/2024 11:57 PM CDT RP Due to temporary technical issues with the [employer] reporting system, reports are being katey d by the in-house radiologist without review as a courtesy to ensure prompt reporting the interpreting radiologist is fully responsible for the content of the report. Transcribed Date/Time: 12/24/2024 5:47 AM
[2024-12-24] MEDS: MORPHINE 2 MG/ML SYR IV PRN (07:18)
[2024-12-24 07:41] LABS: Hematocrit 33.7 % (36.0-45.0); Hemoglobin 11.1 g/dL (12.0-15.0); MCH 28.5 pg (27.0-35.0); MCHC 33.0 g/dL (32.0-36.0); MCV 86.3 fL (80-100); MPV 9.0 fL (7.6-11.3); RBC Red Blood Cell Count 3.91 M/uL (3.86-4.86); White Blood Count 6.80 thou/uL (4.3-10.9)
[2024-12-24 07:54] LABS: AST/SGOT 19 U/L (15-37); Albumin 2.8 g/dL (3.4-5.0); Albumin/Globulin Ratio 0.8 (1.1-1.8); Alkaline Phosphatase 55 U/L (45-117); Anion Gap 10.8 mEq/L (5.0-15.0); BUN Blood Urea Nitrogen 15 mg/dL (7-18); Globulin 3.5 g/dL (2.3-3.5); Glucose Level 75 mg/dL (74-106); Potassium 3.8 mEq/L (3.5-5.1)
[2024-12-24 07:55] LABS: ALT/SGPT < 14 U/L (13-56)
[2024-12-24] MEDS: PNEUMOCOCCAL VACCINE 0.5 ML IMVAC ONE (08:00)
--- NOTE | 2024-12-24 08:57 | P.PN ---
Date of Service: 12/24/24 Subjective: C/O of abdominal pain and nausea No other acute events overnight ROS: 10 point ROS as noted above, otherwise negative Physical exam GEN: Alert, oriented, NAD HEENT: Normal conjunctiva, sclera anicteric CV: Regular rate and rhythm, no edema Pulm: Nonlabored respirations on room air ABD: Soft,mild generalized abdominal tenderness, nondistended MSK: No joint tenderness Integumentary: No rashes Neuro: Normal speech, normal affect Vitals reviewed Assessment: Large ventral hernia with colonic obstruction S/P Laparoscopic Ventral Hernia Repair with mesh 12/17 History of DVT/PE History of hepatitis C/cirrhosis of the liver Plan: Large ventral hernia with colonic obstruction S/P Laparoscopic Ventral Hernia Repair with mesh 12/17 History of DVT/PE Complains of persistent abdominal pain Continue IV fluids, as needed pain medications General Surgery consultation N.p.o. until general surgery has evaluated Recent venous Doppler performed 12/17 was negative for DVT bilaterally History of hepatitis C/cirrhosis of the liver Monitor LFTs daily DVT PPX: Lovenox Code status:full code Discharge Plan: Home Plan to discharge in: Greater than 2 days Time Spent Managing Pts Care (In Minutes): 35 <Lupillo Hugo - Last Filed: 12/24/24 08:58> I have personally seen and evaluated the patient. I have reviewed the history, physical exam findings, and assessment provided by Lupillo Hugo FELLED SEAM OPERATOR. I agree with the plan of care as documented <Emil Snowden - Last Filed: 12/24/24 16:00>
[2024-12-24] MEDS: PIPER TAZO 3.375 GM in NA CHLORIDE 0.9% 100 ML IV SCH (09:52)
--- NOTE | 2024-12-24 13:00 | P.PN ---
Date of Service: 12/24/24 Patient is a 44-year-old woman known to me interaction. She came including small bowel it was due to a incarcerated ventral hernia. She was taken to the operating room and there and she noted that significant accumulation of fluid occurred with some pain associated in the abdomen. After discharge she went home ultimately from the last admission had tolerated diet had bowel movements however she did not wear her abdominal binder as indicated. She did try to wear it she states. She did not wear the abdominal binder when I was in the room with the interview. She had developed some abdominal pain and as such came to the emergency room. CT scan showed accumulation of a seroma above her hernia but no obvious hernia recurrence. Will recommend IR drainage of seroma. -Full consult note to follow.
[2024-12-25] MEDS: KETOROLAC 30 MG/ML INJ IV ONE (04:05)
[2024-12-25 06:43] LABS: Absolute Lymphocytes (CBC) 1.4 K/uL (0.7-4.9); Hematocrit 35.4 % (36.0-45.0); Hemoglobin 11.6 g/dL (12.0-15.0); MCH 28.4 pg (27.0-35.0); MCHC 32.7 g/dL (32.0-36.0); MCV 86.8 fL (80-100); MPV 9.4 fL (7.6-11.3); Nucleated RBC Absolute Count 0.0 (0-0); Nucleated Red Blood Cells % 0.0 % (0-0); RBC Red Blood Cell Count 4.08 M/uL (3.86-4.86); White Blood Count 5.60 thou/uL (4.3-10.9)
[2024-12-25 06:44] LABS: ALT/SGPT 18.0 U/L (13-56); AST/SGOT 19.0 U/L (15-37); Albumin 2.5 g/dL (3.4-5.0); Albumin/Globulin Ratio 0.7 (1.1-1.8); Alkaline Phosphatase 79.0 U/L (45-117); Anion Gap 7.9 mEq/L (5.0-15.0); BUN Blood Urea Nitrogen 9.0 mg/dL (7-18); Globulin 3.5 g/dL (2.3-3.5); Glucose Level 122.0 mg/dL (74-106); Potassium 3.9 mEq/L (3.5-5.1)
[2024-12-25 06:48] LABS: PT Prothrombin Time 11.7 SECONDS (10-13.0); Protime INR 1.04
[2024-12-25 09:03] LABS: Anion Gap 7.9 mEq/L (5.0-15.0); BUN Blood Urea Nitrogen 9.0 mg/dL (7-18); Glucose Level 108.0 mg/dL (74-106); Potassium 3.9 mEq/L (3.5-5.1)
[2024-12-25] MEDS: POTASSIUM CL SA 10 MEQ TAB PO ONE ×2 (11:17)
--- NOTE | 2024-12-25 15:46 | RAD REPORT ---
PROCEDURE: ULTRASOUND GUIDED DRAIN PLACEMENT Pre-procedure diagnosis: Abdominal wall fluid collection Post-procedure diagnosis: Same as above. CLINICAL INDICATION: Female, 44 years old. Percuataeous drain post op seroma US guided Additional clinical history: None. COMPLICATIONS: No immediate complications. IMPRESSION: Ultrasound guided placement of 10.2 Serbian pigtail indwelling drainage catheter, yielding 240 mL of s erosanguineous fluid. Additional procedure(s): Abscessogram was not performed. PLAN: Specimen sent for evaluation. Drain to bulb suction. PROCEDURE DETAILS: Consent: Informed consent for the procedure including risks, benefits and alternatives was obtained a nd time-out was performed prior to the procedure. Preparation: The site was prepared and draped using all elements of maximal sterile barrier technique including sterile gloves, sterile gown, cap, mask, large sterile sheet, sterile ultrasound probe cover as needed, hand hygiene and cutaneous antisepsis with 2% chlorhexidine. Sedation: None Procedure: The patient was positioned supine and initial imaging was performed. Local anesthesia was administered. The drainage catheter was trocared into the collection under continuous ultrasound guidance. The catheter was deployed. Approximately 240 cc of serosanguineous fluid was aspirated. The catheter was placed to a bulb suction device and affixed to the skin with an adhesive and 0 silk suture. [id number]. Specimen: Aspirated fluid was sent for analysis. Contrast used: None. Estimated blood loss: Less than 10 mL.
--- NOTE | 2024-12-25 15:51 | P.PN ---
Date of Service: 12/25/24 Subjective: Going to IR drain placement today Still having abd pain No other acute events overnight ROS: 10 point ROS as noted above, otherwise negative Physical exam GEN: Alert, oriented, NAD HEENT: Normal conjunctiva, sclera anicteric CV: Regular rate and rhythm, no edema Pulm: Nonlabored respirations on room air ABD: Soft,mild generalized abdominal tenderness, nondistended MSK: No joint tenderness Integumentary: No rashes Neuro: Normal speech, normal affect Vitals reviewed Assessment: Large ventral hernia with colonic obstruction S/P Laparoscopic Ventral Hernia Repair with mesh 12/17 History of DVT/PE History of hepatitis C/cirrhosis of the liver Plan: Large ventral hernia with colonic obstruction S/P Laparoscopic Ventral Hernia Repair with mesh 12/17 History of DVT/PE S/P IR drain placement today for seroma Follow drain output overnight Surgery following Monitor CBC History of hepatitis C/cirrhosis of the liver Monitor LFTs daily DVT PPX: Lovenox Code status:full code Discharge Plan: Home Plan to discharge in: Greater than 2 days Time Spent Managing Pts Care (In Minutes): 35 <Lupillo Hugo - Last Filed: 12/25/24 15:49> I have personally seen and evaluated the patient. I have reviewed the history, physical exam findings, and assessment provided by Lupillo Hugo PROCESS ARTIST. I agree with the plan of care as documented <Emil Snowden - Last Filed: 12/25/24 16:39>
--- NOTE | 2024-12-26 12:11 | P.DS ---
Admission Date: 12/24/24 Discharge Date: 12/26/24 Reason for Admission: Abdominal pain Brief History of Present Illness: 44 yrs old Female with past medical history of cirrhosis liver, DVT, hep C, pneumonia, pulmonary embolism who was brought to ER with complaints of Abdominal Pain. The patient presents with abdominal pain in the upper abdomen, in the lower abdomen,abdominal distention in the upper abdomen, in the lower abdomen. Started today, intermittent, 7 out of 10 in severity with no radiation. She was recently been admitted to the hospital with incarcerated ventral hernia & underwent repair with mesh by Dr. Lundberg. Denies any fever or chills. Associated with nausea but no vomiting. Denies any diarrhea. Patient was assessed in the ER and was admitted for further management Hospital Course: Assessment: Large ventral hernia with colonic obstruction S/P Laparoscopic Ventral Hernia Repair with mesh 12/17 History of DVT/PE History of hepatitis C/cirrhosis of the liver Patient's initial hospitalization was for a ventral hernia with colonic obstruction on 12/17, she was subsequently discharged on 12/20. She returned to the hospital on 12/24 with abdominal pain, nausea and vomiting. CT was performed on admission which showed evidence of ventral wall hernia repair with loculated fluid collection contained in the residual hernia sac in the subcutaneous tissues. General surgery and radiology reviewed imaging and believe that this is a seroma. Patient underwent IR drain placement on 12/25 and is doing well after drain placement. She stable for discharge and outpatient follow-up with general surgery in 1 week for drain removal. She will be prescribed 5 days of oral antibiotics as well. Continue other home medications as previously prescribed Follow-up with general surgeryDr. Lundberg in 1 week <Lupillo Hugo - Last Filed: 12/26/24 12:12> Admission Date: 12/24/24 Discharge Date: 12/26/24 <Emil Snowden - Last Filed: 12/26/24 15:39> Disposition: ROUTINE DISCHARGE Discharge Condition: GOOD Vital Signs/Physical Exam: Temp Pulse Resp BP Pulse Ox 97.6 F 85 18 138/82 97 12/26/24 08:00 12/26/24 08:00 12/26/24 08:15 12/26/24 08:00 12/26/24 08:00 General: Alert, In no apparent distress, Oriented x3 HEENT: Atraumatic, PERRLA Neck: Supple, JVD not distended Respiratory: Clear to auscultation bilaterally, Normal air movement Cardiovascular: Regular rate/rhythm, Normal S1 S2 Gastrointestinal: Non-distended, Other (RAI drain and abd binder in place) Neurological: Normal speech, Normal affect Laboratory Data at Discharge: WBC 5.60 thou/uL (4.3-10.9) 12/25/24 06:01 Hgb 11.6 g/dL (12.0-15.0) L 12/25/24 06:01 Hct 35.4 % (36.0-45.0) L 12/25/24 06:01 Plt Count 155 thou/uL (152-406) 12/25/24 06:01 PT 11.7 SECONDS (10-13.0) 12/25/24 06:01 INR 1.04 12/25/24 06:01 Sodium 141 mEq/L (136-145) 12/25/24 08:31 Potassium 3.9 mEq/L (3.5-5.1) 12/25/24 08:31 BUN 9 mg/dL (7-18) 12/25/24 08:31 Creatinine 0.76 mg/dL (0.55-1.02) 12/25/24 08:31 Glucose 108 mg/dL (74-106) H 12/25/24 08:31 Magnesium 1.8 mg/dL (1.6-2.4) 12/23/24 22:42 Total Bilirubin 0.2 mg/dL (0.2-1.0) 12/25/24 06:01 AST 19 U/L (15-37) 12/25/24 06:01 ALT 18 U/L (13-56) 12/25/24 06:01 Alkaline Phosphatase 79 U/L (45-117) D 12/25/24 06:01 Lipase 23 U/L (13-75) 12/23/24 22:42 <Lupillo Hugo - Last Filed: 12/26/24 12:12> Vital Signs/Physical Exam: Temp Pulse Resp BP Pulse Ox 97.7 F 87 18 129/85 97 12/26/24 12:00 12/26/24 12:00 12/26/24 12:53 12/26/24 12:00 12/26/24 12:00 Laboratory Data at Discharge: WBC 5.60 thou/uL (4.3-10.9) 12/25/24 06:01 Hgb 11.6 g/dL (12.0-15.0) L 12/25/24 06:01 Hct 35.4 % (36.0-45.0) L 12/25/24 06:01 Plt Count 155 thou/uL (152-406) 12/25/24 06:01 PT 11.7 SECONDS (10-13.0) 12/25/24 06:01 INR 1.04 12/25/24 06:01 Sodium 141 mEq/L (136-145) 12/25/24 08:31 Potassium 3.9 mEq/L (3.5-5.1) 12/25/24 08:31 BUN 9 mg/dL (7-18) 12/25/24 08:31 Creatinine 0.76 mg/dL (0.55-1.02) 12/25/24 08:31 Glucose 108 mg/dL (74-106) H 12/25/24 08:31 Magnesium 1.8 mg/dL (1.6-2.4) 12/23/24 22:42 Total Bilirubin 0.2 mg/dL (0.2-1.0) 12/25/24 06:01 AST 19 U/L (15-37) 12/25/24 06:01 ALT 18 U/L (13-56) 12/25/24 06:01 Alkaline Phosphatase 79 U/L (45-117) D 12/25/24 06:01 Lipase 23 U/L (13-75) 12/23/24 22:42 <Emil Snowden - Last Filed: 12/26/24 15:39> Diet: Regular Activity: Ad jacky Time spent managing pt's care (in minutes): 45 <Lupillo Hugo - Last Filed: 12/26/24 12:12> Physician Review: Patient Assessed, Agree with Above Assessment and Plan <Emil Snowden - Last Filed: 12/26/24 15:39> Home Medications: Cyclobenzaprine [Flexeril*] 1 tab PO BID 12/17/24 Gabapentin 1 tab PO BID 12/17/24 Hydrocodone Bit/Acetaminophen [[place] 10-325 Tablet] 1 tab PO Q6H PRN 08/18/25 Amox/Clavulanate [Augmentin 875-125 Tab] 875 mg PO BID 5 Days #10 tab 12/26/24 New Medications: Amox/Clavulanate [Augmentin 875-125 Tab] 875 mg PO BID 5 Days #10 tab Physician Discharge Instructions: Patient's initial hospitalization was for a ventral hernia with colonic obstruction on 12/17, she was subsequently discharged on 12/20. She returned to the hospital on 12/24 with abdominal pain, nausea and vomiting. CT was performed on admission which showed evidence of ventral wall hernia repair with loculated fluid collection contained in the residual hernia sac in the subcutaneous tissues. General surgery and radiology reviewed imaging and believe that this is a seroma. Patient underwent IR drain placement on 12/25 and is doing well after drain placement. She stable for discharge and outpatient follow-up with general surgery in 1 week for drain removal. She will be prescribed 5 days of oral antibiotics as well. Continue other home medications as previously prescribed Follow-up with general surgeryDr. Toño in 1 week Followup: Hunter Lundberg MD [ACTIVE - CAN ADMIT] - 1 Week NONE,NONE [Primary Care Provider] -
[2024-12-26 14:07] VITALS: BP 129/85; TEMP 97.7
== END 2024-12-26 13:53 | disposition home or self-care (01) | DRG 921 ==
LOC: ER 22:19 → ERHOLD 12-24 02:07 → 2ND 12-24 03:22
PROVIDERS: ADMIT Family Medicine; ATTEND Family Medicine
PROC: 0W9G30Z Drainage of Peritoneal Cavity with Drainage Device, Percutaneous Approach (ICD-10-PCS; principal; 2024-12-25)
DX: K91.872 Postprocedural seroma of a digestive system organ or structure following a digestive system procedure (principal); I10 Essential (primary) hypertension; E66.9 Obesity, unspecified; K74.60 Unspecified cirrhosis of liver; J44.9 Chronic obstructive pulmonary disease, unspecified; F17.210 Nicotine dependence, cigarettes, uncomplicated; Z71.6 Tobacco abuse counseling; Z88.1 Allergy status to other antibiotic agents; Z68.36 Body mass index [BMI] 36.0-36.9, adult; Z86.711 Personal history of pulmonary embolism; Z86.718 Personal history of other venous thrombosis and embolism
CPT/HCPCS: 36415; 49180; 71045; 71260; 74177; 76942; 80048; 80053; 80076; 83690; 83735; 83880; 84484; 85025; 85027; 85610; 93005; 96361; 96374; 96375; 99285; J2270; J2405; J2470; J2543; J7030; Q9967